=== PATIENT | female | born 1940 | race Caucasian/White ===

== ENCOUNTER 2016-08-14 06:42 | Inpatient (IN) | payer OTHER ==
--- NOTE | 2016-07-27 13:43 | DIAGNOSTIC IMAGING REPORT ---
CHEST 2 VIEWS ROUTINE CLINICAL HISTORY: Preoperative chest COMPARISON STUDY: No previous studies for comparison. FINDINGS: The heart is the upper limits of normal in size. There is a retrocardiac opacity consistent with a hiatal hernia. There is no overt failure. There is no focal pulmonary consolidation. Prominence the basal markings is felt to be secondary to the patient's body habitus.[ IMPRESSION: Hiatal hernia. No acute findings. Electronically signed by: Leander Tavarez M.D. 07/27/2016 1:42 PM Dictated Date/Time: 07/27/2016 1:41 PM
[2016-07-27 13:56] LABS: URINE APPEARANCE CLEAR (CLEAR); URINE BILIRUBIN NEG (NEG); URINE COLOR YELLOW; URINE NITRITE NEG (NEG); URINE PH 5.5 (4.5-7.5); URINE SPECIFIC GRAVITY 1.011 (1.000-1.030); UROBILINOGEN NEG (NEG)
[2016-07-27 14:02] LABS: MANUAL MICROSCOPIC REQUIRED? NO; REVIEW REQ? NO
[2016-07-27 14:17] LABS: PARTIAL THROMBOPLASTIN RATIO 0.9; PROTHROMBIN TIME (PATIENT) 10.6 SECONDS (9.0-12.0)
[2016-07-29 10:17] VITALS: BMI 51.0
--- NOTE | 2016-08-13 18:29 | HISTORY & PHYSICAL EXAMINATION ---
DATE OF ADMISSION: 08/14/2016 SUBJECTIVE CHIEF COMPLAINT: Right ankle deformity. HISTORY OF PRESENT ILLNESS: This is a patient who had undergone a previous right ankle fusion. She was seen because of deformity of the right ankle, also worsening pain in the hindfoot and worsening arthritic pain. She is now being set up for surgical treatment. PAST MEDICAL HISTORY: Hypertension, hypercholesterolemia, sleep apnea with CPAP, anxiety, osteoarthritis, low back pain, acid reflux, obesity. SOCIAL HISTORY: The patient denies alcohol and tobacco use. FAMILY HISTORY: Noncontributory. PAST SURGICAL HISTORY: Cholecystectomy and a right ankle fusion. ALLERGIES: No known drug allergies. CURRENT MEDICATIONS: Escitalopram 20 mg 1 p.o. daily, vitamin D3 one p.o. daily, Flonase 50 mcg 1 spray in each nostril daily, furosemide 40 mg 1 p.o. daily, [place] 5/325 mg 1-2 every 4 hours as needed for pain, iron supplement 80 mg 1 p.o. daily, lisinopril 10 mg 1 p.o. daily, lovastatin 20 mg 1 p.o. at bedtime, multivitamin 1 p.o. daily, vitamin C 500 mg 1 p.o. daily, Tylenol Arthritis 650 mg 2 tablets by mouth every 8 hours as needed for pain, vitamin B12 1000 mcg 1 p.o. daily, cinnamon supplement 500 mg 2 p.o. daily. OBJECTIVE PHYSICAL EXAMINATION: GENERAL: The patient is alert and oriented x3. She is in no distress. She is a well-dressed, well-nourished 76-year-old female. Her affect is appropriate. CARDIOVASCULAR: Dorsalis pedis, posterior tib pulse +2/4. Cap refill is less than 2 seconds. HEART: Regular rhythm and rate without murmurs. LUNGS: Clear to auscultation bilaterally. LYMPHATICS: No evidence of any swollen lymph nodes. MUSCULOSKELETAL: The patient does has an antalgic gait favoring the right lower extremity. Upon inspection of right lower extremity, there is a varus deformity of the right ankle. With palpation, she has tenderness at the sinus tarsi of the right ankle. She has limited range of motion because of the ankle fusion and hindfoot osteoarthritis. Achilles tightness is also noted. SKIN: There is well-healed surgical incision in the lateral aspect of the ankle. NEUROLOGIC: Sensation normal and intact distally. X-RAY EXAM: Multiple views of the right ankle demonstrate a well-healed right ankle fusion; however, the fusion is noted to be in varus. There is severe degenerative joint disease of the subtalar joint with spurring and subchondral sclerosis. ASSESSMENT AND DIAGNOSES: 1. Right ankle varus deformity. 2. History of right ankle fusion. 3. Right subtalar osteoarthritis. 4. Right Achilles tendon contracture. PLAN: Above assessment was discussed with the patient. At this time it was recommended the patient undergo a right ankle lateral closing wedge osteotomy of previous ankle fusion, subtalar fusion, percutaneous Tendo-Achilles Lengthening and application of platelet rich plasma. All potential risks, benefits, complications, alternatives and rehab have been discussed with the patient. At this time, she wishes to proceed with the surgery as indicated. She will be scheduled for the surgery on 08/14/2016. LEÓN
[2016-08-14] VITALS (8 sets, daily range): BP systolic 110–149; BP diastolic 72–89; PULSE 80–107; TEMP 36.5–37.3; O2SAT 93–99; Ht 149.9 cm; Wt 115.2 kg
[~2016-08-14] VITALS: Ht 149.9 cm; Wt 115.2 kg
[~2016-08-14 06:42] MED LIST: ASCO1CAP3 PO; ATROPINE SULFATE 0.1 MG/ML 5ML SYR IV PRN; CEFAZOLIN 2000 MG/60 ML D5W IV SCH; CHOL1CAP57 PO; CINN1CAP2 PO; CITA20TA4 PO; CYAN10005 PO; EpHEDrine SULFATE INJ 50 MG/ML AMP IV PRN; FENTANYL CITRATE INJ 50 MCG/1 ML 2 ML VIAL IV PRN; FERR50TA3; FLUT0.15 NAE; FRS/40 PO; HYDR-4313 PO; LACTATED RINGER'S 1000ML 1,000 ML IV SCH; LISI10TA PO; LOVA20TA4 PO; MULT-506 PO; ONDANSETRON INJ 2 MG/ML 2 ML VIAL IV PRN; POTA1TAB97 PO; PRLSR20 PO; TYLER650 PO
--- NOTE | 2016-08-14 07:31 | History & Physical Bridge Note ---
H&P Re-Evaluation Bridge Note: I have examined the patient, reviewed the History & Physical and in the interval since the performance of the History & Physical I have noted the following changes of clinical significance: No changes noted
[2016-08-14] MEDS ORDERED: ROPIVACAINE 0.5% 5 MG/ML 30 ML VIAL ONE (08:15)
[2016-08-14] MEDS ORDERED: MIDAZOLAM HCL 1 MG/ML 2ML VIAL ONE (08:47)
[2016-08-14] MEDS ORDERED: FENTANYL CITRATE INJ 50 MCG/1 ML 2 ML VIAL ONE ×2 (08:48→12:19)
[2016-08-14] MEDS ORDERED: CALCIUM CHLORIDE 10% 10 ML SYR ONE (10:09)
[2016-08-14] MEDS ORDERED: THROMBIN 5000 UNITS KIT ONE (10:09)
[2016-08-14] MEDS ORDERED: LIDOCAINE HCL 2% 2 ML VIAL (20MG/ML) ONE (10:57)
[2016-08-14] MEDS ORDERED: GLYCOPYRROLATE INJ 0.2 MG/ML VIAL ONE (10:57)
[2016-08-14] MEDS ORDERED: ONDANSETRON INJ 2 MG/ML 2 ML VIAL ONE (10:57)
[2016-08-14] MEDS ORDERED: PROPOFOL IV EMULSION 10 MG/ML 20 ML VIAL IV ONE (10:57)
[2016-08-14] MEDS ORDERED: NEOSTIGMINE METHYLSULFATE 5 MG/5 ML SYR ONE (10:57)
[2016-08-14] MEDS ORDERED: DEXAMETHASONE SOD INJ 4 MG/ML VIAL ONE (10:57)
[2016-08-14] MEDS ORDERED: ROCURONIUM BROMIDE 10 MG/ML 5 ML VIAL ONE (10:57)
[2016-08-14] MEDS ORDERED: ONDANSETRON INJ 2 MG/ML 2 ML VIAL IV PRN (13:15)
[2016-08-14] MEDS ORDERED: ZOLPIDEM TARTRATE 5 MG TAB PO PRN (13:15)
[2016-08-14] MEDS ORDERED: MoRPHine SULFATE 2 MG/ML CARP IV PRN (13:15)
[2016-08-14] MEDS ORDERED: MAGNESIUM HYDROXIDE SUSP 30 ML UDC PO PRN (13:15)
[2016-08-14] MEDS ORDERED: BISACODYL 10 MG SUPP PR PRN (13:15)
[2016-08-14] MEDS ORDERED: SOD PHOSPHATE/SOD BIPHOSPHATE ENEMA 132 ML BTL PR PRN (13:15)
[2016-08-14] MEDS ORDERED: ALUMINUM/MAGNESIUM/SIMETH (MAALOX MAX) 30 ML UDC PO PRN (13:15)
[2016-08-14] MEDS ORDERED: FLUTICASONE PROPIONATE NA SPR 16 GM BTL NAE PRN (13:15)
[2016-08-14] MEDS ORDERED: OXYCODONE HCL IR 5 MG TAB (IMMEDIATE RELEASE) PO PRN (13:15)
[2016-08-14] MEDS ORDERED: NO NSAIDS SCH (13:15)
--- NOTE | 2016-08-14 14:16 | DIAGNOSTIC IMAGING REPORT ---
INTRAOPERATIVE RIGHT ANKLE 4 VIEWS CLINICAL HISTORY: Right ankle reconstruction COMPARISON STUDY: No previous studies for comparison. FINDINGS: 108 seconds of fluoroscopic time was utilized. 4 intraoperative fluoroscopic spot images are provided for interpretation. There is evidence of a distal fibular osteotomy. There is evidence of a tibiotalus are and talo calcaneal fusion. A metallic jerardo traverses the tibiotalar and talocalcaneal joint. Two Calcaneal screws are visualized. There is a talonavicular screw. Advanced arthritic changes are present within the hindfoot. There is a plantar calcaneal spur. IMPRESSION: Intraoperative radiographs demonstrating a hindfoot and tibiotalar fusion Electronically signed by: Leander Tavarez M.D. 08/14/2016 2:15 PM Dictated Date/Time: 08/14/2016 2:12 PM
--- NOTE | 2016-08-14 14:31 | [facility] Post Operative Brief Note ---
Immediate Operative Summary Operative Date Aug 14, 2016. Pre-Operative Diagnosis 1. Right ankle varus deformity. 2. Malunion right ankle fusion. 3. Right subtalar DJD/osteoarthritis. 4. Right Achilles tendon contracture 5. Talonavicular joint DJD/Osteoarthritis. Post-Operative Diagnosis 1. Right ankle varus deformity. 2. Malunion right ankle fusion. 3. Right subtalar DJD/osteoarthritis. 4. Right Achilles tendon contracture 5. Talonavicular joint DJD/Osteoarthritis. Procedure(s) Performed Right Ankle Subtalar Fusion w/ Autografting; Implantattion Retrocalcaneal Nail, Medial Distal Tibial Opening Wedge Osteotomy with Autografting; Percutaneous Tendon Achilles Lengthening;Talonavicular Fusion w/ Autografting, Application Platelet Rich Plasma Concentrate Surgeon Dr Pepe Electrician Control Equipment Surgeon(s) Tray Ellington PA-C Estimated Blood Loss 100ml Findings See Dict Specimens none Drains HV x 1 Anesthesia GLMA w/ popliteal block Complication(s) None Disposition Recovery Room / PACU
--- NOTE | 2016-08-14 14:51 | DIAGNOSTIC IMAGING REPORT ---
RIGHT ANKLE MIN 3 VIEWS ROUTINE CLINICAL HISTORY: post op Right COMPARISON STUDY: Right ankle 08/14/2016. FINDINGS: Overlying splint material obscures fine bony detail. Skin iveth and surgical drains are in place. Evidence for distal tibial osteotomy. There is a short intermedullary jerardo within the distal tibia which extends through the talus and calcaneus with screws transfixing the subtalar and talonavicular joints. The hardware appears intact. Resection of the distal fibula. IMPRESSION: Postoperative changes within the right ankle as described above. The hardware appears intact. Electronically signed by: Carlos Mcpherson M.D. 08/14/2016 2:50 PM Dictated Date/Time: 08/14/2016 2:48 PM
--- NOTE | 2016-08-14 14:57 | Anesthesiology Progress Note ---
Anesthesia Post Op Note Date & Time Aug 14, 2016 at 14:57 Vital Signs Pain Intensity: 0 Vital Signs Past 12 Hours Date Time Temp Pulse Resp B/P (MAP) Pulse Ox O2 Delivery O2 Flow Rate FiO2 08/14/16 14:45 91 16 138/78 94 Nasal Cannula 2 08/14/16 14:35 91 18 138/88 97 Mask 10 08/14/16 14:25 93 18 145/71 96 Mask 10 08/14/16 14:15 36.9 98 18 147/83 96 Mask 10 08/14/16 10:00 73 20 131/80 (97) 100 Diffusion Mask 10 08/14/16 09:50 91 20 133/88 (103) 100 Diffusion Mask 10 08/14/16 07:19 36.8 95 24 147/89 99 Room Air Notes Mental Status: alert / awake / arousable, participated in evaluation Pt Amnestic to Procedure: Yes Nausea / Vomiting: adequately controlled Pain: adequately controlled Airway Patency, RR, SpO2: stable & adequate BP & HR: stable & adequate Hydration State: stable & adequate Anesthetic Complications: no major complications apparent
--- NOTE | 2016-08-14 16:07 | OPERATIVE REPORT ---
DATE OF OPERATION: 08/14/2016 PREOPERATIVE DIAGNOSES: 1. Right ankle fusion varus malunion. 2. Subtalar joint degenerative joint disease. 3. Achilles contracture. POSTOPERATIVE DIAGNOSES: 1. Right ankle fusion varus malunion. 2. Subtalar joint disease degenerative joint disease. 3. Talonavicular joint degenerative joint disease. 4. Achilles tendon contracture. PROCEDURES: 1. Right subtalar joint fusion with autografting. 2. Talonavicular joint fusion with autografting. 3. Retrocalcaneal nailing. 4. Medial distal tibial opening wedge osteotomy with application of autograft. 5. Percutaneous TendoAchilles lengthening. 6. Application of platelet rich plasma concentrate. SURGEON: Dr. Pepe. RESEARCH AND DEVELOPMENT TECHNICIAN: Tray Ellington PA-C, who was present for patient positioning, sterile prep and drape, management of retractors and instruments. He was present through the critical portions of the case including wound closure, application of sterile dressing and transport of the patient to recovery. ANESTHESIA: General LMA with popliteal block. SPECIMENS: None. DRAINS: Hemovac x1. COMPLICATIONS: None. BLOOD LOSS: 100 mL. PERTINENT HISTORY: This is a 76-year-old female who had a previous attempted right ankle fusion by a local director bioinformatics. She developed a varus malunion and she had her hardware removed and she was dissatisfied with the result and did not want to have the director bioinformatics attempt another fusion. She then presented to my clinic for definitive care and management. The patient had radiographs and CT scan was then scheduled for surgery as indicated. All potential risks, benefits, complications, alternatives, rehab, potential for incomplete relief of symptoms, need for further surgery, DVT, PE, , persistent pain, swelling, scarring, weakness, neurovascular injury, wound complications, potential for bone fracture, malunion, nonunion or hardware failure were discussed with the patient and the patient decided to proceed with the procedure as indicated. OPERATION AND FINDINGS: PROCEDURE: The patient had a popliteal block in the preop holding area, she was then taken to the operative suite and placed supine on the operating room table. After review of the consent and identification of proper operative site, the patient was anesthetized, LMA was placed. Tourniquet was placed high on the right thigh over cast padding. Right lower extremity was then sterilely prepped and draped in usual fashion, elevated, and exsanguinated with an Esmarch bandage, tourniquet inflated to 350 mmHg. Next, the foot was held in dorsiflexion and a 3-part percutaneous TendoAchilles lengthening was performed with an 11 blade scalpel, releasing a portion of the posterior contracture. These small stab incisions in the Achilles was then closed using a skin stapler. Next, the 15 blade scalpel was used to make an incision over the lateral aspect of the hindfoot extending proximally into the ankle at the site of previous incision. The incision was then deepened through subcutaneous tissue and meticulous hemostasis was achieved with electrocautery. Full thickness skin flaps were developed and careful dissection of the scar tissue was performed with a 15 blade scalpel and then eventually Metzenbaum scissors and forceps. The extensor digitorum brevis was then identified and incised in line with the skin incision, elevated both superiorly and inferiorly and protected. The subtalar joint was then entered with the 15 blade scalpel elevating soft tissue superiorly and inferiorly and elevating tissue from the sinus tarsi. The subtalar joint was then noted to have significant degenerative arthritis with significant loss of articular cartilage. The remainder of the articular cartilage was then removed using a curette and rongeur. Next, this was irrigated with sterile normal saline. The talonavicular joint was noted to have significant severe degenerative arthritis with near complete loss of articular cartilage. Remainder of the articular cartilage was then resected with a rongeur and a curette. Next, the wound was copiously irrigated with sterile normal saline. Next, a 2 mm drill bit was used to make multiple drill holes in the subtalar joint and the talonavicular joint to encourage bleeding into the joint fusion and to encourage release of mesenchymal stem cell colonies. Next, the soft tissues elevated from the anterior aspect of the varus malunion ankle fusion and then a Navarro elevator was then placed anterior aspect of the distal tibia. Under live fluoroscopic assistance, the orientation of the anterior medially based distal tibial opening wedge osteotomy was then confirmed and marked with a sagittal saw and then the corticotomy was performed with the sagittal saw using appropriate soft tissue retractors in the distal anteromedial tibia. Next, using a sequence of stacked osteotomes the osteotomy was opened while using a tenaculum forceps to maintain the hinge laterally under compression. Next, appropriate correction was obtained and the stacked osteotomes were held in place while 0.062 inch K wires x3 were used to scaffold the correction required transfixing the 2 portions of the corticotomy and opening wedge osteotomy. The patient's venous blood was harvested approximately 55 mL, spun in a centrifuge and then the platelet rich plasma concentrate was then collected for use later in the case. Next, the 15 blade scalpel was then used to make an incision in the plantar aspect of the heel tuberosity and slightly anterior. The incision was then carefully deepened through subcutaneous tissue and meticulous hemostasis was achieved with electrocautery. Dissection was further performed with a small Aminata clamp down to the level of the calcaneus. Next guide pin for the retrocalcaneal nail was then passed through the calcaneus with care to hold the subtalar joint in neutral accounting for approximately 7 degrees of valgus that the retrocalcaneal nail would produce. Next, the guidepin was then crossed into the body of the talus and then under live fluoroscopic assistance was then passed in the distal tibia while maintaining the corrective osteotomy of the medial distal tibia with the K-wires. Next, the drill bit was removed followed by placement of a 5 mm drill bit in the distal tibia followed by placement of a bolted guidewire. After sequential reaming up to size 11 mm all wounds were then copiously irrigated with sterile normal saline. Next, the subtalar joint and talonavicular joint where then fish scaled with a 6 mm osteotome and mallet to encourage increased surface area perfusion. The reamings from the calcaneus, talus, and distal tibia were then saved for later use in the case as autograft. Next, the 10 mm x 180 mm hindfoot arthrodesis cannulated retrocalcaneal nail was then passed over the ball tipped guidewire crossing the calcaneus, talus and tibia. After appropriate depth was determined with C-arm fluoroscopy, the 15 blade scalpel was used to make an incision in the posterior aspect of the calcaneus following placement of the spiral blade 70 mm in length as well as a 6 mm solid titanium screw 70 mm in length. These were both countersunk below the level of the posterior calcaneus. Next the driving cap was then inserted onto the nail assistant finance director and the subtalar joint was then impacted with autograft placed in the subtalar joint. Next, the posterolateral talus locking screw was then implanted using a small stab incision, a 15 blade scalpel, placed under live fluoroscopic assistance. Once this firmly inserted and tightened the driving cap was placed in the distal aspect of the nail assistant finance director and autograft was then packed into the corticotomy and opening wedge osteotomy distal medial tibia. Next, the nail was then further impacted to compress the corticotomy lateral aspect and to gently load the autograft medially. Next, the medial locking screws x2 in the tibia were placed using 2 stab incisions with a 15 blade scalpel under live fluoroscopic assistance. After the locking screws were placed the construct was then stable and compressed. Next, platelet rich plasma concentrate was then injected into the opening wedge osteotomy distal medial tibia into the subtalar joint fusion and the talonavicular joint fusion. Talonavicular joint was fused by elongating the screw through the posterolateral talar locking screw caps the talonavicular joint compressible. Next, the 10 [place] Hemovac drain was placed in the anterolateral aspect of the hindfoot followed by gentle irrigation with sterile normal saline in the soft tissues only taking care to avoid irrigating the platelet rich plasma concentrate. Next, the deep soft tissue laterally was then closed with 2-0 Vicryl, more platelet rich plasma concentrate was injected in the soft tissues and fusion site followed by injection of PRP in the posterior incision, medial incision and the posterolateral incision. Next, the small stab incisions were then closed using buried interrupted 3-0 Vicryl and skin incisions were closed using 4-0 nylon. A sterile compressive dressing and bulky Richi Sands plaster splint was applied in neutral dorsiflexion. The tourniquet was released. The patient was awakened and taken to recovery in stable condition. I attest to the content of the Intraoperative Record and any orders documented therein. Any exception s are noted below.
[2016-08-14] MEDS: D5W AND 1/2NSS + 20MEQ KCL 1,000 ML IV SCH (16:38)
[2016-08-14] MEDS: ACETAMINOPHEN 500 MG TAB PO SCH ×2 (16:39→21:37)
[2016-08-14] MEDS: CEFAZOLIN IV 2,000 MG in DEXTROSE 5% 50ML 50 ML IV SCH (19:28)
[2016-08-14] MEDS: DOCUSATE SODIUM 100 MG CAP PO SCH (20:58)
[2016-08-14] MEDS ORDERED: LOVASTATIN 20 MG TAB PO SCH (21:00)
[2016-08-14] MEDS ORDERED: SENNA 8.6 MG TAB PO SCH (21:00)
--- NOTE | 2016-08-14 21:32 | INTERNAL MEDICINE CONSULTATION ---
DATE OF CONSULTATION: 08/14/2016 CHIEF COMPLAINT: Status post right ankle surgery. HISTORY OF PRESENT ILLNESS: This is a 76-year-old female with past medical history significant for hyperlipidemia, sleep apnea, impaired fasting glucose, GERD, depression, and hypertension, iron deficiency anemia, is status post a right ankle surgery. He tolerated the procedure okay. Pain is under control. Denies any chest pain or shortness of breath. No nausea, no vomiting, no abdominal pain, no blurred vision, no headaches, resting comfortably. Denies any other complaints. ALLERGIES: No known drug allergies. PAST MEDICAL HISTORY: As mentioned above. PAST SURGICAL HISTORY: Colonoscopy with biopsy and polyp removal, dilatation and curettage, fusion of the right ankle joint in 2006, cholecystectomy. MEDICATIONS: The patient is on Lasix 60 mg p.o. daily, potassium chloride 20 mEq p.o. daily, hydrocodone/acetaminophen 5/325 mg one tablet every 4 hours p.r.n. pain, Mevacor 20 mg p.o. at bedtime, lisinopril 40 mg p.o. daily, omeprazole 20 mg p.o. daily, ferrous sulfate 1 tablet p.o. daily, cyanocobalamin ER 1000 mcg p.o. daily, citalopram 20 mg p.o. daily, Flonase 2 sprays into each nostril daily, vitamin D 1000 units two pills a day, vitamin C 500 mg p.o. daily, Tylenol Arthritis 2 tablets every 8 hours p.r.n., multivitamins 1 tablet p.o. daily. FAMILY HISTORY: Significant for: Father had leukemia, mother has heart disorder. Brother has MS. SOCIAL HISTORY: , never smoked. Alcohol occasionally. No drug use. REVIEW OF SYMPTOMS: As per HPI. Rest of review of symptoms negative. PHYSICAL EXAMINATION: GENERAL: The patient is obese, not in distress. VITAL SIGNS: Temperature 36.9, pulse 80, respiratory rate 18, blood pressure 146/78, oxygen 97% on 2 liters. HEENT: No pallor, no icterus. NECK: No neck masses, supple. CARDIOVASCULAR: S1, S2 heard, regular rate and rhythm. No murmur, no gallop. RESPIRATORY: Clear to auscultation bilaterally. No wheezing, no crackles. ABDOMEN: Soft, bowel sounds present. Nontender. No distention. CENTRAL NERVOUS SYSTEM: Nonfocal. EXTREMITIES: Status post right ankle surgery, is in dressing and drain seen. LABORATORY DATA: Unavailable. ASSESSMENT AND PLAN: This is a 76-year-old female status post right ankle surgery. 1. Right ankle surgery. Management as per orthopedics. Pain control, and physical therapy, occupational therapy as per orthopedics. 2. Hypertension. Continue home medication of lisinopril. We will monitor the blood pressure in the hospital. 3. History of sleep apnea, CPAP at bedtime. 4. History of gastroesophageal reflux disease. Continue omeprazole. 5. History of iron deficiency anemia. Continue iron supplements. 6. Depression, continue Celexa. 7. Hyperlipidemia. Continue statin. 8. Deep venous thrombosis prophylaxis and disposition as per orthopedics. MTDD
[2016-08-15] MEDS: D5W AND 1/2NSS + 20MEQ KCL 1,000 ML IV SCH (02:00)
[2016-08-15] MEDS: CEFAZOLIN IV 2,000 MG in DEXTROSE 5% 50ML 50 ML IV SCH (02:00)
[2016-08-15 03:45] VITALS: BP 123/69; PULSE 92; TEMP 36.7; O2SAT 97
[2016-08-15] MEDS: ACETAMINOPHEN 500 MG TAB PO SCH (05:43)
[2016-08-15 05:55] LABS: HEMATOCRIT 29.7 % (37-47); MEAN CELL VOLUME 85.8 fL (80-100); MEAN CORPUSCULAR HEMOGLOBIN 27.7 pg (25-34); MEAN CORPUSCULAR HGB CONC 32.3 g/dl (32-36); MEAN PLATELET VOLUME 8.7 fL (7.4-10.4); PLATELET COUNT 273 K/uL (130-400); RED BLOOD COUNT 3.46 M/uL (4.2-5.4); WHITE BLOOD COUNT 9.73 K/uL (4.8-10.8)
[2016-08-15 06:25] LABS: BUN/CREATININE RATIO 15.3 (10-20); CALCIUM 8.7 mg/dl (8.5-10.1); CREATININE 0.76 mg/dl (0.60-1.20); POTASSIUM 4.5 mmol/L (3.5-5.1)
[2016-08-15 08:04] VITALS: BP 152/90; PULSE 82; TEMP 36.8; O2SAT 95
[2016-08-15] MEDS: DOCUSATE SODIUM 100 MG CAP PO SCH (08:31)
[2016-08-15] MEDS ORDERED: POTASSIUM CHLORIDE 20 MEQ TABCR PO SCH (09:00)
[2016-08-15] MEDS ORDERED: FERROUS SULFATE 325 MG TAB PO SCH (09:00)
[2016-08-15] MEDS ORDERED: FUROSEMIDE 40 MG TAB PO SCH (09:00)
[2016-08-15] MEDS ORDERED: CYANOCOBALAMIN 500 MCG TAB (VIT B-12) PO SCH (09:00)
[2016-08-15] MEDS ORDERED: ASCORBIC ACID 500 MG TAB PO SCH (09:00)
[2016-08-15] MEDS ORDERED: LISINOPRIL 10 MG TAB PO SCH (09:00)
[2016-08-15] MEDS ORDERED: CINNAMON PO SCH (09:00)
[2016-08-15] MEDS ORDERED: PANTOprazole SOD 40 MG TAB PO SCH (09:00)
[2016-08-15] MEDS ORDERED: CITALOPRAM 20 MG TAB PO SCH (09:00)
[2016-08-15] MEDS ORDERED: MULTIVITAMIN TAB PO SCH ×2 (09:00)
[2016-08-15] MEDS ORDERED: CHOLECALCIFEROL 1000 INTER.UNIT TAB PO SCH (09:00)
--- NOTE | 2016-08-15 09:15 | Orthopedic Progress Note ---
Orthopedic Progress Note Date of Service Aug 15, 2016. Subjective Post OP Day: 1 Reports: feeling well, pain controlled w PO medications, Denies: complaints, chest pain, SOB, light headedness Additional Notes: States the dressing was bloody last night so the dressing was re-inforced. Objective calves soft nontender, N/V intact, splint C/D/I, capillary refill less than 2 sec., dressing C/D/I (Reinforced dressing is in place.), A&O x3, toes mobile, hemovac drainage (0) Date Time Temp Pulse Resp B/P (MAP) Pulse Ox O2 Delivery O2 Flow Rate FiO2 08/15/16 08:04 36.8 82 20 152/90 (110) 95 Room Air 08/15/16 07:35 Room Air 08/15/16 03:45 36.7 92 16 123/69 (87) 97 BiPAP 08/14/16 23:30 BiPAP 08/14/16 23:30 36.8 97 16 125/72 (89) 97 BiPAP 08/14/16 20:10 36.8 98 18 110/72 (85) 93 Room Air 08/14/16 18:15 37.3 107 18 137/79 (98) 96 Nasal Cannula 2.0 08/14/16 17:15 36.5 91 18 149/83 (105) 95 Nasal Cannula 2.0 08/14/16 16:15 36.5 92 16 148/89 (108) 99 Nasal Cannula 2.0 08/14/16 15:45 36.9 80 18 146/78 (100) 97 Nasal Cannula 2.0 08/14/16 15:15 Nasal Cannula 2.0 08/14/16 15:15 94 Nasal Cannula 2.0 08/14/16 15:15 36.8 92 16 143/73 (96) 94 Nasal Cannula 2.0 08/14/16 15:05 37.1 91 16 146/69 95 Nasal Cannula 2 08/14/16 14:55 89 16 151/58 95 Nasal Cannula 2 08/14/16 14:45 91 16 138/78 94 Nasal Cannula 2 08/14/16 14:35 91 18 138/88 97 Mask 10 08/14/16 14:25 93 18 145/71 96 Mask 10 08/14/16 14:15 36.9 98 18 147/83 96 Mask 10 08/14/16 10:00 73 20 131/80 (97) 100 Diffusion Mask 10 08/14/16 09:50 91 20 133/88 (103) 100 Diffusion Mask 10 Laboratory Results 24 Hours: Test 08/15/16 05:30 Hematocrit 29.7 % Hemoglobin 9.6 g/dL Assessment & Plan Assessment: POD #1 s/p 1. Right subtalar joint fusion with autografting. 2. Talonavicular joint fusion with autografting. 3. Retrocalcaneal nailing. 4. Medial distal tibial opening wedge osteotomy with application of autograft. 5. Percutaneous TendoAchilles lengthening. 6. Application of platelet rich plasma concentrate Plan: Plan for d/c today with home nursing. NWB LLE at all times. Aspirin BID for 30 days for DVT prophylaxis Inhouse Planning Pain Management: Morphine, PO Tylenol, Oxy IR DVT Prophylaxis: HARLAN Kerr Discharge Planning Discharge Planning: home with home health Pain Management: Percocet DVT Prophylaxis: HARLAN Kerr
[2016-08-15] MEDS ORDERED: OXYC-57 PO (09:16)
[2016-08-15] MEDS ORDERED: ASPEC81 PO (09:18)
--- NOTE | 2016-08-15 09:18 | Discharge Instructions ---
Discharge Instructions Date of Service Aug 15, 2016. 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 Instructions / Follow-Up Instructions / Follow-Up ACTIVITY RECOMMENDATIONS: Limitations: No weight bearing to affected limb at all times. SPECIAL CARE INSTRUCTIONS: * Take Aspirin every 12 hours for 30 days after surgery. * Some drainage onto the dressing is normal and is no cause for alarm. * Some swelling is natural especially after walking. * When resting, keep your foot elevated above the level of your heart. * Call [facility] if you notice: -Increased drainage -Fever over 101 degrees F -Severe constant pain BANDAGE: * Leave bandage/cast in place unless otherwise directed. * Keep bandage/cast dry at all times. FOLLOW UP VISIT WITH DR. AREVALO If appointment is not already scheduled: Please call [facility] after you get home today to schedule a follow-up appointment for [address] Arevalo at . Also schedule a nurse' s visit with Dr. Arevalo's clinic for in 1 week for a dressing change. Current Hospital Diet Patient's current hospital diet: Regular Diet Discharge Diet Recommended Diet: Regular Diet Procedures Procedures Performed: Right Ankle Subtalar Fusion w/ Autografting; Implantattion Retrocalcaneal Nail, Medial Distal Tibial Opening Wedge Osteotomy with Autografting; Percutaneous Tendon Achilles Lengthening;Talonavicular Fusion w/ Autografting, Application Platelet Rich Plasma Concentrate Pending Studies Studies pending at discharge: no Medical Emergencies . Who to Call and When: Medical Emergencies: If at any time you feel your situation is an emergency, please call 911 immediately. . Non-Emergent Contact Non-Emergency issues call your: Surgeon Call Non-Emergent contact if: temperature is above 101, your pain is not controlled, your pain is worsening . "Provider Documentation" section prepared by Tray Ellington. . VTE Core Measure Inpt VTE Proph given/why not?: Other Anticoagulation (Aspirin 81 mg every 12 hours.), T.E.D. Stockings
[2016-08-15 10:24] VITALS: BP 152/90; PULSE 82; TEMP 36.8; O2SAT 95
[2016-08-15 11:09] VITALS: BP 152/90; PULSE 82; O2SAT 95
--- NOTE | 2016-08-20 21:55 | Discharge Summary ---
Orthopedic Discharge Summary Admission Date/Reason Aug 14, 2016 at 06:55 Short Achilles Tendon Right Ankle, Varus Deformity. Discharge Date/Disposition Aug 15, 2016 Home with services Diagnosis Principal Diagnosis: right hindfoot osteoarthritis, varus deformity ankle fusion. Procedure(s) Performed 1. Right subtalar joint fusion with autografting. 2. Talonavicular joint fusion with autografting. 3. Retrocalcaneal nailing. 4. Medial distal tibial opening wedge osteotomy with application of autograft. 5. Percutaneous TendoAchilles lengthening. 6. Application of platelet rich plasma concentrate Medication Reconciliation New Medications: Aspirin (Aspirin EC Low Dose) 81 Mg Ectab 81 MG PO Q12 for 30 Days Oxycodone/Acetaminophen 5MG/325MG (Percocet 5MG/325MG) Tab 1-2 TABLETS PO Q4H PRN for Pain, #60 TAB Continued Medications: Ascorbic Acid (Vitamin C) 500 Mg Cap 1 TAB PO QAM Cholecalciferol (Vitamin D3) 1,000 Unit Cap 1 CAP PO QAM Cinnamon (Cinnamon) 500 Mg Cap 1 TAB PO QAM Citalopram Hydrobromide (Citalopram Hydrobromide) 20 Mg Tab 1 TAB PO QAM Cyanocobalamin (Vitamin B-12) 1,000 Mcg Tab 1000 MCG PO QAM Ferrous Sulfate (Iron (Ferrous Sulfate)) Unknown Strength Tab Unknown Dose QAM Fluticasone Propionate (Nasal) (Flonase Allergy Relief) 50 Mcg/Act Spr 2 SPRAY ETHAN QAM PRN for CONGESTION Furosemide (Lasix) 40 Mg Tab 1.5 TABS PO QAM Lisinopril (Prinivil) 10 Mg Tab 10 MG PO QAM Lovastatin (Mevacor) 20 Mg Tab 20 MG PO HS Multivitamin (Multivitamin) Tab 1 TAB PO QAM Omeprazole (Prilosec) 20 Mg Capcr 20 MG PO QAM Potassium Chloride (K-Tab) 20 Meq Tab 1 TAB PO QAM Discontinued Medications: Acetaminophen (Tylenol Arthitis Ext Rel) 650 Mg Ertab 650 MG PO Q8H PRN for Pain, CAP Acetaminophen/Hydrocodone (Hydrocodone/Acetaminophen 5-325 mg) 1 Ea Tab 1 TAB PO Q4H PRN for Pain Admission Physical Exam As per Admitting History & Physical. Hospital Course The patient was admitted on 08.14.16 and underwent the above noted procedure. On POD #1, she was doing well with pain control and able to keep NWB on the RLE. She participated in PT in the AM and was the d/c'd home later on POD #1. Discharge Instructions ACTIVITY RECOMMENDATIONS: Limitations: No weight bearing to affected limb at all times. SPECIAL CARE INSTRUCTIONS: * Some drainage onto the dressing is normal and is no cause for alarm. * Some swelling is natural especially after walking. * When resting, keep your foot elevated above the level of your heart. * Call [facility] if you notice: -Increased drainage -Fever over 101 degrees F -Severe constant pain BANDAGE: * Leave bandage/cast in place unless otherwise directed. * Keep bandage/cast dry at all times. FOLLOW UP VISIT WITH DR. AREVALO If appointment is not already scheduled: Please call [facility] after you get home today to schedule a follow-up appointment for [address] Arevalo at . Please refer to the electronic Patient Visit Report (Discharge Instructions) for additional information.
== END 2016-08-15 13:36 | disposition home health service (06) | DRG 493 ==
LOC: C.ACU 06:42 → C.3E 06:55 → ENRESERV 14:44
PROVIDERS: ADMIT Orthopaedic Surgery Sports Medicine; ATTEND Orthopaedic Surgery Sports Medicine
PROC: 0LNS0ZZ Release Right Ankle Tendon, Open Approach (ICD-10-PCS; principal; 2016-08-14 09:30)
PROC: 0SGF07Z Fusion of Right Ankle Joint with Autologous Tissue Substitute, Open Approach (ICD-10-PCS; principal; 2016-08-14 09:30)
PROC: 0Q8G0ZZ Division of Right Tibia, Open Approach (ICD-10-PCS; principal; 2016-08-14 09:30)
DX: M24.571 Contracture, right ankle (principal); Z68.43 Body mass index [BMI] 50.0-59.9, adult; M21.861 Other specified acquired deformities of right lower leg; M19.071 Primary osteoarthritis, right ankle and foot; I10 Essential (primary) hypertension; E78.00 Pure hypercholesterolemia, unspecified; G47.30 Sleep apnea, unspecified; F41.9 Anxiety disorder, unspecified; K21.9 Gastro-esophageal reflux disease without esophagitis; E66.9 Obesity, unspecified; Z79.899 Other long term (current) drug therapy; Z98.890 Other specified postprocedural states

== ENCOUNTER 2016-10-05 12:18 | Emergency (ER) | payer OTHER ==
[~2016-10-05] VITALS: Ht 152.4 cm; Wt 114.7 kg
[~2016-10-05 12:18] MED LIST changes: +ASPEC81 PO; -ATROPINE SULFATE 0.1 MG/ML 5ML SYR IV PRN; -CEFAZOLIN 2000 MG/60 ML D5W IV SCH; -EpHEDrine SULFATE INJ 50 MG/ML AMP IV PRN; -FENTANYL CITRATE INJ 50 MCG/1 ML 2 ML VIAL IV PRN; -HYDR-4313 PO; -LACTATED RINGER'S 1000ML 1,000 ML IV SCH; -ONDANSETRON INJ 2 MG/ML 2 ML VIAL IV PRN; +OXYC-57 PO; -TYLER650 PO
[2016-10-05 12:31] VITALS: TEMP 36.5; O2SAT 89; Ht 152.4 cm; Wt 114.7 kg
[2016-10-05] MEDS ORDERED: SODIUM CHLORIDE 0.9% 1000ML 1,000 ML IV STA (13:08)
[2016-10-05] MEDS ORDERED: SODIUM CHLORIDE 0.9% 250ML 250 ML IV STA (13:08)
--- NOTE | 2016-10-05 13:15 | EMERGENCY ROOM VISIT NOTE ---
History Report prepared by Christelle: Brodie Keyes Under the Supervision of: Dr. Darlin Rogers M.D. First contact with patient: 12:56 Chief Complaint: SHORTNESS OF BREATH Stated Complaint: NAUSEA, VOMIT Nursing Triage Summary: Pt had right ankle fusion surgery on August 14, still has cast on leg. Low mobility at home since surgery, transferring from wheelchair to go to the bathroom. Recent 3hr car ride last week. 3 days ago pt developed dyspnea with transferring from wheelchair to bathroom, today developed N/V/D. Pt denies any respiratory hx, denies any cardiac hx. Pt presents tachypenic: resps 26, tachycardic: HR 120's, hypoxic: sats 89% R/A. History of Present Illness The patient is a 76 year old female who presents to the Emergency Room with complaints of intermittent shortness of breath that began roughly three days ago. The patient is currently using a wheel chair due to a recent right ankle fusion surgery. She notes that she has experienced dyspnea when transferring from her wheel chair to her bed or other chairs. This is unusual for her. The patient notes that she became short of breath today when transferring from her chair to use the restroom. She had a bowel movement that contained yellow diarrhea. After transferring back to her wheel chair the patient became nauseous , dizzy, and felt like she was going to lose consciousness. Source of History: patient Onset: 3 days ago Position: other (Respiratory) Timing: intermittent, worsening Modifying Factors (Worsening): other (SOB) Associated Symptoms: + nausea, + diarrhea Review of Systems See HPI for pertinent positives & negatives. A total of 10 systems reviewed and were otherwise negative. Past Medical & Surgical Medical Problems: (1) Anxiety (2) Benign neoplasm of colon (3) Depression (4) Dyslipidemia (5) GERD (gastroesophageal reflux disease) (6) Hypertension (7) Lumbar spinal stenosis (8) Morbid obesity with BMI of 50.0-59.9, adult (9) Nocturnal hypoxemia (10) Obstructive sleep apnea on CPAP (11) Osteoarthritis of right foot Surgical Problems: (1) S/P ankle fusion (2) S/P cholecystectomy Family History FH: heart disease MOTHER FH: leukemia FATHER Social History Smoking Status: Never Smoker Alcohol Use: none Marital Status: Occupation Status: retired Current/Historical Medications Scheduled Ascorbic Acid (Vitamin C), 500 MG PO DAILY Cholecalciferol (Vitamin D3), 1,000 UNITS PO DAILY Cinnamon (Cinnamon), 500 MG PO QAM Citalopram Hydrobromide (Citalopram Hydrobromide), 20 MG PO DAILY Cyanocobalamin (Vitamin B-12), 1,000 MCG PO QAM Ferrous Gluconate (Iron), 27 MG PO DAILY Lisinopril (Prinivil), 10 MG PO DAILY Lovastatin (Mevacor), 20 MG PO HS Multivitamin (Multivitamin), 1 TAB PO QAM Omeprazole (Prilosec), 20 MG PO QAM Potassium Chloride (K-Tab), 20 MEQ PO DAILY Scheduled PRN Acetaminophen (Tylenol Arthritis Ext Rel), 650 MG PO Q4 PRN for Pain Fluticasone Propionate (Nasal) (Flonase Allergy Relief), 2 SPRAY ETHAN QAM PRN for CONGESTION Hydrocodone/Acetaminophen 5MG/325MG ([place] 5MG/325MG), 1 TABLET PO Q4 PRN for Pain Allergies Coded Allergies: No Known Allergies (Unverified , 12/26/15) Physical Exam Vital Signs Date Time Temp Pulse Resp B/P (MAP) Pulse Ox O2 Delivery O2 Flow Rate FiO2 10/05/16 16:28 108 20 92/61 94 Nasal Cannula 2.0 10/05/16 14:29 110 22 111/69 96 Nasal Cannula 2.0 10/05/16 12:50 115 10/05/16 12:32 92 Nasal Cannula 2.0 10/05/16 12:31 36.5 128 26 117/76 89 Room Air 10/05/16 12:31 89 Room Air 10/05/16 12:31 89 Room Air Physical Exam Vital signs reviewed. Noted be tachycardic and hypoxic. General: Chronically ill female, in no significant distress. HEENT: No scleral icterus, PERRLA, Pale conjunctiva. neck supple. Atraumatic. Cardiovascular: Tachycardic rate with normal rhythm, no extra sounds. Pulmonary: Clear to auscultation bilaterally, increased work of breathing. Abdomen: Soft, nontender, nondistended, positive bowel sounds. Obese abdomen. Musculoskeletal: Atraumatic, no peripheral edema. There is a cast on the right lower extremity. Neurologic: Patient awake alert and oriented x 3 Skin: Warm, dry, no rash Rectal: Normal rectal mucosa, guaiac negative brown stool. Medical Decision & Procedures ER Provider Diagnostic Interpretation: Radiology results as stated below per my review and radiologist interpretation: CHEST ONE VIEW PORTABLE CLINICAL HISTORY: 76 years-old Female presenting with SOB, hypoxia, tachycardia. TECHNIQUE: Portable upright AP view of the chest was obtained. COMPARISON: 07/27/2016. FINDINGS: Multiple prominent cardiac silhouette. Elevation of the right hemidiaphragm. Mildly prominent pulmonary vasculature, new from prior. Lungs and pleural spaces clear. Osseous structures normal. Upper abdomen normal. IMPRESSION: 1. Suggestion of mild cardiomegaly and new mild prominence of pulmonary vasculature. No ubaldo pulmonary edema. This may suggest volume overload. Electronically signed by: Lobito Ponce M.D. 10/05/2016 1:45 PM Dictated Date/Time: 10/05/2016 1:[address] ANGIOGRAM OF THE CHEST CLINICAL HISTORY: Dyspnea. Hypoxia. Tachycardia. COMPARISON STUDY: Chest x-ray dated 10/05/2016. TECHNIQUE: Following the IV administration of 116 cc of Optiray 320, CT angiogram of the chest was performed from the upper abdomen to the thoracic inlet utilizing the pulmonary embolus protocol. Images are reviewed in the axial, sagittal, and coronal planes. 3-D MIPS images are created and assessed. IV contrast was administered without complication. A dose lowering technique was utilized adhering to the principles of ALARA. The examination is degraded by large body habitus, and by streak artifact from the body wall abutting the CT gantry. CT DOSE: 712.12 mGy.cm FINDINGS: Thyroid: Imaged portions of the thyroid gland are normal in size and attenuation. Thoracic aorta: There is mild atherosclerotic calcification of the thoracic aorta, which is normal in caliber and demonstrates bovine variant arch anatomy. No dissection is seen. Pulmonary vasculature: The pulmonary trunk is mildly dilated measuring up to 3.4 cm. This suggests pulmonary artery hypertension. There are extensive bilateral pulmonary emboli. Thrombus is seen within the distal right main pulmonary artery. This extends into segmental and subsegmental branches within the right upper, middle, and lower lobes. Thrombus is also seen within the distal left main pulmonary artery. This extends into segmental and subsegmental branches of the left upper and left lower lobe pulmonary arteries. Heart: The heart is mildly enlarged and there is trace pericardial effusion. Lungs and pleural spaces: Evaluation of the lung parenchyma is degraded by respiratory motion artifact. No airspace consolidation or pleural effusion is seen. There are scattered calcified granulomas. Dependent atelectasis is observed. The trachea and central airways are clear. Mediastinum: There is no mediastinal lymphadenopathy. Lizet: Clear. Axillae: There is no axillary lymphadenopathy. Upper abdomen: The liver is enlarged and steatotic. Cholecystectomy clips are noted. There is a moderate hiatal hernia. There is near complete fatty atrophy of the partially imaged pancreas. The visualized kidneys demonstrate cortical atrophy. Skeletal structures: The skeletal structures are osteopenic. No lytic or blastic bony lesions are seen. Advanced arthritic change is seen in the shoulders. Degenerative change is also noted throughout the thoracic spine. IMPRESSION: 1. Extensive bilateral pulmonary emboli 2. There is no airspace consolidation or pleural effusion. 3. Mild cardiomegaly. 4. Moderate hiatal hernia. 5. Hepatic steatosis. Electronically signed by: Domenic Shell M.D. 10/05/2016 3:21 PM Dictated Date/Time: 10/05/2016 3:17 PM Laboratory Results 10/05/16 12:31 Red Blood Count 4.62, Mean Corpuscular Volume 85.9, Mean Corpuscular Hemoglobin 27.3, Mean Corpuscular Hemoglobin Concent 31.7, Mean Platelet Volume 9.5, Neutrophils (%) (Auto) 86.3, Lymphocytes (%) (Auto) 7.8, Monocytes (%) (Auto) 5.3, Eosinophils (%) (Auto) 0.1, Basophils (%) (Auto) 0.2, Neutrophils # (Auto) 14.35, Lymphocytes # (Auto) 1.29, Monocytes # (Auto) 0.88, Eosinophils # (Auto) 0.02, Basophils # (Auto) 0.03 10/05/16 12:31 Test 10/05/16 12:31 10/05/16 13:19 10/05/16 13:20 White Blood Count 16.62 K/uL (4.8-10.8) Red Blood Count 4.62 M/uL (4.2-5.4) Hemoglobin 12.6 g/dL (12.0-16.0) Hematocrit 39.7 % (37-47) Mean Corpuscular Volume 85.9 fL (80-100) Mean Corpuscular Hemoglobin 27.3 pg (25-34) Mean Corpuscular Hemoglobin Concent 31.7 g/dl (32-36) Platelet Count 297 K/uL (130-400) Mean Platelet Volume 9.5 fL (7.4-10.4) Neutrophils (%) (Auto) 86.3 % Lymphocytes (%) (Auto) 7.8 % Monocytes (%) (Auto) 5.3 % Eosinophils (%) (Auto) 0.1 % Basophils (%) (Auto) 0.2 % Neutrophils # (Auto) 14.35 K/uL (1.4-6.5) Lymphocytes # (Auto) 1.29 K/uL (1.2-3.4) Monocytes # (Auto) 0.88 K/uL (0.11-0.59) Eosinophils # (Auto) 0.02 K/uL (0-0.5) Basophils # (Auto) 0.03 K/uL (0-0.2) RDW Standard Deviation 46.6 fL (36.4-46.3) RDW Coefficient of Variation 14.7 % (11.5-14.5) Immature Granulocyte % (Auto) 0.3 % Immature Granulocyte # (Auto) 0.05 K/uL (0.00-0.02) Prothrombin Time 10.5 SECONDS (9.0-12.0) Prothromb Time International Ratio 1.0 (0.9-1.1) Activated Partial Thromboplast Time 24.1 SECONDS (21.0-31.0) Partial Thromboplastin Ratio 0.9 D-Dimer 5040 ug/L FEU (0-500) Est Creatinine Clear Calc Drug Dose 63.1 ml/min Estimated GFR () 73.5 Estimated GFR (Non- 63.4 BUN/Creatinine Ratio 19.7 (10-20) Calcium Level 8.9 mg/dl (8.5-10.1) Magnesium Level 2.2 mg/dl (1.8-2.4) Total Bilirubin 1.1 mg/dl (0.2-1) Direct Bilirubin 0.2 mg/dl (0-0.2) Aspartate Amino Transf (AST/SGOT) 15 U/L (15-37) Alanine Aminotransferase (ALT/SGPT) 21 U/L (12-78) Alkaline Phosphatase 95 U/L (45-117) Total Creatine Kinase 51 U/L (26-192) Creatine Kinase MB 1.2 ng/ml (0.5-3.6) Creatine Kinase MB Ratio 2.4 (0-3.0) Pro-B-Type Natriuretic Peptide 7658 pg/ml (0-900) Total Protein 7.3 gm/dl (6.4-8.2) Albumin 3.4 gm/dl (3.4-5.0) Bedside Hemoglobin 13.3 g/dl (12.0-16.0) Bedside Hematocrit 39 % (37-47) Bedside Sodium 142 mEq/L (135-144) Bedside Potassium 3.7 mEq/L (3.3-5.0) Bedside Chloride 104 mEq/L (101-112) Bedside Total CO2 24 mEq/l (24-31) Anion Gap 17.0 mmol/L (16-25) Bedside Blood Urea Nitrogen 17 mg/dl (7-18) Bedside Creatinine 0.8 mg/dl (0.6-1.3) Bedside Glucose (other) 159 mg/dl (70-99) Bedside Ionized Calcium ([place]ana) 1.15 mmol/l (1.12-1.32) Bedside Troponin I 0.060 ng/ml (0-0.045) Laboratory results per my review. Medications Administered Medications (Trade) Dose Ordered Sig/Yaquelin Route Start Time Stop Time Status Last Admin Dose Admin Sodium Chloride 250 ml @ 999 mls/hr Q16M STAT IV 10/05/16 13:08 10/05/16 14:02 DC 10/05/16 13:08 999 MLS/HR Sodium Chloride 1,000 ml @ 125 mls/hr Q8H STAT IV 10/05/16 13:08 10/05/16 14:02 DC 10/05/16 13:08 125 MLS/HR Heparin Sodium/ Dextrose (Heparin 25,000 Unit/500ml D5W) 25,000 unit STK-MED ONCE .ROUTE 10/05/16 16:23 10/05/16 16:24 DC 10/05/16 16:35 25,000 UNIT Heparin Sodium (Porcine) (Heparin Sq 5000 Unit/0.5ml) 10,000 unit STK-MED ONCE .ROUTE 10/05/16 16:23 10/05/16 16:24 DC 10/05/16 16:34 6,000 UNIT ECG Indication: SOB/dyspnea Rate (beats per minute): 118 Rhythm: sinus tachycardia Findings: RBBB, T-wave inversion, no acute ischemic change, other (Possible previous inferior infarct ) ED Course 0059: Past medical records reviewed. The patient was evaluated in room B9. A complete history and physical examination was performed. 1308: Ordered Sodium Chloride 1000 mL @ 125 mL/hr IV, Sodium Chloride 250 mL @ 999 mL/hr IV. 1514: I discussed the case with Dr. Hall, at this time. He suggests keeping her here in the hospital and does not suggest giving TPA. Medical Decision Differential diagnosis: Etiologies such as infections, DVT, PE, cardiac arrhythmia, dehydration, pneumonia, CHF, anemia, GI Bleed. This pt was evaluated and appeared to to be in no distress. IV access was obtained and lab work was drawn. Pt was placed on the satellite project site monitor. She is found to be tachycardic and hypoxic. IV fluids were initiated, patient was placed on nasal cannula oxygen. EKG reveals a sinus tachycardia. Patient's chest x-ray was performed and reveals some pulmonary vascular congestion. Patient responded well on nasal cannula oxygen. D-dimer is greater than 5000. Patient's laboratory work reveals a mild elevation of the troponin at 0.06. CT scan of the chest reveals extensive bilateral pulmonary emboli. Patient was ordered a heparin drip. I did speak with Dr. Hall of pulmonary medicine who recommends IV anticoagulation. She also recommends echocardiogram prior to any discussion of IV T[facility] in [facility] After some consideration, the quarter trimmer, Dr. Márquez was consulted. He did not feel comfortable having the patient stay at [facility] rather recommended transfer to tertiary care facility for interventional evaluation for thrombectomy. I did discuss the situation with the patient and her family. She feels most comfortable with [facility]. Medication Reconcilliation Current Medication List: was personally reviewed by me Blood Pressure Screening Patient's blood pressure: Normal blood pressure Consults Time Called: 1510 Consulting Physician: Dr. Hall Returned Call: 1514 I discussed the case with Dr. Hall, at this time. He suggests keeping her here in the hospital and feels TPA is not necessary at this time as pt is hemodynamically stable. She requested an echo. Impression Primary Impression: Bilateral pulmonary embolism Critical Care I have personally spent greater than 90 minutes of critical care time in the direct management of this patient. This includes bedside care, interpretation of diagnostic studies, and testing, discussion with consultants, patient, and family members, and other required patient management activities. This 90 minutes is in excess of all separately billable procedures. Scribe Attestation The scribe's documentation has been prepared under my direction and personally reviewed by me in its entirety. I confirm that the note above accurately reflects all work, treatment, procedures, and medical decision making performed by me. Departure Information Referrals Arline Muse M.D. (PCP) Patient Instructions [facility]
[2016-10-05] MEDS ORDERED: ACET1TAB84 PO (13:23)
[2016-10-05] MEDS ORDERED: FERR27TA5 PO (13:23)
[2016-10-05] MEDS ORDERED: HYDR-5688 PO (13:23)
[2016-10-05 13:29] LABS: BASO % 0.2 %; BASO ABS # 0.03 K/uL (0-0.2); COMPLETE YES; EOS % 0.1 %; HEMATOCRIT 39.7 % (37-47); IG% 0.3 %; LYMPH % 7.8 %; LYMPH ABS # 1.29 K/uL (1.2-3.4); MEAN CELL VOLUME 85.9 fL (80-100); MEAN CORPUSCULAR HEMOGLOBIN 27.3 pg (25-34); MEAN CORPUSCULAR HGB CONC 31.7 g/dl (32-36); MEAN PLATELET VOLUME 9.5 fL (7.4-10.4); MONO % 5.3 %; NEUT % 86.3 %; PLATELET COUNT 297 K/uL (130-400); RED BLOOD COUNT 4.62 M/uL (4.2-5.4); WHITE BLOOD COUNT 16.62 K/uL (4.8-10.8)
[2016-10-05 13:31] LABS: ISTAT CREATININE 0.8 mg/dl (0.6-1.3); ISTAT HEMOGLOBIN 13.3 g/dl (12.0-16.0); ISTAT IONIZED CALCIUM 1.15 mmol/l (1.12-1.32)
[2016-10-05 13:34] LABS: BUN/CREATININE RATIO 19.7 (10-20); CALCIUM 8.9 mg/dl (8.5-10.1); CREATININE 0.89 mg/dl (0.60-1.20); MAGNESIUM 2.2 mg/dl (1.8-2.4); POTASSIUM 3.9 mmol/L (3.5-5.1)
[2016-10-05 13:39] LABS: CKMB/CK RATIO 2.4 (0-3.0)
[2016-10-05 13:43] LABS: PARTIAL THROMBOPLASTIN RATIO 0.9; PROTHROMBIN TIME (PATIENT) 10.5 SECONDS (9.0-12.0)
--- NOTE | 2016-10-05 13:46 | DIAGNOSTIC IMAGING REPORT ---
CHEST ONE VIEW PORTABLE CLINICAL HISTORY: 76 years-old Female presenting with SOB, hypoxia, tachycardia. TECHNIQUE: Portable upright AP view of the chest was obtained. COMPARISON: 07/27/2016. FINDINGS: Multiple prominent cardiac silhouette. Elevation of the right hemidiaphragm. Mildly prominent pulmonary vasculature, new from prior. Lungs and pleural spaces clear. Osseous structures normal. Upper abdomen normal. IMPRESSION: 1. Suggestion of mild cardiomegaly and new mild prominence of pulmonary vasculature. No ubaldo pulmonary edema. This may suggest volume overload. Electronically signed by: Lobito Ponce M.D. 10/05/2016 1:45 PM Dictated Date/Time: 10/05/2016 1:43 PM
--- NOTE | 2016-10-05 15:23 | DIAGNOSTIC IMAGING REPORT ---
CT ANGIOGRAM OF THE CHEST CLINICAL HISTORY: Dyspnea. Hypoxia. Tachycardia. COMPARISON STUDY: Chest x-ray dated 10/05/2016. TECHNIQUE: Following the IV administration of 116 cc of Optiray 320, CT angiogram of the chest was performed from the upper abdomen to the thoracic inlet utilizing the pulmonary embolus protocol. Images are reviewed in the axial, sagittal, and coronal planes. 3-D MIPS images are created and assessed. IV contrast was administered without complication. A dose lowering technique was utilized adhering to the principles of ALARA. The examination is degraded by large body habitus, and by streak artifact from the body wall abutting the CT gantry. CT DOSE: 712.12 mGy.cm FINDINGS: Thyroid: Imaged portions of the thyroid gland are normal in size and attenuation. Thoracic aorta: There is mild atherosclerotic calcification of the thoracic aorta, which is normal in caliber and demonstrates bovine variant arch anatomy. No dissection is seen. Pulmonary vasculature: The pulmonary trunk is mildly dilated measuring up to 3.4 cm. This suggests pulmonary artery hypertension. There are extensive bilateral pulmonary emboli. Thrombus is seen within the distal right main pulmonary artery. This extends into segmental and subsegmental branches within the right upper, middle, and lower lobes. Thrombus is also seen within the distal left main pulmonary artery. This extends into segmental and subsegmental branches of the left upper and left lower lobe pulmonary arteries. Heart: The heart is mildly enlarged and there is trace pericardial effusion. Lungs and pleural spaces: Evaluation of the lung parenchyma is degraded by respiratory motion artifact. No airspace consolidation or pleural effusion is seen. There are scattered calcified granulomas. Dependent atelectasis is observed. The trachea and central airways are clear. Mediastinum: There is no mediastinal lymphadenopathy. Lizet: Clear. Axillae: There is no axillary lymphadenopathy. Upper abdomen: The liver is enlarged and steatotic. Cholecystectomy clips are noted. There is a moderate hiatal hernia. There is near complete fatty atrophy of the partially imaged pancreas. The visualized kidneys demonstrate cortical atrophy. Skeletal structures: The skeletal structures are osteopenic. No lytic or blastic bony lesions are seen. Advanced arthritic change is seen in the shoulders. Degenerative change is also noted throughout the thoracic spine. IMPRESSION: 1. Extensive bilateral pulmonary emboli 2. There is no airspace consolidation or pleural effusion. 3. Mild cardiomegaly. 4. Moderate hiatal hernia. 5. Hepatic steatosis. Electronically signed by: Domenic Shell M.D. 10/05/2016 3:21 PM Dictated Date/Time: 10/05/2016 3:17 PM
[2016-10-05] MEDS ORDERED: HEPARIN SOD 5000 UNIT/0.5 ML CARP ONE (16:23)
[2016-10-05] MEDS ORDERED: HEPARIN 25000 UNIT/500 ML D5W ONE (16:23)
[2016-10-05 19:04] VITALS: BP 119/78; PULSE 87; O2SAT 95
== END 2016-10-05 19:17 | disposition short-term general hospital (02) ==
LOC: EDBD 12:18 → C.EDB 12:19
DX: I26.99 Other pulmonary embolism without acute cor pulmonale (principal); R19.7 Diarrhea, unspecified; E78.5 Hyperlipidemia, unspecified; F32.9 Major depressive disorder, single episode, unspecified; K21.9 Gastro-esophageal reflux disease without esophagitis; I10 Essential (primary) hypertension; G47.33 Obstructive sleep apnea (adult) (pediatric); Z98.1 Arthrodesis status; Z90.49 Acquired absence of other specified parts of digestive tract; Z80.6 Family history of leukemia; Z79.899 Other long term (current) drug therapy

== ENCOUNTER 2018-06-17 11:58 | Inpatient (IN) ==
--- NOTE | 2018-06-15 10:41 | PAT Medication Instructions ---
Medication Instructions Date of Service June 15, 2018 Home Medications Medication Instructions Recorded oxycodone-acetaminophen [Percocet] 1 tab PO Q4H PRN #30 tab 03/21/18 ascorbic acid (vitamin C) [Vitamin 1,000 mg PO QAM cholecalciferol (vitamin D3) 1,000 unit PO QAM cinnamon bark [Cinnamon] 500 mg PO QAM citalopram 30 mg PO QAM ferrous sulfate 27 mg PO QAM furosemide [Lasix] 60 mg PO QAM lisinopril 10 mg PO QAM lovastatin 20 mg PO HS multivitamin 1 tab PO QAM omeprazole 20 mg PO QAM potassium chloride 20 meq PO QAM riboflavin (vitamin B2) [Vitamin 100 mg PO QAM oxycodone-acetaminophen [Percocet] 1 tab PO Q4H PRN naproxen sodium [Aleve] 440 mg PO BID PRN ASK your surgeon for instructions naproxen sodium [Aleve] 440 mg PO BID PRN STOP taking 2 weeks before surgery (or as soon as possible if surgery is within 2 weeks) cinnamon bark [Cinnamon] 500 mg PO QAM DO NOT take the morning of surgery ascorbic acid (vitamin C) [Vitamin 1,000 mg PO QAM cholecalciferol (vitamin D3) 1,000 unit PO QAM ferrous sulfate 27 mg PO QAM furosemide [Lasix] 60 mg PO QAM lisinopril 10 mg PO QAM multivitamin 1 tab PO QAM potassium chloride 20 meq PO QAM riboflavin (vitamin B2) [Vitamin 100 mg PO QAM Take morning of surgery With a small sip of water, OTHERWISE NOTHING TO EAT OR DRINK AFTER MIDNIGHT: citalopram 30 mg PO QAM omeprazole 20 mg PO QAM oxycodone-acetaminophen [Percocet] 1 tab PO Q4H PRN (okay to take up to 4 hours prior to surgery if needed) Take evening before surgery lovastatin 20 mg PO HS oxycodone-acetaminophen [Percocet] 1 tab PO Q4H PRN (if needed) Other Notes If you have any questions please call us at [phone] or [phone] or [phone] or [phone]
--- NOTE | 2018-06-15 11:08 | Anesthesiology Consultation ---
Date of Service June 15, 2018 Assessment & Plan Chart Review Chart Review: Acceptable Risk for Surgery and Patient seen in Pre Admission Testing H/O DIFFICULT INTUBATION, SEE 02/2018 RECORD Teaching & Discussion Instructed NPO after midnight before surgery, except medications with 15 cc of water. Medication instructions provided according to the PAT guidelines. History Surgery Operation Date: 06/17/18 14:10 Proposed Procedures p Left Ankle Irrigation and Debridement, - Wil Pepe DO s Removal of Screws x2, Implantation of Stimulan Beads - Wil Pepe DO Height/Weight Height: 4 ft 11 in Weight: 121.6 kg Allergies Allergy/AdvReac Type Severity Reaction Status Date / Time No Known Allergies Allergy Verified 06/15/18 09:03 Medications Home Medications Medication Instructions Recorded Confirmed Last Taken ascorbic acid (vitamin C) [Vitamin 1,000 mg PO QAM 12/09/17 06/15/18 03/17/18 09:00 C] cholecalciferol (vitamin D3) 1,000 unit PO QAM 12/09/17 06/15/18 03/17/18 08:00 [Vitamin D3] cinnamon bark [Cinnamon] 500 mg PO QAM 12/09/17 06/15/18 03/17/18 08:00 citalopram 30 mg PO QAM 12/09/17 06/15/18 03/17/18 08:00 ferrous sulfate 27 mg PO QAM 12/09/17 06/15/18 03/17/18 08:00 furosemide [Lasix] 60 mg PO QAM 12/09/17 06/15/18 03/17/18 08:00 lisinopril 10 mg PO QAM 12/09/17 06/15/18 03/17/18 08:00 lovastatin 20 mg PO HS 12/09/17 06/15/18 03/16/18 22:00 multivitamin 1 tab PO QAM 12/09/17 06/15/18 03/17/18 08:00 omeprazole 20 mg PO QAM 12/09/17 06/15/18 03/17/18 08:00 potassium chloride 20 meq PO QAM 12/09/17 06/15/18 03/17/18 08:00 riboflavin (vitamin B2) [Vitamin 100 mg PO QAM 12/09/17 06/15/18 03/17/18 08:00 B-2] oxycodone-acetaminophen [Percocet] 1 tab PO Q4H PRN #30 tab 03/21/18 06/15/18 03/16/18 naproxen sodium [Aleve] 440 mg PO BID PRN 06/15/18 06/15/18 Unknown Past Medical History Medical History Hypertension Hyperlipidemia Pulmonary embolism (Chronic) BILATERAL S/P ANKLE SURGERY. SEPTEMBER 2016. TREATED WITH COUMADIN. NO LONGER TAKING Sleep apnea BIPAP WITH 2LPM OXYGEN Depression Anxiety Anemia TAKING IRON GERD (gastroesophageal reflux disease) Diverticular disease Osteoarthritis Hearing deficit [place] - NO HEARING AIDES Morbid obesity Difficult airway for intubation With most recent ankle surgery, patient was noted to be a difficult intubation, requiring Glidescope. Previous anesthesia records do not note difficulties. Past Family History Family History Other No pertinent family history Past Surgical History Surgical History History of colonoscopy History of cholecystectomy LAP H/O ankle fusion RIGHT H/O ankle fusion (Acute) left -- had subsequent infection and debridement with ABX beads implanted 02/2018 History of esophagogastroduodenoscopy (EGD) Past Anesthesia History Difficult Airway (Glidesceop #4 -- see 02/2018 record) and No Family Hx of Anesthesia Complications History of PONV Yes (remote hx, more recently has been OK) Motion Sickness Screening History of Motion Sickness: No Social History Smoking Status: Never smoker Do You Dip or Chew Tobacco: No Hx Alcohol Use: Yes Alcohol type: wine alcohol intake frequency: holidays/special occasions only Hx Substance Use: No substance use type: does not use Exercise / Class Metabolic Activity III < 4 Walking/Shop/Light housework (denies CP or SOB with ambulation PRIOR to ankle surgery-- currently using wheelchair at home) Review of Systems Pt denies any recent chest pain, shortness of breath, palpitations, cough, fever or URI. +mild nausea daily, may be related to ABX Physical Exam Vital Signs BP: 133/80 P: 104bpm SPO2: 97% RA T: 98.5 F R: 18 ENMT Mouth: no dental restorations, no chipped teeth and no loose teeth Thyromental Distance: > or= 3.5 Finger Breadths (.5) Mallampati Class: III Neck + short neck and + thick neck (very); neck extension not limited Respiratory normal respiratory effort Auscultation: lungs clear to auscultation bilaterally Cardiovascular Rate/Rhythm: regular rhythm and + tachycardic Heart Sounds: no murmur Vessels: no carotid bruit Extremities: no edema Testing Electrocardiogram Date: 12/27/17 Findings: + NSR @ (83) Low Voltage QRS, consider pulmonary disease, pericardial disease, or normal variant. Cannot rule out anterior infarct (cited on or before 10/06/16). When compared to ECG of 10/06/16, Nonspecific T wave abnormality no longer evident in Inferior leads, Nonspecific T wave abnormality improved in Anterior- lateral leads. Chest X-Ray Date: 06/15/18 IMPRESSION: Mild stable cardiomegaly. Fixed hiatal hernia. No acute process. Echocardiogram Date: 09/28/17 EF: 60% LV Function: normal LV wall thickness is mildly increased (concentric). The left ventricular diastolic function is mildly abnormal (Grade I). There is mild mitral annular calcification. There is focal thickening of the anterior mitral valve leaflet(s). Mild aortic valve sclerosis is present. Laboratory Results PT 10.3 Seconds (9.0-12.0) 06/15/18 11:32 INR 1.0 (0.9-1.1) 06/15/18 11:32 APTT 26.0 Seconds (21.0-31.0) 06/15/18 11:32 Hemoglobin A1c 6.0 % (4.5-5.6) H 06/15/18 11:32 Urine Color Yellow 06/15/18 Unknown Urine Appearance Clear (Clear) 06/15/18 Unknown Urine pH 7.0 (4.5-7.5) 06/15/18 Unknown Ur Specific [place]bler 1.011 (1.000-1.030) 06/15/18 Unknown Urine Protein Negative (Negative) 06/15/18 Unknown Urine Glucose (UA) Negative (Negative) 06/15/18 Unknown Urine Ketones Negative (Negative) 06/15/18 Unknown Urine Nitrite Negative (Negative) 06/15/18 Unknown Ur Leukocyte Esterase Negative (Negative) 06/15/18 Unknown Laboratory Tests 05/27/18 05/27/18 16:00 16:00 WBC 9.99 Hgb 11.5 L Hct 35.8 L Plt Count 448 H Sodium 142 Potassium 4.1 Chloride 106 Carbon Dioxide 31 BUN 19 H Creatinine 0.84 Glucose 118 H
--- NOTE | 2018-06-15 12:12 | XRay Report ---
XR chest Pre-admission PA/Lat CLINICAL HISTORY: pat preoperative COMPARISON STUDY: 03/21/2018 FINDINGS: Mild stable cardiomegaly. Small hiatal hernia. Lungs appear clear. Diaphragms smooth. Moderate degenerative change thoracic spine. IMPRESSION: Mild stable cardiomegaly. Fixed hiatal hernia. No acute process. The above report was generated using voice recognition software. It may contain grammatical, syntax or spelling errors. Electronically signed by: Schuyler Talbert M.D. 06/15/2018 12:11 PM
[2018-06-15 12:47] LABS: Prothrombin Time 10.3 Seconds (9.0-12.0)
[2018-06-15 12:53] LABS: Appearance Urine Clear (Clear); Bilirubin Urine Negative (Negative); Blood Urine Negative (Negative); Color Urine Yellow; Glucose Urine UA Negative (Negative); Ketones Urine Negative (Negative); Leukocyte Esterase Urine Negative (Negative); Nitrite Urine Negative (Negative); Protein Urine Negative (Negative); Specific Gravity Urine 1.011 (1.000-1.030); Urobilinogen Urine Negative (Negative)
[2018-06-15 13:31] LABS: Estimated Average Glucose 126 mg/dl
--- NOTE | 2018-06-17 11:52 | History & Physical Report ---
Date of Service June 17, 2018 Assessment & Plan (1) Wound dehiscence, surgical: Schedule a left ankle I & D of the lateral ankle incision, removal of screws x 2, and implantation of antibiotic laden Stimulan beads for 06.17.18. All potential risks, benefits, complications, alternatives, and rehab have been discussed with the patient and she wishes to proceed. (2) Retained orthopedic hardware: History of Present Illness Chief Complaint: left ankle nonhealing wound Primary Care Provider: Jessica Orosco DO This is a patient who previously had undergone a left ankle fusion. ~8-10 weeks post op, she developed an infection at the surgical site. She had an I & D and implantation of antibiotic beads. She has had an area of the wound that isn't healing. She is now being set up for a repeat I & D. Allergies Allergy/AdvReac Type Severity Reaction Status Date / Time No Known Allergies Allergy Verified 06/15/18 09:03 Home Medications Home Medications Medication Instructions Recorded Confirmed Type ascorbic acid (vitamin C) [Vitamin 1,000 mg PO QAM 12/09/17 06/15/18 History C] cholecalciferol (vitamin D3) 1,000 unit PO QAM 12/09/17 06/15/18 History [Vitamin D3] cinnamon bark [Cinnamon] 500 mg PO QAM 12/09/17 06/15/18 History citalopram 30 mg PO QAM 12/09/17 06/15/18 History ferrous sulfate 27 mg PO QAM 12/09/17 06/15/18 History furosemide [Lasix] 60 mg PO QAM 12/09/17 06/15/18 History lisinopril 10 mg PO QAM 12/09/17 06/15/18 History lovastatin 20 mg PO HS 12/09/17 06/15/18 History multivitamin 1 tab PO QAM 12/09/17 06/15/18 History omeprazole 20 mg PO QAM 12/09/17 06/15/18 History potassium chloride 20 meq PO QAM 12/09/17 06/15/18 History riboflavin (vitamin B2) [Vitamin 100 mg PO QAM 12/09/17 06/15/18 History B-2] oxycodone-acetaminophen [Percocet] 1 tab PO Q4H PRN #30 tab 03/21/18 06/15/18 Rx naproxen sodium [Aleve] 440 mg PO BID PRN 06/15/18 06/15/18 History Past Med/Surg History Medical History Hypertension Hyperlipidemia Pulmonary embolism (Chronic) BILATERAL S/P ANKLE SURGERY. SEPTEMBER 2016. TREATED WITH COUMADIN. NO LONGER TAKING Sleep apnea BIPAP WITH 2LPM OXYGEN Depression Anxiety Anemia TAKING IRON GERD (gastroesophageal reflux disease) Diverticular disease Osteoarthritis Hearing deficit [place] - NO HEARING AIDES Morbid obesity Surgical History History of colonoscopy History of cholecystectomy LAP H/O ankle fusion RIGHT H/O ankle fusion (Acute) left -- had subsequent infection and debridement with ABX beads implanted 02/2018 Difficult airway for intubation With most recent ankle surgery, patient was noted to be a difficult intubation, requiring Glidescope. Previous anesthesia records do not note difficulties. History of esophagogastroduodenoscopy (EGD) Family History Other No pertinent family history Social History Preferred Language: [place] Communication Ability: Effective Visual Impairment: No Limitations Mottler Operator Required: No Beliefs That Will Affect Care: None marital status: / Current Living Situation: Family Other Information That Helps Us Care for You: No Feels Safe at Home: Yes Safety Concerns: Feels Safe At This Time Smoking Status: Never smoker Do You Dip or Chew Tobacco: No Second Hand Exposure: No Tobacco Cessation Education Requested by Patient: No Hx Alcohol Use: Yes Alcohol type: wine Hx Substance Use: No Physical Exam Constitutional: well developed and well nourished; no acute distress ENMT: external ear and nose normal, oropharynx normal Neck: trachea midline, no thyromegaly Respiratory: normal respiratory effort, lungs clear to auscultation Cardiovascular: Rate/Rhythm: regular rate and regular rhythm Gastrointestinal (Abdomen): normal bowel sounds, soft, nontender, no hepatosplenomegaly Musculoskeletal: Left ankle: Central lateral ankle incision delayed healing with serous drainage. Mild erythema. Stimulan beads are seen at the site. NV intact LLE. Neurologic: normal touch/pain/proprioception Psychiatric: A+Ox3, euthymic affect Lymphatic: no cervical or axillary lymphadenopathy
[~2018-06-17 11:58] MED LIST changes: -ASCO1CAP3 PO; -ASPEC81 PO; -CHOL1CAP57 PO; -CINN1CAP2 PO; -CITA20TA4 PO; -CYAN10005 PO; -FERR50TA3; -FLUT0.15 NAE; -FRS/40 PO; -LISI10TA PO; -LOVA20TA4 PO; +LR 15ML/HR IV SCH; -MULT-506 PO; -OXYC-57 PO; -POTA1TAB97 PO; -PRLSR20 PO
[2018-06-17] MEDS ORDERED: CEFAZOLIN 3000MG 72.5 ML IV ONE (14:23)
--- NOTE | 2018-06-17 14:24 | History & Physical Bridge Note ---
Date of Service June 17, 2018 History & Physical Bridge Note I have examined the patient, reviewed the History & Physical and in the interval since the performance of the History & Physical I have noted the following changes of clinical significance: no changes noted
[2018-06-17] MEDS ORDERED: CEFAZOLIN 3000MG/72.5 ML BAG IV ONE (14:26)
[2018-06-17] MEDS ORDERED: ONDANSETRON INJ 2 MG/ML 2 ML VIAL ONE (15:08)
[2018-06-17] MEDS ORDERED: LIDOCAINE HCL 2% 2 ML VIAL/AMP(20MG/ML) INFIL ONE (15:08)
[2018-06-17] MEDS ORDERED: PROPOFOL IV EMULSION 10 MG/ML 20 ML VIAL IV ONE (15:08)
[2018-06-17] MEDS ORDERED: SUCCINYLCHOLINE CHLORIDE 20 MG/ML 10 ML VIAL ONE (15:08)
[2018-06-17] MEDS ORDERED: fentaNYL citrate 100 MCG/2 ML VIAL ONE ×2 (15:11→16:21)
[2018-06-17] MEDS ORDERED: fentaNYL citrate 100 MCG/2 ML VIAL IV PRN (15:12)
[2018-06-17] MEDS ORDERED: ATROPINE SULFATE 0.1 MG/ML 10ML SYR IV PRN (15:12)
[2018-06-17] MEDS ORDERED: ePHEDrine sulfate 50 MG/ML AMP IV PRN (15:12)
[2018-06-17] MEDS ORDERED: ONDANSETRON INJ 2 MG/ML 2 ML VIAL IV PRN ×2 (15:12→18:11)
[2018-06-17] MEDS ORDERED: ACETAMINOPHEN 1000 MG/100 ML IV IV ONE (15:13)
[2018-06-17] MEDS ORDERED: VANCOMYCIN HCL 1000MG/20ML VIAL ONE (15:28)
[2018-06-17] MEDS ORDERED: BACITRACIN INJ 50,000 UNIT VIAL ONE (15:28)
[2018-06-17] MEDS ORDERED: GENTAMICIN SULFATE 40 MG/ML 2 ML VIAL ONE (15:28)
[2018-06-17] MEDS ORDERED: BUPIVACAINE 0.5 % 5 MG/1 ML MPF 30ML VIAL ONE (16:12)
[2018-06-17] MEDS ORDERED: DEXAMETHASONE SOD INJ 4 MG/ML VIAL ONE (16:21)
--- NOTE | 2018-06-17 17:17 | Post Operative Brief Note ---
Immediate Post Op Note v1 Date of Surgery June 17, 2018 Pre & Post Diagnosis Operation Date: 06/17/18 14:10 Pre-Op Diagnosis: Left Ankle Retained Hardware x2 screws, left ankle infected wound, retained antibiotic beads Post-Op Diagnosis: Left Ankle Retained Hardware x2 screws, left ankle infected wound, retained antibiotic beads Procedure Operation Date: 06/17/18 14:10 Actual Procedures p Left Ankle Irrigation and Debridement of bone, tissue and fascia(Left) - Wil Pepe DO s Removal of Screws x2, removal of retained antibiotic beads, implantation new of 10 cc Stimulan antibiotic beads(Left) - Wil Pepe DO Surgeon Wil Pepe DO Stereoptician Parmjit Roger PA-C Estimated Blood Loss 2 Findings Consistent with Post-Op Diagnosis Specimens Deep tissue left ankle aerobic anaerobic Gram stain Drains Hemovac Drain Anesthesia Type General Regional Complications none Disposition Accompanied Patient To Recovery: Yes Disposition: Recovery Room
--- NOTE | 2018-06-17 17:43 | Anesthesiology Progress Note ---
Date of Service June 17, 2018 Anesthesia Post Procedure Vital Signs Vital Signs: Temp Pulse Pulse Resp BP Pulse Ox 06/17/18 17:15 36.6 C 92 H 15 129/71 96 06/17/18 12:24 37.0 C 103 H 22 142/55 H 96 Pain Intensity Left Ankle: Pain Intensity: 0 Notes Mental Status: alert / awake / arousable Patient Amnestic to Procedure: Yes Nausea / Vomiting: adequately controlled Pain: adequately controlled Airway Patency, RR, SpO2: stable & adequate BP & HR: stable & adequate Hydration State: stable & adequate Anesthetic Complications: no major complications apparent
[2018-06-17] MEDS ORDERED: VANCOMYCIN CONSULT ACTIVE PRN (18:11)
[2018-06-17] MEDS ORDERED: BISACODYL 10 MG SUPP PR PRN (18:11)
[2018-06-17] MEDS ORDERED: MAGNESIUM HYDROXIDE SUSP 30 ML UDC PO PRN (18:11)
[2018-06-17] MEDS ORDERED: METOCLOPRAMIDE HCL INJ 5 MG/ML 2 ML VIAL IV PRN (18:11)
[2018-06-17] MEDS ORDERED: HYDROmorphone INJ 0.5 MG/0.5 ML SYR IV PRN (18:11)
[2018-06-17] MEDS ORDERED: NALOXONE HCL 0.4 MG/1 ML VIAL/CARP IV PRN (18:11)
[2018-06-17] MEDS: SODIUM CHLORIDE 0.9% 1000ML 1,000 ML IV SCH (19:10)
[2018-06-17] MEDS: OXYCODONE HCL IR 5 MG TAB (IMMEDIATE RELEASE) PO PRN (19:41)
[2018-06-17] MEDS ORDERED: VANCOMYCIN HCL 2,750 MG in SODIUM CHLORIDE 0.9% 500 ML IV SCH (20:00)
[2018-06-17] MEDS: ENOXAPARIN INJ 40 MG/0.4 ML SYR SQ SCH (20:48)
[2018-06-17] MEDS: LOVASTATIN 20 MG TAB PO SCH (20:48)
[2018-06-17] MEDS: SENNA 8.6 MG TAB PO SCH (20:48)
[2018-06-17] MEDS: DOCUSATE SODIUM 100 MG CAP PO SCH (20:48)
--- NOTE | 2018-06-17 21:04 | Pharmacy Report ---
Pharmacy Abx Initial Consult - Date of Service June 17, 2018 - Pharmacy Dosing Scope Date of Consult: 06/17/18 Consultation requested by: Robe Roger Pharmacy is consulted to initiate Vancomycin IV dosing therapy, order appropriate labs and adjust drug dose/frequency. - Subjective The patient is a 78 year old F admitted on 06/17/18 17:37. - Objective Height: 4 ft 11 in Weight: 120.8 kg Vital Signs (Past 12hrs): Vital Signs Temp Pulse Pulse Pulse Resp BP BP 06/17/18 20:12 36.5 C 88 16 126/77 06/17/18 19:14 36.5 C 80 18 145/84 H 06/17/18 18:45 36.5 C 83 18 132/79 06/17/18 18:01 86 19 141/68 H 06/17/18 17:56 87 21 06/17/18 17:55 87 20 133/74 06/17/18 17:51 36.9 C 06/17/18 17:50 87 21 06/17/18 17:46 87 16 06/17/18 17:45 88 13 139/72 06/17/18 17:41 87 18 125/68 06/17/18 17:40 88 18 06/17/18 17:35 87 19 130/76 06/17/18 17:31 93 H 17 06/17/18 17:30 91 H 18 118/67 06/17/18 17:27 93 H 19 06/17/18 17:25 90 23 128/81 06/17/18 17:20 90 21 129/75 06/17/18 17:16 90 21 129/71 06/17/18 17:15 36.6 C 92 H 15 129/71 06/17/18 12:24 37.0 C 103 H 22 142/55 H Pulse Ox 06/17/18 20:12 97 06/17/18 19:14 99 06/17/18 18:45 100 06/17/18 18:01 98 06/17/18 17:56 97 06/17/18 17:55 97 06/17/18 17:51 97 06/17/18 17:50 96 06/17/18 17:46 98 06/17/18 17:45 100 06/17/18 17:41 99 06/17/18 17:40 100 06/17/18 17:35 100 06/17/18 17:31 100 06/17/18 17:30 100 06/17/18 17:27 98 06/17/18 17:25 99 06/17/18 17:20 97 06/17/18 17:16 96 06/17/18 17:15 96 06/17/18 12:24 96 Micro Results: 06/17/18 16:52 Gram Stain - Pending Ankle,Left Deep Wound Culture - Pending - Risk Factors for Resistance * Hospitalization for 48 hours or more within the past 90 days * Antimicrobial use within the last 90 days with Rocephin 2 gm IV daily for L ankle wound s/p ankle fusion 8-10 weeks ago. - Assessment & Plan Assessment * 78 year old F admitted with L ankle non-healing wound s/p ankle fusion around 8 - 10 weeks ago in February 2018. * She was treated with IV Rocephin 2 gm daily for long duration (42 days?) at that time but still has same infection. * Patient went I&D of L ankle today and ordered Vancomycin per pharmacy consult. Plan Vancomycin for treatment of L ankle wound joint infection. Vancomycin IV * Estimated PK Parameters: Vd 0.55 L/kg, Hal 0.06 hr-1, t1/2 11.55 hr * Loading dose: 2750 mg (23 mg/kg) x 1 dose ordered tonight. * Maintenance dose: 1500 mg IV (12 mg/kg) every 16 hours * Goal trough level for joint infection: 15 to 20 mcg/mL * Trough Vanco level ordered for 06/19/18 before dose at 1800. * A less than traditional dose and/or extended dosing interval has been selected due to likelihood of drug accumulation in obese patient with BMI = 53.8 kg/m2. Pharmacy will continue to follow and will adjust dose/frequency as necessary. Thank you.
[2018-06-17] MEDS: ACETAMINOPHEN 500 MG TAB PO SCH (21:20)
--- NOTE | 2018-06-18 00:20 | Operative Report ---
DATE OF OPERATION: 06/17/2018 PREOPERATIVE DIAGNOSES: 1. Left ankle infected wound laterally. 2. Retained screws x2. 3. Retained antibiotic beads. POSTOPERATIVE DIAGNOSES: 1. Left ankle infected wound laterally. 2. Retained screws x2. 3. Retained antibiotic beads. PROCEDURE: 1. Left ankle removal of hardware x2 screws. 2. Irrigation and debridement ankle including skin, fascia and bone. 3. Removal of antibiotic beads. 4. Implantation new antibiotic Stimulan beads 10 mL. SURGEON: Wil Pepe DO SAMPLING EXPERT: Parmjit Roger PA-C who was present for patient positioning, sterile prep and drape, management of retractors and instruments. He was present through the critical portions of the case including wound closure, application of sterile dressing and transport of the patient to recovery. ANESTHESIA: General LMA with local. SPECIMENS: Aerobic, anaerobic, Gram stain of deep soft tissue, left ankle. DRAINS: Hemovac x1. COMPLICATIONS: None. BLOOD LOSS: 2 mL. PERTINENT HISTORY: This is a 78-year-old female who had previously undergone an ankle fusion, left ankle. She had an uneventful initial recovery course and then developed drainage in the left lateral ankle and then had a subsequent irrigation and debridement with implantation antibiotic Stimulan beads. She had improvement in her symptoms; however, had some persistent drainage that lasted over 2 weeks. She then scheduled for removal of antibiotic beads, removal of screws, irrigation and debridement. This is performed as indicated. All potential risks, benefits, complications, alternatives, rehab, potential for incomplete relief of symptoms, need for further surgery, DVT, PE, , persistent pain, swelling, scarring, weakness, neurovascular injury, wound complications, hardware failure, nonunion, malunion, and continued drainage were discussed with the patient. The patient decided to proceed with the procedure as indicated. PROCEDURE: The patient was taken to the operative suite and placed prone table. I reviewed the consent and identification of proper operative site. The patient was anesthetized, LMA was placed. Tourniquet was placed high on the left thigh over cast padding. Left lower extremity was sterilely prepped and draped in the usual fashion, elevated and exsanguinated with bandage. Tourniquet site elevated and tourniquet inflated to 300 mmHg. There was no exsanguination performed due to the infection. Next, 15 blade scalpel was used to make an incision over the site of the previous incision, also including draining sinus. The draining sinus was then sharply excised with 15 blade scalpel full thickness and the incision was then deepened through scar tissue, exposing the sinus tract into the ankle joint fusion site at the site of the previously placed antibiotic beads and screws. The screw heads were identified. The screws removed without difficulty. The screw holes were then curetted with a small curette removing any glycocalyx or fibrous tissue present. Next, the ankle fusion site was assessed and noted to have a stable fusion. The ankle joint was then debrided at the fascia and soft tissue were surrounding the fusion site and also the bone anterior to the ankle joint and posterior to the ankle joint. No obvious abscess collections were present. The Stimulan beads from previous placement are also resected using a rongeur. The curettage was then performed. The soft tissues to encourage deep soft tissue bleeding and then a tissue specimen was then harvested with a rongeur and then passed off for aerobic, anaerobic, Gram stain for deep soft tissue. Next, pulsatile lavage was used to irrigate the entirety of all soft tissues exposed. No evidence of residual infection was noted. Next, antibiotic laden Stimulan beads with vancomycin and gentamicin 10 mL total were formed and then placed into the screw holes and into the deep soft tissue surrounding the ankle joint fusion and adjacent to the subtalar joint. Next, 10-Sammarinese single lumen Hemovac drain was placed exiting anterolaterally followed by closure of the incision full thickness using interrupted 2-0 nylon sutures using combination of horizontal mattress and simple sutures. A sterile compressive dressing was applied, overwrapped with Sudhakar wrap. The tourniquet was released. The patient was awakened and taken to recovery in stable condition. I attest to the content of the Intraoperative Record and any orders documented therein. Any exception s are noted below.
[2018-06-18] MEDS: ACETAMINOPHEN 500 MG TAB PO SCH ×3 (05:44→22:12)
[2018-06-18] MEDS: SODIUM CHLORIDE 0.9% 1000ML 1,000 ML IV SCH (05:45)
[2018-06-18 06:16] LABS: Hematocrit (blood only) 27.3 % (37-47); Hemoglobin 8.7 g/dL (12.0-16.0); Mean Corpuscular Hgb Conc 31.9 g/dL (32-36); Mean Corpuscular Volume 87.2 fL (80-100); Mean Platelet Volume 8.3 fL (7.4-10.4); Platelet Count 376 K/uL (130-400); RDW Coefficient of Variation 15.3 % (11.5-14.5); RDW Standard Deviation 48.5 fL (36.4-46.3); Red Blood Count 3.13 M/uL (4.2-5.4); White Blood Count 8.87 K/uL (4.8-10.8)
[2018-06-18 06:46] LABS: BUN Creatinine Ratio 23.4 (10-20); Calcium 8.8 mg/dl (8.5-10.1); Creatinine Clr Calc Pharmacy 66.5 ml/min; Est GFR (African American) 78.8; Potassium 4.3 mmol/L (3.5-5.1)
[2018-06-18] MEDS: DOCUSATE SODIUM 100 MG CAP PO SCH ×2 (07:57→20:28)
[2018-06-18] MEDS: PANTOprazole 40 MG TAB PO SCH (07:57)
[2018-06-18] MEDS: CITALOPRAM 20 MG TAB PO SCH (07:57)
[2018-06-18] MEDS: MULTIVITAMIN TAB PO SCH (07:58)
[2018-06-18] MEDS: FUROSEMIDE 40 MG TAB PO SCH (07:58)
[2018-06-18] MEDS: CHOLECALCIFEROL 1,000 UNITS TAB PO SCH (07:58)
[2018-06-18] MEDS: POTASSIUM CHLORIDE 20 MEQ TABCR PO SCH (07:58)
[2018-06-18] MEDS: LISINOPRIL 10 MG TAB PO SCH (07:59)
--- NOTE | 2018-06-18 08:06 | Orthopedic Progress Note ---
Date of Service June 18, 2018 Assessment & Plan (1) Retained orthopedic hardware: 78 yo female stable POD #1 s/p left ankle I&D, hardware removal, implantation Stimulan beads 1. Med management- cont IV abx 2. DVT prophylaxis- SCDs 3. D/C planning- determine what abx pt needs on d/c Subjective Pt resting in bed, pain controlled, denies complaints Physical Exam Physical Exam: Dressing/drain in place, toes mobile Results & Data Vital Signs (Past 12 Hours) Vital Signs Temp Pulse Pulse Resp BP Pulse Ox 06/18/18 07:32 36.4 C L 87 16 108/69 98 06/18/18 03:50 36.4 C L 85 18 95/56 L 98 06/17/18 23:00 36.5 C 87 18 106/54 L 99 06/17/18 21:45 123/77 06/17/18 21:14 36.7 C 90 18 97/57 L 98 06/17/18 20:12 36.5 C 88 16 126/77 97 Laboratory Results 06/18/18 06/18/18 Range/Units 05:15 05:15 WBC 8.87 (4.8-10.8) K/uL RBC 3.13 L (4.2-5.4) M/uL Hgb 8.7 L (12.0-16.0) g/dL Hct 27.3 L (37-47) % MCV 87.2 (80-100) fL MCH 27.8 (25-34) pg MCHC 31.9 L (32-36) g/dL RDW Std Deviation 48.5 H (36.4-46.3) fL RDW Coeff of Esvin 15.3 H (11.5-14.5) % Plt Count 376 (130-400) K/uL MPV 8.3 (7.4-10.4) fL Sodium 139 (136-145) mmol/L Potassium 4.3 (3.5-5.1) mmol/L Chloride 106 (98-107) mmol/L Carbon Dioxide 28 (21-32) mmol/L Anion Gap 5.0 (3-11) BUN 19 H (7-18) mg/dl Creatinine 0.83 (0.6-1.2) mg/dl Est Cr Clr Drug Dosing 66.5 ml/min Est GFR ( Amer) 78.8 Est GFR (Non-Af Amer) 68.0 BUN/Creatinine Ratio 23.4 H (10-20) Glucose 151 H (70-99) mg/dl Calcium 8.8 (8.5-10.1) mg/dl 06/17/18 16:52 Gram Stain - Pending Ankle,Left Deep Wound Culture - Pending
--- NOTE | 2018-06-18 09:41 | Infectious Disease Consult ---
Date of Consultation June 18, 2018 Assessment & Plan (1) Abscess of ankle: Patient with persistent left ankle infection following repair of traumatic injury now status post removal of placement of new antibiotic beads. Patient will be continued on IV vancomycin pending operative cultures. Suspect she will need more prolonged IV antibiotics, with choice to be based on culture results. Will follow. History of Present Illness Reason for Consultation: Left ankle joint infection Attending Physician: Wil Pepe DO History of Present Illness 78-year-old female well-known to me with history of hypertension, hyperlipidemia, sleep apnea, prior pulmonary embolism, GERD, who suffered traumatic injury to her left ankle, and required open reduction and external fixation. Subsequently developed surgical site infection, and underwent debridement and placement of antibiotic beads. Cultures at that time grew ky thicillin sensitive staph aureus. She has been on oral antibiotics, but has had persistent drainage from the wound, and yesterday underwent repeat I&D with removal of hardware and old beads and placement of new antibiotic beads. Operative cultures are pending, patient currently being treated with IV vancomycin. She has not had any significant associated fever, chills, or other systemic complaints. Pain currently 2 out of 10 in intensity left ankle. Allergies Allergy/AdvReac Type Severity Reaction Status Date / Time No Known Allergies Allergy Verified 06/15/18 09:03 Home Medications Home Medications Medication Instructions Recorded Confirmed Type ascorbic acid (vitamin C) [Vitamin 1,000 mg PO QAM 12/09/17 06/17/18 History C] cholecalciferol (vitamin D3) 1,000 unit PO QAM 12/09/17 06/17/18 History [Vitamin D3] cinnamon bark [Cinnamon] 500 mg PO QAM 12/09/17 06/17/18 History citalopram 30 mg PO QAM 12/09/17 06/17/18 History ferrous sulfate 27 mg PO QAM 12/09/17 06/17/18 History furosemide [Lasix] 60 mg PO QAM 12/09/17 06/17/18 History lisinopril 10 mg PO QAM 12/09/17 06/17/18 History lovastatin 20 mg PO HS 12/09/17 06/17/18 History multivitamin 1 tab PO QAM 12/09/17 06/17/18 History omeprazole 20 mg PO QAM 12/09/17 06/17/18 History potassium chloride 20 meq PO QAM 12/09/17 06/17/18 History riboflavin (vitamin B2) [Vitamin 100 mg PO QAM 12/09/17 06/17/18 History B-2] oxycodone-acetaminophen [Percocet] 1 tab PO Q4H PRN #30 tab 03/21/18 06/17/18 Rx naproxen sodium [Aleve] 440 mg PO BID PRN 06/15/18 06/17/18 History Patient History Medical History Hypertension Hyperlipidemia Pulmonary embolism (Chronic) BILATERAL S/P ANKLE SURGERY. SEPTEMBER 2016. TREATED WITH COUMADIN. NO LONGER TAKING Sleep apnea BIPAP WITH 2LPM OXYGEN Depression Anxiety Anemia TAKING IRON GERD (gastroesophageal reflux disease) Diverticular disease Osteoarthritis Hearing deficit [place] - NO HEARING AIDES Morbid obesity Surgical History History of colonoscopy History of cholecystectomy LAP H/O ankle fusion RIGHT History of esophagogastroduodenoscopy (EGD) H/O ankle fusion (Acute) left -- had subsequent infection and debridement with ABX beads implanted 02/2018 Difficult airway for intubation With most recent ankle surgery, patient was noted to be a difficult intubation, requiring Glidescope. Previous anesthesia records do not note difficulties. Family History Other No pertinent family history Social History Preferred Language: Kazakh Communication Ability: Effective Visual Impairment: No Limitations Infrastructure Software Engineer Required: No Beliefs That Will Affect Care: None marital status: / Current Living Situation: Family Other Information That Helps Us Care for You: No Feels Safe at Home: Yes Safety Concerns: Feels Safe At This Time Smoking Status: Never smoker Do You Dip or Chew Tobacco: No Second Hand Exposure: No Tobacco Cessation Education Requested by Patient: No Hx Alcohol Use: Yes Alcohol type: wine Hx Substance Use: No Review of Systems Review of Systems: All systems reviewed & are unremarkable except as noted in HPI & below Physical Exam Constitutional: WD/WN, vitals as above + obese and comfortable; no acute distress Eyes: PERRL, conjunctivae normal, anicteric sclerae ENMT: external ear and nose normal, oropharynx normal Neck: trachea midline, no thyromegaly neck nontender Respiratory: normal respiratory effort, lungs clear to auscultation normal percussion; does not use accessory muscles Cardiovascular: Rate/Rhythm: regular rate and regular rhythm Heart Sounds: normal S1 and normal S2; no gallop, no murmur and no cardiac rub Vessels: normal peripheral pulses; no JVD Gastrointestinal (Abdomen): normal bowel sounds, soft, nontender, no hepatosplenomegaly Musculoskeletal: no cyanosis or clubbing, extremities motor strength 5/5 Spine: thoracic spine normal to inspection and lumbar spine normal to inspection; no cervical spinal tenderness Skin: no rashes, warm and dry normal turgor Surgical dressing and drain in place left ankle Neurologic: patellar DTR's 2+ bilat, sensation intact no focal motor deficits Psychiatric: A+Ox3, euthymic affect Orientation: cooperative Lymphatic: no cervical or axillary lymphadenopathy no inguinal lymphadenopathy Results & Data Vital Signs (Past 12 Hours) Vital Signs Temp Pulse Pulse Resp BP Pulse Ox 06/18/18 07:32 36.4 C L 87 16 108/69 98 06/18/18 03:50 36.4 C L 85 18 95/56 L 98 06/17/18 23:00 36.5 C 87 18 106/54 L 99 06/17/18 21:45 123/77 Laboratory Results Short CBC 06/18/18 Range/Units 05:15 WBC 8.87 (4.8-10.8) K/uL Hgb 8.7 L (12.0-16.0) g/dL Hct 27.3 L (37-47) % Plt Count 376 (130-400) K/uL BMP 06/18/18 05:15 Sodium 139 Potassium 4.3 Chloride 106 Carbon Dioxide 28 BUN 19 H Creatinine 0.83 Glucose 151 H Calcium 8.8 Diagnostic Findings Microbiology 06/17/18 16:52 Ankle,Left Gram Stain - Final
[2018-06-18] MEDS: OXYCODONE HCL IR 5 MG TAB (IMMEDIATE RELEASE) PO PRN (11:13)
[2018-06-18] MEDS: VANCOMYCIN HCL 1,500 MG in SODIUM CHLORIDE 0.9% 500 ML IV SCH (11:14)
[2018-06-18] MEDS: ENOXAPARIN INJ 40 MG/0.4 ML SYR SQ SCH (20:26)
[2018-06-18] MEDS: SENNA 8.6 MG TAB PO SCH (20:28)
[2018-06-18] MEDS: LOVASTATIN 20 MG TAB PO SCH (20:28)
[2018-06-19] MEDS: VANCOMYCIN HCL 1,500 MG in SODIUM CHLORIDE 0.9% 500 ML IV SCH ×2 (02:05→18:05)
[2018-06-19] MEDS: ACETAMINOPHEN 500 MG TAB PO SCH ×3 (05:45→22:13)
[2018-06-19 06:14] LABS: Creatinine Clr Calc Pharmacy 72.7 ml/min; Est GFR (African American) 87.7; Est GFR (Non-African American) 75.7
[2018-06-19] MEDS: PANTOprazole 40 MG TAB PO SCH (07:57)
[2018-06-19] MEDS: MULTIVITAMIN TAB PO SCH (07:57)
[2018-06-19] MEDS: CITALOPRAM 20 MG TAB PO SCH (07:57)
[2018-06-19] MEDS: DOCUSATE SODIUM 100 MG CAP PO SCH ×2 (07:57→20:25)
[2018-06-19] MEDS: CHOLECALCIFEROL 1,000 UNITS TAB PO SCH (07:57)
[2018-06-19] MEDS: FUROSEMIDE 40 MG TAB PO SCH (07:58)
[2018-06-19] MEDS: LISINOPRIL 10 MG TAB PO SCH (07:58)
[2018-06-19] MEDS: POTASSIUM CHLORIDE 20 MEQ TABCR PO SCH (07:58)
--- NOTE | 2018-06-19 09:55 | Orthopedic Progress Note ---
Date of Service June 19, 2018 Assessment & Plan (1) Retained orthopedic hardware: 78 yo female stable POD #2 s/p left ankle I&D, hardware removal, implantation Stimulan beads, appreciate Dr Borrero consult 1. Med management- cont IV abx 2. DVT prophylaxis- SCDs 3. D/C planning- determine what abx pt needs on d/c Subjective Pt resting in bed, pain controlled, denies complaints Physical Exam Physical Exam: Dressing changed, incision C/D/I, toes mobile Results & Data Vital Signs (Past 12 Hours) Vital Signs Temp Pulse Resp BP Pulse Ox 06/19/18 06:57 36.8 C 80 18 131/74 100 06/18/18 23:32 36.7 C 78 16 93/58 L 99 Laboratory Results Microbiology 06/17/18 16:52 Ankle,Left Gram Stain - Final 06/17/18 16:52 Ankle,Left Deep Wound Culture - Preliminary No growth to date.
[2018-06-19] MEDS: OXYCODONE HCL IR 5 MG TAB (IMMEDIATE RELEASE) PO PRN (14:09)
[2018-06-19] MEDS ORDERED: VANCOMYCIN TROUGH ONE (17:30)
[2018-06-19] MEDS: ENOXAPARIN INJ 40 MG/0.4 ML SYR SQ SCH (20:25)
[2018-06-19] MEDS: LOVASTATIN 20 MG TAB PO SCH (20:25)
[2018-06-19] MEDS: SENNA 8.6 MG TAB PO SCH (20:25)
[2018-06-20] MEDS: ACETAMINOPHEN 500 MG TAB PO SCH ×3 (05:53→22:15)
[2018-06-20 07:30] LABS: Creatinine Clr Calc Pharmacy 72.7 ml/min; Est GFR (African American) 87.7; Est GFR (Non-African American) 75.7
[2018-06-20] MEDS: DOCUSATE SODIUM 100 MG CAP PO SCH ×2 (08:48→20:50)
[2018-06-20] MEDS: CITALOPRAM 20 MG TAB PO SCH (08:48)
[2018-06-20] MEDS: CHOLECALCIFEROL 1,000 UNITS TAB PO SCH (08:49)
[2018-06-20] MEDS: FUROSEMIDE 40 MG TAB PO SCH (08:49)
[2018-06-20] MEDS: PANTOprazole 40 MG TAB PO SCH (08:49)
[2018-06-20] MEDS: MULTIVITAMIN TAB PO SCH (08:49)
[2018-06-20] MEDS: LISINOPRIL 10 MG TAB PO SCH (08:50)
[2018-06-20] MEDS: POTASSIUM CHLORIDE 20 MEQ TABCR PO SCH (08:50)
[2018-06-20] MEDS ORDERED: DAPTOmycin 500 MG VIAL IV SCH (10:00)
--- NOTE | 2018-06-20 10:54 | Orthopedic Progress Note ---
Date of Service June 20, 2018 Assessment & Plan (1) Retained orthopedic hardware: 78 yo female stable POD #3 s/p left ankle I&D, hardware removal, implantation Stimulan beads, appreciate Dr Borrero consult 1. Med management- cont IV abx 2. DVT prophylaxis- SCDs 3. D/C planning- cultures growing VRE. Will require at least 6 weeks of IV Daptomycin. Once PICC line is set up and discharge planning complete, will plan for d/c. Patient seen and examined agree with above assessment plan. Subjective Pt resting in bed, pain controlled, denies complaints. Overall, states she is feeling good. Physical Exam Constitutional: well developed and well nourished; no acute distress ENMT: external ear and nose normal, oropharynx normal Neck: trachea midline, no thyromegaly Respiratory: normal respiratory effort, lungs clear to auscultation Cardiovascular: Rate/Rhythm: regular rate and regular rhythm Gastrointestinal (Abdomen): normal bowel sounds, soft, nontender, no hepatosplenomegaly Musculoskeletal: Left ankle: Lateral ankle incision is well approximated. No active drainage but the gauze had moderate serosanguinous drainage during dressing change. No erythema. No tenderness with dressing change. Neurologic: normal touch/pain/proprioception Psychiatric: A+Ox3, euthymic affect Lymphatic: no cervical or axillary lymphadenopathy Results & Data Vital Signs (Past 12 Hours) Vital Signs Temp Pulse Pulse Resp BP BP Pulse Ox 06/20/18 07:30 36.5 C 85 22 143/76 H 99 06/19/18 23:43 37.0 C 90 14 92/54 L 98
[2018-06-20] MEDS: DAPTOmycin 1,200 MG in SYRINGE 0 ML IV SCH (11:18)
--- NOTE | 2018-06-20 15:07 | Infectious Disease Progress Nt ---
Date of Service June 20, 2018 Assessment & Plan (1) Abscess of ankle: Patient with persistent left ankle infection following repair of traumatic injury now status post removal of placement of new antibiotic beads. Cultures positive for VRE. Patient to be treated with higher dose daptomycin given borderline SRINI. Awaiting PICC line. Will need likely 6 weeks of IV antibiotics. (2) VRE (vancomycin-resistant Enterococci) infection: Subjective Patient seen in follow-up for left ankle infection. Feels reasonably well, pain controlled. Remains afebrile. Operative cultures have grown vancomycin resistant enterococcus. Awaiting PICC line. Review of Systems Review of Systems: All systems reviewed & are unremarkable except as noted in HPI & below Physical Exam Constitutional: WD/WN, vitals as above + obese and comfortable; no acute distress Eyes: PERRL, conjunctivae normal, anicteric sclerae ENMT: external ear and nose normal, oropharynx normal Neck: trachea midline, no thyromegaly neck nontender Respiratory: normal respiratory effort, lungs clear to auscultation normal percussion; does not use accessory muscles Cardiovascular: Rate/Rhythm: regular rate and regular rhythm Heart Sounds: normal S1 and normal S2; no gallop, no murmur and no cardiac rub Vessels: normal peripheral pulses; no JVD Gastrointestinal (Abdomen): normal bowel sounds, soft, nontender, no hepatosplenomegaly Musculoskeletal: no cyanosis or clubbing, extremities motor strength 5/5 Spine: thoracic spine normal to inspection and lumbar spine normal to inspection; no cervical spinal tenderness Skin: no rashes, warm and dry normal turgor Neurologic: patellar DTR's 2+ bilat, sensation intact no focal motor deficits Psychiatric: A+Ox3, euthymic affect Orientation: cooperative Lymphatic: no cervical or axillary lymphadenopathy no inguinal lymphadenopathy Results & Data Vital Signs (Past 12 Hours) Vital Signs Temp Pulse Resp BP Pulse Ox 06/20/18 11:50 36.6 C 97 H 22 117/75 96 06/20/18 07:30 36.5 C 85 22 143/76 H 99 Laboratory Results BMP 06/20/18 06:44 Creatinine 0.76 Diagnostic Findings Microbiology 06/17/18 16:52 Ankle,Left Gram Stain - Final 06/17/18 16:52 Ankle,Left Deep Wound Culture - Final Enterococcus faecium VRE
[2018-06-20] MEDS: OXYCODONE HCL IR 5 MG TAB (IMMEDIATE RELEASE) PO PRN (18:11)
[2018-06-20] MEDS: ENOXAPARIN INJ 40 MG/0.4 ML SYR SQ SCH (20:50)
[2018-06-20] MEDS: SENNA 8.6 MG TAB PO SCH (20:50)
--- OUTSIDE RECORDS SUMMARY | 2018-06-20 22:14 | External Medical Summary | Continuity of Care Document ---
:1940 Author Name Shannan Stone, Provider Address Unavailable Unavailable , Care Team Providers Name Role Phone Lyla Stone, Fabián Nagel Unavailable [email or web address] [place] Tyra FLOWERS Unavailable Unavailable Unavailable Unavailable Unavailable Assessments Assessed Problems:Osteomyelitis, acute, ankle or foot, leftMSSA (methicillin susceptible Staphylococcus aureus) infection Problems Hyperlipidemia (272.4) (E78.5) Hypertension (401.9) (I10) MSSA (methicillin susceptible Staphyloco ccus aureus) infection (041.11) (A49.01) Osteomyelitis, acute, ankle or foot, left (730.07) (M86.172) Allergies and Adverse Reactions No Known Drug Allergies (Allergy) Medications levoFLOXacin 500 MG Oral Tablet; Take 1 tablet daily Tyra Arita Start: 07-Jun-2018 Quantity: 14 Refills: 1 Diclofenac Potassium 50 MG Oral Tablet Refills: 0 Vitamin C 500 MG Oral Tablet Refills: 0 Omeprazole 20 MG Oral Capsule Delayed Release; TAKE 1 CAPSUL E Daily Refills: 0 Multivitamins TABS Refills: 0 Lovastatin 20 MG Oral Tablet; TAKE 1 TABLET DAILY DIRECTE D. 60 Tablet Bottle Refills: 0 Lisinopril 10 MG Oral Tablet; Take 1 tablet daily 15 Tablet Bottle Refills: 0 Iron Formula 27-400-100 MG-MCG-MCG CAPS Refills: 0 Furosemide 40 MG Oral Tablet; TAKE 1.5 TABLET Daily Refills: 0 Flonase 50 MCG/ACT SUSP; USE 2 SPRAYS IN EACH NOSTRIL DAILY Refills: 0 Vitamin D3 1000 UNIT Oral Capsule; TAKE DIRECTED. Refills: 0 Vitamin B-12 TABS; TAKE 1 TABLET DAILY. Refills: 0 Citalopram Hydrobromide 20 MG Oral Tablet; TAKE 1 TABLET MINERVA LY. Refills: 0 Cinnamon TABS Refills: 0 Cefadroxil 1 GM Oral Tablet; Take 1 tablet twice daily Bertha Arita Start: 20-Apr-2018 Quantity: 60 Refills: 3 Procedures History of ankle arthrodesis Status: Com pleted Immunizations Immunizations not documented Family History Unknown Family Member No pertinent family history (V49.89) (Z78.9) Status: Active Comments: Family History Social History - Smoking Status Never smoker Interventions Medication ChangeslevoFLOXacin 500 MG Oral Tablet - StartDiscussion/Summary Patient with left ankle infection with MSSA, with persistent drainage from small area, with unrevealing cultures. No associated systemic complaints. Will add levofloxacin 500 mg daily to cefadroxil, and reevaluate in 2 weeks. Await evaluation from her orthopedic surgeon. Plan of Treatment Planned Observations Planned Goals not documented Results No Known Results Results not documented Vital Signs 07-Jun-2018 14:16 Systolic 152 mm[Hg] Diastolic 74 mm[Hg] Heart Rate 103 /min Encounters Appointment; Fabián Arita M.D. 18-May-2018 13:00 Encounter Diagnosis: Problem not documented Appointment; Fabián Arita M.D. 20-Apr-2018 13:45 Encounter Diagnosis: Problem not documented Appointment; Fabián Arita M.D. 30-Mar-2018 13:15 Encounter Diagnosis: Problem not documented Appointment; Fabián Arita M.D. 07-Jun-2018 14:00 Encounter Diagnosis: Problem not documented
[2018-06-21] MEDS: ACETAMINOPHEN 500 MG TAB PO SCH ×3 (05:55→20:47)
[2018-06-21] MEDS: OXYCODONE HCL IR 5 MG TAB (IMMEDIATE RELEASE) PO PRN ×2 (05:56→16:07)
[2018-06-21] MEDS: DOCUSATE SODIUM 100 MG CAP PO SCH ×2 (08:22→20:47)
[2018-06-21] MEDS: CITALOPRAM 20 MG TAB PO SCH (08:22)
[2018-06-21] MEDS: MULTIVITAMIN TAB PO SCH (08:23)
[2018-06-21] MEDS: POTASSIUM CHLORIDE 20 MEQ TABCR PO SCH (08:23)
[2018-06-21] MEDS: FUROSEMIDE 40 MG TAB PO SCH (08:23)
[2018-06-21] MEDS: LISINOPRIL 10 MG TAB PO SCH (08:24)
[2018-06-21] MEDS: CHOLECALCIFEROL 1,000 UNITS TAB PO SCH (08:24)
[2018-06-21] MEDS: PANTOprazole 40 MG TAB PO SCH (08:24)
[2018-06-21] MEDS: DAPTOmycin 1,200 MG in SYRINGE 0 ML IV SCH (10:57)
--- NOTE | 2018-06-21 12:46 | Orthopedic Progress Note ---
Date of Service June 21, 2018 Assessment & Plan (1) Retained orthopedic hardware: 78 yo female stable POD #4 s/p left ankle I&D, hardware removal, implantation Stimulan beads, appreciate Dr Borrero consult 1. Med management- cont IV abx 2. DVT prophylaxis- SCDs 3. D/C planning- cultures growing VRE. Will require at least 6 weeks of IV Daptomycin. Picc line in yesterday. SNF approved by insurance. Plan for dc to SNF today. Patient seen and examined agree with above assessment plan. Subjective Pt sitting up in chair at bedside. No complaints today. Comfortable. Pain controlled. States she is going to SNF today. Physical Exam Physical Exam: Dressings appear C/D/I. Calves, soft, NT. Toes pink and warm with good cap refill. NV intact. Results & Data Vital Signs (Past 12 Hours) Vital Signs Temp Pulse Resp BP Pulse Ox 06/21/18 06:57 36.5 C 79 18 102/63 98
--- NOTE | 2018-06-21 14:39 | Infectious Disease Progress Nt ---
Date of Service June 21, 2018 Assessment & Plan (1) Abscess of ankle: Patient with persistent left ankle infection following repair of traumatic injury now status post removal of placement of new antibiotic beads. Cultures positive for VRE. Patient to be treated with higher dose daptomycin given borderline SRINI. Will need 6 weeks of IV antibiotics. Would like to see back in the office in 2 to 3 weeks to evaluate response to therapy. (2) VRE (vancomycin-resistant Enterococci) infection: Subjective Patient seen in follow-up for left ankle infection. Remains afebrile. Pain controlled. Tolerating daptomycin without apparent difficulty. Per transfer to [facility] today. Review of Systems Review of Systems: All systems reviewed & are unremarkable except as noted in HPI & below Physical Exam Constitutional: WD/WN, vitals as above + obese and comfortable; no acute distress Eyes: PERRL, conjunctivae normal, anicteric sclerae ENMT: external ear and nose normal, oropharynx normal Neck: trachea midline, no thyromegaly neck nontender Respiratory: normal respiratory effort, lungs clear to auscultation normal percussion; does not use accessory muscles Cardiovascular: Rate/Rhythm: regular rate and regular rhythm Heart Sounds: normal S1 and normal S2; no gallop, no murmur and no cardiac rub Vessels: normal peripheral pulses; no JVD Gastrointestinal (Abdomen): normal bowel sounds, soft, nontender, no hepatosplenomegaly Musculoskeletal: no cyanosis or clubbing, extremities motor strength 5/5 Spine: thoracic spine normal to inspection and lumbar spine normal to inspection; no cervical spinal tenderness Skin: no rashes, warm and dry normal turgor Neurologic: patellar DTR's 2+ bilat, sensation intact no focal motor deficits Psychiatric: A+Ox3, euthymic affect Orientation: cooperative Lymphatic: no cervical or axillary lymphadenopathy no inguinal lymphadenopathy Results & Data Vital Signs (Past 12 Hours) Vital Signs Temp Pulse Pulse Resp BP BP Pulse Ox 06/21/18 12:56 36.5 C 97 H 79 18 112/66 102/63 96 06/21/18 12:36 96 06/21/18 06:57 36.5 C 79 18 102/63 98
[2018-06-21] MEDS: SENNA 8.6 MG TAB PO SCH (20:47)
[2018-06-21] MEDS: ENOXAPARIN INJ 40 MG/0.4 ML SYR SQ SCH (20:47)
[2018-06-22] MEDS: ACETAMINOPHEN 500 MG TAB PO SCH ×2 (06:04→14:15)
--- NOTE | 2018-06-22 08:03 | Orthopedic Progress Note ---
Date of Service June 22, 2018 Assessment & Plan (1) Retained orthopedic hardware: 78 yo female stable POD #5 s/p left ankle I&D, hardware removal, implantation Stimulan beads, appreciate Dr Borrero consult 1. Med management- cont IV abx 2. DVT prophylaxis- SCDs 3. D/C planning- cultures growing VRE. Will require at least 6 weeks of IV Daptomycin. Picc line placed. authorization pending, if available will transfer today. will need f/u with dr landry office 12-14 days after her surgery, Dr Arita would also like to see patient back in 2-3 weeks to assess response. Patient seen and examined agree with above assessment plan. Subjective POD #5 patient resting comfortably in bed, pain well tolerated at this time. denies CP/SOB, denies fever/chills. denies calf pain Physical Exam Physical Exam: Vital Signs Temp 36.7 C 06/22/18 07:17 Pulse 92 H 06/22/18 07:17 Resp 18 06/22/18 07:17 BP 137/83 06/22/18 07:17 Pulse Ox 90 06/22/18 07:17 Intake & Output 06/21/18 06/22/18 06/22/18 18:59 06:59 18:59 Intake Total 480 / 755 275 / 755 Output Total 1200 / 1200 Balance -720 / -445 275 / -445 Weight 120.8 kg Intake: Oral 480 / 755 275 / 755 Output: Urine 1200 / 1200 Other: # Unmeasured Voi ds 1 Musculoskeletal: Left Leg: calf SNT, Dressing clean and dry, there is no drainage noted. Toes pink and warm with good cap refill. NV intact. able to wiggle toes, gentle ankle dorsi/plantar flexion with no discomfort Results & Data Vital Signs (Past 12 Hours) Vital Signs Temp Pulse Resp BP BP Pulse Ox 06/22/18 07:17 36.7 C 92 H 18 137/83 90 06/21/18 23:15 36.7 C 103 H 18 111/69 94
[2018-06-22] MEDS: CITALOPRAM 20 MG TAB PO SCH (08:21)
[2018-06-22] MEDS: POTASSIUM CHLORIDE 20 MEQ TABCR PO SCH (08:22)
[2018-06-22] MEDS: PANTOprazole 40 MG TAB PO SCH (08:22)
[2018-06-22] MEDS: FUROSEMIDE 40 MG TAB PO SCH (08:22)
[2018-06-22] MEDS: DOCUSATE SODIUM 100 MG CAP PO SCH (08:22)
[2018-06-22] MEDS: CHOLECALCIFEROL 1,000 UNITS TAB PO SCH (08:22)
[2018-06-22] MEDS: MULTIVITAMIN TAB PO SCH (08:22)
[2018-06-22] MEDS: LISINOPRIL 10 MG TAB PO SCH (08:23)
[2018-06-22] MEDS: DAPTOmycin 1,200 MG in SYRINGE 0 ML IV SCH (10:27)
--- NOTE | 2018-06-22 15:56 | Infectious Disease Progress Nt ---
Date of Service June 22, 2018 Assessment & Plan (1) Abscess of ankle: Patient with persistent left ankle infection following repair of traumatic injury now status post removal of placement of new antibiotic beads. Cultures positive for VRE. Patient to be treated with higher dose daptomycin given borderline SRINI. Will need 6 weeks of IV antibiotics. Would like to see back in the office in 2 to 3 weeks to evaluate response to therapy. (2) VRE (vancomycin-resistant Enterococci) infection: Subjective patient resting comfortably in bed, pain well tolerated at this time. denies CP/SOB, denies fever/chills. denies calf pain Review of Systems Review of Systems: All systems reviewed & are unremarkable except as noted in HPI & below Physical Exam Constitutional: WD/WN, vitals as above + obese and comfortable; no acute distress Eyes: PERRL, conjunctivae normal, anicteric sclerae ENMT: external ear and nose normal, oropharynx normal Neck: trachea midline, no thyromegaly neck nontender Respiratory: normal respiratory effort, lungs clear to auscultation normal percussion; does not use accessory muscles Cardiovascular: Rate/Rhythm: regular rate and regular rhythm Heart Sounds: normal S1 and normal S2; no gallop, no murmur and no cardiac rub Vessels: normal peripheral pulses; no JVD Gastrointestinal (Abdomen): normal bowel sounds, soft, nontender, no hepatosplenomegaly Musculoskeletal: no cyanosis or clubbing, extremities motor strength 5/5 Spine: thoracic spine normal to inspection and lumbar spine normal to inspection; no cervical spinal tenderness Skin: no rashes, warm and dry normal turgor Neurologic: patellar DTR's 2+ bilat, sensation intact no focal motor deficits Psychiatric: A+Ox3, euthymic affect Orientation: cooperative Lymphatic: no cervical or axillary lymphadenopathy no inguinal lymphadenopathy Results & Data Vital Signs (Past 12 Hours) Vital Signs Temp Pulse Pulse Resp BP BP Pulse Ox 06/22/18 13:05 93 06/22/18 11:43 36.6 C 80 22 110/76 96 06/22/18 10:16 36.7 C 80 92 H 22 111/69 109/71 95 06/22/18 07:40 36.7 C 80 22 109/71 95 06/22/18 07:17 36.7 C 92 H 18 137/83 90 Laboratory Results Laboratory Results - last 48 hr 06/21/18 16:44 Total Creatine Kinase 21 L Diagnostic Findings Microbiology 06/17/18 16:52 Ankle,Left Gram Stain - Final 06/17/18 16:52 Ankle,Left Deep Wound Culture - Final Enterococcus faecium VRE
--- NOTE | 2018-06-27 08:59 | Coding Query ---
DEBRIDEMENT DOCUMENTATION To promote full compliance with coding requirements relating to patient care, physician participation is requested in all cases of metalizing machine operator automatic uncertainty. Please assist us with the question(s) below: Please place an X in the parenthesis (x). If other, please document the finding: Type of Debridement: (X ) Excisional Debridement- Cutting away necrotic, devitalized tissue or slough to the level of viable tissue using a sharp instrument (i.e. scalpel, scissors, etc.) ( ) Non Excisional Debridement- The removal of necrotic, devitalized tissue or slough by means of scraping, mechanical brushing, flushing, or washing (i.e. irrigation,whirlpool);minor removal of loose fragments. ( ) Other (please specify): Instrument Used: (X ) Scissors ( X) Scalpel ( ) Curette ( ) Other (please specify): Thank you Lina TRAORE
--- NOTE | 2018-06-29 01:40 | Discharge Summary ---
DISCHARGE DIAGNOSES: Left ankle infected wound laterally, retained screws x2, retained antibiotic beads. SECONDARY DIAGNOSES: Hypertension, hyperlipidemia, history of pulmonary embolism in the past, sleep apnea, depression, anxiety, anemia, gastroesophageal reflux disease, diverticular disease, osteoarthritis, hearing deficit, morbid obesity. CONSULTANTS: Fabián Arita MD COMPLICATIONS: None. PROCEDURES: Left ankle removal of hardware x2 screws; irrigation and debridement, ankle including skin, fascia and bone; removal of antibiotic beads; implantation of new antibiotic Stimulan beads [address] Pepe on 06/17/2018. BRIEF HISTORY: As dictated in the history and physical. HOSPITAL SUMMARY: The patient was admitted on the above-noted date and had the above-noted surgery performed, which she tolerated well. On her first postoperative day, she was resting in bed. Pain was controlled. She had no complaints. Dressings were clean, dry, and intact. Toes were mobile. Vital signs were stable, she was afebrile and she was continued on postoperative IV antibiotics and awaiting pending cultures. Dr. Arita was consulted and saw the patient on 06/18/2018 and plans were to, as noted, continue the vancomycin pending the operative culture results and the patient would likely need prolonged IV antibiotics. By 06/20/2018, cultures were showing VRE, which she was then switched from Vancomycin to Daptomycin. Her ankle incision was well approximated. She had no active drainage, but the gauze had moderate serosanguineous drainage during the dressing change. No erythema, no tenderness with the dressing change. A PICC line was successfully placed and plans were for case management to arrange custodial facility pending authorizations. She was continued on the IV daptomycin and continued to have good pain control and she was otherwise remaining stable. The rest of her stay was essentially uneventful and by 06/22/2018, she was remaining stable. Plans were 6 weeks of IV antibiotics and she was transferred to skilled facility on 06/22/2018. For further review, please see chart. LABORATORY AND X-RAY DATA: As per chart. DISCHARGE INSTRUCTIONS: The patient was discharged to custodial facility on 06/22/2018. DIET: Regular. ACTIVITY: Nonweightbearing left lower extremity. Follow activity recommendations and special care instructions. Follow up with Dr. Pepe in 10-14 days for wound check. Follow up with Dr. Arita in 2-3 weeks. PLAN: For IV daptomycin daily with weekly lab draws being sent to Dr. Arita's office. DISCHARGE MEDICATIONS: Aspirin 81 mg p.o. b.i.d., daptomycin 1200 mg IV daily, Percocet 1-2 tabs p.o. q. 6 hours p.r.n. Resume home meds as listed. Stop taking naproxen and previous Percocet order. MTDD
== END 2018-06-22 17:09 | DRG 857 ==
LOC: ASU 11:58 → 3E 17:37

== ENCOUNTER 2018-10-14 11:20 | Inpatient (IN) ==
--- NOTE | 2018-10-13 19:50 | History & Physical Report ---
Date of Service October 13, 2018 Assessment & Plan (1) Wound dehiscence, surgical: Schedule left ankle I & D, removal antibiotic beads, implantation Stimulan antibiotic beads for 10.14.18. All potential risks, benefits, complications, alternatives, and rehab have been discussed with the patient and she wishes to proceed. Patient will be admitted after the procedure for following of updated cultures. (2) Abscess of ankle: History of Present Illness Chief Complaint: left ankle nonhealing wound Primary Care Provider: Jessica Orosco DO This is a patient who had undergone a previous left ankle fusion. She has had multiple subsequent I & D's with antibiotic bead placement. She's had a persistent draining wound at the lateral ankle. She is being set up for another I & D. Allergies Allergy/AdvReac Type Severity Reaction Status Date / Time No Known Allergies Allergy Verified 06/15/18 09:03 Home Medications Home Medications Medication Instructions Recorded Confirmed Type ascorbic acid (vitamin C) [Vitamin 1,000 mg PO QAM 12/09/17 06/17/18 History C] cholecalciferol (vitamin D3) 1,000 unit PO QAM 12/09/17 06/17/18 History [Vitamin D3] cinnamon bark [Cinnamon] 500 mg PO QAM 12/09/17 06/17/18 History citalopram 30 mg PO QAM 12/09/17 06/17/18 History ferrous sulfate 27 mg PO QAM 12/09/17 06/17/18 History furosemide [Lasix] 60 mg PO QAM 12/09/17 06/17/18 History lisinopril 10 mg PO QAM 12/09/17 06/17/18 History lovastatin 20 mg PO HS 12/09/17 06/17/18 History multivitamin 1 tab PO QAM 12/09/17 06/17/18 History omeprazole 20 mg PO QAM 12/09/17 06/17/18 History potassium chloride 20 meq PO QAM 12/09/17 06/17/18 History riboflavin (vitamin B2) [Vitamin 100 mg PO QAM 12/09/17 06/17/18 History B-2] daptomycin 1,200 mg IV DAILY #1 ea 06/20/18 Rx oxycodone-acetaminophen [Percocet] 1 - 2 tab PO Q6H PRN #30 tab 06/20/18 Rx Past Med/Surg History Medical History Hypertension Hyperlipidemia Pulmonary embolism (Chronic) BILATERAL S/P ANKLE SURGERY. SEPTEMBER 2016. TREATED WITH COUMADIN. NO LONGER TAKING Sleep apnea BIPAP WITH 2LPM OXYGEN Depression Anxiety Anemia TAKING IRON GERD (gastroesophageal reflux disease) Diverticular disease Osteoarthritis Hearing deficit [place] - NO HEARING AIDES Morbid obesity Surgical History History of colonoscopy History of cholecystectomy LAP H/O ankle fusion RIGHT H/O ankle fusion (Acute) left -- had subsequent infection and debridement with ABX beads implanted 02/201801/21/18 - MAC #3, ETT #7.5, HiLo Oral, Grade 3 View Aftercare following left ankle joint replacement surgery 06/17/18 - I&D - Glidescope #4, ETT #7.5, HiLo Oral 03/18/18 - I&D - Glidescope #4, ETT #7.0, HiLo Oral, Grade 3 View Difficult airway for intubation With most recent ankle surgeries, patient was noted to be a difficult intubation, requiring Glidescope. Previous anesthesia records do not note difficulties. History of esophagogastroduodenoscopy (EGD) Social History Preferred Language: Kazakh Communication Ability: Effective Visual Impairment: No Limitations Channel Turner Required: No Beliefs That Will Affect Care: None marital status: / Current Living Situation: Family Feels Safe at Home: Yes Smoking Status: Never smoker Second Hand Exposure: No ; Hx Alcohol Use: Yes Alcohol type: wine Hx Substance Use: No Physical Exam Constitutional: well developed and well nourished; no acute distress ENMT: external ear and nose normal, oropharynx normal Neck: trachea midline, no thyromegaly Respiratory: normal respiratory effort, lungs clear to auscultation Cardiovascular: Rate/Rhythm: regular rate and regular rhythm Gastrointestinal (Abdomen): normal bowel sounds, soft, nontender, no hepatosplenomegaly Musculoskeletal: Left ankle: NWB LLE. Mild ankle swelling. Nonhealing lateral ankle wound with small opening along the incision. Serous drainage. No erythema. No tenderness noted. Neurologic: normal touch/pain/proprioception Psychiatric: A+Ox3, euthymic affect Lymphatic: no cervical or axillary lymphadenopathy
[~2018-10-14 11:20] MED LIST changes: -LR 15ML/HR IV SCH; +PATIENT'S HEIGHT AND/OR WEIGHT NEEDED SCH
[2018-10-14] MEDS ORDERED: CEFAZOLIN 3000MG/72.5 ML BAG IV ONE (12:22)
[2018-10-14] MEDS ORDERED: LACTATED RINGER'S 1,000 ML IV SCH (12:30)
[2018-10-14] MEDS ORDERED: PROPOFOL IV EMULSION 10 MG/ML 20 ML VIAL IV ONE (13:55)
[2018-10-14] MEDS ORDERED: LIDOCAINE HCL 2% 2 ML VIAL/AMP(20MG/ML) INFIL ONE (13:55)
[2018-10-14] MEDS ORDERED: ONDANSETRON INJ 2 MG/ML 2 ML VIAL ONE ×2 (13:55→16:30)
[2018-10-14] MEDS ORDERED: fentaNYL citrate 100 MCG/2 ML VIAL ONE ×2 (13:56→15:56)
[2018-10-14] MEDS ORDERED: MIDAZOLAM HCL 1 MG/ML 2ML VIAL ONE (13:56)
[2018-10-14] MEDS ORDERED: VANCOMYCIN HCL 1000MG/20ML VIAL ONE ×2 (14:52→14:57)
[2018-10-14] MEDS ORDERED: GENTAMICIN SULFATE 40 MG/ML 2 ML VIAL ONE ×3 (14:52→16:22)
[2018-10-14] MEDS ORDERED: BACITRACIN INJ 50,000 UNIT VIAL ONE (14:53)
--- NOTE | 2018-10-14 14:56 | Anesthesiology Consultation ---
Date of Service October 14, 2018 Assessment & Plan Chart Review Chart Review: Acceptable Risk for Surgery and Patient NOT seen in Pre Admission Testing Consults Requested none ASA ASA3 Proposed Anesthesia Anesthesia Type: General Risk / Benefits Reviewed With: PT / POA / Parent / Guardian, Accepts Plan and Informed Consent Obtained History Surgery Operation Date: 10/14/18 13:20 Proposed Procedures p Left Ankle Irrigation and Debridement with Removal of Stimulan Beads, Re- Application of Stimulan Antibiotic Beads - Wil Pepe DO Height/Weight Height: 4 ft 10 in Weight: 120.854 kg Allergies Allergy/AdvReac Type Severity Reaction Status Date / Time No Known Allergies Allergy Verified 10/14/18 11:57 Medications Home Medications Medication Instructions Recorded Confirmed Last Taken ascorbic acid (vitamin C) [Vitamin 1,000 mg PO QAM 12/09/17 10/14/18 10/13/18 09:00 C] cholecalciferol (vitamin D3) 1,000 unit PO QAM 12/09/17 10/14/18 10/13/18 09:00 [Vitamin D3] cinnamon bark [Cinnamon] 500 mg PO QAM 12/09/17 10/14/18 10/13/18 09:00 citalopram 30 mg PO QAM 12/09/17 10/14/18 10/13/18 09:00 ferrous sulfate 27 mg PO QAM 12/09/17 10/14/18 10/13/18 09:00 furosemide [Lasix] 60 mg PO QAM 12/09/17 10/14/18 10/13/18 09:00 lisinopril 10 mg PO QAM 12/09/17 10/14/18 10/13/18 09:00 lovastatin 20 mg PO HS 12/09/17 10/14/18 10/13/18 22:00 multivitamin 1 tab PO QAM 12/09/17 10/14/18 10/13/18 09:00 omeprazole 20 mg PO QAM 12/09/17 10/14/18 10/13/18 09:00 potassium chloride 20 meq PO QAM 12/09/17 10/14/18 10/13/18 09:00 riboflavin (vitamin B2) [Vitamin 100 mg PO QAM 12/09/17 10/14/18 10/13/18 09:00 B-2] oxycodone-acetaminophen [Percocet] 1 - 2 tab PO Q6H PRN #30 tab 06/20/18 10/14/18 Unknown Active Medications Generic Name Dose Route Start Last Admin Trade Name Freq PRN Reason Stop Dose Admin Lactated Ringer's 1,000 mls @ 15 mls/hr 10/14/18 12:30 10/14/18 12:28 Lr IV 11/13/18 12:29 15 mls/hr .Q24H LEONARDO Administration NPO Date Last Intake of Fluids: 10/13/18 Time Last Intake of Fluids: 20:00 Date Last Intake of Solids: 10/13/18 Time Last Intake of Solids: 18:00 Past Medical History Medical History Hypertension Hyperlipidemia Pulmonary embolism (Chronic) BILATERAL S/P ANKLE SURGERY. SEPTEMBER 2016. TREATED WITH COUMADIN. NO LONGER TAKING Sleep apnea BIPAP WITH 2LPM OXYGEN Depression Anxiety Anemia TAKING IRON GERD (gastroesophageal reflux disease) Diverticular disease Osteoarthritis Hearing deficit [place] - NO HEARING AIDES Morbid obesity Exercise / Class Metabolic Activity III < 4 Walking/Shop/Light housework Past Family History Family History Other No pertinent family history Past Surgical History Surgical History History of colonoscopy History of cholecystectomy LAP H/O ankle fusion RIGHT H/O ankle fusion (Acute) left -- had subsequent infection and debridement with ABX beads implanted 02/201801/21/18 - MAC #3, ETT #7.5, HiLo Oral, Grade 3 View Aftercare following left ankle joint replacement surgery 06/17/18 - I&D - Glidescope #4, ETT #7.5, HiLo Oral 03/18/18 - I&D - Glidescope #4, ETT #7.0, HiLo Oral, Grade 3 View Difficult airway for intubation With most recent ankle surgeries, patient was noted to be a difficult intubation, requiring Glidescope. Previous anesthesia records do not note difficulties. History of esophagogastroduodenoscopy (EGD) Past Anesthesia History No Hx of Anesthesia Complications and No Family Hx of Anesthesia Complications History of PONV No Hx of PONV and No Hx of Motion Sickness Social History Smoking Status: Never smoker Hx Alcohol Use: Yes Alcohol type: wine alcohol intake frequency: holidays/special occasions only Hx Substance Use: No substance use type: does not use Physical Exam Vital Signs Last Vital Signs Temp 37.5 C 10/14/18 12:02 Pulse 95 H 10/14/18 12:02 Resp 22 10/14/18 12:02 BP 117/51 L 10/14/18 12:02 Pulse Ox 96 10/14/18 12:02 Constitutional + morbidly obese ENMT Mouth: no dentition abnormality Thyromental Distance: > or= 3.5 Finger Breadths Mallampati Class: III Neck normal visual inspection, trachea midline, + short neck and + thick neck; neck extension not limited Respiratory normal respiratory effort Auscultation: lungs clear to auscultation bilaterally Cardiovascular Rate/Rhythm: regular rate and regular rhythm Heart Sounds: no murmur Vessels: no carotid bruit Musculoskeletal Spine: normal cervical ROM Neurologic moves all extremities Motor/Sensory: no sensory deficit Psychiatric Orientation: alert and oriented x 3
[2018-10-14] MEDS ORDERED: BUPIVACAINE 0.5 % 5 MG/1 ML MPF 30ML VIAL ONE (15:14)
--- NOTE | 2018-10-14 15:18 | History & Physical Bridge Note ---
Date of Service October 14, 2018 History & Physical Bridge Note I have examined the patient, reviewed the History & Physical and in the interval since the performance of the History & Physical I have noted the following changes of clinical significance: no changes noted
--- NOTE | 2018-10-14 17:14 | Post Operative Brief Note ---
Immediate Post Op Note v1 Date of Surgery October 14, 2018 Pre & Post Diagnosis Operation Date: 10/14/18 13:20 Pre-Op Diagnosis: Left Ankle osteomyelitis, draining sinus left lateral ankle, retained antibiotic beads Post-Op Diagnosis: Left Ankle osteomyelitis, draining sinus left lateral ankle, retained antibiotic beads Procedure Operation Date: 10/14/18 13:20 Actual Procedures p Left Ankle Irrigation and Debridement skin/fascia/bone, Removal of Stimulan Beads, New Application of 10 cc Stimulan Antibiotic Beads, exostectomy talus, exostectomy calcaneus, exostectomy cuboid, resection sinus tract, biopsy talus bone (Left) - Wil Pepe DO Surgeon Wil Pepe DO Disaster Or Damage Control Specialist None Estimated Blood Loss 10 Findings Consistent with Post-Op Diagnosis Specimens Aerobic anaerobic Gram stain deep left subtalar joint/ankle; biopsy talus bone for pathology and culture Drains Hemovac Drain Anesthesia Type General Complications none Disposition Accompanied Patient To Recovery: Yes Disposition: Recovery Room
[2018-10-14] MEDS ORDERED: HYDROmorphone INJ 1 MG/ML SYRINGE ONE (17:18)
[2018-10-14] MEDS ORDERED: FLUMAZENIL 0.1 MG/1 ML 10 ML VIAL IV PRN (17:21)
[2018-10-14] MEDS ORDERED: ePHEDrine sulfate 50 MG/ML AMP IV PRN (17:21)
[2018-10-14] MEDS ORDERED: ATROPINE SULFATE 0.1 MG/ML 10ML SYR IV PRN (17:21)
[2018-10-14] MEDS ORDERED: PROMETHAZINE HCL 12.5 MG in SODIUM CHLORIDE 0.9% 50 ML IV PRN (17:21)
[2018-10-14] MEDS ORDERED: NALOXONE HCL 0.4 MG/1 ML VIAL/CARP IV PRN ×3 (17:21→18:23)
[2018-10-14] MEDS ORDERED: LABETALOL HCL IV 5 MG/ML 20ML IV PRN (17:21)
[2018-10-14] MEDS ORDERED: ONDANSETRON INJ 2 MG/ML 2 ML VIAL IV PRN ×3 (17:21→18:23)
[2018-10-14] MEDS ORDERED: HYDROmorphone INJ 0.5 MG/0.5 ML SYR ONE (17:32)
[2018-10-14] MEDS: HYDROmorphone INJ 1 MG/ML SYRINGE IV PRN ×2 (17:39→17:44)
[2018-10-14] MEDS ORDERED: BISACODYL 10 MG SUPP PR PRN ×2 (17:41→18:23)
[2018-10-14] MEDS ORDERED: HYDROmorphone INJ 0.5 MG/0.5 ML SYR IV PRN ×2 (17:41→18:23)
[2018-10-14] MEDS ORDERED: MAGNESIUM HYDROXIDE SUSP 30 ML UDC PO PRN ×2 (17:41→18:23)
--- NOTE | 2018-10-14 17:51 | Anesthesiology Progress Note ---
Date of Service October 14, 2018 Anesthesia Post Procedure Vital Signs Vital Signs: Temp Pulse Pulse Resp BP Pulse Ox 10/14/18 17:40 89 16 130/68 97 10/14/18 17:30 89 16 129/77 98 10/14/18 17:20 90 18 126/61 98 10/14/18 17:13 36.1 C L 98 H 20 128/68 94 10/14/18 12:02 37.5 C 95 H 22 117/51 L 96 Pain Intensity Left Ankle: Pain Intensity: 6 Transfer of Care Handoff Completed per policy Notes Mental Status: alert / awake / arousable Patient Amnestic to Procedure: Yes Nausea / Vomiting: adequately controlled Pain: adequately controlled Airway Patency, RR, SpO2: stable & adequate BP & HR: stable & adequate Hydration State: stable & adequate Anesthetic Complications: no major complications apparent
[2018-10-14] MEDS ORDERED: OXYCODONE HCL IR 5 MG TAB (IMMEDIATE RELEASE) PO PRN (18:23)
[2018-10-14] MEDS ORDERED: SODIUM CHLORIDE 0.9% 1000ML 1,000 ML IV SCH (18:23)
[2018-10-14 20:12] LABS: Creatinine Clr Calc Pharmacy 71.3 ml/min; Est GFR (African American) 87.7; Est GFR (Non-African American) 75.7
[2018-10-14] MEDS: DAPTOmycin 450 MG in SYRINGE 0 ML IV SCH (20:26)
[2018-10-14] MEDS: ASPIRIN 81 MG ECTAB PO SCH (20:27)
[2018-10-14] MEDS: SODIUM CHLORIDE 0.9% 1000ML 1,000 ML IV SCH (20:27)
[2018-10-14] MEDS: DOCUSATE SODIUM 100 MG CAP PO SCH (20:28)
[2018-10-14] MEDS: SENNA 8.6 MG TAB PO SCH (20:28)
[2018-10-14] MEDS: ACETAMINOPHEN 500 MG TAB PO SCH (20:31)
[2018-10-14] MEDS: OXYCODONE HCL IR 5 MG TAB (IMMEDIATE RELEASE) PO PRN (20:50)
--- NOTE | 2018-10-14 20:52 | Operative Report ---
DATE OF OPERATION: 10/14/2018 PREOPERATIVE DIAGNOSES: 1. Left ankle osteomyelitis. 2. Draining sinus left lateral ankle. 3. Retained Stimulan antibiotic beads. POSTOPERATIVE DIAGNOSES: 1. Left ankle osteomyelitis. 2. Draining sinus left lateral ankle. 3. Retained Stimulan antibiotic beads. PROCEDURE: 1. Left ankle irrigation and debridement including skin, fascia and bone. 2. Removal of Stimulan antibiotic beads. 3. New application of 10 mL of Stimulan antibiotic beads to the left lateral ankle and subtalar joint. 4. Exostectomy of the talus. 5. Exostectomy of the calcaneus. 6. Exostectomy of the cuboid. 7. Biopsy of the talus. SURGEON: Wil Pepe DO. CITY MANAGER: None. ANESTHESIA: General LMA. SPECIMENS: 1. Aerobic, anaerobic, Gram stain - deep left ankle and subtalar joint. 2. Bone from the talus for pathology and culture. DRAINS: Hemovac drain 10-Greenlandic x1. COMPLICATIONS: None. BLOOD LOSS: 10 mL. PERTINENT HISTORY: This is a 78-year-old woman who had previous fusion of her left ankle. She developed osteomyelitis at the ankle. She underwent removal of hardware, debridement, application of antibiotic beads. She had a successful union of the fusion; however, then a residual drainage from the site. She had a secondary irrigation and debridement and then most recently she had a near closure of her wound; however, developed increasing discharge and drainage after the next 2-4 weeks. She was then seen in clinic and she was then scheduled for surgical debridement, removal of beads and application of new antibiotic-laden beads as indicated. All potential risks, benefits, complications, alternatives, rehab, potential for incomplete relief of symptoms, need for further surgery, DVT, PE, , persistent pain, swelling, scarring, weakness, neurovascular injury, wound complications, need for further surgery and possible amputation were discussed with the patient. The patient decided to proceed with the procedure as indicated. DESCRIPTION OF PROCEDURE: The patient was taken to the operative suite, placed supine on the operating room table. After review of consent and identification of proper operative site, the patient was anesthetized, LMA was placed. Tourniquet was placed high on the left thigh over cast padding. The left lower extremity was then sterilely prepped and draped in usual fashion, elevated and the tourniquet was inflated to 350 mmHg. There was no use of exsanguination due to the infection in the lower extremity. Next, a 15 blade scalpel was used to make an incision in line with the previous surgical incision. Incision was deepened through the previous scar and the sinus tract was then opened. The sinus tract was then excised with 15 blade scalpel and tracked down deep to the level of the subtalar joint and the area of the talus with previously placed antibiotic-laden Stimulan calcium sulfate beads. The beads had essentially resolved. There is some degree of fibrous tissue, soft in consistency. Some what appeared to be synovial fluid in the subtalar region and also the calcaneocuboid region. Next, a deep culture was obtained in the subtalar and lateral ankle region for aerobic, anaerobic, Gram stain. Next, debridement was performed with curette and rongeur down to the level of the talus bone. A talus bone specimen was harvested for biopsy for assessment by the pathologist and also bone for culture was obtained. Next, noted to be some talus bone with compromised integrity was then debrided and exostectomy was then performed of the talus. Also noted some calcaneal bone softening. Debridement was performed with exostectomy of the calcaneus and similarly, the cuboid was noted to have some softening dorsal-laterally, and exostectomy was then performed of the cuboid with a rongeur. Next, the curette was then used to make certain that all previously placed Stimulan beads were resected. After the bone appeared appropriately debrided with no evidence of fibrous tissue or Stimulan bead residue, pulsatile lavage of 6 liters was then used to cleanse the lateral ankle and hindfoot including the subtalar joint and calcaneocuboid joint and the lateral aspect of the talus, calcaneus, and cuboid. This was performed by pulsatile lavage with bacitracin. Once the tissue was clear, new Stimulan beads 10 mL with tobramycin and 2 units of gentamicin were mixed. The beads were then formed with a small bead mat and the Stimulan beads were then inserted into the lateral aspect of the subtalar joint adjacent to the talus and calcaneus and cuboid as well as adjacent to the calcaneocuboid joint. Once these were placed, a 10-Green[place]ic single lumen Hemovac drain was placed exiting dorsolaterally and a full thickness flap closure was then performed of the lateral ankle and hindfoot using interrupted 2-0 nylon sutures. Once this was completed, sterile compressive dressing was applied overwrapped with an Sudhakar wrap. The tourniquet was released. The patient was awakened and taken to recovery in stable condition. I attest to the content of the Intraoperative Record and any orders documented therein. Any exception s are noted below.
[2018-10-14] MEDS ORDERED: ASPIRIN 81 MG ECTAB PO SCH (21:00)
[2018-10-14] MEDS ORDERED: SENNA 8.6 MG TAB PO SCH (21:00)
[2018-10-14] MEDS ORDERED: DOCUSATE SODIUM 100 MG CAP PO SCH (21:00)
[2018-10-14] MEDS ORDERED: ACETAMINOPHEN 500 MG TAB PO SCH (22:00)
[2018-10-15] MEDS: OXYCODONE HCL IR 5 MG TAB (IMMEDIATE RELEASE) PO PRN ×3 (03:48→20:33)
[2018-10-15] MEDS: SODIUM CHLORIDE 0.9% 1000ML 1,000 ML IV SCH (05:32)
[2018-10-15] MEDS: ACETAMINOPHEN 500 MG TAB PO SCH ×3 (05:35→21:01)
[2018-10-15] MEDS ORDERED: CEFAZOLIN 1000MG 1,000 MG/7.5 ML SYR IV SCH (06:00)
[2018-10-15 07:20] LABS: Hematocrit (blood only) 22.8 % (37-47); Hemoglobin 6.5 g/dL (12.0-16.0); Mean Corpuscular Hemoglobin 22.3 pg (25-34); Mean Corpuscular Hgb Conc 28.5 g/dL (32-36); Mean Corpuscular Volume 78.4 fL (80-100); Platelet Count 263 K/uL (130-400); RDW Standard Deviation 49.2 fL (36.4-46.3); Red Blood Count 2.91 M/uL (4.2-5.4); White Blood Count 8.04 K/uL (4.8-10.8)
[2018-10-15 07:40] LABS: BUN Creatinine Ratio 26.8 (10-20); Calcium 8.3 mg/dl (8.5-10.1); Creatinine Clr Calc Pharmacy 77.4 ml/min; Est GFR (African American) 96.9; Est GFR (Non-African American) 83.6
[2018-10-15 08:23] LABS: Hematocrit (blood only) 23.2 % (37-47); Hemoglobin 6.5 g/dL (12.0-16.0)
[2018-10-15] MEDS ORDERED: MULTIVITAMIN TAB PO SCH (09:00)
[2018-10-15] MEDS ORDERED: DAPTOmycin 500 MG VIAL IV SCH ×2 (09:00)
[2018-10-15] MEDS ORDERED: SODIUM CHLORIDE 0.9% 250 ML IV PRN (09:01)
--- NOTE | 2018-10-15 09:06 | Infectious Disease Consult ---
Date of Consultation October 15, 2018 Assessment & Plan (1) Chronic osteomyelitis involving left ankle and foot: Patient with chronic osteomyelitis left ankle with retained hardware, h/o VRE, now s/p debridement and placement of Abx beads. Will continue on daptomycin pending OR cultures. Will likely need prolonged IV antibiotic Rx. Will follow. (2) Retained orthopedic hardware: History of Present Illness Reason for Consultation: S/P I+D left ankle, H/O VRE Attending Physician: Wil Pepe DO History of Present Illness 78-year-old female well-known to [facility] follow-up for chronic left ankle infection. She has history of ankle fusion surgery with subsequent infection, and has had several surgeries with placement of antibiotic beads. Continues with draining sinus, and now is undergone repeat operative debridement including bone and fascia. She has been started empirically on daptomycin. Most recent cultures have grown only coagulase-negative staph and corynebacterium. Operative cultures are pending. Apart from mild pain in her foot, denies any specific complaints. Allergies Allergy/AdvReac Type Severity Reaction Status Date / Time No Known Allergies Allergy Verified 10/14/18 11:57 Home Medications Home Medications Medication Instructions Recorded Confirmed Type ascorbic acid (vitamin C) [Vitamin 1,000 mg PO QAM 12/09/17 10/14/18 History C] cholecalciferol (vitamin D3) 1,000 unit PO QAM 12/09/17 10/14/18 History [Vitamin D3] cinnamon bark [Cinnamon] 500 mg PO QAM 12/09/17 10/14/18 History citalopram 30 mg PO QAM 12/09/17 10/14/18 History ferrous sulfate 27 mg PO QAM 12/09/17 10/14/18 History furosemide [Lasix] 60 mg PO QAM 12/09/17 10/14/18 History lisinopril 10 mg PO QAM 12/09/17 10/14/18 History lovastatin 20 mg PO HS 12/09/17 10/14/18 History multivitamin 1 tab PO QAM 12/09/17 10/14/18 History omeprazole 20 mg PO QAM 12/09/17 10/14/18 History potassium chloride 20 meq PO QAM 12/09/17 10/14/18 History riboflavin (vitamin B2) [Vitamin 100 mg PO QAM 12/09/17 10/14/18 History B-2] oxycodone-acetaminophen [Percocet] 1 - 2 tab PO Q6H PRN #30 tab 06/20/18 10/14/18 Rx Patient History Medical History Hypertension Hyperlipidemia Pulmonary embolism (Chronic) BILATERAL S/P ANKLE SURGERY. SEPTEMBER 2016. TREATED WITH COUMADIN. STOPPED THEN RESTARTED 09/2018 FOR PREVENTION OF BLOOD CLOTS Sleep apnea BIPAP WITH 2LPM OXYGEN Depression Anxiety Anemia TAKING IRON GERD (gastroesophageal reflux disease) Diverticular disease Osteoarthritis Hearing deficit [place] - NO HEARING AIDES Morbid obesity Surgical History History of colonoscopy History of cholecystectomy LAP H/O ankle fusion RIGHT H/O ankle fusion (Acute) left -- had subsequent infection and debridement with ABX beads implanted 02/201801/21/18 - MAC #3, ETT #7.5, HiLo Oral, Grade 3 View Aftercare following left ankle joint replacement surgery 06/17/18 - I&D - Glidescope #4, ETT #7.5, HiLo Oral 03/18/18 - I&D - Glidescope #4, ETT #7.0, HiLo Oral, Grade 3 View Difficult airway for intubation With most recent ankle surgeries, patient was noted to be a difficult intubation, requiring Glidescope. Previous anesthesia records do not note difficulties. History of esophagogastroduodenoscopy (EGD) Family History Other No pertinent family history Social History Preferred Language: Kyr[place] Communication Ability: Effective Visual Impairment: No Limitations Nurse Paralegal Required: No Beliefs That Will Affect Care: None marital status: / Current Living Situation: Family Feels Safe at Home: Yes Smoking Status: Never smoker Second Hand Exposure: No ; Hx Alcohol Use: Yes Alcohol type: wine Hx Substance Use: No Review of Systems Review of Systems: All systems reviewed & are unremarkable except as noted in HPI & below Physical Exam Constitutional: WD/WN, vitals as above + obese and comfortable; no acute distress Eyes: PERRL, conjunctivae normal, anicteric sclerae ENMT: external ear and nose normal, oropharynx normal Neck: trachea midline, no thyromegaly neck nontender Respiratory: normal respiratory effort, lungs clear to auscultation normal percussion; does not use accessory muscles Cardiovascular: Rate/Rhythm: regular rate and regular rhythm Heart Sounds: normal S1 and normal S2; no gallop, no murmur and no cardiac rub Vessels: normal peripheral pulses; no JVD Gastrointestinal (Abdomen): normal bowel sounds, soft, nontender, no hepatosplenomegaly Musculoskeletal: no cyanosis or clubbing, extremities motor strength 5/5 Spine: thoracic spine normal to inspection and lumbar spine normal to inspection; no cervical spinal tenderness Skin: no rashes, warm and dry normal turgor and + wound (surgical dressing/drain left ankle) Neurologic: patellar DTR's 2+ bilat, sensation intact no focal motor deficits Psychiatric: A+Ox3, euthymic affect Orientation: cooperative Lymphatic: no cervical or axillary lymphadenopathy no inguinal lymphadenopathy Results & Data Vital Signs (Past 12 Hours) Vital Signs Temp Pulse Resp BP Pulse Ox 10/15/18 08:17 37.1 C 84 16 95/58 L 97 10/15/18 03:30 37.1 C 91 H 18 111/71 100 10/14/18 23:35 36.8 C 89 20 103/64 98 Laboratory Results Short CBC 10/15/18 10/15/18 Range/Units 06:39 07:58 WBC 8.04 (4.8-10.8) K/uL Hgb 6.5 L* 6.5 L* (12.0-16.0) g/dL Hct 22.8 L 23.2 L (37-47) % Plt Count 263 (130-400) K/uL BMP 10/14/18 10/15/18 19:08 06:39 Sodium 140 Potassium 4.0 Chloride 106 Carbon Dioxide 28 BUN 19 H Creatinine 0.76 0.70 Glucose 102 H Calcium 8.3 L Diagnostic Findings Microbiology 10/14/18 17:10 Ankle,Left Gram Stain - Final PG Care Time/CCT Total # of Minutes Spent Total Time Spent with Patient: Total time spent is greater than 50% in coordination of care (as documented) at patient's floor/unit and/or counseling patient:
[2018-10-15] MEDS: MULTIVITAMIN TAB PO SCH (09:14)
[2018-10-15] MEDS: FUROSEMIDE 40 MG TAB PO SCH (09:15)
[2018-10-15] MEDS: CHOLECALCIFEROL 1,000 UNITS TAB PO SCH (09:15)
[2018-10-15] MEDS: LISINOPRIL 10 MG TAB PO SCH (09:15)
[2018-10-15] MEDS: POTASSIUM CHLORIDE 20 MEQ TABCR PO SCH (09:15)
[2018-10-15] MEDS: CITALOPRAM 20 MG TAB PO SCH (09:15)
[2018-10-15] MEDS: DOCUSATE SODIUM 100 MG CAP PO SCH ×2 (09:15→21:01)
[2018-10-15] MEDS: PANTOprazole 40 MG TAB PO SCH (09:16)
[2018-10-15] MEDS: ASPIRIN 81 MG ECTAB PO SCH ×2 (09:16→21:01)
--- NOTE | 2018-10-15 09:25 | Orthopedic Progress Note ---
Date of Service October 15, 2018 Assessment & Plan (1) Chronic osteomyelitis involving left ankle and foot: POD 1 s/p repeat I/D Left ankle with reimplantation Stimulan antibx beads PT/OT DVT prophylaxis - ASA bid, SCD's Pain managment as written IV antibx as per ID team. (2) Acute blood loss anemia: Last charted Hgb was in July (11.7) that I can see. Unsure of preop H/H. EBL noted to be 10ml's from surgery. Most likely she was possibly anemic prior to surgery. Either way, repeat H/H was the same. Transfuse 2 units prbc's. Subjective POD 1 s/p I/D left ankle with reimplantation of stimulan beads Pt sitting up in bed. Awake, alert. No complaints this AM. Comfortable. Pain controlled. Denies SOB, CP, LH. Hgb noted to drop to 6.5. Physical Exam Physical Exam: Dressings C/D/I. Calves soft, NT. 25 ml from the HV today. Results & Data Vital Signs (Past 12 Hours) Vital Signs Temp Pulse Resp BP Pulse Ox 10/15/18 08:17 37.1 C 84 16 95/58 L 97 10/15/18 03:30 37.1 C 91 H 18 111/71 100 10/14/18 23:35 36.8 C 89 20 103/64 98 Laboratory Results Laboratory Results WBC 8.04 K/uL (4.8-10.8) 10/15/18 06:39 RBC 2.91 M/uL (4.2-5.4) L 10/15/18 06:39 Hgb 6.5 g/dL (12.0-16.0) L* 10/15/18 07:58 Hct 23.2 % (37-47) L 10/15/18 07:58 MCV 78.4 fL (80-100) L 10/15/18 06:39 MCH 22.3 pg (25-34) L 10/15/18 06:39 MCHC 28.5 g/dL (32-36) L 10/15/18 06:39 RDW Std Deviation 49.2 fL (36.4-46.3) H 10/15/18 06:39 RDW Coeff of Esvin 17.0 % (11.5-14.5) H 10/15/18 06:39 Plt Count 263 K/uL (130-400) 10/15/18 06:39 MPV 8.0 fL (7.4-10.4) 10/15/18 06:39 Sodium 140 mmol/L (136-145) 10/15/18 06:39 Potassium 4.0 mmol/L (3.5-5.1) 10/15/18 06:39 Chloride 106 mmol/L (98-107) 10/15/18 06:39 Carbon Dioxide 28 mmol/L (21-32) 10/15/18 06:39 Anion Gap 6.0 (3-11) 10/15/18 06:39 BUN 19 mg/dl (7-18) H 10/15/18 06:39 Creatinine 0.70 mg/dl (0.6-1.2) 10/15/18 06:39 Est Cr Clr Drug Dosing 77.4 ml/min 10/15/18 06:39 Est GFR ( Amer) 96.9 10/15/18 06:39 Est GFR (Non-Af Amer) 83.6 10/15/18 06:39 BUN/Creatinine Ratio 26.8 (10-20) H 10/15/18 06:39 Glucose 102 mg/dl (70-99) H 10/15/18 06:39 Calcium 8.3 mg/dl (8.5-10.1) L 10/15/18 06:39 Crossmatch See Detail 10/15/18 09:14
--- NOTE | 2018-10-15 10:28 | Consultation ---
Date of Consultation October 15, 2018 Assessment & Plan (1) Post-operative state: POD 1 s/p Left Ankle Irrigation and Debridement with Removal of Stimulan Beads, Re-Application of Stimulan Antibiotic Beads Surgeon: Wil Pepe Plan per Ortho-wound vac in place PT/OT encouraged early per Ortho (2) Acute blood loss anemia: Min blood loss intraoperatively and no post-op bleeding overtly. Her last dose of coumadin was just two days ago, so there is likely a coagulopathy present. INR pending. Not on coumadin but is on ASA at this time. Agree w transfusion of two units of blood and follow H/H in am to ensure appropriate response. (3) Coagulopathy: Recently taking warfarin restarted on it one month ago by PCP in the setting of h/o PE, given for prophylaxis of blood clot in setting of sedentary lifestyle. She reports taking the warfarin up until day prior to surgery, 5mg, which was just two days ago. Most recent INR is 2.2 on 10/03. Would not recommend any bridge to couamdin therapy post-operatively and would question the need for it moving forward. (4) Chronic osteomyelitis involving left ankle and foot: ID consulted. Antibiotic beads placed intraoperatively and she continues on Daptomycin pending cultures and clinical response to therapy. (5) Obstructive sleep apnea on CPAP: (6) Nocturnal hypoxemia: (7) Depression: Cont home Celexa (8) Hypertension: controlled, cont lisinopril daily. (9) Obesity: (10) DVT prophylaxis: On aspirin BID, which was continued for now. Would not give anticoagulant. Monitor response to blood transfusion and hold if any overt bleeding or poor response. Full Code Dispo-Med/Surg, pending PT/OT evaluation and Orthopedic clearance for discharge. Manuela Gonzalez DO [facility] Hospitalist History of Present Illness Reason for Consultation: post-operative anemia Attending Physician: Wil Pepe DO History of Present Illness 78 yo F with chronic osteomyelitis of the L ankle underwent a Left Ankle Irrigation and Debridement with Removal of Stimulan Beads, with Re-Application of Stimulan Antibiotic Beads yesterday. She is feeling well denying lightheadedness, chest pain, shortness of breath, or other issues at this time. Pain is controlled post-operatively and she is eating without issue. She denies any overt bleeding. She has a distant h/o PE one year ago for which she was given warfarin as treatment. She stopped this, but one month ago was placed back on it for prophylaxis of blood clot (she only had one that she is aware of in her life) in the setting of a sedentary lifestyle. This was not know pre-operatively and she did not stop her warfarin until the day of surgery-last dose was 10/13. Allergies Allergy/AdvReac Type Severity Reaction Status Date / Time No Known Allergies Allergy Verified 10/14/18 11:57 Home Medications Home Medications Medication Instructions Recorded Confirmed Type ascorbic acid (vitamin C) [Vitamin 1,000 mg PO QAM 12/09/17 10/14/18 History C] cholecalciferol (vitamin D3) 1,000 unit PO QAM 12/09/17 10/14/18 History [Vitamin D3] cinnamon bark [Cinnamon] 500 mg PO QAM 12/09/17 10/14/18 History citalopram 30 mg PO QAM 12/09/17 10/14/18 History ferrous sulfate 27 mg PO QAM 12/09/17 10/14/18 History furosemide [Lasix] 60 mg PO QAM 12/09/17 10/14/18 History lisinopril 10 mg PO QAM 12/09/17 10/14/18 History lovastatin 20 mg PO HS 12/09/17 10/14/18 History multivitamin 1 tab PO QAM 12/09/17 10/14/18 History omeprazole 20 mg PO QAM 12/09/17 10/14/18 History potassium chloride 20 meq PO QAM 12/09/17 10/14/18 History riboflavin (vitamin B2) [Vitamin 100 mg PO QAM 12/09/17 10/14/18 History B-2] oxycodone-acetaminophen [Percocet] 1 - 2 tab PO Q6H PRN #30 tab 06/20/18 10/14/18 Rx Patient History Medical History Hypertension Hyperlipidemia Pulmonary embolism (Chronic) BILATERAL S/P ANKLE SURGERY. SEPTEMBER 2016. TREATED WITH COUMADIN. STOPPED THEN RESTARTED 09/2018 FOR PREVENTION OF BLOOD CLOTS Sleep apnea BIPAP WITH 2LPM OXYGEN Depression Anxiety Anemia TAKING IRON GERD (gastroesophageal reflux disease) Diverticular disease Osteoarthritis Hearing deficit [place] - NO HEARING AIDES Morbid obesity Surgical History History of colonoscopy History of cholecystectomy LAP H/O ankle fusion RIGHT H/O ankle fusion (Acute) left -- had subsequent infection and debridement with ABX beads implanted 02/201801/21/18 - MAC #3, ETT #7.5, HiLo Oral, Grade 3 View Aftercare following left ankle joint replacement surgery 06/17/18 - I&D - Glidescope #4, ETT #7.5, HiLo Oral 03/18/18 - I&D - Glidescope #4, ETT #7.0, HiLo Oral, Grade 3 View Difficult airway for intubation With most recent ankle surgeries, patient was noted to be a difficult intubation, requiring Glidescope. Previous anesthesia records do not note difficulties. History of esophagogastroduodenoscopy (EGD) Family History Other No pertinent family history Social History Preferred Language: [place] Communication Ability: Effective Visual Impairment: No Limitations Property Damage Claims Adjustor Required: No Beliefs That Will Affect Care: None marital status: / Current Living Situation: Family Feels Safe at Home: Yes Smoking Status: Never smoker Second Hand Exposure: No ; Hx Alcohol Use: Yes Alcohol type: wine Hx Substance Use: No Review of Systems Review of Systems: All systems reviewed & are unremarkable except as noted in HPI & below Physical Exam Physical Exam: CONSTITUTIONAL: obese, vitals as above, generally well- appearing EYES: pupils equal and round bilaterally, normal conjunctivae, no scleral icterus ENT: MMM RESPIRATORY: clear to auscultation bilaterally, no crackles, rales or wheezes, normal respiratory effort CARDIOVASCULAR: regular rate and rhythm, S1 and 2 heard without murmurs, gallops or rubs, no JVD, no peripheral edema GASTROINTESTINAL: soft, nontender, nondistended MUSCULOSKELETAL: strength 5/5 throughout, head is normocephalic and atraumatic. L ankle wrapped with Hemovac drain in place. SKIN: warm and dry NEUROLOGIC: No facial palsy, no dysarthria. CN 2-12 grossly intact, Normal cognition. No gross focal deficits. PSYCHIATRIC: alert cooperative and oriented to person, place and time. Results & Data Vital Signs (Past 12 Hours) Vital Signs Temp Pulse Resp BP Pulse Ox 10/15/18 08:17 37.1 C 84 16 95/58 L 97 10/15/18 03:30 37.1 C 91 H 18 111/71 100 10/14/18 23:35 36.8 C 89 20 103/64 98 Laboratory Results Short CBC 10/15/18 10/15/18 Range/Units 06:39 07:58 WBC 8.04 (4.8-10.8) K/uL Hgb 6.5 L* 6.5 L* (12.0-16.0) g/dL Hct 22.8 L 23.2 L (37-47) % Plt Count 263 (130-400) K/uL BMP 10/14/18 10/15/18 19:08 06:39 Sodium 140 Potassium 4.0 Chloride 106 Carbon Dioxide 28 BUN 19 H Creatinine 0.76 0.70 Glucose 102 H Calcium 8.3 L (1) Depression Depression Type: unspecified Qualified Code(s): F32.9 - Major depressive disorder, single episode, unspecified
[2018-10-15 11:07] LABS: INR 1.4 (0.9-1.1); Prothrombin Time 14.4 Seconds (9.0-12.0)
[2018-10-15 18:23] LABS: Hematocrit (blood only) 29.2 % (37-47); Hemoglobin 8.4 g/dL (12.0-16.0)
[2018-10-15] MEDS: DAPTOmycin 450 MG in SYRINGE 0 ML IV SCH (20:24)
[2018-10-15] MEDS: SENNA 8.6 MG TAB PO SCH (21:01)
[2018-10-16] MEDS: ACETAMINOPHEN 500 MG TAB PO SCH ×3 (05:28→21:43)
[2018-10-16 06:07] LABS: Hemoglobin 7.6 g/dL (12.0-16.0); Mean Corpuscular Hemoglobin 23.6 pg (25-34); Mean Corpuscular Hgb Conc 29.2 g/dL (32-36); Mean Corpuscular Volume 80.7 fL (80-100); Mean Platelet Volume 7.6 fL (7.4-10.4); Platelet Count 251 K/uL (130-400); RDW Coefficient of Variation 17.4 % (11.5-14.5); RDW Standard Deviation 51.7 fL (36.4-46.3); Red Blood Count 3.22 M/uL (4.2-5.4); White Blood Count 8.59 K/uL (4.8-10.8)
[2018-10-16 06:14] LABS: INR 1.3 (0.9-1.1); Prothrombin Time 13.1 Seconds (9.0-12.0)
[2018-10-16 06:50] LABS: Creatinine Clr Calc Pharmacy 75.3 ml/min; Est GFR (African American) 93.6; Est GFR (Non-African American) 80.8
[2018-10-16] MEDS: LISINOPRIL 10 MG TAB PO SCH (09:32)
[2018-10-16] MEDS: ASPIRIN 81 MG ECTAB PO SCH ×2 (09:32→20:44)
[2018-10-16] MEDS: FUROSEMIDE 40 MG TAB PO SCH (09:32)
[2018-10-16] MEDS: DOCUSATE SODIUM 100 MG CAP PO SCH ×2 (09:32→20:44)
[2018-10-16] MEDS: CHOLECALCIFEROL 1,000 UNITS TAB PO SCH (09:32)
[2018-10-16] MEDS: CITALOPRAM 20 MG TAB PO SCH (09:33)
[2018-10-16] MEDS: POTASSIUM CHLORIDE 20 MEQ TABCR PO SCH (09:33)
[2018-10-16] MEDS: PANTOprazole 40 MG TAB PO SCH (09:33)
[2018-10-16] MEDS: MULTIVITAMIN TAB PO SCH (09:33)
--- NOTE | 2018-10-16 10:32 | Hospitalist Progress Note ---
Date of Service October 16, 2018 Assessment & Plan (1) Post-operative state: POD 2 s/p Left Ankle Irrigation and Debridement with Removal of Stimulan Beads, Re-Application of Stimulan Antibiotic Beads Surgeon: Wil Pepe Plan per Ortho-wound vac in place PT/OT encouraged early per Ortho (2) Acute blood loss anemia: Min blood loss intraoperatively and no post-op bleeding overtly. Her last dose of coumadin was just two days ago, so there is likely a coagulopathy present. INR pending. Not on coumadin but is on ASA at this time. Agree w transfusion of two units of blood and follow H/H in am to ensure appropriate response. (3) Coagulopathy: Recently taking warfarin restarted on it one month ago by PCP in the setting of h/o PE, given for prophylaxis of blood clot in setting of sedentary lifestyle. She reports taking the warfarin up until day prior to surgery, 5mg, which was just two days ago. Most recent INR is 2.2 on 10/03. Would not recommend any bridge to couamdin therapy post-operatively and would question the need for it moving forward. (4) Chronic osteomyelitis involving left ankle and foot: ID consulted. Antibiotic beads placed intraoperatively and she continues on Daptomycin pending cultures and clinical response to therapy. (5) Obstructive sleep apnea on CPAP: (6) Nocturnal hypoxemia: (7) Depression: Cont home Celexa (8) Hypertension: controlled, cont lisinopril daily. (9) Obesity: (10) DVT prophylaxis: On aspirin BID, which was continued for now. Would not give anticoagulant. Monitor response to blood transfusion and hold if any overt bleeding or poor response. Full Code Dispo-Med/Surg, pending PT/OT evaluation and Orthopedic clearance for discharge. ROS-No Headache, No Visual Changes, No Nausea, No Vomiting, No Fever, No Chills, No Neck Pain or Stiffness, No Chest Pain, No Palpitations, No SOB, No VILLALOBOS, No Cough, No Sputum, No Wheezing, No Abdominal Pain, No Diarrhea, No Hematemesis, No Hemoptysis, No Unexpected Weight Loss, No Flank pain, No Melena, No Hematochezia, No Frequency, No Urgency, No Burning, No Hematuria, No Rashes, No Diaphoresis. Appetite is Normal, Sore foot Physical Exam Gen-AAO x 3, NAD, Afebrile Head-NCAT, EOMI, PERRLA, Anicteric Sclera, No Posterior Pharyngeal Erythema Neck-Supple, No JVD, No Thyromegaly, No Masses, No LAD, No Bruits Lungs-Clear to Auscultation Bilaterally, No Rales, No Rhonchi, No Wheezing, No Crepitus Chest-No S4, +S1, +S2, No S3, No Murmurs, No Rubs, No Gallops, No Ectopy Abdomen-Soft, Bowel Sounds Present, Non Tender, Non Distended, No Hepatomegaly, No Splenomegaly, No Palpable Masses, No Rebound, No Rigidity, No Guarding Musculoskeletal-Full Range of Motion Bilaterally, No CVAT Extremities-No Cyanosis, No Clubbing, L Ankle wrapped Nuero-Cranial Nerves II-XII grossly intact, Motor WNL, DTRs WNL, Strength WNL, Non Focal Psych-Normal Mood Results & Data Vital Signs (Past 12 Hours) Vital Signs Temp Pulse Resp BP Pulse Ox 10/16/18 09:31 102 H 109/67 10/16/18 07:44 37.2 C 88 16 112/71 98 10/15/18 23:31 37.1 C 93 H 18 98/66 L 96 Current Diagnoses Acute posthemorrhagic anemia (10/14/18) Coagulation defect, unspecified (10/14/18) Obesity, unspecified (10/14/18) Major depressive disorder, single episode, unspecified (10/14/18) Obstructive sleep apnea (adult) (pediatric) (10/14/18) Idiopathic sleep related nonobstructive alveolar hypoventilation (10/14/18) Essential (primary) hypertension (10/14/18) Cutaneous abscess of limb, unspecified (10/14/18) Other chronic osteomyelitis, left ankle and foot (10/14/18) Disruption of external operation (surgical) wound, not elsewhere classified, initial encounter (10/14/18) Encounter for prophylactic measures, unspecified (10/14/18) Other specified postprocedural states (10/14/18) Dependence on other enabling machines and devices (10/14/18) Allergies No Known Allergies Allergy (Verified 10/14/18 11:57) Height/Weight/Isolation Height 4 ft 10 in Weight 120.854 kg Isolation Type Contact Precautions Chemistry 10/14/18 10/15/1810/16/19 19:08 06:39 05:54 Sodium 140 Potassium 4.0 Chloride 106 Carbon Dioxide 28 Anion Gap 6.0 BUN 19 H Creatinine 0.76 0.70 0.72 Glucose 102 H Microbiology 10/14/18 17:10 Ankle,Left Gram Stain - Final 10/14/18 17:10 Ankle,Left Aerobic and Anaerobic Culture - Preliminary No growth to date. 10/14/18 17:10 Ankle,Left Gram Stain - Final 10/14/18 17:10 Ankle,Left Aerobic and Anaerobic Culture - Preliminary No growth to date. (1) Depression Depression Type: unspecified Qualified Code(s): F32.9 - Major depressive disorder, single episode, unspecified
[2018-10-16 10:57] LABS: Hematocrit (blood only) 29.1 % (37-47); Hemoglobin 8.6 g/dL (12.0-16.0)
[2018-10-16] MEDS: OXYCODONE HCL IR 5 MG TAB (IMMEDIATE RELEASE) PO PRN ×2 (11:47→20:43)
--- NOTE | 2018-10-16 15:49 | Infectious Disease Progress Nt ---
Date of Service October 16, 2018 Assessment & Plan (1) Chronic osteomyelitis involving left ankle and foot: Patient with chronic osteomyelitis of the left ankle in the setting of hardware, now status post debridement and placement of antibiotic beads. Patient should continue on daptomycin pending operative cultures. Will likely require prolonged IV antibiotics. Will follow. Subjective Patient seen in follow-up for left ankle infection. She is comfortable today, offers no specific complaints. Pain controlled. Remains afebrile. Operative cultures no growth to date. Review of Systems Review of Systems: All systems reviewed & are unremarkable except as noted in HPI & below Physical Exam Constitutional: WD/WN, vitals as above + obese and comfortable; no acute distress Eyes: PERRL, conjunctivae normal, anicteric sclerae ENMT: external ear and nose normal, oropharynx normal Neck: trachea midline, no thyromegaly neck nontender Respiratory: normal respiratory effort, lungs clear to auscultation normal percussion; does not use accessory muscles Cardiovascular: Rate/Rhythm: regular rate and regular rhythm Heart Sounds: normal S1 and normal S2; no gallop, no murmur and no cardiac rub Vessels: normal peripheral pulses; no JVD Gastrointestinal (Abdomen): normal bowel sounds, soft, nontender, no hepatosplenomegaly Musculoskeletal: no cyanosis or clubbing, extremities motor strength 5/5 Spine: thoracic spine normal to inspection and lumbar spine normal to inspection; no cervical spinal tenderness Skin: no rashes, warm and dry normal turgor and + wound (Surgical dressing intact left ankle) Neurologic: patellar DTR's 2+ bilat, sensation intact no focal motor deficits Psychiatric: A+Ox3, euthymic affect Orientation: cooperative Lymphatic: no cervical or axillary lymphadenopathy no inguinal lymphadenopathy Results & Data Vital Signs (Past 12 Hours) Vital Signs Temp Pulse Resp BP BP Pulse Ox Pulse Ox 10/16/18 15:04 37.1 C 99 H 20 105/68 93 10/16/18 10:45 94 10/16/18 09:31 102 H 109/67 10/16/18 07:44 37.2 C 88 16 112/71 98 Laboratory Results Short CBC 10/15/18 10/16/18 10/16/18 Range/Units 18:11 05:54 10:48 WBC 8.59 (4.8-10.8) K/uL Hgb 8.4 L 7.6 L 8.6 L (12.0-16.0) g/dL Hct 29.2 L 26.0 L 29.1 L (37-47) % Plt Count 251 (130-400) K/uL BMP 10/16/18 05:54 Creatinine 0.72 Diagnostic Findings Microbiology 10/14/18 17:10 Ankle,Left Gram Stain - Final 10/14/18 17:10 Ankle,Left Aerobic and Anaerobic Culture - Preliminary No growth to date. 10/14/18 17:10 Ankle,Left Gram Stain - Final 10/14/18 17:10 Ankle,Left Aerobic and Anaerobic Culture - Preliminary No growth to date. PG Care Time/CCT Total # of Minutes Spent Total Time Spent with Patient: Total time spent is greater than 50% in coordination of care (as documented) at patient's floor/unit and/or counseling patient:
[2018-10-16 18:38] LABS: Hematocrit (blood only) 29.8 % (37-47); Hemoglobin 8.9 g/dL (12.0-16.0)
--- NOTE | 2018-10-16 19:10 | Orthopedic Progress Note ---
Date of Service October 16, 2018 Assessment & Plan (1) Chronic osteomyelitis involving left ankle and foot: POD 2 s/p repeat I/D Left ankle with reimplantation Stimulan antibx beads PT/OT DVT prophylaxis - ASA bid, SCD's Pain managment as written IV antibx as per ID team. Likely will need intermediate card tender IV antibx. Await ID team decision. (2) Acute blood loss anemia: Hgb 8.6 after transfusion of 2 units. Continue to follow H/H Subjective POD 2 s/p repeat I/D left ankle infection Pt lyin in bed. Awake, alert. No complaints currently. Denies SOB,CP,LH. Pain controlled presently. Pt understands she may need intermediate card tender IV antibx. Feels she will need to go to SNF / Rehab if that is the case. Physical Exam Physical Exam: Dressings C/D/I. HV/dressing removed earlier by Nursing staff. Toes mobile with good sensation. Cap refill < 2 seconds. Results & Data Vital Signs (Past 12 Hours) Vital Signs Temp Pulse Resp BP BP Pulse Ox Pulse Ox 10/16/18 15:04 37.1 C 99 H 20 105/68 93 10/16/18 10:45 94 10/16/18 09:31 102 H 109/67 10/16/18 07:44 37.2 C 88 16 112/71 98
[2018-10-16] MEDS: DAPTOmycin 450 MG in SYRINGE 0 ML IV SCH (20:36)
[2018-10-16] MEDS: SENNA 8.6 MG TAB PO SCH (20:44)
[2018-10-17 02:49] LABS: Hematocrit (blood only) 27.6 % (37-47); Hemoglobin 8.3 g/dL (12.0-16.0)
[2018-10-17 02:57] LABS: INR 1.1 (0.9-1.1); Prothrombin Time 11.3 Seconds (9.0-12.0)
[2018-10-17 03:06] LABS: Albumin Level 3.1 gm/dl (3.4-5.0); BUN Creatinine Ratio 24.2 (10-20); Calcium 8.9 mg/dl (8.5-10.1); Creatinine Clr Calc Pharmacy 73.3 ml/min; Est GFR (African American) 90.6; Est GFR (Non-African American) 78.1; Potassium 4.2 mmol/L (3.5-5.1)
[2018-10-17 03:09] LABS: Albumin Globulin Ratio 0.8 (0.9-2); Bilirubin,Total 0.8 mg/dl (0.2-1); Globulin 3.7 gm/dl (2.5-4.0); Total Protein 6.8 gm/dl (6.4-8.2)
[2018-10-17] MEDS: ACETAMINOPHEN 500 MG TAB PO SCH ×3 (05:31→21:17)
--- NOTE | 2018-10-17 08:07 | Hospitalist Progress Note ---
Date of Service October 17, 2018 Assessment & Plan (1) Post-operative state: POD 3 s/p Left Ankle Irrigation and Debridement with Removal of Stimulan Beads, Re-Application of Stimulan Antibiotic Beads Surgeon: Wil Pepe Plan per Ortho-wound vac in place PT/OT encouraged early per Ortho Placement per Ortho Monitor Hb/Labs (2) Acute blood loss anemia: Min blood loss intraoperatively and no post-op bleeding overtly. Not on coumadin but is on ASA at this time. +Transfusion of two units of blood. (3) Coagulopathy: Recently taking warfarin restarted on it one month ago by PCP in the setting of h/o PE, given for prophylaxis of blood clot in setting of sedentary lifestyle. She reports taking the warfarin up until day prior to surgery, 5mg, Most recent INR is 2.2 on 10/03. Would not recommend any bridge to couamdin therapy post- operatively (4) Chronic osteomyelitis involving left ankle and foot: ID on case. Antibiotic beads placed intraoperatively and she continues on Daptomycin pending cultures and clinical response to therapy. (5) Obstructive sleep apnea on CPAP: (6) Nocturnal hypoxemia: (7) Depression: Cont home Celexa (8) Hypertension: controlled, cont lisinopril daily. (9) Obesity: (10) DVT prophylaxis: On aspirin BID, which was continued for now. Would not give anticoagulant. Monitor response to blood transfusion and hold if any overt bleeding or poor response. Full Code Dispo-Orthopedic clearance for discharge. ROS-No Headache, No Visual Changes, No Nausea, No Vomiting, No Fever, No Chills, No Neck Pain or Stiffness, No Chest Pain, No Palpitations, No SOB, No VILLALOBOS, No Cough, No Sputum, No Wheezing, No Abdominal Pain, No Diarrhea, No Hematemesis, No Hemoptysis, No Unexpected Weight Loss, No Flank pain, No Melena, No Hematochezia, No Frequency, No Urgency, No Burning, No Hematuria, No Rashes, No Diaphoresis. Appetite is Normal, Sore foot Physical Exam Gen-AAO x 3, NAD, Afebrile Head-NCAT, EOMI, PERRLA, Anicteric Sclera, No Posterior Pharyngeal Erythema Neck-Supple, No JVD, No Thyromegaly, No Masses, No LAD, No Bruits Lungs-Clear to Auscultation Bilaterally, No Rales, No Rhonchi, No Wheezing, No Crepitus Chest-No S4, +S1, +S2, No S3, No Murmurs, No Rubs, No Gallops, No Ectopy Abdomen-Soft, Bowel Sounds Present, Non Tender, Non Distended, No Hepatomegaly, No Splenomegaly, No Palpable Masses, No Rebound, No Rigidity, No Guarding Musculoskeletal-Full Range of Motion Bilaterally, No CVAT Extremities-No Cyanosis, No Clubbing, L Ankle wrapped Nuero-Cranial Nerves II-XII grossly intact, Motor WNL, DTRs WNL, Strength WNL, Non Focal Psych-Normal Mood Results & Data Vital Signs (Past 12 Hours) Vital Signs Temp Pulse Resp BP BP Pulse Ox 10/17/18 07:46 36.8 C 95 H 18 108/72 94 10/16/18 23:48 37.2 C 101 H 20 107/58 L 94 Current Diagnoses Acute posthemorrhagic anemia (10/14/18) Coagulation defect, unspecified (10/14/18) Obesity, unspecified (10/14/18) Major depressive disorder, single episode, unspecified (10/14/18) Obstructive sleep apnea (adult) (pediatric) (10/14/18) Idiopathic sleep related nonobstructive alveolar hypoventilation (10/14/18) Essential (primary) hypertension (10/14/18) Cutaneous abscess of limb, unspecified (10/14/18) Other chronic osteomyelitis, left ankle and foot (10/14/18) Disruption of external operation (surgical) wound, not elsewhere classified, initial encounter (10/14/18) Encounter for prophylactic measures, unspecified (10/14/18) Presence of functional implant, unspecified (10/14/18) Other specified postprocedural states (10/14/18) Dependence on other enabling machines and devices (10/14/18) Allergies No Known Allergies Allergy (Verified 10/14/18 11:57) Height/Weight/Isolation Height 4 ft 10 in Weight 120.854 kg Isolation Type Contact Precautions Chemistry 10/16/18 10/17/18 05:54 02:27 Sodium 141 Potassium 4.2 Chloride 102 Carbon Dioxide 32 Anion Gap 7.0 BUN 18 Creatinine 0.72 0.74 Glucose 109 H Microbiology 10/14/18 17:10 Ankle,Left Gram Stain - Final 10/14/18 17:10 Ankle,Left Aerobic and Anaerobic Culture - Preliminary No growth to date. 10/14/18 17:10 Ankle,Left Gram Stain - Final 10/14/18 17:10 Ankle,Left Aerobic and Anaerobic Culture - Preliminary No growth to date. (1) Depression Depression Type: unspecified Qualified Code(s): F32.9 - Major depressive disorder, single episode, unspecified
--- NOTE | 2018-10-17 08:32 | Anesthesiology Progress Note ---
Date of Service October 17, 2018 Anesthesia Post Procedure Vital Signs Vital Signs: Temp Pulse Resp BP BP Pulse Ox Pulse Ox 10/17/18 07:46 36.8 C 95 H 18 108/72 94 10/16/18 23:48 37.2 C 101 H 20 107/58 L 94 10/16/18 15:04 37.1 C 99 H 20 105/68 93 10/16/18 10:45 94 10/16/18 09:31 102 H 109/67 Pain Intensity Left Ankle: Pain Intensity: 4 Notes Mental Status: alert / awake / arousable and participated in evaluation Patient Amnestic to Procedure: Yes Nausea / Vomiting: adequately controlled Pain: adequately controlled Airway Patency, RR, SpO2: stable & adequate BP & HR: stable & adequate Hydration State: stable & adequate Anesthetic Complications: no major complications apparent and Pt Satisfied with anesthetic care
[2018-10-17] MEDS: CITALOPRAM 20 MG TAB PO SCH (10:20)
[2018-10-17] MEDS: ASPIRIN 81 MG ECTAB PO SCH ×2 (10:20→20:29)
[2018-10-17] MEDS: DOCUSATE SODIUM 100 MG CAP PO SCH ×2 (10:20→20:28)
[2018-10-17] MEDS: PANTOprazole 40 MG TAB PO SCH (10:20)
[2018-10-17] MEDS: FUROSEMIDE 40 MG TAB PO SCH (10:21)
[2018-10-17] MEDS: MULTIVITAMIN TAB PO SCH (10:21)
[2018-10-17] MEDS: LISINOPRIL 10 MG TAB PO SCH (10:21)
[2018-10-17] MEDS: CHOLECALCIFEROL 1,000 UNITS TAB PO SCH (10:22)
[2018-10-17] MEDS: POTASSIUM CHLORIDE 20 MEQ TABCR PO SCH (10:22)
[2018-10-17] MEDS: OXYCODONE HCL IR 5 MG TAB (IMMEDIATE RELEASE) PO PRN ×2 (10:57→17:00)
--- NOTE | 2018-10-17 11:55 | Orthopedic Progress Note ---
Date of Service October 17, 2018 Assessment & Plan (1) Chronic osteomyelitis involving left ankle and foot: POD 3 s/p repeat I/D Left ankle with reimplantation Stimulan antibx beads PT/OT DVT prophylaxis - ASA bid, SCD's Pain managment as written IV antibx as per ID team. 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 Await ID team decision. (2) Acute blood loss anemia: Hgb 8.3 today Subjective POD 3 s/p repeat I/D left ankle infection Pt lying in bed. Awake, alert. No new complaints. Pain controlled presently. Physical Exam Physical Exam: Dressing changed. Moderate drainage noted on ABD's not unusual for having antibx beads placed. No erythema noted. Mild swelling. Suture line intact. Results & Data Vital Signs (Past 12 Hours) Vital Signs Temp Pulse Resp BP Pulse Ox 10/17/18 07:46 36.8 C 95 H 18 108/72 94
--- NOTE | 2018-10-17 14:50 | Infectious Disease Progress Nt ---
Date of Service October 17, 2018 Assessment & Plan (1) Chronic osteomyelitis involving left ankle and foot: Patient with chronic osteomyelitis of the left ankle in the setting of hardware, now status post debridement and placement of antibiotic beads. Patient should continue on daptomycin. Will require prolonged IV antibiotics. Discussed with orthopedic surgery. Will follow. Subjective Patient seen in follow-up for chronic left ankle infection with osteomyelitis, status post debridement and placement of antibiotic beads. Patient relatively comfortable, pain controlled. Remains afebrile. Cultures growing only corynebacterium. Review of Systems Review of Systems: All systems reviewed & are unremarkable except as noted in HPI & below Physical Exam Constitutional: WD/WN, vitals as above + obese and comfortable; no acute distress Eyes: PERRL, conjunctivae normal, anicteric sclerae ENMT: external ear and nose normal, oropharynx normal Neck: trachea midline, no thyromegaly neck nontender Respiratory: normal respiratory effort, lungs clear to auscultation normal percussion; does not use accessory muscles Cardiovascular: Rate/Rhythm: regular rate and regular rhythm Heart Sounds: normal S1 and normal S2; no gallop, no murmur and no cardiac rub Vessels: normal peripheral pulses; no JVD Gastrointestinal (Abdomen): normal bowel sounds, soft, nontender, no hepa tosplenomegaly Musculoskeletal: no cyanosis or clubbing, extremities motor strength 5/5 Spine: thoracic spine normal to inspection and lumbar spine normal to inspection; no cervical spinal tenderness Skin: no rashes, warm and dry normal turgor and + wound (Surgical dressing intact left ankle) Neurologic: patellar DTR's 2+ bilat, sensation intact no focal motor deficits Psychiatric: A+Ox3, euthymic affect Orientation: cooperative Lymphatic: no cervical or axillary lymphadenopathy no inguinal lymphadenopathy Results & Data Vital Signs (Past 12 Hours) Vital Signs Temp Pulse Resp BP Pulse Ox 10/17/18 07:46 36.8 C 95 H 18 108/72 94 Laboratory Results Short CBC 10/16/18 10/17/18 Range/Units 18:32 02:27 Hgb 8.9 L 8.3 L (12.0-16.0) g/dL Hct 29.8 L 27.6 L (37-47) % BMP 10/17/18 02:27 Sodium 141 Potassium 4.2 Chloride 102 Carbon Dioxide 32 BUN 18 Creatinine 0.74 Glucose 109 H Calcium 8.9 Liver Function 10/17/18 Range/Units 02:27 Total Bilirubin 0.8 (0.2-1) mg/dl AST 14 L (15-37) U/L ALT 14 (12-78) U/L Alkaline Phosphatase 89 (45-117) U/L Albumin 3.1 L (3.4-5.0) gm/dl Diagnostic Findings Microbiology 10/14/18 17:10 Ankle,Left Gram Stain - Final 10/14/18 17:10 Ankle,Left Aerobic and Anaerobic Culture - Preliminary No growth to date. 10/14/18 17:10 Ankle,Left Gram Stain - Final 10/14/18 17:10 Ankle,Left Aerobic and Anaerobic Culture - Preliminary No growth to date. PG Care Time/CCT Total # of Minutes Spent Total Time Spent with Patient: Total time spent is greater than 50% in coordination of care (as documented) at patient's floor/unit and/or counseling patient:
--- NOTE | 2018-10-17 20:12 | XRay Report ---
XR chest 1V portable CLINICAL HISTORY: PICC PLACEMENT CONFIRMATION tube position COMPARISON STUDY: 06/15/2018 FINDINGS: PICC catheter placed in the superior vena cava. No evidence for pneumothorax. Mild stable c ardiomegaly. Fixed hiatal hernia. IMPRESSION: PICC catheter placed in superior vena cava. No evidence for pneumothorax. The above report was generated using voice recognition software. It may contain grammatical, syntax or spelling errors. Electronically signed by: Schuyler Talbert M.D. 10/17/2018 8:10 PM
[2018-10-17] MEDS: DAPTOmycin 450 MG in SYRINGE 0 ML IV SCH (20:24)
[2018-10-17] MEDS: SENNA 8.6 MG TAB PO SCH (20:29)
[2018-10-18] MEDS: ACETAMINOPHEN 500 MG TAB PO SCH ×3 (05:05→22:10)
[2018-10-18 07:18] LABS: Basophils # (auto) 0.07 K/uL (0-0.2); Basophils % (auto) 0.8 %; Eosinophils # (auto) 0.28 K/uL (0-0.5); Eosinophils % (auto) 3.3 %; Hemoglobin 8.2 g/dL (12.0-16.0); Immature Granulocytes # (auto) 0.02 K/uL (0.00-0.02); Immature Granulocytes % (auto) 0.2 %; Lymphocytes # (auto) 1.99 K/uL (1.2-3.4); Lymphocytes % (auto) 23.7 %; Mean Corpuscular Hemoglobin 23.8 pg (25-34); Mean Corpuscular Hgb Conc 29.3 g/dL (32-36); Mean Corpuscular Volume 81.2 fL (80-100); Mean Platelet Volume 8.2 fL (7.4-10.4); Monocytes # (auto) 0.86 K/uL (0.11-0.59); Monocytes % (auto) 10.2 %; Neutrophils # (auto) 5.18 K/uL (1.4-6.5); Neutrophils % (auto) 61.8 %; Platelet Count 284 K/uL (130-400); RDW Coefficient of Variation 18.9 % (11.5-14.5); RDW Standard Deviation 55.5 fL (36.4-46.3); Red Blood Count 3.45 M/uL (4.2-5.4)
[2018-10-18 07:27] LABS: Prothrombin Time 10.6 Seconds (9.0-12.0)
[2018-10-18 07:47] LABS: BUN Creatinine Ratio 24.9 (10-20); Calcium 8.5 mg/dl (8.5-10.1); Creatinine Clr Calc Pharmacy 67.8 ml/min; Est GFR (African American) 82.4; Est GFR (Non-African American) 71.1; Potassium 4.3 mmol/L (3.5-5.1)
--- NOTE | 2018-10-18 09:15 | Orthopedic Progress Note ---
Date of Service October 18, 2018 Assessment & Plan (1) Chronic osteomyelitis involving left ankle and foot: POD 3 s/p repeat I/D Left ankle with reimplantation Stimulan antibx beads PT/OT DVT prophylaxis - ASA bid, SCD's Pain managment as written PICC line has been placed. Patient will require 4 to 6 weeks of IV antibiotics. Planning for [facility] likely today. (2) Acute blood loss anemia: Hgb 8.3 today Subjective Postop day 4 status post irrigation debridement left ankle osteomyelitis with removal of and reimplantation of stimulan beads. Patient is currently lying in bed and getting ready to work with physical therapy. She has no new complaints this morning. Pain is controlled. Discussed that she might be going to [facility] today. PICC line has been placed. Physical Exam Physical Exam: Dressings are intact. Toes are mobile. Cap refill is less than 2 seconds. Sensation is intact. Results & Data Vital Signs (Past 12 Hours) Vital Signs Temp Pulse Resp BP Pulse Ox 10/18/18 07:29 37.0 C 77 20 119/68 98 10/17/18 23:55 36.9 C 91 H 18 116/70 96
--- NOTE | 2018-10-18 09:28 | Hospitalist Progress Note ---
Date of Service October 18, 2018 Assessment & Plan (1) Post-operative state: POD 4 s/p Left Ankle Irrigation and Debridement with Removal of Stimulan Beads, Re-Application of Stimulan Antibiotic Beads Surgeon: Wil Pepe Plan per Ortho-wound vac in place PT/OT encouraged early per Ortho Placement per Ortho, Can go today on IV Dapto per ID dose and length (2) Acute blood loss anemia: Min blood loss intraoperatively and no post-op bleeding overtly. Not on coumadin but is on ASA at this time. +Transfusion of two units of blood. (3) Coagulopathy: Recently taking warfarin restarted on it one month ago by PCP in the setting of h/o PE, given for prophylaxis of blood clot in setting of sedentary lifestyle. She reports taking the warfarin up until day prior to surgery, 5mg, Most recent INR is 2.2 on 10/03. Would not recommend any bridge to couamdin therapy post- operatively (4) Chronic osteomyelitis involving left ankle and foot: ID on case. Antibiotic beads placed intraoperatively and she continues on Daptomycin pending cultures and clinical response to therapy. (5) Obstructive sleep apnea on CPAP: (6) Nocturnal hypoxemia: (7) Depression: Cont home Celexa (8) Hypertension: controlled, cont lisinopril daily. (9) Obesity: (10) DVT prophylaxis: On aspirin BID, which was continued for now. Would not give anticoagulant. Monitor response to blood transfusion and hold if any overt bleeding or poor response. Full Code Dispo-can discharge from IM standpoint. ROS-No Headache, No Visual Changes, No Nausea, No Vomiting, No Fever, No Chills, No Neck Pain or Stiffness, No Chest Pain, No Palpitations, No SOB, No VILLALOBOS, No Cough, No Sputum, No Wheezing, No Abdominal Pain, No Diarrhea, No Hematemesis, No Hemoptysis, No Unexpected Weight Loss, No Flank pain, No Melena, No Hematochezia, No Frequency, No Urgency, No Burning, No Hematuria, No Rashes, No Diaphoresis. Appetite is Normal, Sore foot Physical Exam Gen-AAO x 3, NAD, Afebrile Head-NCAT, EOMI, PERRLA, Anicteric Sclera, No Posterior Pharyngeal Erythema Neck-Supple, No JVD, No Thyromegaly, No Masses, No LAD, No Bruits Lungs-Clear to Auscultation Bilaterally, No Rales, No Rhonchi, No Wheezing, No Crepitus Chest-No S4, +S1, +S2, No S3, No Murmurs, No Rubs, No Gallops, No Ectopy Abdomen-Soft, Bowel Sounds Present, Non Tender, Non Distended, No Hepatomegaly, No Splenomegaly, No Palpable Masses, No Rebound, No Rigidity, No Guarding Musculoskeletal-Full Range of Motion Bilaterally, No CVAT Extremities-No Cyanosis, No Clubbing, L Ankle wrapped Nuero-Cranial Nerves II-XII grossly intact, Motor WNL, DTRs WNL, Strength WNL, Non Focal Psych-Normal Mood Results & Data Vital Signs (Past 12 Hours) Vital Signs Temp Pulse Resp BP Pulse Ox 10/18/18 07:29 37.0 C 77 20 119/68 98 10/17/18 23:55 36.9 C 91 H 18 116/70 96 Current Diagnoses Acute posthemorrhagic anemia (10/14/18) Coagulation defect, unspecified (10/14/18) Obesity, unspecified (10/14/18) Major depressive disorder, single episode, unspecified (10/14/18) Obstructive sleep apnea (adult) (pediatric) (10/14/18) Idiopathic sleep related nonobstructive alveolar hypoventilation (10/14/18) Essential (primary) hypertension (10/14/18) Cutaneous abscess of limb, unspecified (10/14/18) Other chronic osteomyelitis, left ankle and foot (10/14/18) Disruption of external operation (surgical) wound, not elsewhere classified, initial encounter (10/14/18) Encounter for prophylactic measures, unspecified (10/14/18) Presence of functional implant, unspecified (10/14/18) Other specified postprocedural states (10/14/18) Dependence on other enabling machines and devices (10/14/18) Allergies No Known Allergies Allergy (Verified 10/14/18 11:57) Height/Weight/Isolation Height 4 ft 10 in Weight 120.854 kg Isolation Type Contact Precautions Chemistry 10/17/18 10/18/18 02:27 06:54 Sodium 141 138 Potassium 4.2 4.3 Chloride 102 100 Carbon Dioxide 32 33 H Anion Gap 7.0 5.0 BUN 18 20 H Creatinine 0.74 0.80 Glucose 109 H 109 H Microbiology 10/14/18 17:10 Ankle,Left Gram Stain - Final 10/14/18 17:10 Ankle,Left Aerobic and Anaerobic Culture - Preliminary No growth to date. 10/14/18 17:10 Ankle,Left Gram Stain - Final 10/14/18 17:10 Ankle,Left Aerobic and Anaerobic Culture - Preliminary No growth to date. (1) Depression Depression Type: unspecified Qualified Code(s): F32.9 - Major depressive disorder, single episode, unspecified
[2018-10-18] MEDS: ASPIRIN 81 MG ECTAB PO SCH ×2 (10:08→22:09)
[2018-10-18] MEDS: CITALOPRAM 20 MG TAB PO SCH (10:08)
[2018-10-18] MEDS: DOCUSATE SODIUM 100 MG CAP PO SCH ×2 (10:08→22:09)
[2018-10-18] MEDS: CHOLECALCIFEROL 1,000 UNITS TAB PO SCH (10:08)
[2018-10-18] MEDS: PANTOprazole 40 MG TAB PO SCH (10:08)
[2018-10-18] MEDS: MULTIVITAMIN TAB PO SCH (10:08)
[2018-10-18] MEDS: POTASSIUM CHLORIDE 20 MEQ TABCR PO SCH (10:09)
[2018-10-18] MEDS: LISINOPRIL 10 MG TAB PO SCH (10:09)
[2018-10-18] MEDS: FUROSEMIDE 40 MG TAB PO SCH (10:09)
[2018-10-18] MEDS: OXYCODONE HCL IR 5 MG TAB (IMMEDIATE RELEASE) PO PRN (13:03)
[2018-10-18] MEDS: DAPTOmycin 450 MG in SYRINGE 0 ML IV SCH (22:04)
[2018-10-18] MEDS: SENNA 8.6 MG TAB PO SCH (22:09)
[2018-10-19] MEDS: ACETAMINOPHEN 500 MG TAB PO SCH (05:17)
[2018-10-19 08:02] VITALS: BP 137/78; PULSE 83; TEMP 98.1; O2SAT 96
[2018-10-19] MEDS: LISINOPRIL 10 MG TAB PO SCH (09:26)
[2018-10-19] MEDS: FUROSEMIDE 40 MG TAB PO SCH (09:26)
[2018-10-19] MEDS: MULTIVITAMIN TAB PO SCH (09:27)
[2018-10-19] MEDS: CHOLECALCIFEROL 1,000 UNITS TAB PO SCH (09:27)
[2018-10-19] MEDS: POTASSIUM CHLORIDE 20 MEQ TABCR PO SCH (09:27)
[2018-10-19] MEDS: CITALOPRAM 20 MG TAB PO SCH (09:27)
[2018-10-19] MEDS: ASPIRIN 81 MG ECTAB PO SCH (09:27)
[2018-10-19] MEDS: PANTOprazole 40 MG TAB PO SCH (09:27)
[2018-10-19] MEDS: DOCUSATE SODIUM 100 MG CAP PO SCH (09:27)
--- NOTE | 2018-10-19 10:48 | Orthopedic Progress Note ---
Date of Service October 19, 2018 Assessment & Plan (1) Chronic osteomyelitis involving left ankle and foot: POD 5 s/p repeat I/D Left ankle with reimplantation Stimulan antibx beads PT/OT DVT prophylaxis - ASA bid, SCD's Pain managment as written PICC line has been placed. Patient will require 4 to 6 weeks of IV antibiotics. Planning for [facility] likely today. (2) Acute blood loss anemia: Hgb 8.3 today Subjective Postop day 5 status post irrigation debridement left ankle osteomyelitis with removal of and reimplantation of stimulan beads. Patient is currently lying in bed and getting ready to work with physical therapy. She has no new complaints this morning. Pain is controlled. SS confirmed [facility] skilled facility today. PICC line has been placed. Results & Data Vital Signs (Past 12 Hours) Vital Signs Temp Pulse Resp BP Pulse Ox 10/19/18 07:59 36.7 C 83 16 137/78 96 10/18/18 23:45 36.8 C 85 16 119/72 98
--- NOTE | 2018-10-19 12:20 | Hospitalist Progress Note ---
Date of Service October 19, 2018 Assessment & Plan (1) Post-operative state: POD 5 S/P Left Ankle Irrigation and Debridement with Removal of Stimulan Beads, Re-Application of Stimulan Antibiotic Beads Appreciate Orthopedics help Pain is controlled Antibiotics as per ID Continue wound Care Pain is controlled Planned to be discharged to SNF Length to antibiotic course to be determined by ID (2) Acute blood loss anemia: S/P 2 units PRBCs Hb stable No active bleeding (3) Coagulopathy: H/O PE Warfarin on hold for surgery Plan to resume anticoagulation once cleared by surgery Recommend following with coumadin clinic upon discharge (4) Chronic osteomyelitis involving left ankle and foot: Antibiotics as per ID Antibiotic beads placed intraoperatively On Daptomycin Cultures negative to date (5) Obstructive sleep apnea on CPAP: (6) Nocturnal hypoxemia: (7) Depression: Continue Celexa (8) Hypertension: Stable Contiue lisinopril (9) Obesity: (10) DVT prophylaxis: On aspirin BID as per Ortho Plan to resume Coumadin as able Code Status Full Code Disposition: As per Primary Team Subjective Patient seen and examined at bedside States having minimal left ankle pain with movement Denies any chest pain, shortness of breath, dizziness, nausea, abdominal pain Plan to be discharged to rehab facility today Review of Systems Review of Systems: All systems reviewed & are unremarkable except as noted in HPI & below Physical Exam Physical Exam: Physical Exam: Vitals signs as noted above General Appearance:Obese, no apparent distress Head: normocephalic, Atraumatic Eyes: normal inspection, EOMI Neck: supple, Trachea midline Respiratory/Chest: Normal breath sounds, CTA Cardiovascular: S1, S2, No murmur Abdomen/GI:Soft, Non tender, Bowel sounds present Extremities/Musculoskelatal:normal inspection, Left ankle in dressing Neurologic/Psych:AAOX3, grossly no focal neurological deficits Skin: normal color, warm Results & Data Vital Signs (Past 12 Hours) Vital Signs Temp Pulse Resp BP Pulse Ox 10/19/18 07:59 36.7 C 83 16 137/78 96 (1) Depression Depression Type: unspecified Qualified Code(s): F32.9 - Major depressive disorder, single episode, unspecified
--- NOTE | 2018-10-21 12:24 | Coding Query ---
CODING QUERY To promote full compliance with coding requirements relating to patient care, provider participation is requested in all cases of mess cook uncertainty. Please assist us with the question(s) below: Coding Question(s): The Operative Report documents Left Ankle Osteomyelitis and Draining Sinus Left Lateral Ankle and the pertinent history documents that the patient had a previous fusion of her left ankle and that she developed osteomyelitis at the ankle. Please clarify below, in your clinical opinion, regarding the Left Ankle Osteomyelitis. ( ) Left Ankle Osteomyelitis is likely a postoperative infection complication (X) Left Ankle Osteomyelitis is Not a postoperative infection complication Physician's Response(s): Thank you Lina Dasilva Principal Diagnosis: "that condition established after study, to be chiefly responsible for occasioning the admission of the patient to the hospital for care." Co-Existing Principal Diagnosis: "when two or more diagnoses equally meet the criteria for principal diagnosis as determined by the circumstances of admission, diagnostic work up, and/or therapy provided, and the Alphabetic Index, Tabular List, or another coding guideline does not provide sequencing direction, any one of the diagnoses may be sequenced first." "When the physician has documented what appears to be a current diagnosis in the body of the record, but has not included the diagnosis in the final diagnostic statement, the physician should be asked whether the diagnosis should be added." (Source Coding [facility] 2 QTR90. p3-4) LÓEN
--- NOTE | 2018-10-25 23:39 | Discharge Summary ---
DISCHARGE DIAGNOSES: Left ankle osteomyelitis, draining sinus, left lateral ankle, retained Stimulan antibiotic beads. CONSULTS: Dr. Fabián Arita, Dr. Manuela Gonzalez. COMPLICATIONS: None. PROCEDURES: Left ankle irrigation and debridement including skin, fascia and bone, removal of Stimulan antibiotic beads, new application of Stimulan antibiotic beads to the left lateral ankle and subtalar joint, exostectomy of the talus, exostectomy of the calcaneus, exostectomy of the cuboid and biopsy of the talus by Dr. Pepe on 10/14/2018. BRIEF HISTORY: As dictated in the history and physical. HOSPITAL SUMMARY: The patient was admitted on the above-noted date and had the above-noted surgery performed, which she tolerated well. Dr. Arita had been consulted from infectious disease to follow the cultures and make recommendations for IV antibiotics. On her first postoperative day, she was sitting up in bed, awake and alert, no complaints, comfortable. Pain was controlled. Hemoglobin had dropped to 6.5. Dressings were clean, dry and intact. Calves were soft, nontender. 25 mL from the Hemovac was noted from the drain. Vital signs were stable and she was afebrile and she was thusly transfused PRBCs. Dr. Gonzalez was consulted for medical management during her stay. By her second postoperative day, she remained without complaints. No shortness of breath or chest pain or lightheadedness. Pain was controlled. It was discussed that she would likely need long-term IV antibiotics for 4-6 weeks and she felt that she would need to go to a skilled facility if that was the case. Dressings were clean, dry and intact. Hemovac and dressing were removed earlier by nursing staff. Toes were mobile with good sensation. Capillary refill is less than 2 seconds. Vital signs were stable. She was afebrile. Hemoglobin was 8.6 after transfusion of 2 units of PRBCs. She was continued on her PT protocol and DVT prophylaxis, IV antibiotics as per Dr. Arita. Cultures had been remaining negative and the patient was notably on antibiotics and had antibiotic beads placed which was likely resulting in no growth. Previous cultures were showing coag-negative staph in August of this year as well as corynebacterium species in July. By 10/18/2018, a PICC line had been placed and the patient was going to [facility]. Hemoglobin was remaining stable around 8.3. She had no new complaints. Pain was controlled. Vital signs were stable. She was afebrile. Dressings remained intact. Toes were mobile and sensation was intact. Case management had arranged transfer to [facility], and by 10/19/2018, her incision and sutures were clean, dry and intact. No drainage, no erythema. Toes were mobile. Distal pulses were intact and it was felt she could be transferred to [facility] for further physical therapy and care. For further review, please see chart. LABORATORY AND X-RAY DATA: As per chart. DISCHARGE INSTRUCTIONS: The patient was discharged to [facility] for further IV antibiotics and care on 10/19/2018. Diet: Regular. Activity: No weightbearing on the affected limb at all times. Follow special care instructions as noted including care of bandages. Follow up with Dr. Pepe in 2 weeks from the day of surgery. DISCHARGE MEDICATIONS: Aspirin 81 mg p.o. b.i.d., daptomycin 450 mg IV daily, oxycodone/acetaminophen 1-2 tabs p.o. q. 4-6 hours p.r.n. Resume home meds as listed and stop taking lovastatin and previous Percocet.
== END 2018-10-19 13:47 | DRG 504 ==
LOC: ASU 11:20 → 3N 16:36

== ENCOUNTER 2020-07-28 17:55 | Inpatient (IN) ==
--- NOTE | 2020-07-28 18:12 | Emergency Department Note ---
Impression & Plan VILLALOBOS (dyspnea on exertion), Hypoxia, Elevated LFTs ED Provider Note NAME: KATHERYN FOOTE AGE: 80 SEX: F : 1940 ARRIVES VIA: Ambulance INFORMANT: Patient, EMS personnel ED PROVIDER(S): Bacilio Gómez DO CHIEF COMPLAINT: Shortness of breath HPI: The patient is a 80-year-old female who presented to the emergency department for an evaluation of shortness of breath. The patient states that she has had worsening symptoms over the course the last month. She states her symptoms are worsened with exertion as well as lying flat. She notices mild swelling in her legs but is not new for her. She denies having any fever. She denies having a cough. She has had chest tightness but no specific chest pain. She says she has no chest pain at this time. She has been using supplemental oxygen that she normally only uses at night. She has been using it more often during the day. She is also been using her CPAP machine that she normally uses at night throughout the day. She states that these modalities do help her symptoms somewhat. She was seen at [facility] for similar complaints. She states at that time no definite cause for her symptoms could be found and she was advised to follow-up with her primary care physician. She is been compliant with all of her outpatient medications. She denies have any lower extremity swelling or pain compared to baseline. ROS: See above HPI for pertinent positives & negatives. A total of 10 systems reviewed and were otherwise negative. PAST MEDICAL HISTORY: See Below PAST SURGICAL HISTORY: See Below FAMILY HISTORY: See Below SOCIAL HISTORY: See Below HOME MEDICATIONS: See Below ALLERGIES: See Below VITALS: See Below PHYSICAL EXAMINATION: GENERAL: The patient is awake and alert. The patient is somewhat anxious appearing. EYES: The conjunctivae are clear. The pupils are round and reactive. EARS, NOSE, MOUTH AND THROAT: The nose is without any evidence of any deformity. NECK: The neck is nontender and supple. RESPIRATORY: Tachypnea and conversational dyspnea was appreciated. Diminished breath sounds are noted throughout. There were no definite rales noted. CARDIOVASCULAR: Tachycardic and regular heart sounds were noted. No definite murmur was appreciated. GASTROINTESTINAL: The abdomen is soft. Abdomen is nontender. MUSCULOSKELETAL/EXTREMITIES: There is no evidence of gross deformity full range of motion is noted in the hips and shoulders. SKIN: Skin was warm and dry. There was no calf tenderness. NEUROLOGIC: Patient is awake alert and oriented x3. MEDICAL DECISION MAKING: The patient is a 80-year-old female who presented to the emergency department for an evaluation of shortness of breath. The patient was hypoxic. She did not have significant abnormalities with her lung sounds however. I discussed the patient's laboratory and radiographic studies with her. She was found to have an elevated D-dimer. This was ordered because of the relatively normal chest x- ray and the patient's tachypnea and hypoxia. For this reason CT of the chest abdomen pelvis were obtained. The patient was also found to have abnormal liver function studies. The patient was placed on supplemental oxygen with significant improvement of her symptoms. I discussed her case with the on-call [facility] hospitalist. They have agreed to evaluate the patient in the emergency department for further management and disposition. Triage Nursing notes reviewed. Prior medical records reviewed Vital Signs: reviewed and remarkable for elevated blood pressure, hypoxia, tachycardia. Differential diagnosis: Reactive airway disease, pneumonia, pneumothorax, COPD, CHF, infections, cardiac ischemia, pulmonary embolism, musculoskeletal, gastrointestinal, as well as other pathologies. ER treatment provided: See below Diagnostics interpreted by me: ECG: EKG was obtained in the emergency department. My interpretation is normal sinus rhythm at 100 bpm. There is no ectopy. Low voltage was noted throughout. Anterior T wave inversions were noted. This was compared to a tracing from October 052016. No significant changes were noted. Cardiac Monitoring: An order was placed for continuous cardiac monitoring. The monitor shows a rate of 110 bpm with sinus tachycardia rhythm. Laboratory studies: As stated above and show below. Imaging studies: See below Consultation(s): I discussed this case with Dr. Cheema [facility]. Past Med/Surg History Medical History (Updated 07/28/20 @ 21:56 by Bacilio Gómez DO) Anemia TAKING IRON Anxiety Depression Diverticular disease GERD (gastroesophageal reflux disease) Hearing deficit [place] - NO HEARING AIDES Hyperlipidemia Hypertension Morbid obesity Osteoarthritis Pulmonary embolism BILATERAL S/P ANKLE SURGERY. SEPTEMBER 2016. TREATED WITH COUMADIN. STOPPED THEN RESTARTED 09/2018 FOR PREVENTION OF BLOOD CLOTS Sleep apnea BIPAP WITH 2LPM OXYGEN Surgical History Aftercare following left ankle joint replacement surgery 06/17/18 - I&D - Glidescope #4, ETT #7.5, HiLo Oral 03/18/18 - I&D - Glidescope #4, ETT #7.0, HiLo Oral, Grade 3 View Difficult airway for intubation With most recent ankle surgeries, patient was noted to be a difficult intubation, requiring Glidescope. Previous anesthesia records do not note difficulties. H/O ankle fusion RIGHT H/O ankle fusion left -- had subsequent infection and debridement with ABX beads implanted 02/201801/21/18 - MAC #3, ETT #7.5, HiLo Oral, Grade 3 View History of cholecystectomy LAP History of colonoscopy History of esophagogastroduodenoscopy (EGD) Family History Other No pertinent family history Social History Smoking Status: Former smoker Second Hand Exposure: No; Hx Alcohol Use: Yes Alcohol type: wine Hx Substance Use: No Preferred Language: Uzbek Communication Ability: Effective Visual Impairment: No Limitations Rip/Mould Operator Required: No Beliefs That Will Affect Care: None marital status: / Current Living Situation: Family Feels Safe at Home: Yes Assistive Devices: Oxygen - at Night Allergies Allergies Allergy/AdvReac Type Severity Reaction Status Date / Time No Known Allergies Allergy Verified 07/28/20 20:29 Home Meds Home Medications Medication Instructions Recorded Confirmed ascorbic acid (vitamin C) [Vitamin 1,000 mg PO QAM 12/09/17 07/28/20 C] cholecalciferol (vitamin D3) 1,000 unit PO QAM 12/09/17 07/28/20 [Vitamin D3] cinnamon bark [Cinnamon] 500 mg PO QAM 12/09/17 07/28/20 citalopram 30 mg PO QAM 12/09/17 07/28/20 ferrous sulfate 27 mg PO QAM 12/09/17 07/28/20 furosemide [Lasix] 60 mg PO QAM 12/09/17 07/28/20 lisinopril 10 mg PO QAM 12/09/17 07/28/20 multivitamin 1 tab PO QAM 12/09/17 07/28/20 omeprazole 20 mg PO QAM 12/09/17 07/28/20 potassium chloride 20 meq PO QAM 12/09/17 07/28/20 riboflavin (vitamin B2) [Vitamin 100 mg PO QAM 12/09/17 07/28/20 B-2] aspirin 81 mg tablet,delayed 81 mg PO DAILY 12/20/18 07/28/20 release lovastatin 20 mg PO HS 07/28/20 07/28/20 Results & Data (ED) Vital Signs Vital Signs - 24 hr 07/28/20 18:00 07/28/20 18:16 07/28/20 18:19 Temperature 36.6 C Temperature Source Oral Pulse Rate 103 H 101 H Pulse Rate from SpO2 Sensor 105 H Pulse Rhythm Regular Pulse Strength Normal Respiratory Rate 24 26 H Respiratory Effort / Characteristics Labored Labored Respiratory Depth Shallow Shallow Respiratory Pattern Regular Blood Pressure 163/112 H 163/112 H Blood Pressure Mean 129 129 Pulse Oximetry 98 96 Oxygen Delivery Method Room Air Room Air Sepsis Recent Fever Within 48 Hours No Sepsis New/Unexplained Change in Mental Status No Sepsis Action Taken by Nursing Physician Notified Oxygen Flow Rate - Titration Pulse Oximetry Post Tiitration 07/28/20 18:30 07/28/20 19:00 07/28/20 19:30 Temperature Temperature Source Pulse Rate 99 H 96 H 95 H Pulse Rate from SpO2 Sensor 98 H 96 H 97 H Pulse Rhythm Pulse Strength Respiratory Rate 34 H 20 23 Respiratory Effort / Characteristics Respiratory Depth Respiratory Pattern Blood Pressure 154/87 H 128/84 145/84 H Blood Pressure Mean 109 98 104 Pulse Oximetry 94 93 92 Oxygen Delivery Method Sepsis Recent Fever Within 48 Hours Sepsis New/Unexplained Change in Mental Status Sepsis Action Taken by Nursing Oxygen Flow Rate - Titration Pulse Oximetry Post Tiitration 07/28/20 20:00 07/28/20 20:30 07/28/20 21:00 Temperature Temperature Source Pulse Rate 96 H 95 H 97 H Pulse Rate from SpO2 Sensor 96 H 96 H 97 H Pulse Rhythm Pulse Strength Respiratory Rate 21 21 25 H Respiratory Effort / Characteristics Respiratory Depth Respiratory Pattern Blood Pressure 138/83 148/86 H 144/89 H Blood Pressure Mean 101 106 107 Pulse Oximetry 93 89 L 93 Oxygen Delivery Method Sepsis Recent Fever Within 48 Hours Sepsis New/Unexplained Change in Mental Status Sepsis Action Taken by Nursing Oxygen Flow Rate - Titration Pulse Oximetry Post Tiitration 07/28/20 21:30 07/28/20 22:12 Temperature Temperature Source Pulse Rate 100 H Pulse Rate from SpO2 Sensor 102 H Pulse Rhythm Pulse Strength Respiratory Rate 18 Respiratory Effort / Characteristics Respiratory Depth Respiratory Pattern Blood Pressure 147/91 H Blood Pressure Mean 109 Pulse Oximetry 92 89 L Oxygen Delivery Method Room Air Sepsis Recent Fever Within 48 Hours Sepsis New/Unexplained Change in Mental Status Sepsis Action Taken by Nursing Oxygen Flow Rate - Titration 2 Pulse Oximetry Post Tiitration 97 Home Medications Current Medication List: was personally reviewed by me Laboratory Data Attestation: I reviewed the patient's lab results. Result diagrams: 07/28/20 18:11 07/28/20 18:11 Lab Results 07/28/20 07/28/20 07/28/20 Range/Units 18:11 18:11 18:11 WBC 10.71 (4.8-10.8) K/uL RBC 4.99 (4.2-5.4) M/uL Hgb 11.5 L (12.0-16.0) g/dL Hct 39.3 (37-47) % MCV 78.8 L (80-100) fL MCH 23.0 L (25-34) pg MCHC 29.3 L (32-36) g/dL RDW Std Deviation 49.5 H (36.4-46.3) fL RDW Coeff of Esvin 17.3 H (11.5-14.5) % Plt Count 359 (130-400) K/uL MPV 9.0 (7.4-10.4) fL Immature Gran % (Auto) 0.2 % Neut % (Auto) 66.7 % Lymph % (Auto) 24.2 % [place] % (Auto) 6.1 % Eos % (Auto) 2.4 % Baso % (Auto) 0.4 % Neut # (Auto) 7.15 H (1.4-6.5) K/uL Lymph # (Auto) 2.59 (1.2-3.4) K/uL [place] # (Auto) 0.65 H (0.11-0.59) K/uL Eos # (Auto) 0.26 (0-0.5) K/uL Baso # (Auto) 0.04 (0-0.2) K/uL Immature Gran # (Auto) 0.02 (0.00-0.02) K/uL PT 9.3 (9.0-12.0) Seconds INR 0.9 (0.9-1.1) APTT 22.9 (21.0-31.0) Seconds PTT Ratio 0.9 D-Dimer 1730 H* (0-500) ug/L FEU VBG pH (7.36-7.41) VBG pCO2 (38-50) mmHg VBG pO2 mmHg VBG HCO3 mmol/L VBG O2 Saturation % VBG Base Excess mEq/L Barometric Pressure mm/Hg Sodium 141 (136-145) mmol/L Potassium 3.6 (3.5-5.1) mmol/L Chloride 103 (98-107) mmol/L Carbon Dioxide 27 (21-32) mmol/L Anion Gap 11.0 (3-11) BUN 12 (7-18) mg/dl Creatinine 0.74 (0.6-1.2) mg/dl Est Cr Clr Drug Dosing 83.4 ml/min Est GFR ( Amer) 89.3 ml/min Est GFR (Non-Af Amer) 77.1 ml/min BUN/Creatinine Ratio 16.7 (10-20) Glucose 185 H (70-99) mg/dl Calcium 9.1 (8.5-10.1) mg/dl Magnesium 2.2 (1.8-2.4) mg/dl Total Bilirubin 0.6 (0.2-1) mg/dl AST 251 H (15-37) U/L ALT 366 H (12-78) U/L Alkaline Phosphatase 219 H (45-117) U/L Troponin I < 0.015 (0-0.045) ng/ml NT-Pro-B Natriuret Pep 71 (0-1800) pg/ml Total Protein 8.0 (6.4-8.2) gm/dl Albumin 3.4 (3.4-5.0) gm/dl Globulin 4.6 H (2.5-4.0) gm/dl Albumin/Globulin Ratio 0.7 L (0.9-2) Lipase 67 L (73-393) U/L TSH 1.430 (0.300-4.500) uIu/ml COVID-19 Eval Order SARS-CoV-2 (PCR) (Negative) 07/28/20 07/28/20 07/28/20 Range/Units 18:30 22:05 22:05 WBC (4.8-10.8) K/uL RBC (4.2-5.4) M/uL Hgb (12.0-16.0) g/dL Hct (37-47) % MCV (80-100) fL MCH (25-34) pg MCHC (32-36) g/dL RDW Std Deviation (36.4-46.3) fL RDW Coeff of Esvin (11.5-14.5) % Plt Count (130-400) K/uL MPV (7.4-10.4) fL Immature Gran % (Auto) % Neut % (Auto) % Lymph % (Auto) % [place] % (Auto) % Eos % (Auto) % Baso % (Auto) % Neut # (Auto) (1.4-6.5) K/uL Lymph # (Auto) (1.2-3.4) K/uL [place] # (Auto) (0.11-0.59) K/uL Eos # (Auto) (0-0.5) K/uL Baso # (Auto) (0-0.2) K/uL Immature Gran # (Auto) (0.00-0.02) K/uL PT (9.0-12.0) Seconds INR (0.9-1.1) APTT (21.0-31.0) Seconds PTT Ratio D-Dimer (0-500) ug/L FEU VBG pH 7.45 H (7.36-7.41) VBG pCO2 46 (38-50) mmHg VBG pO2 49 mmHg VBG HCO3 31 mmol/L VBG O2 Saturation 86.9 % VBG Base Excess 6.3 mEq/L Barometric Pressure 732.9 mm/Hg Sodium (136-145) mmol/L Potassium (3.5-5.1) mmol/L Chloride (98-107) mmol/L Carbon Dioxide (21-32) mmol/L Anion Gap (3-11) BUN (7-18) mg/dl Creatinine (0.6-1.2) mg/dl Est Cr Clr Drug Dosing ml/min Est GFR ( Amer) ml/min Est GFR (Non-Af Amer) ml/min BUN/Creatinine Ratio (10-20) Glucose (70-99) mg/dl Calcium (8.5-10.1) mg/dl Magnesium (1.8-2.4) mg/dl Total Bilirubin (0.2-1) mg/dl AST (15-37) U/L ALT (12-78) U/L Alkaline Phosphatase (45-117) U/L Troponin I (0-0.045) ng/ml NT-Pro-B Natriuret Pep (0-1800) pg/ml Total Protein (6.4-8.2) gm/dl Albumin (3.4-5.0) gm/dl Globulin (2.5-4.0) gm/dl Albumin/Globulin Ratio (0.9-2) Lipase (73-393) U/L TSH (0.300-4.500) uIu/ml COVID-19 Eval Order Covid19 at [facility] SARS-CoV-2 (PCR) NEGATIVE (Negative) Administered Medications Discontinued Medications Ioversol (Optiray 350 500ml) 120 ml IV ONCE ONE Stop: 07/28/20 20:10 Last Admin: 07/28/20 20:09 Dose: 120 ml Documented by: [id number] Imaging Data Radiologist's Impression: Chest X-Ray 07/28/20 18:04 XR chest 1V portable CLINICAL HISTORY: Chest Pain COMPARISON STUDY: No chest radiograph October 17, 2018. FINDINGS: Lung volumes are normal. Lungs are clear. There is no pneumothorax or pleural effusion. Cardiac size is stable. Mediastinal contours are normal. There is no evidence for pulmonary edema. A hiatal hernia is again noted. IMPRESSION: No acute cardiopulmonary findings. No significant change in appearance of the chest. ACT 112: Negative or not required by law. Electronically signed by: Nelson Syed M.D. 07/28/2020 7:53 PM Patient: KATHERYN FOOTE (Female) : 42 Status: ER Date: 07/28/20 20:29 Room #: History: UPPER ABD PAIN Slices: [id number] Priors: Osito: Cem Reinoso @ [phone] Exams: CT ABDOMEN & PELVIS With Contrast Contrast: IV Amt: 120 Accession Numbers: [id number] Preliminary Findings Only See Final Report For Complete Findings CT ABDOMEN & PELVIS With Contrast: No acute findings in the abdomen or pelvis. Moderate hiatal hernia. Hepatic steatosis. Status post cholecystectomy. Fatty infiltration of the pancreas. Scattered colonic diverticula. No evidence of acute diverticulitis. Small fat-containing umbilical hernia. Radiologist: Nery Tillman M.D. Study ready at 20:31 and initial results transmitted at 21:27 Patient: KATHERYN FOOTE (Female) : 42 Status: ER Date: 07/28/20 20:15 Room #: History: sob Slices: [id number] Priors: Tech: Cem Reinoso @ [phone] Exams: CTA CHEST Contrast: IV Amt: 120 Accession Numbers: [id number] Preliminary Findings Only See Final Report For Complete Findings CTA CHEST: Comparison: CTA chest 10/05/2016 No acute pulmonary embolism visualized. No consolidation, significant pleural effusion or pneumothorax. Moderate hiatal hernia, as seen previously. Radiologist: Nery Tillman M.D. Study ready at 20:21 and initial results transmitted at 21:20 Discharge Plan Visit Data Chief Complaint: Shortness of Breath/Dyspnea Stated Complaint: breathing difficulty ED Provider: Bacilio Gómez Discharge Problem: VILLALOBOS (dyspnea on exertion), Hypoxia, Elevated LFTs Forms Stand Alone Forms: [facility] Prescriptions Prescriptions: No Action aspirin [Adult Aspirin Regimen] 81 mg tablet,delayed release (DR/EC) 81 mg PO DAILY RF: 0 multivitamin Tablet 1 tab PO QAM RF: 0 furosemide [Lasix] 40 mg Tablet 60 mg PO QAM RF: 0 ascorbic acid (vitamin C) [Vitamin C] 1,000 mg Tablet 1,000 mg PO QAM RF: 0 riboflavin (vitamin B2) [Vitamin B-2] 100 mg Tablet 100 mg PO QAM RF: 0 citalopram 20 mg Tablet 30 mg PO QAM RF: 0 lisinopril 10 mg Tablet 10 mg PO QAM RF: 0 omeprazole 20 mg Capsule,Delayed Release(Dr/Ec) 20 mg PO QAM RF: 0 cinnamon bark [Cinnamon] 500 mg Capsule 500 mg PO QAM RF: 0 cholecalciferol (vitamin D3) [Vitamin D3] 1,000 unit Tablet 1,000 unit PO QAM RF: 0 ferrous sulfate 27 mg iron Tablet 27 mg PO QAM RF: 0 potassium chloride 20 mEq Tablet Extended Release 20 meq PO QAM RF: 0 lovastatin 20 mg Tablet 20 mg PO HS RF: 0 Referrals Referrals: Jessica Orosco DO [Primary Care Provider] -
[2020-07-28 18:20] LABS: Basophils # (auto) 0.04 K/uL (0-0.2); Basophils % (auto) 0.4 %; Eosinophils # (auto) 0.26 K/uL (0-0.5); Eosinophils % (auto) 2.4 %; Hematocrit (blood only) 39.3 % (37-47); Hemoglobin 11.5 g/dL (12.0-16.0); Immature Granulocytes # (auto) 0.02 K/uL (0.00-0.02); Immature Granulocytes % (auto) 0.2 %; Lymphocytes # (auto) 2.59 K/uL (1.2-3.4); Lymphocytes % (auto) 24.2 %; Mean Corpuscular Hgb Conc 29.3 g/dL (32-36); Mean Corpuscular Volume 78.8 fL (80-100); Monocytes # (auto) 0.65 K/uL (0.11-0.59); Monocytes % (auto) 6.1 %; Neutrophils # (auto) 7.15 K/uL (1.4-6.5); Neutrophils % (auto) 66.7 %; Platelet Count 359 K/uL (130-400); RDW Coefficient of Variation 17.3 % (11.5-14.5); RDW Standard Deviation 49.5 fL (36.4-46.3); Red Blood Count 4.99 M/uL (4.2-5.4); White Blood Count 10.71 K/uL (4.8-10.8)
[2020-07-28 18:37] LABS: INR 0.9 (0.9-1.1); Partial Thromboplastin Ratio 0.9; Partial Thromboplastin Time 22.9 Seconds (21.0-31.0); Prothrombin Time 9.3 Seconds (9.0-12.0)
[2020-07-28 18:38] LABS: Alanine Aminotransferase 366 U/L (12-78); Albumin Level 3.4 gm/dl (3.4-5.0); Aspartate Aminotransferase 251 U/L (15-37); BUN Creatinine Ratio 16.7 (10-20); Blood Urea Nitrogen 12 mg/dl (7-18); Calcium 9.1 mg/dl (8.5-10.1); Carbon Dioxide 27 mmol/L (21-32); Chloride 103 mmol/L (98-107); Creatinine Clr Calc Pharmacy 83.4 ml/min; Est GFR (African American) 89.3 ml/min; Est GFR (Non-African American) 77.1 ml/min; Glucose 185 mg/dl (70-99); Lipase 67 U/L (73-393); Potassium 3.6 mmol/L (3.5-5.1); Sodium 141 mmol/L (136-145)
[2020-07-28 18:39] LABS: Base Excess VBG 6.3 mEq/L; Oxygen Saturation VBG 86.9 %; pH VBG 7.45 (7.36-7.41)
[2020-07-28 18:43] LABS: Albumin Globulin Ratio 0.7 (0.9-2); Alkaline Phosphatase 219 U/L (45-117); Bilirubin,Total 0.6 mg/dl (0.2-1); Globulin 4.6 gm/dl (2.5-4.0); Troponin I < 0.015 ng/ml (0-0.045)
[2020-07-28 18:56] LABS: D Dimer 1730 ug/L FEU (0-500)
[2020-07-28 19:08] LABS: NT Pro B Type Natriuretic Pept 71 pg/ml (0-1800)
--- NOTE | 2020-07-28 19:55 | XRay Report ---
XR chest 1V portable CLINICAL HISTORY: Chest Pain COMPARISON STUDY: No chest radiograph October 17, 2018. FINDINGS: Lung volumes are normal. Lungs are clear. There is no pneumothorax or pleural effusion. Car diac size is stable. Mediastinal contours are normal. There is no evidence for pulmonary edema. A hia catracho hernia is again noted. IMPRESSION: No acute cardiopulmonary findings. No significant change in appearance of the chest. ACT 112: Negative or not required by law. Electronically signed by: Nelson Syed M.D. 07/28/2020 7:53 PM
[2020-07-28] MEDS ORDERED: OPTIRAY 350 500ml IV ONE (20:09)
[2020-07-28 22:31] LABS: Magnesium 2.2 mg/dl (1.8-2.4)
--- NOTE | 2020-07-28 23:29 | History & Physical Report ---
Date of Service July 28, 2020 Assessment & Plan (1) Acute hypoxemic respiratory failure: hx WILLIAM on CPAP Possible underlying pulmonary hypertension secondary to suboptimal CPAP settings Recent outpatient TTE cannot reliably evaluate pulmonary hypertension given technical factors owing to patient's habitus as per conversation with senior oracle applications developer on-call. history of PE DVT status post anticoagulation hypertension, slightly elevated DM2 diet-controlled, reasonable control as of recent hemoglobin A1c of 7.22 April 2020 chronic anemia, hemoglobin at baseline Medical telemetry Supplemental O2 Baseline ABG Pulmonary consult Re: Respiratory failure Basal insulin, ISS BG goal 1 10-1 40, carb count coverage PT OT eval DVT prophylaxis per Lovenox subcu Full code Patient son requesting updates from providers. Mr. Milind Bob, contact #[phone]. Text document was generated using [email or web address] voice recognition software. It may contain grammatical or spelling errors. Kindly contact undersigned for clarification of any documentation item in question. History of Present Illness Chief Complaint: Shortness of breath Primary Care Provider: Jessica Orosco, History obtained from patient, family, and records. Medical history significant for WILLIAM on CPAP, history of PE DVT status post anticoagulation, hypertension, DM2 diet-controlled, chronic anemia (baseline hemoglobin 11). Last confinement September 2018 under Orthopedics service for left ankle osteomyelitis status post surgery. One month history of shortness of breath symptoms mostly on exertion. No chest pain, no fluid retention, no cough symptoms. No recent COVID-19 contacts as per patient. Shortness of breath worsened 3 weeks ago. Patient evaluated at [facility] ER but subsequently discharge without changes in medications or explanation for shortness of breath as per son. Patient compliant with home CPAP although CPAP equipment out of date as per family. Last [facility] sleep medicine follow-up was January 2018. CPAP of 6 with oxygen at 2 LPM recommended. No O2 for CPAP the last several months as per patient family. Pulmonology/sleep medicine evaluation requesite for new CPAP machine scheduled for next month as per family. Outpatient TTE requested by PCP for shortness of breath symptoms resulted this week. EF 70%. Concentric LVH. Diastolic dysfunction. Poorly visualized valvular anatomy without significant stenosis or regurgitation. Hyperdynamic LV systolic function now present. This afternoon, patient noted shortness of breath worse than usual without other symptoms. Patient brought to the ER for evaluation. O2 sats 89 on room air at some point. Medical History as above Surgical History : D&C, ankle surgery, cholecystectomy Family History : Leukemia, heart disease, MS Personal/Social history : Non-smoker, occasional EtOH intake, retired medical secretary receptionist, lives with her grandson Allergies Allergy/AdvReac Type Severity Reaction Status Date / Time No Known Allergies Allergy Verified 07/28/20 20:29 Home Medications Medication Instructions Recorded Confirmed Type ascorbic acid (vitamin C) [Vitamin 1,000 mg PO QAM 12/09/17 07/28/20 History C] cholecalciferol (vitamin D3) 1,000 unit PO QAM 12/09/17 07/28/20 History [Vitamin D3] cinnamon bark [Cinnamon] 500 mg PO QAM 12/09/17 07/28/20 History citalopram 30 mg PO QAM 12/09/17 07/28/20 History ferrous sulfate 27 mg PO QAM 12/09/17 07/28/20 History furosemide [Lasix] 60 mg PO QAM 12/09/17 07/28/20 History lisinopril 10 mg PO QAM 12/09/17 07/28/20 History multivitamin 1 tab PO QAM 12/09/17 07/28/20 History omeprazole 20 mg PO QAM 12/09/17 07/28/20 History potassium chloride 20 meq PO QAM 12/09/17 07/28/20 History riboflavin (vitamin B2) [Vitamin 100 mg PO QAM 12/09/17 07/28/20 History B-2] aspirin 81 mg tablet,delayed 81 mg PO DAILY 12/20/18 07/28/20 History release lovastatin 20 mg PO HS 07/28/20 07/28/20 History Past Med/Surg History Medical History (Updated 07/29/20 @ 09:02 by Yared Betancourt MD) Anemia TAKING IRON Anxiety Depression Diverticular disease GERD (gastroesophageal reflux disease) Hearing deficit [place] - NO HEARING AIDES Hyperlipidemia Hypertension Morbid obesity Osteoarthritis Pulmonary embolism BILATERAL S/P ANKLE SURGERY. SEPTEMBER 2016. TREATED WITH COUMADIN. STOPPED THEN RESTARTED 09/2018 FOR PREVENTION OF BLOOD CLOTS Sleep apnea BIPAP WITH 2LPM OXYGEN Surgical History Aftercare following left ankle joint replacement surgery 06/17/18 - I&D - Glidescope #4, ETT #7.5, HiLo Oral 03/18/18 - I&D - Glidescope #4, ETT #7.0, HiLo Oral, Grade 3 View Difficult airway for intubation With most recent ankle surgeries, patient was noted to be a difficult intubation, requiring Glidescope. Previous anesthesia records do not note difficulties. H/O ankle fusion RIGHT H/O ankle fusion left -- had subsequent infection and debridement with ABX beads implanted 02/201801/21/18 - MAC #3, ETT #7.5, HiLo Oral, Grade 3 View History of cholecystectomy LAP History of colonoscopy History of esophagogastroduodenoscopy (EGD) Family History Other No pertinent family history Social History Smoking Status: Never smoker Second Hand Exposure: No; Hx Alcohol Use: Yes Alcohol type: other Hx Substance Use: No Preferred Language: Divehi Communication Ability: Effective Visual Impairment: No Limitations Submarine Advisory Team Watch Officer Required: No Beliefs That Will Affect Care: None marital status: / Current Living Situation: Family Feels Safe at Home: Yes Safety Concerns: Feels Safe At This Time Assistive Devices: CPAP, Glasses and Wheelchair Review of Systems Review of Systems: As per HPI, all 10 systems reviewed, all other ROS negative Physical Exam Physical Exam: GENERAL: Comfortable, morbidly obese, hard of hearing, episodic tachypnea SKIN: Pallor, warm HEENT: Pale palpebral conjunctivae, no ptosis, dry buccal mucosa, nasal cannula in place NECK : Supple, short neck, no tenderness CHEST : Decreased breath sounds, no tenderness HEART : RRR, no obvious murmurs ABDOMEN: distention, nontender EXTREMITIES : Minimal LE swelling, no LE tenderness, no other conspicuous deformities noted NEUROLOGIC : Coherent, no facial asymmetry, hard of hearing, no other gross focality Results & Data Results & Data ([facility]) Vital Signs (Past 12 Hours) Vital Signs Temp Pulse Resp BP Pulse Ox 07/28/20 22:12 89 L 07/28/20 21:30 100 H 18 147/91 H 92 07/28/20 21:00 97 H 25 H 144/89 H 93 07/28/20 20:30 95 H 21 148/86 H 89 L 06/06/21 20:00 96 H 21 138/83 93 07/28/20 19:30 95 H 23 145/84 H 92 07/28/20 19:00 96 H 20 128/84 93 07/28/20 18:30 99 H 34 H 154/87 H 94 07/28/20 18:16 36.6 C 101 H 26 H 163/112 H 96 07/28/20 18:00 103 H 24 163/112 H 98 Laboratory Results Laboratory Results WBC 10.71 K/uL (4.8-10.8) 07/28/20 18:11 RBC 4.99 M/uL (4.2-5.4) 07/28/20 18:11 Hgb 11.5 g/dL (12.0-16.0) L 07/28/20 18:11 Hct 39.3 % (37-47) 07/28/20 18:11 MCV 78.8 fL (80-100) L 07/28/20 18:11 MCH 23.0 pg (25-34) L 07/28/20 18:11 MCHC 29.3 g/dL (32-36) L 07/28/20 18:11 RDW Std Deviation 49.5 fL (36.4-46.3) H 07/28/20 18:11 RDW Coeff of Esvin 17.3 % (11.5-14.5) H 07/28/20 18:11 Plt Count 359 K/uL (130-400) 07/28/20 18:11 MPV 9.0 fL (7.4-10.4) 07/28/20 18:11 Immature Gran % (Auto) 0.2 % 07/28/20 18:11 Neut % (Auto) 66.7 % 07/28/20 18:11 Lymph % (Auto) 24.2 % 07/28/20 18:11 Bland % (Auto) 6.1 % 07/28/20 18:11 Eos % (Auto) 2.4 % 07/28/20 18:11 Baso % (Auto) 0.4 % 07/28/20 18:11 Neut # (Auto) 7.15 K/uL (1.4-6.5) H 07/28/20 18:11 Lymph # (Auto) 2.59 K/uL (1.2-3.4) 07/28/20 18:11 Bland # (Auto) 0.65 K/uL (0.11-0.59) H 07/28/20 18:11 Eos # (Auto) 0.26 K/uL (0-0.5) 07/28/20 18:11 Baso # (Auto) 0.04 K/uL (0-0.2) 07/28/20 18:11 Immature Gran # (Auto) 0.02 K/uL (0.00-0.02) 07/28/20 18:11 PT 9.3 Seconds (9.0-12.0) 07/28/20 18:11 INR 0.9 (0.9-1.1) 07/28/20 18:11 APTT 22.9 Seconds (21.0-31.0) 07/28/20 18:11 PTT Ratio 0.9 07/28/20 18:11 D-Dimer 1730 ug/L FEU (0-500) H* 07/28/20 18:11 VBG pH 7.45 (7.36-7.41) H 07/28/20 18:30 VBG pCO2 46 mmHg (38-50) 07/28/20 18:30 VBG pO2 49 mmHg 07/28/20 18:30 VBG HCO3 31 mmol/L 07/28/20 18:30 VBG O2 Saturation 86.9 % 07/28/20 18:30 VBG Base Excess 6.3 mEq/L 07/28/20 18:30 Barometric Pressure 732.9 mm/Hg 07/28/20 18:30 Sodium 141 mmol/L (136-145) 07/28/20 18:11 Potassium 3.6 mmol/L (3.5-5.1) 07/28/20 18:11 Chloride 103 mmol/L (98-107) 07/28/20 18:11 Carbon Dioxide 27 mmol/L (21-32) 07/28/20 18:11 Anion Gap 11.0 (3-11) 07/28/20 18:11 BUN 12 mg/dl (7-18) 07/28/20 18:11 Creatinine 0.74 mg/dl (0.6-1.2) 07/28/20 18:11 Est Cr Clr Drug Dosing 83.4 ml/min 07/28/20 18:11 Est GFR ( Amer) 89.3 ml/min 07/28/20 18:11 Est GFR (Non-Af Amer) 77.1 ml/min 07/28/20 18:11 BUN/Creatinine Ratio 16.7 (10-20) 07/28/20 18:11 Glucose 185 mg/dl (70-99) H 07/28/20 18:11 Calcium 9.1 mg/dl (8.5-10.1) 07/28/20 18:11 Magnesium 2.2 mg/dl (1.8-2.4) 07/28/20 18:11 Total Bilirubin 0.6 mg/dl (0.2-1) 07/28/20 18:11 AST 251 U/L (15-37) H 07/28/20 18:11 ALT 366 U/L (12-78) H 07/28/20 18:11 Alkaline Phosphatase 219 U/L (45-117) H 07/28/20 18:11 Troponin I < 0.015 ng/ml (0-0.045) 07/28/20 18:11 NT-Pro-B Natriuret Pep 71 pg/ml (0-1800) 07/28/20 18:11 Total Protein 8.0 gm/dl (6.4-8.2) 07/28/20 18:11 Albumin 3.4 gm/dl (3.4-5.0) 07/28/20 18:11 Globulin 4.6 gm/dl (2.5-4.0) H 07/28/20 18:11 Albumin/Globulin Ratio 0.7 (0.9-2) L 07/28/20 18:11 Lipase 67 U/L (73-393) L 07/28/20 18:11 TSH 1.430 uIu/ml (0.300-4.500) 07/28/20 18:11 COVID-19 Eval Order Covid19 at [facility] 07/28/20 22:05 SARS-CoV-2 (PCR) NEGATIVE (Negative) 07/28/20 22:05 Impressions Chest X-Ray 07/28/20 18:04 XR chest 1V portable CLINICAL HISTORY: Chest Pain COMPARISON STUDY: No chest radiograph October 17, 2018. FINDINGS: Lung volumes are normal. Lungs are clear. There is no pneumothorax or pleural effusion. Cardiac size is stable. Mediastinal contours are normal. There is no evidence for pulmonary edema. A hiatal hernia is again noted. IMPRESSION: No acute cardiopulmonary findings. No significant change in appearance of the chest. ACT 112: Negative or not required by law. Electronically signed by: Nelson Syed M.D. 07/28/2020 7:[address] chest initial read: No acute pulmonary embolism visualized. No consolidation, significant pleural effusion or pneumothorax. Moderate hiatal hernia. EKG as per my interpretation: Rate 100, NSR, normal axis, T wave abnormalities anteroseptal leads
[2020-07-28] MEDS ORDERED: XOPENEX/ATROVENT 1.25mg/0.5MG NEB COMBO NEB STA (23:41)
[2020-07-28] MEDS ORDERED: IPRATROPIUM BROMIDE NEB SOLN 0.02% 2.5 ML VIAL INH STA (23:47)
[2020-07-28] MEDS ORDERED: LEVALBUTEROL 1.25MG/0.5ML NEB INH STA (23:47)
[2020-07-29] MEDS ORDERED: GLUCOSE 10 TABS/TUBE PO PRN (01:55)
[2020-07-29] MEDS ORDERED: DEXTROSE 50% 50 ML SYRINGE IV PRN (01:55)
[2020-07-29] MEDS ORDERED: CARBOHYDRATES FOR HYPOGLYCEMIA PO PRN (01:55)
[2020-07-29] MEDS ORDERED: traMADol HCL 50 MG TABLET PO PRN (01:55)
[2020-07-29] MEDS ORDERED: ACETAMINOPHEN 325 MG TAB PO PRN (01:55)
[2020-07-29] MEDS ORDERED: PROMETHAZINE HCL 12.5 MG in SODIUM CHLORIDE 0.9% 50 ML IV PRN (01:55)
[2020-07-29] MEDS ORDERED: GLUCOSE 40% GEL 15 GM TUBE PO PRN (01:55)
[2020-07-29] MEDS ORDERED: GLUCAGON FOR INJ 1 MG VIAL SQ PRN (01:55)
[2020-07-29] MEDS: INSULIN ASPART 100 UNITS/ML 3 ML PEN SC SCH ×5 (03:14→21:11)
[2020-07-29] MEDS ORDERED: cloNIDine HCL 0.1 MG TAB PO STA (04:46)
[2020-07-29 07:04] LABS: Allen Test Pos (Pos); Base Excess ABG 4.5 mEq/L (-9-1.8); HCO3 ABG 29 mmol/L (19-24); PCO2 ABG 41 mmHg (35-46); PO2 ABG 76 mmHg (80-95); pH ABG 7.47 (7.35-7.45)
[2020-07-29 07:18] LABS: Basophils # (auto) 0.04 K/uL (0-0.2); Basophils % (auto) 0.4 %; Hematocrit (blood only) 37.6 % (37-47); Hemoglobin 10.6 g/dL (12.0-16.0); Immature Granulocytes # (auto) 0.04 K/uL (0.00-0.02); Immature Granulocytes % (auto) 0.4 %; Lymphocytes # (auto) 2.85 K/uL (1.2-3.4); Lymphocytes % (auto) 28.2 %; Mean Corpuscular Hemoglobin 22.6 pg (25-34); Mean Corpuscular Hgb Conc 28.2 g/dL (32-36); Mean Platelet Volume 9.1 fL (7.4-10.4); Monocytes # (auto) 0.66 K/uL (0.11-0.59); Monocytes % (auto) 6.5 %; Neutrophils # (auto) 6.33 K/uL (1.4-6.5); Neutrophils % (auto) 62.5 %; Platelet Count 369 K/uL (130-400); RDW Coefficient of Variation 17.5 % (11.5-14.5); RDW Standard Deviation 52.1 fL (36.4-46.3); White Blood Count 10.12 K/uL (4.8-10.8)
--- NOTE | 2020-07-29 07:27 | CT Scan Report ---
CT ANGIOGRAM OF THE CHEST CLINICAL HISTORY: Shortness of breath. Possible acute pulmonary embolism. COMPARISON STUDY: September 2016, chest x-ray dated July 28, 2020 TECHNIQUE: Following the IV administration of 120 mL of Optiray, CT angiogram of the thorax was perfo rmed from the thoracic inlet to the lung bases utilizing the pulmonary embolus protocol. Images are r eviewed in the axial, sagittal, and coronal planes. IV contrast was administered without complication . MIP imaging was performed. A dose lowering technique was utilized adhering to the principles of AL XUAN. CT DOSE: 3927.18 mGy.cm FINDINGS: No pathologically enlarged axillary mediastinal or hilar lymph nodes were visualized. There was no evidence of thoracic aortic dilatation. There is suboptimal pulmonary arterial opacification. No central emboli are visualized. No pleural effusions are visualized. There are no areas of parenchymal consolidation to indicate a focal pneumonia. There is a 5 mm ground glass nodule at the left lung base possibly atelectatic. In an average risk patient, no further follo w-up is indicated. There is a moderate hiatal hernia. IMPRESSION: 1. Suboptimal pulmonary arterial opacification. No central emboli identified. If there is a strong cl inical concern over the presence of acute pulmonary embolism, correlation with serial leg ultrasonogr aphy could be obtained in follow-up 2. Moderate hiatal hernia 3. 5 mm groundglass opacity within the left lower lobe. In an average risk patient, no further follow -up is indicated. ACT 112: Negative or not required by law. Electronically signed by: Leander Tavarez M.D. 07/29/2020 7:26 AM
[2020-07-29 07:33] LABS: Albumin Level 3.1 gm/dl (3.4-5.0); BUN Creatinine Ratio 16.6 (10-20); Bilirubin Direct 0.3 mg/dl (0-0.2); Calcium 8.4 mg/dl (8.5-10.1); Creatinine Clr Calc Pharmacy 86.4 ml/min; Est GFR (African American) 93.9 ml/min; Potassium 3.4 mmol/L (3.5-5.1)
[2020-07-29 07:35] LABS: Bilirubin,Total 1.1 mg/dl (0.2-1); Total Protein 7.3 gm/dl (6.4-8.2)
--- NOTE | 2020-07-29 08:45 | CT Scan Report ---
ABDOMEN AND PELVIS CT WITH IV CONTRAST CT DOSE: HISTORY: upper pain TECHNIQUE: Multiaxial CT images of the abdomen and pelvis were performed following the use of intrave nous contrast. A dose lowering technique was utilized adhering to the principles of ALARA. COMPARISON STUDY: None. FINDINGS: Please refer the same day chest CT for further evaluation of the lung bases. There is a mod erate hiatus hernia containing the proximal stomach. No pneumoperitoneum. No pneumatosis. Moderate to severe degenerative disc disease throughout the lumbar spine. Small fat-containing umbilical hernia. Mild hepatic steatosis. The spleen and adrenal glands are unremarkable. No hydronephrosis. Punctate densities within the kidneys may represent excretion of contrast rather than kidney stones. Normal ca liber abdominal aorta. No retroperitoneal lymphadenopathy. There is near complete fatty replacement o f the pancreas. Pelvic floor collapse. The bladder, uterus, bilateral adnexa are within normal limits . Colonic diverticulosis. No evidence for acute diverticulitis. No bowel wall thickening or obstructi on. Only a short segment of the proximal appendix is identified and appears unremarkable. There is no inflammatory change within the right lower quadrant. IMPRESSION: 1. No bowel wall thickening or obstruction. 2. No hydronephrosis. 3. Moderate hiatus hernia. 4. Hepatic steatosis. 5. Cholecystectomy. 6. Pelvic floor collapse. ACT 112: Negative or not required by law. Electronically signed by: Carlos Mcpherson M.D. 07/29/2020 8:44 AM
[2020-07-29] MEDS ORDERED: NON-FORMULARY MEDICATION (Ferrous Sulfate 27 mg iron Tablet) PO SCH (09:00)
[2020-07-29] MEDS ORDERED: NON-FORMULARY MEDICATION (Riboflavin (Vitamin B2) [Vitamin B-2] 100 mg Tablet) PO SCH (09:00)
--- NOTE | 2020-07-29 09:04 | Pulmonary Consultation ---
Date of Consultation July 29, 2020 Assessment & Plan (1) Acute hypoxemic respiratory failure: (2) Obesity: Obesity type: with alveolar hypoventilation Obesity classification: adult class 3 (BMI >= 40) Serious obesity comorbidity presence: with serious comorbidity Body mass index: BMI 50.0-59.9 Qualified Code(s): E66.2 - Morbid (severe) obesity with alveolar hypoventilation; Z68.43 - Body mass index [BMI] 50.0-59.9, adult (3) Obesity hypoventilation syndrome: (4) Hypercapnic respiratory failure: Impression: 80-year-old female with morbid obesity and reported history of sleep apnea although I do not have her prior studies available to review. She presented with compensated hypercarbic respiratory failure as well as hypoxemia. Recommendations: 1. Probable obesity hypoventilation syndrome: Continue CPAP. The patient will need to follow-up with [facility] in the outpatient setting to determine optimal settings. We do not have her titration studies or diagnostic studies available to review. She likely will require supplemental oxygen as well. For now we will place her empirically on 12 cm of water nightly with oxygen bleed at 2 L/min. She will need to follow-up with her [employer] to ensure she has appr opriate supplies. 2. Weight loss recommended as an adjuvant therapy for her obesity hypoventilation syndrome. 3. The patient may require supplemental oxygen at discharge. Diuretics may be beneficial. Aggressive control of blood pressure is recommended given diastolic dysfunction. We will sign off at this point time. Again the patient will need close clinical follow-up with [facility] sleep medicine in the outpatient setting to ensure appropriate therapy. Feel free to contact us if we can be of additional assistance Chronicity: chronic Qualified Code(s): J96.12 - Chronic respiratory failure with hypercapnia History of Present Illness Attending Physician: Stephy Puentes MD History of Present Illness Asked by hospitalist to evaluate this patient with acute on chronic hypoxemic and hypercarbic respiratory failure. History is obtained from discussion with the patient as well as review of electronic medical record. Patient is a 80-year-old morbidly obese female with a history of sleep disordered breathing here uses CPAP and oxygen at night. Her prior sleep study is not available to review but reportedly she is on CPAP at 6 cmH2O with 2 L oxygen bleed. She presented to the hospital complaining of several week history of shortness of breath. Outpatient echocardiogram apparently had poor acoustical windows due to patient's body habitus. In the emergency room the patient was borderline hypoxemic and placed on supplemental oxygen. She states she is feeling better currently. Allergies Allergy/AdvReac Type Severity Reaction Status Date / Time No Known Allergies Allergy Verified 07/28/20 20:29 Home Medications Medication Instructions Recorded Confirmed Type ascorbic acid (vitamin C) [Vitamin 1,000 mg PO QAM 12/09/17 07/28/20 History C] cholecalciferol (vitamin D3) 1,000 unit PO QAM 12/09/17 07/28/20 History [Vitamin D3] cinnamon bark [Cinnamon] 500 mg PO QAM 12/09/17 07/28/20 History citalopram 30 mg PO QAM 12/09/17 07/28/20 History ferrous sulfate 27 mg PO QAM 12/09/17 07/28/20 History furosemide [Lasix] 60 mg PO QAM 12/09/17 07/28/20 History lisinopril 10 mg PO QAM 12/09/17 07/28/20 History multivitamin 1 tab PO QAM 12/09/17 07/28/20 History omeprazole 20 mg PO QAM 12/09/17 07/28/20 History potassium chloride 20 meq PO QAM 12/09/17 07/28/20 History riboflavin (vitamin B2) [Vitamin 100 mg PO QAM 12/09/17 07/28/20 History B-2] aspirin 81 mg tablet,delayed 81 mg PO DAILY 12/20/18 07/28/20 History release lovastatin 20 mg PO HS 07/28/20 07/28/20 History Patient History Medical History (Updated 07/29/20 @ 09:02 by Yared Betancourt MD) Anemia TAKING IRON Anxiety Depression Diverticular disease GERD (gastroesophageal reflux disease) Hearing deficit [place] - NO HEARING AIDES Hyperlipidemia Hypertension Morbid obesity Osteoarthritis Pulmonary embolism BILATERAL S/P ANKLE SURGERY. SEPTEMBER 2016. TREATED WITH COUMADIN. STOPPED THEN RESTARTED 09/2018 FOR PREVENTION OF BLOOD CLOTS Sleep apnea BIPAP WITH 2LPM OXYGEN Surgical History Aftercare following left ankle joint replacement surgery 06/17/18 - I&D - Glidescope #4, ETT #7.5, HiLo Oral 03/18/18 - I&D - Glidescope #4, ETT #7.0, HiLo Oral, Grade 3 View Difficult airway for intubation With most recent ankle surgeries, patient was noted to be a difficult intubation, requiring Glidescope. Previous anesthesia records do not note difficulties. H/O ankle fusion RIGHT H/O ankle fusion left -- had subsequent infection and debridement with ABX beads implanted 02/201801/21/18 - MAC #3, ETT #7.5, HiLo Oral, Grade 3 View History of cholecystectomy LAP History of colonoscopy History of esophagogastroduodenoscopy (EGD) Family History Other No pertinent family history Social History Smoking Status: Never smoker Second Hand Exposure: No; Hx Alcohol Use: Yes Alcohol type: other Hx Substance Use: No Preferred Language: Vietnamese Communication Ability: Effective Visual Impairment: No Limitations Tourist Adviser Required: No Beliefs That Will Affect Care: None marital status: / Current Living Situation: Family Feels Safe at Home: Yes Safety Concerns: Feels Safe At This Time Assistive Devices: CPAP, Glasses and Wheelchair Review of Systems Review of Systems: All systems reviewed & are unremarkable except as noted in HPI & below Physical Exam Constitutional: WD/WN, vitals as above + morbidly obese Neck: trachea midline, no thyromegaly Respiratory: normal respiratory effort, lungs clear to auscultation Cardiovascular: RRR, no murmur, no edema Gastrointestinal (Abdomen): normal bowel sounds, soft, nontender, no hepatospl enomegaly Musculoskeletal: Extremities: extremities normal to inspection Skin: no rashes, warm and dry Neurologic: Nonfocal exam Lymphatic: no cervical lymphadenopathy Results & Data Results & Data ([facility]) Vital Signs (Past 12 Hours) Vital Signs Temp Pulse Pulse Pulse Resp BP BP 07/29/20 07:35 36.9 C 92 H 20 105/62 07/29/20 05:11 120 H 07/29/20 03:15 36.7 C 107 H 18 161/70 H 07/29/20 01:00 104 H 20 131/77 07/29/20 00:30 102 H 25 H 142/76 H 07/29/20 00:01 93 H 83 17 118/47 L 07/29/20 00:00 92 H 27 H 07/28/20 23:30 93 H 28 H 143/76 H 07/28/20 23:00 95 H 30 H 130/75 07/28/20 22:35 106 H 26 H 07/28/20 22:12 07/28/20 22:00 101 H 21 138/88 07/28/20 21:30 100 H 18 147/91 H 07/28/20 21:00 97 H 25 H 144/89 H Pulse Ox 07/29/20 07:35 94 07/29/20 05:11 07/29/20 03:15 95 07/29/20 01:00 92 07/29/20 00:30 90 07/29/20 00:01 98 07/29/20 00:00 94 07/28/20 23:30 94 07/28/20 23:00 94 07/28/20 22:35 07/28/20 22:12 89 L 07/28/20 22:00 90 07/28/20 21:30 92 07/28/20 21:00 93 Laboratory Results 07/29/20 06:40 07/29/20 06:40 07/28/20 07/29/20 18:30 06:46 ABG pH 7.47 H ABG pCO2 41 ABG pO2 76 L ABG HCO3 29 H ABG O2 Saturation 96.0 H ABG Base Excess 4.5 H VBG pH 7.45 H VBG pCO2 46 VBG pO2 49 VBG HCO3 31 VBG O2 Saturation 86.9 VBG Base Excess 6.[address] angiogram from yesterday was independently reviewed. No central filling defects are identified. Morbid obesity. Moderate hiatal hernia. No focal airspace opacities with the exception of a 5 mm groundglass opacity in the left lower lobe which does not require radiographic surveillance or follow-up. PG Care Time/CCT Total # of Minutes Spent Total Time Spent with Patient: Total time spent is greater than 50% in coordina tion of care (as documented) at patient's floor/unit and/or counseling patient: Coding Level of Care Code 00091 Initial Inpt Care Lvl 3 Diagnoses Acute hypoxemic respiratory failure J96.01 Obesity E66.2; Z68.43 Obesity type: with alveolar hypoventilation Obesity classification: adult class 3 (BMI >= 40) Serious obesity comorbidity presence: with serious comorbidity Body mass index: BMI 50.0-59.9 Obesity hypoventilation syndrome E66.2 Hypercapnic respiratory failure J96.12 Chronicity: chronic
[2020-07-29] MEDS: ASPIRIN 81 MG ECTAB PO SCH (09:15)
[2020-07-29] MEDS: ENOXAPARIN INJ 40 MG/0.4 ML SYR SQ SCH (09:16)
[2020-07-29] MEDS: CITALOPRAM 20 MG TAB PO SCH (09:16)
[2020-07-29] MEDS: FUROSEMIDE 20 MG TAB PO SCH (09:17)
[2020-07-29] MEDS: INSULIN GLARGINE SOLOSTAR 100 UNITS/ML 3 ML PEN SC SCH (09:17)
[2020-07-29] MEDS: PANTOprazole 40 MG TAB PO SCH (09:18)
[2020-07-29] MEDS: lisinopril 10 MG TAB PO SCH (09:18)
[2020-07-29] MEDS: MULTIVITAMIN TAB PO SCH (09:18)
--- NOTE | 2020-07-29 13:15 | Hospitalist Progress Note ---
Date of Service July 29, 2020 Assessment & Plan (1) Acute hypoxemic respiratory failure: History of WILLIAM on CPAP Possible underlying pulmonary hypertension secondary to suboptimal CPAP settings Recent outpatient TTE cannot reliably evaluate pulmonary hypertension given technical factors owing to patient's habitus as per conversation with project coach on-call. Appreciate pulmonary input and recommendation Recommended to continue CPAP with 12 cm of water with oxygen administration Advised to have appropriate fitting of CPAP and Outpatient appointment with [facility] manager area sooner than later We will get PT and OT evaluation prior to discharge Bilateral leg edema Has been on Lasix chronically We will continue with that History of PE DVT status post anticoagulation CTA did not show any new pulmonary embolism Hypertension, slightly elevated Normalized now We will continue current medications DM2 diet-controlled, reasonable control as of recent hemoglobin A1c of 7.22 April 2020 Continue SSI Chronic anemia, hemoglobin at baseline DVT prophylaxis per Lovenox subcu Full code Patient son requesting updates from providers. Mr. Milind Bob, contact #[phone]. Admission and Anticipated Discharge Date Admission Date: July 28, 2020 Subjective 07/29/2020 The patient was seen and examined in medical telemetry unit She is morbidly obese with history of WILLIAM on CPAP and home oxygen has been complaining of increasing shortness of breath for the last 2 weeks Since admission she has been feeling a little bit better but still remains moderately short of breath at rest Denies any chest pain and/or palpitation Denies any fever and/or chills Review of Systems Review of Systems: All systems reviewed and are unremarkable except as noted below Respiratory: + cough, + dyspnea and + wheezing (Minimal) Musculoskeletal: No acute arthritis in any joint Physical Exam Physical Exam: Sitting on a chair with moderate shortness of breath at rest Constitutional: well developed, well nourished, + ill appearing and + morbidly obese Eyes: PERRL, conjunctivae normal, anicteric sclerae ENMT: external ear and nose normal, oropharynx normal Neck: trachea midline, no thyromegaly Respiratory: + respiratory distress (Mild to moderate respiratory distress at rest) Auscultation: + diminished lung sounds and + wheezes (Occasional wheezing bilaterally); no crackles Cardiovascular: Rate/Rhythm: regular rate and regular rhythm Heart Sounds: no murmur Extremities: + edema (1+ leg edema bilaterally) Gastrointestinal (Abdomen): Inspection/Auscultation: + abdomen distended and normal bowel sounds Percussion/Palpation: abdomen soft; abdomen nontender Musculoskeletal: No acute arthritis in any joint Neurologic: Alert, awake and oriented x3 Lymphatic: no cervical or axillary lymphadenopathy Results & Data Results & Data ([facility]) Vital Signs (Past 12 Hours) Vital Signs Temp Pulse Pulse Resp BP Pulse Ox 07/29/20 12:42 96 07/29/20 11:16 36.8 C 87 20 109/56 L 94 07/29/20 07:35 36.9 C 92 H 20 105/62 94 07/29/20 07:00 114 H 07/29/20 05:11 120 H 07/29/20 03:15 36.7 C 107 H 18 161/70 H 95 Laboratory Results Short CBC 07/28/20 07/29/20 Range/Units 18:11 06:40 WBC 10.71 10.12 (4.8-10.8) K/uL Hgb 11.5 L 10.6 L (12.0-16.0) g/dL Hct 39.3 37.6 (37-47) % Plt Count 359 369 (130-400) K/uL BMP 07/28/20 07/29/20 18:11 06:40 Sodium 141 139 Potassium 3.6 3.4 L Chloride 103 102 Carbon Dioxide 27 30 BUN 12 12 Creatinine 0.74 0.71 Glucose 185 H 165 H Calcium 9.1 8.4 L Cardiac Enzymes 07/28/20 Range/Units 18:11 Troponin I < 0.015 (0-0.045) ng/ml Liver Function 07/28/20 07/29/20 Range/Units 18:11 06:40 Total Bilirubin 0.6 1.1 H D (0.2-1) mg/dl Direct Bilirubin 0.3 H (0-0.2) mg/dl AST 251 H 174 H (15-37) U/L ALT 366 H 298 H (12-78) U/L Alkaline Phosphatase 219 H 198 H (45-117) U/L Albumin 3.4 3.1 L (3.4-5.0) gm/dl Medications Administered Current Inpatient Medications Acetaminophen (Acetaminophen 325 Mg Tab) 325 mg PO Q6H PRN PRN Reason: Mild Pain Stop: 08/28/20 01:54 Aspirin (Aspirin 81 Mg Ectab) 81 mg PO DAILY LEONARDO Stop: 08/28/20 08:59 Last Admin: 07/29/20 09:15 Dose: 81 mg Documented by: Citalopram Hydrobromide (Citalopram 20 Mg Tab) [facility] Stop: 08/28/20 08:59 Last Admin: 07/29/20 09:16 Dose: 30 mg Documented by: Dextrose (Dextrose 50% 50 Ml Syringe) 25 - 50 ml IV UD PRN; Protocol PRN Reason: Hypoglycemia Protocol Stop: 08/28/20 01:54 Enoxaparin Sodium (Enoxaparin Inj 40 Mg/0.4 Ml Syr) 40 mg SQ [facility] Stop: 08/28/20 08:59 Last Admin: 07/29/20 09:16 Dose: 40 mg Documented by: Furosemide (Furosemide 20 Mg Tab) 60 mg PO [facility] Stop: 08/28/20 08:59 Last Admin: 07/29/20 09:17 Dose: 60 mg Documented by: Glucagon (Glucagon For Inj 1 Mg Vial) 1 mg SQ UD PRN; Protocol PRN Reason: Hypoglycemia Protocol Stop: 08/28/20 01:54 Glucose (Glucose 10 Tabs/Tube) 4 - 8 tabs PO UD PRN; Protocol PRN Reason: Hypoglycemia Protocol Stop: 08/28/20 01:54 Glucose (Glucose 40% Gel 15 Gm Tube) 15 - 30 gm PO UD PRN; Protocol PRN Reason: Hypoglycemia Protocol Stop: 08/28/20 01:54 Promethazine HCl 12.5 mg/ (Sodium Chloride) 50.5 mls @ 202 mls/hr IV Q6H PRN PRN Reason: Nausea And Vomiting Stop: 08/28/20 01:54 Insulin Aspart (Insulin Aspart 100 Units/Ml 3 Ml Pen) 0 units SC ACHS [facility] Stop: 08/28/20 02:44 Last Admin: 07/29/20 12:33 Dose: 3 units Documented by: Insulin Glargine (Insulin Glargine Solostar 100 Units/Ml 3 Ml Pen) 5 units SC DAILY [facility] Stop: 08/28/20 08:59 Last Admin: 07/29/20 09:17 Dose: 5 units Documented by: Lisinopril (Lisinopril 10 Mg Tab) 10 mg PO [facility] Stop: 08/28/20 08:59 Last Admin: 07/29/20 09:18 Dose: 10 mg Documented by: Lovastatin (Lovastatin 20 Mg Tab) 20 mg PO [facility] Stop: 08/28/20 20:59 Miscellaneous (Carbohydrates For Hypoglycemia ) 15 - 30 gm PO UD PRN PRN Reason: Hypoglycemia Protocol Stop: 08/28/20 01:54 Multivitamins (Multivitamin Tab) 1 tab PO [facility] Stop: 08/28/20 08:59 Last Admin: 07/29/20 09:18 Dose: 1 tab Documented by: Pantoprazole Sodium (Pantoprazole 40 Mg Tab) 40 [facility] Stop: 08/28/20 08:59 Last Admin: 07/29/20 09:18 Dose: 40 mg Documented by: Tramadol HCl (Tramadol Hcl 50 Mg Tablet) 25 - 50 mg PO Q4H PRN PRN Reason: Pain Stop: 08/28/20 01:54
[2020-07-29] MEDS ORDERED: POTASSIUM CHLORIDE CRTAB 20 MEQ TABCR PO STA (15:46)
[2020-07-29] MEDS: LOVASTATIN 20 MG TAB PO SCH (21:14)
--- NOTE | 2020-07-29 21:39 | Electrocardiogram Report ---
Test Reason : Blood Pressure : / mmHG Vent. Rate : 100 BPM Atrial Rate : 100 BPM P-R Int : 142 ms QRS Dur : 090 ms QT Int : 370 ms P-R-T Axes : 045 029 074 degrees QTc Int : 477 ms Normal sinus rhythm Possible Inferior infarct (cited on or before 05-OCT-2016) Cannot rule out Anterior infarct (cited on or before 05-OCT-2016) Nonspecific T wave abnormality Abnormal ECG When compared with ECG of 05-OCT-2016 12:31, Incomplete right bundle branch block is no longer Present Nonspecific T wave abnormality no longer evident in Inferior leads Nonspecific T wave abnormality has replaced inverted T waves in Anterior leads Confirmed by Kunal Gaming ([id number]) on 07/29/2020 9:38:45 PM Referred By: REFERRED SELF Confirmed By:Kunal Gaming
[2020-07-29] MEDS ORDERED: BENZONATATE 100 MG CAPSULE PO PRN (23:45)
[2020-07-30 08:13] LABS: BUN Creatinine Ratio 20.7 (10-20); Creatinine Clr Calc Pharmacy 99.3 ml/min; Est GFR (African American) 99.4 ml/min; Est GFR (Non-African American) 85.8 ml/min; Magnesium 2.2 mg/dl (1.8-2.4); Potassium 3.6 mmol/L (3.5-5.1)
[2020-07-30 08:16] LABS: Albumin Globulin Ratio 0.7 (0.9-2); Phosphorus 2.9 mg/dl (2.5-4.9)
[2020-07-30] MEDS: INSULIN ASPART 100 UNITS/ML 3 ML PEN SC SCH ×4 (08:41→21:25)
[2020-07-30] MEDS: CITALOPRAM 20 MG TAB PO SCH (08:42)
[2020-07-30] MEDS: ASPIRIN 81 MG ECTAB PO SCH (08:42)
[2020-07-30] MEDS: MULTIVITAMIN TAB PO SCH (08:43)
[2020-07-30] MEDS: PANTOprazole 40 MG TAB PO SCH (08:43)
[2020-07-30] MEDS: lisinopril 10 MG TAB PO SCH (08:43)
[2020-07-30] MEDS: FUROSEMIDE 20 MG TAB PO SCH (08:43)
[2020-07-30] MEDS: ENOXAPARIN INJ 40 MG/0.4 ML SYR SQ SCH (08:43)
[2020-07-30] MEDS: INSULIN GLARGINE SOLOSTAR 100 UNITS/ML 3 ML PEN SC SCH (08:43)
[2020-07-30 09:41] LABS: Basophils # (auto) 0.04 K/uL (0-0.2); Basophils % (auto) 0.6 %; Eosinophils # (auto) 0.27 K/uL (0-0.5); Eosinophils % (auto) 3.8 %; Hematocrit (blood only) 37.5 % (37-47); Hemoglobin 10.7 g/dL (12.0-16.0); Immature Granulocytes # (auto) 0.01 K/uL (0.00-0.02); Immature Granulocytes % (auto) 0.1 %; Lymphocytes # (auto) 1.91 K/uL (1.2-3.4); Lymphocytes % (auto) 27.2 %; Mean Corpuscular Hemoglobin 22.7 pg (25-34); Mean Corpuscular Hgb Conc 28.5 g/dL (32-36); Mean Corpuscular Volume 79.6 fL (80-100); Mean Platelet Volume 8.9 fL (7.4-10.4); Monocytes # (auto) 0.51 K/uL (0.11-0.59); Monocytes % (auto) 7.3 %; Neutrophils # (auto) 4.29 K/uL (1.4-6.5); Platelet Count 338 K/uL (130-400); RDW Coefficient of Variation 17.1 % (11.5-14.5); RDW Standard Deviation 50.7 fL (36.4-46.3); Red Blood Count 4.71 M/uL (4.2-5.4); White Blood Count 7.03 K/uL (4.8-10.8)
[2020-07-30 11:03] LABS: Hepatitis B Surf Ag Rflx Conf Neg (Neg)
[2020-07-30 11:31] LABS: Hepatitis C IgG 13Yrs+Old_Rflx Neg (Neg)
--- NOTE | 2020-07-30 13:47 | Hospitalist Progress Note ---
Date of Service July 30, 2020 Assessment & Plan (1) Acute hypoxemic respiratory failure: History of WILLIAM on CPAP Possible underlying pulmonary hypertension secondary to suboptimal CPAP settings Recent outpatient TTE cannot reliably evaluate pulmonary hypertension given technical factors owing to patient's habitus as per conversation with manager sales training on-call. Appreciate pulmonary input and recommendation Recommended to continue CPAP with 12 cm of water with oxygen administration Advised to have appropriate fitting of CPAP and Outpatient appointment with [facility] building performance consultant sooner than later We will get PT and OT evaluation prior to discharge A new CPAP machine has been prescribed for her Respiratory therapist assistance for proper fitting of CPAP at nighttime We will get to do steps O2 saturation test before discharge Likely to go home tomorrow Bilateral leg edema Has been on Lasix chronically We will continue with that History of PE DVT status post anticoagulation CTA did not show any new pulmonary embolism Has not been taking any Coumadin for now. She finished the course before Hypertension, slightly elevated Normalized now We will continue current medications DM2 diet-controlled, reasonable control as of recent hemoglobin A1c of 7.22 April 2020 Continue SSI Chronic anemia, hemoglobin at baseline DVT prophylaxis per Lovenox subcu Full code Patient son requesting updates from providers. Mr. Milind Bob, contact #[phone]. Likely discharge tomorrow Admission and Anticipated Discharge Date Admission Date: July 28, 2020 Subjective 07/29/2020 The patient was seen and examined in medical telemetry unit She is morbidly obese with history of WILLIAM on CPAP and home oxygen has been complaining of increasing shortness of breath for the last 2 weeks Since admission she has been feeling a little bit better but still remains moderately short of breath at rest Denies any chest pain and/or palpitation Denies any fever and/or chills 07/30/2020 The patient was seen and examined in medical telemetry unit She remains moderately shortness of breath at rest She does not have a proper fitting of CPAP to be used at nighttime for a long time Denies any chest pain and palpitation, any fever and/or chills Review of Systems Review of Systems: As per HPI, all 10 systems reviewed, all other ROS negative Respiratory: + cough, + dyspnea and + wheezing (Minimal) Musculoskeletal: No acute arthritis in any joint Physical Exam Physical Exam: Sitting on a chair with moderate shortness of breath at rest Constitutional: well developed, well nourished, + ill appearing and + morbidly obese Eyes: PERRL, conjunctivae normal, anicteric sclerae ENMT: external ear and nose normal, oropharynx normal Neck: trachea midline, no thyromegaly Respiratory: + respiratory distress (Mild to moderate respiratory distress at rest) Auscultation: + diminished lung sounds and + wheezes (Occasional wheezing bilaterally); no crackles Cardiovascular: Rate/Rhythm: regular rate and regular rhythm Heart Sounds: no murmur Extremities: + edema (1+ leg edema bilaterally) Gastrointestinal (Abdomen): Inspection/Auscultation: + abdomen distended and normal bowel sounds Percussion/Palpation: abdomen soft; abdomen nontender Musculoskeletal: No acute arthritis in any joint Neurologic: Alert, awake and oriented x3 Lymphatic: no cervical or axillary lymphadenopathy Results & Data Results & Data ([facility]) Vital Signs (Past 12 Hours) Vital Signs Temp Pulse Pulse Resp BP Pulse Ox 07/30/20 11:56 36.5 C 110 H 20 148/74 H 93 07/30/20 07:00 94 H 07/30/20 05:15 36.7 C 99 H 18 141/76 H 96 Laboratory Results Short CBC 07/30/20 Range/Units 07:11 WBC 7.03 (4.8-10.8) K/uL Hgb 10.7 L (12.0-16.0) g/dL Hct 37.5 (37-47) % Plt Count 338 (130-400) K/uL BMP 07/30/20 07:11 Sodium 139 Potassium 3.6 Chloride 103 Carbon Dioxide 28 BUN 13 Creatinine 0.62 Glucose 165 H Calcium 9.0 Liver Function 07/30/20 Range/Units 07:11 Total Bilirubin 1.0 (0.2-1) mg/dl AST 191 H (15-37) U/L ALT 272 H (12-78) U/L Alkaline Phosphatase 213 H (45-117) U/L Albumin 3.0 L (3.4-5.0) gm/dl Medications Administered Current Inpatient Medications Acetaminophen (Acetaminophen 325 Mg Tab) 325 mg PO Q6H PRN PRN Reason: Mild Pain Stop: 08/28/20 01:54 Aspirin (Aspirin 81 Mg Ectab) 81 mg PO DAILY LEONARDO Stop: 08/28/20 08:59 Last Admin: 07/30/20 08:42 Dose: 81 mg Documented by: Benzonatate (Benzonatate 100 Mg Capsule) 100 mg PO TID PRN PRN Reason: Cough Stop: 08/28/20 23:44 Citalopram Hydrobromide (Citalopram 20 Mg Tab) 30 mg PO [facility] Stop: 08/28/20 08:59 Last Admin: 07/30/20 08:42 Dose: 30 mg Documented by: Dextrose (Dextrose 50% 50 Ml Syringe) 25 - 50 ml IV UD PRN; Protocol PRN Reason: Hypoglycemia Protocol Stop: 08/28/20 01:54 Enoxaparin Sodium (Enoxaparin Inj 40 Mg/0.4 Ml Syr) 40 mg SQ [facility] Stop: 08/28/20 08:59 Last Admin: 07/30/20 08:43 Dose: 40 mg Documented by: Furosemide (Furosemide 20 Mg Tab) 60 mg PO [facility] Stop: 08/28/20 08:59 Last Admin: 07/30/20 08:43 Dose: 60 mg Documented by: Glucagon (Glucagon For Inj 1 Mg Vial) 1 mg SQ UD PRN; Protocol PRN Reason: Hypoglycemia Protocol Stop: 08/28/20 01:54 Glucose (Glucose 10 Tabs/Tube) 4 - 8 tabs PO UD PRN; Protocol PRN Reason: Hypoglycemia Protocol Stop: 08/28/20 01:54 Glucose (Glucose 40% Gel 15 Gm Tube) 15 - 30 gm PO UD PRN; Protocol PRN Reason: Hypoglycemia Protocol Stop: 08/28/20 01:54 Promethazine HCl 12.5 mg/ (Sodium Chloride) 50.5 mls @ 202 mls/hr IV Q6H PRN PRN Reason: Nausea And Vomiting Stop: 08/28/20 01:54 Insulin Aspart (Insulin Aspart 100 Units/Ml 3 Ml Pen) 0 units SC ACHS [facility] Stop: 08/28/20 02:44 Last Admin: 07/30/20 12:44 Dose: 6 units Documented by: Insulin Glargine (Insulin Glargine Solostar 100 Units/Ml 3 Ml Pen) 5 units SC DAILY [facility] Stop: 08/28/20 08:59 Last Admin: 07/30/20 08:43 Dose: 5 units Documented by: Lisinopril (Lisinopril 10 Mg Tab) 10 mg PO [facility] Stop: 08/28/20 08:59 Last Admin: 07/30/20 08:43 Dose: 10 mg Documented by: Lovastatin (Lovastatin 20 Mg Tab) 20 mg PO HS [facility] Stop: 08/28/20 20:59 Last Admin: 07/29/20 21:14 Dose: 20 mg Documented by: Miscellaneous (Carbohydrates For Hypoglycemia ) 15 - 30 gm PO UD PRN PRN Reason: Hypoglycemia Protocol Stop: 08/28/20 01:54 Multivitamins (Multivitamin Tab) 1 tab PO [facility] Stop: 08/28/20 08:59 Last Admin: 07/30/20 08:43 Dose: 1 tab Documented by: Pantoprazole Sodium (Pantoprazole 40 Mg Tab) 40 mg PO QAM [facility] Stop: 08/28/20 08:59 Last Admin: 07/30/20 08:43 Dose: 40 mg Documented by: Tramadol HCl (Tramadol Hcl 50 Mg Tablet) 25 - 50 mg PO Q4H PRN PRN Reason: Pain Stop: 08/28/20 01:54
[2020-07-30] MEDS: LOVASTATIN 20 MG TAB PO SCH (21:25)
[2020-07-31 01:51] LABS: Hepatitis A Antibody IgM NON-REACTIVE (NON-REACTIVE); Hepatitis B Core Antibody IgM NON-REACTIVE (NON-REACTIVE)
[2020-07-31] MEDS: INSULIN ASPART 100 UNITS/ML 3 ML PEN SC SCH ×4 (08:10→21:21)
[2020-07-31] MEDS: INSULIN GLARGINE SOLOSTAR 100 UNITS/ML 3 ML PEN SC SCH (08:11)
[2020-07-31] MEDS: PANTOprazole 40 MG TAB PO SCH (09:27)
[2020-07-31] MEDS: CITALOPRAM 20 MG TAB PO SCH (09:27)
[2020-07-31] MEDS: ASPIRIN 81 MG ECTAB PO SCH (09:27)
[2020-07-31] MEDS: MULTIVITAMIN TAB PO SCH (09:27)
[2020-07-31] MEDS: lisinopril 10 MG TAB PO SCH (09:27)
[2020-07-31] MEDS: FUROSEMIDE 20 MG TAB PO SCH (09:27)
[2020-07-31] MEDS: ENOXAPARIN INJ 40 MG/0.4 ML SYR SQ SCH (09:28)
[2020-07-31] MEDS: LOVASTATIN 20 MG TAB PO SCH (21:26)
[2020-08-01] MEDS: INSULIN ASPART 100 UNITS/ML 3 ML PEN SC SCH ×2 (10:39→13:42)
[2020-08-01] MEDS: INSULIN GLARGINE SOLOSTAR 100 UNITS/ML 3 ML PEN SC SCH (10:40)
[2020-08-01] MEDS: ASPIRIN 81 MG ECTAB PO SCH (10:46)
[2020-08-01] MEDS: CITALOPRAM 20 MG TAB PO SCH (10:47)
[2020-08-01] MEDS: ENOXAPARIN INJ 40 MG/0.4 ML SYR SQ SCH (10:47)
[2020-08-01] MEDS: MULTIVITAMIN TAB PO SCH (10:48)
[2020-08-01] MEDS: PANTOprazole 40 MG TAB PO SCH (10:48)
[2020-08-01] MEDS: FUROSEMIDE 20 MG TAB PO SCH (10:48)
[2020-08-01] MEDS: lisinopril 10 MG TAB PO SCH (10:48)
--- NOTE | 2020-08-01 11:28 | Hospitalist Progress Note ---
Date of Service August 01, 2020 Delayed progress note for 07/31/2020 Assessment & Plan (1) Acute hypoxemic respiratory failure: History of WILLIAM on CPAP Possible underlying pulmonary hypertension secondary to suboptimal CPAP settings Recent outpatient TTE cannot reliably evaluate pulmonary hypertension given technical factors owing to patient's habitus as per conversation with net manager on-call. Appreciate pulmonary input and recommendation Recommended to continue CPAP with 12 cm of water with oxygen administration Advised to have appropriate fitting of CPAP and Outpatient appointment with [facility] managing manager sooner than later We will get PT and OT evaluation prior to discharge A new CPAP machine has been prescribed for her Respiratory therapist assistance for proper fitting of CPAP at nighttime We will get to do steps O2 saturation test before discharge Will need to have overnight pulse oximetry before discharge Bilateral leg edema Has been on Lasix chronically We will continue with that Edema has improved a lot History of PE DVT status post anticoagulation CTA did not show any new pulmonary embolism Has not been taking any Coumadin for now. She finished the course before Advised to increase ambulation Hypertension, slightly elevated Normalized now We will continue current medications DM2 diet-controlled, reasonable control as of recent hemoglobin A1c of 7.22 April 2020 Continue SSI Chronic anemia, hemoglobin at baseline DVT prophylaxis per Lovenox subcu Full code Patient son requesting updates from providers. Mr. Milind Bob, contact #[phone]. We will have nocturnal pulse oximetry today and likely home tomorrow Admission and Anticipated Discharge Date Admission Date: July 28, 2020 Subjective 07/29/2020 The patient was seen and examined in medical telemetry unit She is morbidly obese with history of WILLIAM on CPAP and home oxygen has been complaining of increasing shortness of breath for the last 2 weeks Since admission she has been feeling a little bit better but still remains moderately short of breath at rest Denies any chest pain and/or palpitation Denies any fever and/or chills 07/30/2020 The patient was seen and examined in medical telemetry unit She remains moderately shortness of breath at rest She does not have a proper fitting of CPAP to be used at nighttime for a long time Denies any chest pain and palpitation, any fever and/or chills 07/31/2020 The patient was seen and examined in medical telemetry unit She passed her 2 steps O2 saturation test Review of Systems Review of Systems: As per HPI, all 10 systems reviewed, all other ROS negative Respiratory: + cough, + dyspnea and + wheezing (Minimal) Musculoskeletal: No acute arthritis in any joint Physical Exam Physical Exam: Sitting on a chair with moderate shortness of breath at rest Constitutional: well developed, well nourished, + ill appearing and + morbidly obese Eyes: PERRL, conjunctivae normal, anicteric sclerae ENMT: external ear and nose normal, oropharynx normal Neck: trachea midline, no thyromegaly Respiratory: + respiratory distress (Minimal respiratory distress with activities) Auscultation: + diminished lung sounds and + wheezes (Occasional wheezing bilaterally); no crackles Cardiovascular: Rate/Rhythm: regular rate and regular rhythm Heart Sounds: no murmur Extremities: + edema (1+ leg edema bilaterally) Gastrointestinal (Abdomen): Inspection/Auscultation: + abdomen distended and normal bowel sounds Percussion/Palpation: abdomen soft; abdomen nontender Musculoskeletal: No acute arthritis in any joint Lymphatic: no cervical or axillary lymphadenopathy Results & Data Results & Data ([facility]) Vital Signs (Past 12 Hours) Vital Signs Temp Pulse Pulse Pulse Resp BP Pulse Ox 08/01/20 07:47 36.9 C 101 H 20 131/82 93 08/01/20 07:21 100 H 08/01/20 04:32 36.8 C 104 H 18 134/79 92 08/01/20 03:35 105 H 22 94 07/31/20 23:53 91 H Pulse Ox 08/01/20 07:47 08/01/20 07:21 08/01/20 04:32 08/01/20 03:35 07/31/20 23:53 92
--- NOTE | 2020-08-01 11:31 | Hospitalist Progress Note ---
Date of Service August 01, 2020 Assessment & Plan (1) Acute hypoxemic respiratory failure: History of WILLIAM on CPAP Possible underlying pulmonary hypertension secondary to suboptimal CPAP settings Recent outpatient TTE cannot reliably evaluate pulmonary hypertension given technical factors owing to patient's habitus as per conversation with language arts teacher on-call. Appreciate pulmonary input and recommendation Recommended to continue CPAP with 12 cm of water with oxygen administration Advised to have appropriate fitting of CPAP and Outpatient appointment with [facility] pharmacy associate sooner than later We will get PT and OT evaluation prior to discharge A new CPAP machine has been prescribed for her Respiratory therapist assistance for proper fitting of CPAP at nighttime We will get to do steps O2 saturation test before discharge Will need to have overnight pulse oximetry before discharge Clinically much better today and she will require 2 L of oxygen via nasal cannula during CPAP use at night She will have follow-up appointment with [facility] pharmacy associate as an outpatient sooner than later We will try to get into outpatient sleep study in order to have a new CPAP machine for her This is discussed with the patient in detail Bilateral leg edema Has been on Lasix chronically We will continue with that Edema has improved a lot History of PE DVT status post anticoagulation CTA did not show any new pulmonary embolism Has not been taking any Coumadin for now. She finished the course before Advised to increase ambulation Hypertension, slightly elevated Normalized now We will continue current medications DM2 diet-controlled, reasonable control as of recent hemoglobin A1c of 7.22 April 2020 Continue SSI Chronic anemia, hemoglobin at baseline DVT prophylaxis per Lovenox subcu Full code Patient son requesting updates from providers. Mr. Milind Bob, contact #[phone]. She will be discharged home this afternoon Admission and Anticipated Discharge Date Admission Date: July 28, 2020 Subjective 07/29/2020 The patient was seen and examined in medical telemetry unit She is morbidly obese with history of WILLIAM on CPAP and home oxygen has been complaining of increasing shortness of breath for the last 2 weeks Since admission she has been feeling a little bit better but still remains moderately short of breath at rest Denies any chest pain and/or palpitation Denies any fever and/or chills 07/30/2020 The patient was seen and examined in medical telemetry unit She remains moderately shortness of breath at rest She does not have a proper fitting of CPAP to be used at nighttime for a long time Denies any chest pain and palpitation, any fever and/or chills 07/31/2020 The patient was seen and examined in medical telemetry unit She passed her 2 steps O2 saturation test 08/01/2020 The patient was seen and examined in medical telemetry unit She has been feeling a lot better today She has had nocturnal pulse oximetry and she will require 2 L of oxygen while using CPAP at nighttime She will be discharged home this afternoon Review of Systems Review of Systems: As per HPI, all 10 systems reviewed, all other ROS negative Respiratory: + dyspnea and + wheezing (Minimal); no cough Musculoskeletal: No acute arthritis in any joint Physical Exam Physical Exam: Lying in bed comfortably Constitutional: well developed, well nourished, + ill appearing and + morbidly obese Eyes: PERRL, conjunctivae normal, anicteric sclerae ENMT: external ear and nose normal, oropharynx normal Neck: trachea midline, no thyromegaly Respiratory: no respiratory distress (Minimal respiratory distress with activities) Auscultation: + diminished lung sounds and + wheezes (Occasional wheezing bilaterally); no crackles Cardiovascular: Rate/Rhythm: regular rate and regular rhythm Heart Sounds: no murmur Extremities: + edema (1+ leg edema bilaterally) Gastrointestinal (Abdomen): Inspection/Auscultation: + abdomen distended and normal bowel sounds Percussion/Palpation: abdomen soft; abdomen nontender Musculoskeletal: No acute arthritis in any joint Neurologic: Alert, awake and oriented x3. No focal sensory and motor deficit appreciated Lymphatic: no cervical or axillary lymphadenopathy Results & Data Results & Data ([facility]) Vital Signs (Past 12 Hours) Vital Signs Temp Pulse Pulse Pulse Resp BP Pulse Ox 08/01/20 07:47 36.9 C 101 H 20 131/82 93 08/01/20 07:21 100 H 08/01/20 04:32 36.8 C 104 H 18 134/79 92 08/01/20 03:35 105 H 22 94 07/31/20 23:53 91 H Pulse Ox 08/01/20 07:47 08/01/20 07:21 08/01/20 04:32 08/01/20 03:35 07/31/20 23:53 92 Medications Administered Current Inpatient Medications Acetaminophen (Acetaminophen 325 Mg Tab) 325 mg PO Q6H PRN PRN Reason: Mild Pain Stop: 08/28/20 01:54 Aspirin (Aspirin 81 Mg Ectab) 81 mg PO DAILY [facility] Stop: 08/28/20 08:59 Last Admin: 08/01/20 10:46 Dose: 81 mg Documented by: Benzonatate (Benzonatate 100 Mg Capsule) 100 mg PO TID PRN PRN Reason: Cough Stop: 08/28/20 23:44 Citalopram Hydrobromide (Citalopram 20 Mg Tab) [facility] Stop: 08/28/20 08:59 Last Admin: 08/01/20 10:47 Dose: 30 mg Documented by: Dextrose (Dextrose 50% 50 Ml Syringe) 25 - 50 ml IV UD PRN; Protocol PRN Reason: Hypoglycemia Protocol Stop: 08/28/20 01:54 Enoxaparin Sodium (Enoxaparin Inj 40 Mg/0.4 Ml Syr) 40 mg SQ [facility] Stop: 08/28/20 08:59 Last Admin: 08/01/20 10:47 Dose: 40 mg Documented by: Furosemide (Furosemide 20 Mg Tab) 60 mg PO QAM [facility] Stop: 08/28/20 08:59 Last Admin: 08/01/20 10:48 Dose: 60 mg Documented by: Glucagon (Glucagon For Inj 1 Mg Vial) 1 mg SQ UD PRN; Protocol PRN Reason: Hypoglycemia Protocol Stop: 08/28/20 01:54 Glucose (Glucose 10 Tabs/Tube) 4 - 8 tabs PO UD PRN; Protocol PRN Reason: Hypoglycemia Protocol Stop: 08/28/20 01:54 Glucose (Glucose 40% Gel 15 Gm Tube) 15 - 30 gm PO UD PRN; Protocol PRN Reason: Hypoglycemia Protocol Stop: 08/28/20 01:54 Promethazine HCl 12.5 mg/ (Sodium Chloride) 50.5 mls @ 202 mls/hr IV Q6H PRN PRN Reason: Nausea And Vomiting Stop: 08/28/20 01:54 Insulin Aspart (Insulin Aspart 100 Units/Ml 3 Ml Pen) 0 units SC [facility] Stop: 08/28/20 02:44 Last Admin: 08/01/20 10:39 Dose: 4 units Documented by: Insulin Glargine (Insulin Glargine Solostar 100 Units/Ml 3 Ml Pen) 5 units SC DAILY [facility] Stop: 08/28/20 08:59 Last Admin: 08/01/20 10:40 Dose: 5 units Documented by: Lisinopril (Lisinopril 10 Mg Tab) 10 mg PO [facility] Stop: 08/28/20 08:59 Last Admin: 08/01/20 10:48 Dose: 10 mg Documented by: Lovastatin (Lovastatin 20 Mg Tab) 20 mg PO [facility] Stop: 08/28/20 20:59 Last Admin: 07/31/20 21:26 Dose: 20 mg Documented by: Miscellaneous (Carbohydrates For Hypoglycemia ) 15 - 30 gm PO UD PRN PRN Reason: Hypoglycemia Protocol Stop: 08/28/20 01:54 Multivitamins (Multivitamin Tab) 1 tab PO [facility] Stop: 08/28/20 08:59 Last Admin: 08/01/20 10:48 Dose: 1 tab Documented by: Pantoprazole Sodium (Pantoprazole 40 Mg Tab) 40 mg PO [facility] Stop: 08/28/20 08:59 Last Admin: 08/01/20 10:48 Dose: 40 mg Documented by: Tramadol HCl (Tramadol Hcl 50 Mg Tablet) 25 - 50 mg PO Q4H PRN PRN Reason: Pain Stop: 08/28/20 01:54
--- NOTE | 2020-08-02 08:30 | Discharge Summary ---
Date of Service August 02, 2020 Admission HPI Per Admitting Provider History obtained from patient, family, and records. Medical history significant for WILLIAM on CPAP, history of PE DVT status post anticoagulation, hypertension, DM2 diet-controlled, chronic anemia (baseline hemoglobin 11). Last confinement September 2018 under Orthopedics service for left ankle osteomyelitis status post surgery. One month history of shortness of breath symptoms mostly on exertion. No chest pain, no fluid retention, no cough symptoms. No recent COVID-19 contacts as per patient. Shortness of breath worsened 3 weeks ago. Patient evaluated at [facility] ER but subsequently discharge without changes in medications or explanation for shortness of breath as per son. Patient compliant with home CPAP although CPAP equipment out of date as per family. Last [facility] sleep medicine follow-up was January 2018. CPAP of 6 with oxygen at 2 LPM recommended. No O2 for CPAP the last several months as per patient family. Pulmonology/sleep medicine evaluation requesite for new CPAP machine scheduled for next month as per family. Outpatient TTE requested by PCP for shortness of breath symptoms resulted this week. EF 70%. Concentric LVH. Diastolic dysfunction. Poorly visualized valvular anatomy without significant stenosis or regurgitation. Hyperdynamic LV systolic function now present. This afternoon, patient noted shortness of breath worse than usual without other symptoms. Patient brought to the ER for evaluation. O2 sats 89 on room air at some point. Medical History as above Surgical History : D&C, ankle surgery, cholecystectomy Family History : Leukemia, heart disease, MS Personal/Social history : Non-smoker, occasional EtOH intake, retired construction secretary, lives with her grandson Admission Exam Per Admitting Provider Physical Exam: GENERAL: Comfortable, morbidly obese, hard of hearing, episodic tachypnea SKIN: Pallor, warm HEENT: Pale palpebral conjunctivae, no ptosis, dry buccal mucosa, nasal cannula in place NECK : Supple, short neck, no tenderness CHEST : Decreased breath sounds, no tenderness HEART : RRR, no obvious murmurs ABDOMEN: distention, nontender EXTREMITIES : Minimal LE swelling, no LE tenderness, no other conspicuous deformities noted NEUROLOGIC : Coherent, no facial asymmetry, hard of hearing, no other gross focality Principal Diagnosis Acute hypoxic respiratory failure, WILLIAM on CPAP with 2 L of oxygen at night, obesity, type 2 diabetes, hypertension Discharge Exam Constitutional well developed, well nourished, + ill appearing and + morbidly obese Eyes PERRL, conjunctivae normal, anicteric sclerae ENMT external ear and nose normal, oropharynx normal Neck trachea midline, no thyromegaly Respiratory no respiratory distress (Minimal respiratory distress with activities) Auscultation: + diminished lung sounds and + wheezes (Occasional wheezing bilate rally); no crackles Cardiovascular Rate/Rhythm: regular rate and regular rhythm Heart Sounds: no murmur Extremities: + edema (1+ leg edema bilaterally) Gastrointestinal (Abdomen) Inspection/Auscultation: + abdomen distended and normal bowel sounds Percussion/Palpation: abdomen soft; abdomen nontender Lymphatic no cervical or axillary lymphadenopathy Discharge Data Allergies Allergy/AdvReac Type Severity Reaction Status Date / Time No Known Allergies Allergy Verified 07/28/20 20:29 Consultations 07/28/20 21:53 ED Decision to Admit Stat 07/29/20 01:55 Consult Pulmonology Routine Ordered Studies 07/28/20 19:22 CT abd pelvis IV con only Urgent CT angio chest PE protocol Urgent Hospital Course (1) Acute hypoxemic respiratory failure: History of WILLIAM on CPAP Possible underlying pulmonary hypertension secondary to suboptimal CPAP settings Recent outpatient TTE cannot reliably evaluate pulmonary hypertension given dmitry hnical factors owing to patient's habitus as per conversation with geothermal powerplant mechanic on-call. Appreciate pulmonary input and recommendation Recommended to continue CPAP with 12 cm of water with oxygen administration Advised to have appropriate fitting of CPAP and Outpatient appointment with [facility] handicraft or hobby shop manager sooner than later We will get PT and OT evaluation prior to discharge A new CPAP machine has been prescribed for her Respiratory therapist assistance for proper fitting of CPAP at nighttime We will get to do steps O2 saturation test before discharge Will need to have overnight pulse oximetry before discharge Clinically much better today and she will require 2 L of oxygen via nasal cannula during CPAP use at night She will have follow-up appointment with [facility] handicraft or hobby shop manager as an outpatient sooner than later We will try to get into outpatient sleep study in order to have a new CPAP machine for her This is discussed with the patient in detail Bilateral leg edema Has been on Lasix chronically We will continue with that Edema has improved a lot History of PE DVT status post anticoagulation CTA did not show any new pulmonary embolism Has not been taking any Coumadin for now. She finished the course before Advised to increase ambulation Hypertension, slightly elevated Normalized now We will continue current medications DM2 diet-controlled, reasonable control as of recent hemoglobin A1c of 7.22 April 2020 Continue SSI Chronic anemia, hemoglobin at baseline DVT prophylaxis per Lovenox subcu Full code Patient son requesting updates from providers. Mr. Milind Bob, contact #[phone]. She will be discharged home this afternoon Total Time Total Time Spent Total Time Spent (In Minutes): 35 minutes Total Time Includes: Examination of the Patient, Discharge Planning, Medication Reconciliation and Communication With Other Providers Discharge Plan Discharge Items Patient Disposition: Home - Self-Care Reason For Visit: RESP FAILURE Discharge Diagnosis: Acute hypoxic respiratory failure, WILLIAM on CPAP with 2 L of oxygen at night, obesity, type 2 diabetes, hypertension Condition on Discharge: Fair Activity: Resume your previous activity Non-emergency contact: Primary Care Provider Call non-emergency contact if: you have any medication questions and your symptoms worsen Follow-up/Referrals: Jessica Orosco DO [Primary Care Provider] - ( Date & Time 08/07/2020 11:10 AM Provider Jessica Orosco DO Department Family Medicine [facility] ) Rafaela Berger DO [Physician] - (Date & Time 08/23/2020 1:40 PM Provider Rafaela Berger DO Department Pulmonary Medicine, [facility] ) Diet: Carb Consistent or DM2, Heart Healthy and Low Sodium (2gm) Addtl Attending Provider Instructions: Please take extreme precaution to avoid fall Strongly advised to lose weight Please keep up with your appointments Continue oxygen at a rate of 2 L/min at night with CPAP with a setting of 12 cm of water Pending Studies at Discharge: No Stand-Alone Forms: My [employer], Smoking Cessation Medications and DC Order Prescriptions: Continued aspirin [Adult Aspirin Regimen] 81 mg tablet,delayed release (DR/EC) 81 mg PO DAILY RF: 0 multivitamin Tablet 1 tab PO QAM RF: 0 furosemide [Lasix] 40 mg Tablet 60 mg PO QAM RF: 0 ascorbic acid (vitamin C) [Vitamin C] 1,000 mg Tablet 1,000 mg PO QAM RF: 0 riboflavin (vitamin B2) [Vitamin B-2] 100 mg Tablet 100 mg PO QAM RF: 0 citalopram 20 mg Tablet 30 mg PO QAM RF: 0 lisinopril 10 mg Tablet 10 mg PO QAM RF: 0 omeprazole 20 mg Capsule,Delayed Release(Dr/Ec) 20 mg PO QAM RF: 0 cinnamon bark [Cinnamon] 500 mg Capsule 500 mg PO QAM RF: 0 cholecalciferol (vitamin D3) [Vitamin D3] 1,000 unit Tablet 1,000 unit PO QAM RF: 0 ferrous sulfate 27 mg iron Tablet 27 mg PO QAM RF: 0 potassium chloride 20 mEq Tablet Extended Release 20 meq PO QAM RF: 0 lovastatin 20 mg Tablet 20 mg PO HS RF: 0 Discharge Orders: Discharge Order (Routine); Ordered 08/01/20 Ordered By: Stephy Puentes Admission Data Admit Date/Time: 07/28/20 23:31 Attending Provider: Stephy Puentes Admit Provider: Charles Adams Primary Care Provider: Jessica Orosco Other Providers: Charles Adams ; Bacilio Wagner ; Yeison Kat ; Ju Gupta ; Domenic Ramirez ; Anita Vicente ; Geronimo Worthington ; Yared Betancourt ; Kevan Awad ; Wally Carroll [facility] Other Interventions: Discharge Summary Assessment (RN) Last Done: 08/01/20 14:51
--- NOTE | 2020-08-05 12:56 | Communication Note ---
Date of Service: August 05, 2020 Further reviewing of the note it was noted that,"the patient is using a CPAP machine and is benefiting from the usage of the CPAP machine" and the psoas demetrio mmended by the retirement officer taking care of the patient during this hospitalization. This is highly recommended that she should use CPAP machine with oxygen to give her symptoms under control. Dr Tyra Puentes
== END 2020-08-01 15:57 | disposition home or self-care (01) | DRG 189 ==
LOC: ED 17:55 → 2N 23:31

== ENCOUNTER 2021-02-14 15:18 | Inpatient (IN) ==
[2021-02-14] MEDS ORDERED: SODIUM CHLORIDE 0.9% 1000ML 1,000 ML IV ONE (16:13)
[2021-02-14] MEDS ORDERED: CALCIUM GLUCONATE 10% 1,000 MG in SODIUM CHLORIDE 0.9% 50 ML IV STA (16:43)
[2021-02-14 16:53] LABS: iSTAT Hemoglobin 12.2 g/dl (12.0-16.0); iSTAT Ionized Calcium 1.13 mmol/l (1.12-1.32); iSTAT Potassium 5.7 mmol/L (3.3-5.0)
--- NOTE | 2021-02-14 16:56 | XRay Report ---
XR chest 1V portable CLINICAL HISTORY: found down hypotensive hypoxic. COMPARISON STUDY: 07/28/2020 TECHNIQUE: 1 view of the chest FINDINGS: Single frontal view of the chest demonstrates significant interval widening of the mediastinum on the right side. The findings are highly suspicious for a mediastinal hematoma. The lungs are otherwise c lear of alveolar opacities. There is no evidence for pleural effusion. There is no evidence for vascu lar congestion. There is no acute osseous pathology. IMPRESSION: Interval development of rather marked widening of the mediastinum on the right when frankie red to the previous study. The presence of a mediastinal hematoma cannot be excluded. CT of the chest would be the study of choice for further evaluation. ACT 112: Negative or not required by law. Electronically signed by: Kartik Tidwell M.D. 02/14/2021 4:55 PM
--- NOTE | 2021-02-14 16:58 | XRay Report ---
XR pelvis 1-2V routine CLINICAL HISTORY: found down hypotensive hypoxic. COMPARISON STUDY: No previous studies for comparison. TECHNIQUE: [3 AP views were obtained to include the entire pelvis in this patient with a very large b shira habitus. FINDINGS: There is no evidence for an acute fracture. There is evidence for mild narrowing of the hip joint spa shari bilaterally. The bones are otherwise within anatomic alignment. The SI joints are intact bilatera lly. The remaining visualized bones of the pelvis are intact. There are noted to be significant degen erative changes of lower lumbar spine. No focal soft tissue abnormalities identified. IMPRESSION: No acute abnormality. Degenerative changes. ACT 112: Negative or not required by law. Electronically signed by: Kartik Tidwell M.D. 02/14/2021 4:57 PM
[2021-02-14] MEDS ORDERED: OPTIRAY 320 125ml IV ONE (17:13)
[2021-02-14 17:24] LABS: Basophils # (auto) 0.03 K/uL (0-0.2); Basophils % (auto) 0.2 %; Eosinophils # (auto) 0.01 K/uL (0-0.5); Eosinophils % (auto) 0.1 %; Hematocrit (blood only) 35.9 % (37-47); Hemoglobin 10.5 g/dL (12.0-16.0); Immature Granulocytes # (auto) 0.02 K/uL (0.00-0.02); Immature Granulocytes % (auto) 0.1 %; Lymphocytes # (auto) 0.87 K/uL (1.2-3.4); Mean Corpuscular Hgb Conc 29.2 g/dL (32-36); Mean Corpuscular Volume 82.2 fL (80-100); Mean Platelet Volume 8.9 fL (7.4-10.4); Monocytes # (auto) 0.75 K/uL (0.11-0.59); Monocytes % (auto) 5.2 %; Neutrophils # (auto) 12.85 K/uL (1.4-6.5); Neutrophils % (auto) 88.4 %; Platelet Count 363 K/uL (130-400); RDW Coefficient of Variation 16.1 % (11.5-14.5); RDW Standard Deviation 48.4 fL (36.4-46.3); Red Blood Count 4.37 M/uL (4.2-5.4); White Blood Count 14.53 K/uL (4.8-10.8)
--- NOTE | 2021-02-14 17:27 | CT Scan Report ---
CT head/brain wo con CLINICAL HISTORY: found down hypotensive hypoxic COMPARISON STUDY: No previous studies for comparison. CT DOSE: TECHNIQUE: Standard CT of the Brain was performed without IV contrast. A dose lowering technique was utilized adhering to the principles of ALARA. FINDINGS: Extraaxial space: There is no evidence for subdural hematoma. There are no extra-axial fluid collecti ons. Ventricles and cisterns: The ventricles are normal in size and configuration. There is no evidence f or midline shift or mass effect. Parenchyma: There is no subarachnoid or intraparenchymal hemorrhage. There is no evidence for an acu te infarct or cerebral edema. There is homogeneous attenuation of the brain parenchyma. There are no gross mass lesions. Osseous structures: There is no evidence for an acute fracture. The visualized paranasal sinuses are clear. The mastoid air cells are clear bilaterally. Soft tissues: There is no evidence for focal soft tissue swelling. IMPRESSION: No acute intracerebral pathology. ACT 112: Negative or not required by law. Electronically signed by: Kartik Tidwell M.D. 02/14/2021 5:26 PM
--- NOTE | 2021-02-14 17:30 | CT Scan Report ---
CT cervical spine wo con CLINICAL HISTORY: found down hypotensive hypoxic COMPARISON STUDY: No previous studies for comparison. CT DOSE: 3532.91 mGy.cm TECHNIQUE: Standard CT of the Cervical Spine was performed without IV contrast. A dose lowering te chnique was utilized adhering to the principles of ALARA. FINDINGS: The study is limited by patient motion artifact. Bones: The bones are osteopenic. There is straightening of expected cervical lordosis which is most l ikely related to positioning and degenerative change. There is no evidence for an acute fracture or m alalignment. The heights of the vertebral bodies are maintained. The vertebral bodies are in anatomic alignment. The odontoid is intact and the atlantoaxial articulation is within normal limits. Disc spaces:Moderate to marked disc space narrowing is present from C4 through C7 with endplates hector s and osteophyte formation. Apophyseal joints:Degenerative apophyseal joint disease is also present bilaterally. Soft tissues:The prevertebral soft tissues are within normal limits. IMPRESSION: The study is limited by patient motion artifact. There is no evidence for acute abnormali ty identified. Osteopenia with degenerative disc and degenerative joint disease. ACT 112: Negative or not required by law. Electronically signed by: Kartik Tidwell M.D. 02/14/2021 5:29 PM
[2021-02-14] MEDS ORDERED: ONDANSETRON INJ 2 MG/ML 2 ML VIAL IV STA (17:34)
[2021-02-14 17:38] LABS: Base Excess VBG -2.9 mEq/L; HCO3 VBG 26 mmol/L; Oxygen Saturation VBG < 60.0 %; PCO2 VBG 66 mmHg (38-50); PO2 VBG 30 mmHg; pH VBG 7.21 (7.36-7.41)
[2021-02-14 17:42] LABS: INR 1.1 (0.9-1.1); Partial Thromboplastin Ratio 0.9; Partial Thromboplastin Time 23.5 Seconds (21.0-31.0); Prothrombin Time 10.8 Seconds (9.0-12.0)
[2021-02-14 17:47] LABS: Albumin Level 2.8 gm/dl (3.4-5.0); BUN Creatinine Ratio 16.4 (10-20); Bilirubin Direct 0.2 mg/dl (0-0.2); Calcium 8.5 mg/dl (8.5-10.1); Creatinine Clr Calc Pharmacy 52.1 ml/min; Est GFR (African American) 55.9 ml/min; Est GFR (Non-African American) 48.2 ml/min; Potassium 3.2 mmol/L (3.5-5.1)
[2021-02-14 17:49] LABS: Bilirubin,Total 0.6 mg/dl (0.2-1); Total Protein 6.2 gm/dl (6.4-8.2)
[2021-02-14 17:51] LABS: Lipase 66 U/L (73-393); Troponin I < 0.015 ng/ml (0-0.045)
--- NOTE | 2021-02-14 17:53 | CT Scan Report ---
CT abd pelvis IV con only CLINICAL HISTORY: found down hypotensive hypoxic COMPARISON STUDY: 07/28/2020 CT DOSE: TECHNIQUE: Standard CT of the Abdomen and Pelvis was performed with IV contrast. A dose lowering dmitry hnique was utilized adhering to the principles of ALARA. Contrast Volume: Optiray 320, 120 ml. The patient did not receive oral contrast. FINDINGS: Lung base: The lung bases are clear. Abdominal cavity: There is no evidence for abdominal mass, adenopathy or ascites. Liver: There is homogeneous attenuation of the liver parenchyma. There is no evidence for enhancing m ass lesion. Spleen: There is homogeneous attenuation of the splenic parenchyma. There is no enhancing mass lesion . Pancreas: There is homogeneous attenuation of the pancreatic parenchyma. There is no evidence for mas s lesion or peripancreatic fluid collection. Gall Bladder: Surgical clips are again seen from previous cholecystectomy. Adrenal glands: The adrenal glands are normal in size and attenuation. There is no evidence for enhan cing mass lesion. Kidneys: There is homogeneous attenuation of the renal parenchyma bilaterally. There is no evidence f or renal calculus or hydronephrosis. There is no evidence for enhancing mass. Bowel: There is again a moderate size hiatal hernia. The bowel loops are normally placed within the a bdomen and pelvis without evidence for dilatation or obstruction. There is no evidence for mass lesio n. There is mild diverticulosis without evidence for diverticulitis. There are no inflammatory change s present. There is no evidence for free air. Bladder: The bladder is within normal limits with no evidence for focal mass, calculus or diverticulu m. : There is no evidence for pelvic mass or adenopathy. There is no evidence for pelvic ascites. Vasculature: There is no evidence for aneurysmal dilatation of the abdominal aorta. Osseous structures: There is no acute osseous pathology. Degenerative changes are seen within the spi ne. IMPRESSION: 1. No acute intra-abdominal or pelvic abnormality. No significant interval change. 2. Moderate-sized hiatal hernia. 3. Mild diverticulosis without evidence for diverticulitis. 4. Additional nonacute findings are delineated above. ACT 112: Negative or not required by law. Electronically signed by: Kartik Tidwell M.D. 02/14/2021 5:51 PM
--- NOTE | 2021-02-14 17:59 | CT Scan Report ---
CT angio chest PE protocol CLINICAL HISTORY: found down hypotensive hypoxic COMPARISON STUDY: Portable chest from 02/14/2021 and previous CTA chest from 07/26/2020 CT DOSE: TECHNIQUE: CT Angio of the chest was performed.followed by image post processing with coronal, and s agittal MIP reformats. Contrast Volume: Optiray 320, 120 ml FINDINGS: Vasculature: There is homogeneous perfusion of the pulmonary vasculature bilaterally. No intraluminal filling defects or evidence for pulmonary embolus is seen. The thoracic aorta is normal in course an d caliber. There is no evidence for aneurysm, dissection or leakage. Airway: The airway is clear. No endobronchial lesion is identified. Lungs: Minimal dependent atelectasis edema are seen at the lung bases posteriorly. The lungs are othe rwise clear of acute alveolar opacities, air bronchograms or pulmonary nodules. Pleura: There is no evidence for pleural effusion. There is no evidence for pneumothorax. Mediastinum: The suspected mediastinal widening seen on the portable chest radiograph relates to exte nsive fat within the mediastinum. This has increased since the previous CT. There is no mediastinal h ematoma. There is no evidence for pathologic adenopathy. The heart size is within normal limits. The thoracic aorta is within normal limits. There is no evidence for pericardial effusion. Upper abdomen:The adrenal glands are normal bilaterally. Moderate size hiatal hernia is again seen. Osseous structures: There is no acute osseous pathology. Impression: 1. No CTA evidence for pulmonary embolus. 2. Normal thoracic aorta. 3. No evidence for mediastinal hematoma is suspected radiographically. Findings relate to extensive m ediastinal fat. 4. No acute chest disease. ACT 112: Negative or not required by law. Electronically signed by: Kartik Tidwell M.D. 02/14/2021 5:57 PM
--- NOTE | 2021-02-14 18:08 | Emergency Department Note ---
History of Present Illness General Chief complaint: Syncope Stated complaint: Syncope Time Seen by Provider: 02/14/21 16:04 Source: EMS History of Present Illness Provider complaint: Found down possible syncope Onset (ago): day(s) 1 Associated symptoms: + shortness of breath, + syncope and + weakness; no cough, no headaches, no nausea/vomiting or no seizure 80-year-old female presents to the emergency department via EMS after being found on the ground in her bathroom. Per EMS, the patient went to the restroom and the family heard a loud sound. When they arrived into the bathroom the patient was unresponsive on the floor. They are unsure how long the patient was down for. Patient states she does not remember what happened. Patient is reporting some mild difficulty breathing and weakness. Patient states she does wear oxygen at night but not usually in the daytime. Home Medications Medication Instructions Recorded Confirmed Type ascorbic acid (vitamin C) 1,000 mg 1,000 mg PO QAM 12/09/17 02/14/21 History tablet (Vitamin C) cholecalciferol (vitamin D3) 25 1,000 unit PO QAM 12/09/17 02/14/21 History mcg (1,000 unit) tablet (Vitamin D3) cinnamon bark 500 mg capsule 500 mg PO QAM 12/09/17 02/14/21 History (Cinnamon) citalopram 20 mg tablet 30 mg PO QAM 12/09/17 02/14/21 History ferrous sulfate 27 mg iron tablet 27 mg PO QAM 12/09/17 02/14/21 History furosemide 40 mg tablet (Lasix) 60 mg PO QAM 12/09/17 02/14/21 History lisinopril 10 mg tablet 10 mg PO QAM 12/09/17 02/14/21 History multivitamin 1 tab PO QAM 12/09/17 02/14/21 History omeprazole 20 mg capsule,delayed 20 mg PO QAM 12/09/17 02/14/21 History release potassium chloride 20 mEq 20 meq PO QAM 12/09/17 02/14/21 History tablet,extended release riboflavin (vitamin B2) 100 mg 100 mg PO QAM 12/09/17 02/14/21 History tablet (Vitamin B-2) lovastatin 20 mg tablet 20 mg PO HS 07/28/20 02/14/21 History hydrocodone 5 mg-acetaminophen 325 1 tab PO Q6H PRN 02/14/21 02/14/21 History mg tablet Allergies Allergy/AdvReac Type Severity Reaction Status Date / Time No Known Allergies Allergy Verified 02/14/21 16:00 Past Med/Surg History Medical History (Updated 02/14/21 @ 19:08 by Imelda Soto PA-C) Anemia TAKING IRON Anxiety Depression Diverticular disease GERD (gastroesophageal reflux disease) Hearing deficit 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 SEPTEMBER 2016. TREATED WITH COUMADIN. STOPPED THEN RESTARTED 09/2018 FOR PREVENTION OF BLOOD CLOTS Sleep apnea BIPAP WITH 2LPM OXYGEN Surgical History Aftercare following left ankle joint replacement surgery 06/17/18 - I&D - Glidescope #4, ETT #7.5, HiLo Oral 03/18/18 - I&D - Glidescope #4, ETT #7.0, HiLo Oral, Grade 3 View Difficult airway for intubation With most recent ankle surgeries, patient was noted to be a difficult intubation, requiring Glidescope. Previous anesthesia records do not note difficulties. H/O ankle fusion RIGHT H/O ankle fusion left -- had subsequent infection and debridement with ABX beads implanted 02/201801/21/18 - MAC #3, ETT #7.5, HiLo Oral, Grade 3 View History of cholecystectomy LAP History of colonoscopy History of esophagogastroduodenoscopy (EGD) Family History Other No pertinent family history Social History Smoking Status: Never smoker Second Hand Exposure: No; Hx Alcohol Use: Yes Alcohol type: other Hx Substance Use: No Preferred Language: Romanian Communication Ability: Effective Visual Impairment: No Limitations Catalytic Case Operator Required: No Beliefs That Will Affect Care: None marital status: / Current Living Situation: Family Feels Safe at Home: Yes Assistive Devices: CPAP, Oxygen - at Night and Walker Review of Systems A total of 10 systems reviewed and were otherwise negative Physical Exam Vital Signs Vital Signs - 24 hr 02/14/21 15:30 02/14/21 15:39 02/14/21 15:40 Temperature 36.8 C Temperature Source Oral Pulse Rate 104 H 105 H 104 H Pulse Rate from SpO2 Sensor 105 H 104 H Respiratory Rate 14 16 14 Respiratory Effort / Characteristics Spontaneous Blood Pressure 89/70 L 86/64 L 89/70 L Blood Pressure Mean 76 71 76 Blood Pressure Position Lying Pulse Oximetry 79 L 97 96 Oxygen Delivery Method Room Air Nasal Cannula Nasal Cannula Oxygen Flow Rate 3 3 Sepsis Recent Fever Within 48 Hours No Sepsis New/Unexplained Change in Mental Status No Sepsis Action Taken by Nursing Physician Notified Oxygen Flow Rate - Titration Pulse Oximetry Post Tiitration 02/14/21 15:49 02/14/21 15:50 02/14/21 16:00 Temperature Temperature Source Pulse Rate 103 H 101 H Pulse Rate from SpO2 Sensor 104 H 101 H Respiratory Rate 16 15 Respiratory Effort / Characteristics Blood Pressure 80/52 L 76/64 L Blood Pressure Mean 61 68 Blood Pressure Position Pulse Oximetry 98 97 97 Oxygen Delivery Method Nasal Cannula Nasal Cannula Nasal Cannula Oxygen Flow Rate 4 3 3 Sepsis Recent Fever Within 48 Hours Sepsis New/Unexplained Change in Mental Status Sepsis Action Taken by Nursing Oxygen Flow Rate - Titration 3 Pulse Oximetry Post Tiitration 97 02/14/21 16:18 02/14/21 16:30 02/14/21 16:43 Temperature Temperature Source Pulse Rate 102 H 105 H Pulse Rate from SpO2 Sensor 101 H Respiratory Rate 13 19 Respiratory Effort / Characteristics Blood Pressure Blood Pressure Mean Blood Pressure Position Pulse Oximetry 96 97 Oxygen Delivery Method Nasal Cannula Oxygen Flow Rate Sepsis Recent Fever Within 48 Hours Sepsis New/Unexplained Change in Mental Status Sepsis Action Taken by Nursing Oxygen Flow Rate - Titration Pulse Oximetry Post Tiitration 02/14/21 16:45 02/14/21 17:15 02/14/21 17:30 Temperature Temperature Source Pulse Rate 105 H 99 H 100 H Pulse Rate from SpO2 Sensor 99 H 100 H Respiratory Rate 20 20 20 Respiratory Effort / Characteristics Blood Pressure 106/62 116/76 Blood Pressure Mean 76 89 Blood Pressure Position Pulse Oximetry 96 100 Oxygen Delivery Method Nasal Cannula Nasal Cannula Oxygen Flow Rate 2 2 Sepsis Recent Fever Within 48 Hours Sepsis New/Unexplained Change in Mental Status Sepsis Action Taken by Nursing Oxygen Flow Rate - Titration Pulse Oximetry Post Tiitration 02/14/21 17:45 02/14/21 18:00 02/14/21 18:15 Temperature Temperature Source Pulse Rate 97 H 93 H 104 H Pulse Rate from SpO2 Sensor 96 H 93 H 99 H Respiratory Rate 20 18 19 Respiratory Effort / Characteristics Blood Pressure 115/76 121/82 113/76 Blood Pressure Mean 89 95 88 Blood Pressure Position Pulse Oximetry 95 96 95 Oxygen Delivery Method Nasal Cannula Nasal Cannula Nasal Cannula Oxygen Flow Rate 2 2 2 Sepsis Recent Fever Within 48 Hours Sepsis New/Unexplained Change in Mental Status Sepsis Action Taken by Nursing Oxygen Flow Rate - Titration Pulse Oximetry Post Tiitration Physical Exam GENERAL: She is oriented to person, place, and time. She appears well-developed and well-nourished. She does not appear distressed. HENT: Exam performed. -Head: Normocephalic and atraumatic. -Right Ear: External ear normal. No mastoid tenderness. -Left Ear: External ear normal. No mastoid tenderness. -Mouth/Throat: The oropharynx is clear and moist. No trismus in the jaw. No dental abscesses or uvula swelling. No oropharyngeal exudate or tonsillar abscesses. EYES: Conjunctivae and EOM are normal. Pupils are equal, round, and reactive to light. Right eye exhibits no discharge. Left eye exhibits no discharge. No scleral icterus. NECK: Normal range of motion. Neck supple. No JVD present. No spinous process tenderness present. No carotid bruit present. No rigidity. No tracheal deviation and normal range of motion present. No Brudzinski's sign and no Kernig's sign noted. CV: Normal rate, regular rhythm, normal heart sounds and intact distal pulses. There is no peripheral edema. Palpable radial pulses bue. PULM/CHEST: Effort normal and breath sounds normal. No respiratory distress. No stridor. She has no wheezes. She has no rales. -Chest Wall: She exhibits no tenderness. ABD: The abdomen is soft morbidly obese Bowel sounds are normal. She has no distension. No mass is present. There is no tenderness. There is no rebound, no guarding, no Holder's sign and no tenderness at McBurney's point. Rovsig negative MUSC/SKEL: Normal range of motion. There is no peripheral edema, tenderness or deformity. LYMPH: No cervical adenopathy. NEURO: She is alert and oriented to person, place, and time. She has normal strength. Course Course 1604: The patient was evaluated in room C6. A complete history and physical exam was performed Cardiac monitoring: An order was placed for continuous cardiac monitoring. The monitor shows a rate of 90 with sinus rhythm Patient was found to be hypoxic and hypotensive on arrival. Patient was placed on supplemental oxygen which improved her oxygen saturation. Patient was moved to resuscitation bay room B1. IV fluids started on the patient. 1644: Mdaga-xi-xder potassium 5.7. Creatinine within normal limits. Blood pressure is improving with IV fluids. Patient will be sent for CT imaging. 1818: Vital signs stable on supplemental oxygen. Patient's blood pressure is improved with IV fluids. Labs show leukocytosis of 14.5. Hemoglobin 10.5. VBG shows mild respiratory acidosis. Potassium 3.2. Lactic acid 3.1. Urinalysis pending. CTA negative for any PE or dissection. Wide mediastinum was thought to be due to fat. CT head C-spine and abdomen pelvis negative. Given the patient's hypoxia and hypotension initially, [facility] Spoke with Kallie who stated to admit to Dr. Dasilva. Administered Medications Discontinued Medications Sodium Chloride (Nss 1000ml) 1,000 mls @ 999 mls/hr IV .Q1H1M ONE Stop: 02/14/21 17:13 Last Admin: 02/14/21 17:00 Dose: 999 mls/hr Documented by: [id number] Calcium Gluconate 1,000 mg/ (Sodium Chloride) 60 mls @ 240 mls/hr IV NOW STA Stop: 02/14/21 16:57 Last Infusion: 02/14/21 18:14 Dose: 0 mls/hr Documented by: [id number] Admin: 02/14/21 17:48 Dose: 240 mls/hr Documented by: [id number] Ioversol (Optiray 320 125ml) 120 ml IV ONCE ONE Stop: 02/14/21 17:14 Last Admin: 02/14/21 17:13 Dose: 1 ml Documented by: [id number] Ondansetron HCl (Ondansetron Inj 2 Mg/Ml 2 Ml Vial) 4 mg IV NOW STA Stop: 02/14/21 17:35 Last Admin: 02/14/21 17:40 Dose: 4 mg Documented by: [id number] Critical Care Time Critical Care Time: Yes Total Critical Care Time: 51 I have personally spent greater than 51 minutes of critical care time in the direct management of this patient. This includes bedside care, interpretation of diagnostic studies, and testing, discussion with consultants, patient, and family members, and other required patient management activities. This 51 minutes is in excess of all separately billable procedures. Medical Decision Making Laboratory Data Result diagrams: 02/14/21 17:13 02/14/21 17:13 Lab Results 02/14/21 02/14/21 02/14/21 Range/Units 16:40 17:13 17:13 WBC 14.53 H (4.8-10.8) K/uL RBC 4.37 (4.2-5.4) M/uL Hgb 10.5 L (12.0-16.0) g/dL POC Hgb 12.2 (12.0-16.0) g/dl Hct 35.9 L (37-47) % POC Hct 36 L (37-47) % MCV 82.2 (80-100) fL MCH 24.0 L (25-34) pg MCHC 29.2 L (32-36) g/dL RDW Std Deviation 48.4 H (36.4-46.3) fL RDW Coeff of Esvin 16.1 H (11.5-14.5) % Plt Count 363 (130-400) K/uL MPV 8.9 (7.4-10.4) fL Immature Gran % (Auto) 0.1 % Neut % (Auto) 88.4 % Lymph % (Auto) 6.0 % [place] % (Auto) 5.2 % Eos % (Auto) 0.1 % Baso % (Auto) 0.2 % Neut # (Auto) 12.85 H (1.4-6.5) K/uL Lymph # (Auto) 0.87 L (1.2-3.4) K/uL [place] # (Auto) 0.75 H (0.11-0.59) K/uL Eos # (Auto) 0.01 (0-0.5) K/uL Baso # (Auto) 0.03 (0-0.2) K/uL Immature Gran # (Auto) 0.02 (0.00-0.02) K/uL PT 10.8 (9.0-12.0) Seconds INR 1.1 (0.9-1.1) APTT 23.5 (21.0-31.0) Seconds PTT Ratio 0.9 VBG pH (7.36-7.41) VBG pCO2 (38-50) mmHg VBG pO2 mmHg VBG HCO3 mmol/L VBG O2 Saturation % VBG Base Excess mEq/L Barometric Pressure mm/Hg POC Sodium 137 (135-144) mmol/L Sodium (136-145) mmol/L POC Potassium 5.7 H (3.3-5.0) mmol/L Potassium (3.5-5.1) mmol/L POC Chloride 99 L (101-112) mmol/L Chloride (98-107) mmol/L Carbon Dioxide (21-32) mmol/L POC Total CO2 29 (24-31) mmol/L Anion Gap (3-11) POC Anion Gap 16.0 (16-25) mmol/L POC BUN 25 H (7-18) mg/dl BUN (7-18) mg/dl Creatinine (0.6-1.2) mg/dl POC Creatinine 1.0 (0.6-1.3) mg/dl Est Cr Clr Drug Dosing ml/min Est GFR ( Amer) ml/min Est GFR (Non-Af Amer) ml/min BUN/Creatinine Ratio (10-20) Glucose (70-99) mg/dl POC Glucose (other) 221 H (70-99) mg/dl Lactate (0.4-2.0) mmol/L Calcium (8.5-10.1) mg/dl POC Ioniz Calcium [place] 1.13 (1.12-1.32) mmol/l Magnesium (1.8-2.4) mg/dl Total Bilirubin (0.2-1) mg/dl Direct Bilirubin (0-0.2) mg/dl AST (15-37) U/L ALT (12-78) Alkaline Phosphatase (45-117) U/L Total Creatine Kinase (26-192) U/L Troponin I (0-0.045) ng/ml Total Protein (6.4-8.2) gm/dl Albumin (3.4-5.0) gm/dl Lipase (73-393) U/L Urine Color Urine Appearance (Clear) Urine pH (4.5-7.5) Ur Specific [place] (1.000-1.030) Urine Protein (Negative) Urine Glucose (UA) (Negative) Urine Ketones (Negative) Urine Blood (Negative) Urine Nitrite (Negative) Urine Bilirubin (Negative) Urine Urobilinogen (Negative) Ur Leukocyte Esterase (Negative) SARS-CoV-2 (PCR) (Negative) Influenza Type A (PCR) (Neg) Influenza Type B (PCR) (Neg) RSV (RT-PCR) (Neg) 02/14/21 02/14/21 02/14/21 Range/Units 17:13 17:13 17:13 WBC (4.8-10.8) K/uL RBC (4.2-5.4) M/uL Hgb (12.0-16.0) g/dL POC Hgb (12.0-16.0) g/dl Hct (37-47) % POC Hct (37-47) % MCV (80-100) fL MCH (25-34) pg MCHC (32-36) g/dL RDW Std Deviation (36.4-46.3) fL RDW Coeff of Esvin (11.5-14.5) % Plt Count (130-400) K/uL MPV (7.4-10.4) fL Immature Gran % (Auto) % Neut % (Auto) % Lymph % (Auto) % [place] % (Auto) % Eos % (Auto) % Baso % (Auto) % Neut # (Auto) (1.4-6.5) K/uL Lymph # (Auto) (1.2-3.4) K/uL [place] # (Auto) (0.11-0.59) K/uL Eos # (Auto) (0-0.5) K/uL Baso # (Auto) (0-0.2) K/uL Immature Gran # (Auto) (0.00-0.02) K/uL PT (9.0-12.0) Seconds INR (0.9-1.1) APTT (21.0-31.0) Seconds PTT Ratio VBG pH 7.21 L (7.36-7.41) VBG pCO2 66 H (38-50) mmHg VBG pO2 30 mmHg VBG HCO3 26 mmol/L VBG O2 Saturation < 60.0 % VBG Base Excess -2.9 mEq/L Barometric Pressure 729.2 mm/Hg POC Sodium (135-144) mmol/L Sodium 136 (136-145) mmol/L POC Potassium (3.3-5.0) mmol/L Potassium 3.2 L (3.5-5.1) mmol/L POC Chloride (101-112) mmol/L Chloride 99 (98-107) mmol/L Carbon Dioxide 31 (21-32) mmol/L POC Total CO2 (24-31) mmol/L Anion Gap 6.0 (3-11) POC Anion Gap (16-25) mmol/L POC BUN (7-18) mg/dl BUN 18 (7-18) mg/dl Creatinine 1.09 (0.6-1.2) mg/dl POC Creatinine (0.6-1.3) mg/dl Est Cr Clr Drug Dosing 52.1 ml/min Est GFR ( Amer) 55.9 ml/min Est GFR (Non-Af Amer) 48.2 ml/min BUN/Creatinine Ratio 16.4 (10-20) Glucose 241 H (70-99) mg/dl POC Glucose (other) (70-99) mg/dl Lactate (0.4-2.0) mmol/L Calcium 8.5 (8.5-10.1) mg/dl POC Ioniz Calcium [place] (1.12-1.32) mmol/l Magnesium 2.0 (1.8-2.4) mg/dl Total Bilirubin 0.6 (0.2-1) mg/dl Direct Bilirubin 0.2 (0-0.2) mg/dl AST 8 L (15-37) U/L ALT 13 (12-78) Alkaline Phosphatase 62 D (45-117) U/L Total Creatine Kinase 35 (26-192) U/L Troponin I < 0.015 (0-0.045) ng/ml Total Protein 6.2 L (6.4-8.2) gm/dl Albumin 2.8 L (3.4-5.0) gm/dl Lipase 66 L (73-393) U/L Urine Color Urine Appearance (Clear) Urine pH (4.5-7.5) Ur Specific [place] (1.000-1.030) Urine Protein (Negative) Urine Glucose (UA) (Negative) Urine Ketones (Negative) Urine Blood (Negative) Urine Nitrite (Negative) Urine Bilirubin (Negative) Urine Urobilinogen (Negative) Ur Leukocyte Esterase (Negative) SARS-CoV-2 (PCR) (Negative) Influenza Type A (PCR) (Neg) Influenza Type B (PCR) (Neg) RSV (RT-PCR) (Neg) 02/14/21 02/14/21 02/14/21 Range/Units 17:13 17:24 18:11 WBC (4.8-10.8) K/uL RBC (4.2-5.4) M/uL Hgb (12.0-16.0) g/dL POC Hgb (12.0-16.0) g/dl Hct (37-47) % POC Hct (37-47) % MCV (80-100) fL MCH (25-34) pg MCHC (32-36) g/dL RDW Std Deviation (36.4-46.3) fL RDW Coeff of Esvin (11.5-14.5) % Plt Count (130-400) K/uL MPV (7.4-10.4) fL Immature Gran % (Auto) % Neut % (Auto) % Lymph % (Auto) % [place] % (Auto) % Eos % (Auto) % Baso % (Auto) % Neut # (Auto) (1.4-6.5) K/uL Lymph # (Auto) (1.2-3.4) K/uL [place] # (Auto) (0.11-0.59) K/uL Eos # (Auto) (0-0.5) K/uL Baso # (Auto) (0-0.2) K/uL Immature Gran # (Auto) (0.00-0.02) K/uL PT (9.0-12.0) Seconds INR (0.9-1.1) APTT (21.0-31.0) Seconds PTT Ratio VBG pH (7.36-7.41) VBG pCO2 (38-50) mmHg VBG pO2 mmHg VBG HCO3 mmol/L VBG O2 Saturation % VBG Base Excess mEq/L Barometric Pressure mm/Hg POC Sodium (135-144) mmol/L Sodium (136-145) mmol/L POC Potassium (3.3-5.0) mmol/L Potassium (3.5-5.1) mmol/L POC Chloride (101-112) mmol/L Chloride (98-107) mmol/L Carbon Dioxide (21-32) mmol/L POC Total CO2 (24-31) mmol/L Anion Gap (3-11) POC Anion Gap (16-25) mmol/L POC BUN (7-18) mg/dl BUN (7-18) mg/dl Creatinine (0.6-1.2) mg/dl POC Creatinine (0.6-1.3) mg/dl Est Cr Clr Drug Dosing ml/min Est GFR ( Amer) ml/min Est GFR (Non-Af Amer) ml/min BUN/Creatinine Ratio (10-20) Glucose (70-99) mg/dl POC Glucose (other) (70-99) mg/dl Lactate 3.1 H* (0.4-2.0) mmol/L Calcium (8.5-10.1) mg/dl POC Ioniz Calcium [place] (1.12-1.32) mmol/l Magnesium (1.8-2.4) mg/dl Total Bilirubin (0.2-1) mg/dl Direct Bilirubin (0-0.2) mg/dl AST (15-37) U/L ALT (12-78) Alkaline Phosphatase (45-117) U/L Total Creatine Kinase (26-192) U/L Troponin I (0-0.045) ng/ml Total Protein (6.4-8.2) gm/dl Albumin (3.4-5.0) gm/dl Lipase (73-393) U/L Urine Color Yellow Urine Appearance Clear (Clear) Urine pH 6.0 (4.5-7.5) Ur Specific [place] > 1.045 H (1.000-1.030) Urine Protein Trace H (Negative) Urine Glucose (UA) Negative (Negative) Urine Ketones Negative (Negative) Urine Blood Negative (Negative) Urine Nitrite Negative (Negative) Urine Bilirubin Negative (Negative) Urine Urobilinogen Negative (Negative) Ur Leukocyte Esterase Negative (Negative) SARS-CoV-2 (PCR) NEGATIVE (Negative) Influenza Type A (PCR) Negative (Neg) Influenza Type B (PCR) Negative (Neg) RSV (RT-PCR) Negative (Neg) Imaging Data Radiologist's Impression: Abdomen/Pelvis CT 02/14/21 16:14 CT abd pelvis IV con only CLINICAL HISTORY: found down hypotensive hypoxic COMPARISON STUDY: 07/28/2020 CT DOSE: TECHNIQUE: Standard CT of the Abdomen and Pelvis was performed with IV contrast. A dose lowering technique was utilized adhering to the principles of ALARA. Contrast Volume: Optiray 320, 120 ml. The patient did not receive oral contrast. FINDINGS: Lung base: The lung bases are clear. Abdominal cavity: There is no evidence for abdominal mass, adenopathy or ascites. Liver: There is homogeneous attenuation of the liver parenchyma. There is no evidence for enhancing mass lesion. Spleen: There is homogeneous attenuation of the splenic parenchyma. There is no enhancing mass lesion. Pancreas: There is homogeneous attenuation of the pancreatic parenchyma. There is no evidence for mass lesion or peripancreatic fluid collection. Gall Bladder: Surgical clips are again seen from previous cholecystectomy. Adrenal glands: The adrenal glands are normal in size and attenuation. There is no evidence for enhancing mass lesion. Kidneys: There is homogeneous attenuation of the renal parenchyma bilaterally. There is no evidence for renal calculus or hydronephrosis. There is no evidence for enhancing mass. Bowel: There is again a moderate size hiatal hernia. The bowel loops are normally placed within the abdomen and pelvis without evidence for dilatation or obstruction. There is no evidence for mass lesion. There is mild diverticulosis without evidence for diverticulitis. There are no inflammatory changes present. There is no evidence for free air. Bladder: The bladder is within normal limits with no evidence for focal mass, calculus or diverticulum. : There is no evidence for pelvic mass or adenopathy. There is no evidence for pelvic ascites. Vasculature: There is no evidence for aneurysmal dilatation of the abdominal aorta. Osseous structures: There is no acute osseous pathology. Degenerative changes are seen within the spine. IMPRESSION: 1. No acute intra-abdominal or pelvic abnormality. No significant interval change. 2. Moderate-sized hiatal hernia. 3. Mild diverticulosis without evidence for diverticulitis. 4. Additional nonacute findings are delineated above. ACT 112: Negative or not required by law. Electronically signed by: Kartik Tidwell M.D. 02/14/2021 5:[address] 02/14/21 16:14 CT cervical spine wo con CLINICAL HISTORY: found down hypotensive hypoxic COMPARISON STUDY: No previous studies for comparison. CT DOSE: 3532.91 mGy.cm TECHNIQUE: Standard CT of the Cervical Spine was performed without IV contrast. A dose lowering technique was utilized adhering to the principles of ALARA. FINDINGS: The study is limited by patient motion artifact. Bones: The bones are osteopenic. There is straightening of expected cervical lordosis which is most likely related to positioning and degenerative change. There is no evidence for an acute fracture or malalignment. The heights of the vertebral bodies are maintained. The vertebral bodies are in anatomic alignment. The odontoid is intact and the atlantoaxial articulation is within normal limits. Disc spaces:Moderate to marked disc space narrowing is present from C4 through C7 with endplates gross and osteophyte formation. Apophyseal joints:Degenerative apophyseal joint disease is also present bilatera lly. Soft tissues:The prevertebral soft tissues are within normal limits. IMPRESSION: The study is limited by patient motion artifact. There is no e vidence for acute abnormality identified. Osteopenia with degenerative disc and degenerative joint disease. ACT 112: Negative or not required by law. Electronically signed by: Kartik Tidwell M.D. 02/14/2021 5:29 PM Chest CTA 02/14/21 16:14 CT angio chest PE protocol CLINICAL HISTORY: found down hypotensive hypoxic COMPARISON STUDY: Portable chest from 02/14/2021 and previous CTA chest from 07/26/2020 CT DOSE: TECHNIQUE: CT Angio of the chest was performed.followed by image post processing with coronal, and sagittal MIP reformats. Contrast Volume: Optiray 320, 120 ml FINDINGS: Vasculature: There is homogeneous perfusion of the pulmonary vasculature bilaterally. No intraluminal filling defects or evidence for pulmonary embolus is seen. The thoracic aorta is normal in course and caliber. There is no evidence for aneurysm, dissection or leakage. Airway: The airway is clear. No endobronchial lesion is identified. Lungs: Minimal dependent atelectasis edema are seen at the lung bases posteriorly. The lungs are otherwise clear of acute alveolar opacities, air bronchograms or pulmonary nodules. Pleura: There is no evidence for pleural effusion. There is no evidence for pneumothorax. Mediastinum: The suspected mediastinal widening seen on the portable chest radiograph relates to extensive fat within the mediastinum. This has increased since the previous CT. There is no mediastinal hematoma. There is no evidence for pathologic adenopathy. The heart size is within normal limits. The thoracic aorta is within normal limits. There is no evidence for pericardial effusion. Upper abdomen:The adrenal glands are normal bilaterally. Moderate size hiatal hernia is again seen. Osseous structures: There is no acute osseous pathology. Impression: 1. No CTA evidence for pulmonary embolus. 2. Normal thoracic aorta. 3. No evidence for mediastinal hematoma is suspected radiographically. Findings relate to extensive mediastinal fat. 4. No acute chest disease. ACT 112: Negative or not required by law. Electronically signed by: Kartik Tidwell M.D. 02/14/2021 5:[address] 02/14/21 16:14 CT head/brain wo con CLINICAL HISTORY: found down hypotensive hypoxic COMPARISON STUDY: No previous studies for comparison. CT DOSE: TECHNIQUE: Standard CT of the Brain was performed without IV contrast. A dose lowering technique was utilized adhering to the principles of ALARA. FINDINGS: Extraaxial space: There is no evidence for subdural hematoma. There are no extra-axial fluid collections. Ventricles and cisterns: The ventricles are normal in size and configuration. There is no evidence for midline shift or mass effect. Parenchyma: There is no subarachnoid or intraparenchymal hemorrhage. There is no evidence for an acute infarct or cerebral edema. There is homogeneous attenuation of the brain parenchyma. There are no gross mass lesions. Osseous structures: There is no evidence for an acute fracture. The visualized paranasal sinuses are clear. The mastoid air cells are clear bilaterally. Soft tissues: There is no evidence for focal soft tissue swelling. IMPRESSION: No acute intracerebral pathology. ACT 112: Negative or not required by law. Electronically signed by: Kartik Tidwell M.D. 02/14/2021 5:26 PM Chest X-Ray 02/14/21 16:15 XR chest 1V portable CLINICAL HISTORY: found down hypotensive hypoxic. COMPARISON STUDY: 07/28/2020 TECHNIQUE: 1 view of the chest FINDINGS: Single frontal view of the chest demonstrates significant interval widening of t he mediastinum on the right side. The findings are highly suspicious for a mediastinal hematoma. The lungs are otherwise clear of alveolar opacities. There is no evidence for pleural effusion. There is no evidence for vascular congestion. There is no acute osseous pathology. IMPRESSION: Interval development of rather marked widening of the mediastinum on the right when compared to the previous study. The presence of a mediastinal hematoma cannot be excluded. CT of the chest would be the study of choice for further evaluation. ACT 112: Negative or not required by law. Electronically signed by: Kartik Tidwell M.D. 02/14/2021 4:55 PM Pelvis X-Ray 02/14/21 16:15 XR pelvis 1-2V routine CLINICAL HISTORY: found down hypotensive hypoxic. COMPARISON STUDY: No previous studies for comparison. TECHNIQUE: [3 AP views were obtained to include the entire pelvis in this patient with a very large body habitus. FINDINGS: There is no evidence for an acute fracture. There is evidence for mild narrowing of the hip joint spaces bilaterally. The bones are otherwise within anatomic alignment. The SI joints are intact bilaterally. The remaining visualized bones of the pelvis are intact. There are noted to be significant degenerative changes of lower lumbar spine. No focal soft tissue abnormalities identified. IMPRESSION: No acute abnormality. Degenerative changes. ACT 112: Negative or not required by law. Electronically signed by: Kartik Tidwell M.D. 02/14/2021 4:57 PM [facility] Narrative 1604: The patient was evaluated in room C6. A complete history and physical exam was performed Cardiac monitoring: An order was placed for continuous cardiac monitoring. The monitor shows a rate of 90 with sinus rhythm Patient was found to be hypoxic and hypotensive on arrival. Patient was placed on supplemental oxygen which improved her oxygen saturation. Patient was moved to resuscitation bay room B1. IV fluids started on the patient. 1645: [id number] potassium 5.7. Creatinine within normal limits. Blood pressure is improving with IV fluids. Patient will be sent for CT imaging. 1819: Vital signs stable on supplemental oxygen. Patient's blood pressure is improved with IV fluids. Labs show leukocytosis of 14.5. Hemoglobin 10.5. VBG shows mild respiratory acidosis. Potassium 3.2. Lactic acid 3.1. Urinalysis pending. CTA negative for any PE or dissection. Wide mediastinum was thought to be due to fat. CT head C-spine and abdomen pelvis negative. Given the patient's hypoxia and hypotension initially, [facility] Spoke with Kallie who stated to admit to Dr. Dasilva. Impression & Plan Hypoxia, Syncope, Lactic acidemia Discharge Plan Visit Data Chief Complaint: Syncope Stated Complaint: Syncope ED Provider: Pipo Feliciano Discharge Problem: Hypoxia, Syncope, Lactic acidemia Patient Disposition: Admitted As Inpatient Forms Stand Alone Forms: [facility] Prescriptions Prescriptions: No Action multivitamin Tablet 1 tab PO QAM RF: 0 furosemide [Lasix] 40 mg Tablet 60 mg PO QAM RF: 0 ascorbic acid (vitamin C) [Vitamin C] 1,000 mg Tablet 1,000 mg PO QAM RF: 0 riboflavin (vitamin B2) [Vitamin B-2] 100 mg Tablet 100 mg PO QAM RF: 0 citalopram 20 mg Tablet 30 mg PO QAM RF: 0 lisinopril 10 mg Tablet 10 mg PO QAM RF: 0 omeprazole 20 mg Capsule,Delayed Release(Dr/Ec) 20 mg PO QAM RF: 0 cinnamon bark [Cinnamon] 500 mg Capsule 500 mg PO QAM RF: 0 cholecalciferol (vitamin D3) [Vitamin D3] 1,000 unit Tablet 1,000 unit PO QAM RF: 0 ferrous sulfate 27 mg iron Tablet 27 mg PO QAM RF: 0 potassium chloride 20 mEq Tablet Extended Release 20 meq PO QAM RF: 0 lovastatin 20 mg Tablet 20 mg PO HS RF: 0 hydrocodone-acetaminophen 5-325 mg tablet 1 tab PO Q6H PRN (Reason: Pain) RF: 0 Referrals Referrals: Jessica Orosco DO [Primary Care Provider] -
[2021-02-14 18:09] LABS: Influenza A virus by PCR Negative (Neg); Influenza B virus by PCR Negative (Neg); RSV by PCR Negative (Neg); SARS CoV2 RNA(COVID-19) InHosp NEGATIVE (Negative)
[2021-02-14 18:36] LABS: Appearance Urine Clear (Clear); Bacteria Urine Automated Negative (Negative); Bilirubin Urine Negative (Negative); Blood Urine Negative (Negative); Color Urine Yellow; Glucose Urine UA Negative (Negative); Ketones Urine Negative (Negative); Leukocyte Esterase Urine Negative (Negative); Nitrite Urine Negative (Negative); Protein Urine Trace (Negative); RBC Urine Automated 0-4 /hpf (0-4); Specific Gravity Urine > 1.045 (1.000-1.030); Urobilinogen Urine Negative (Negative)
--- NOTE | 2021-02-14 18:53 | History & Physical Report ---
Date of Service February 14, 2021 Assessment & Plan (1) Syncope: Plan: Patient is 80 y/o F with PMH DM II, HTN, dyslipidemia, WILLIAM on CPAP with 2 L O2 at bedtime, GERD, iron deficiency anemia, pulmonary HTN, obesity, h/o DVT/PE, depression presented to ER with c/o syncope episode today while urinating on toilet. In ER patient afebrile, P: 104, R: 14, BP: 89/70 up to 115/70 after L NSS. 79% on room air up to 95% on 2 L via nasal cannula. WBC: 14. Lactate: 3.1. Negative troponin. UA not consistent with UTI. Negative COVID-19 PCR. Initial chest x-ray concerning for mediastinal widening/hematoma. CTA chest: No PE, no evidence for mediastinal hematoma, findings related to extensive mediastinal fat. No acute chest disease DDX: orthostatic hypotension, vasovagal syncope, hypoxia, arrhythmia CT Head: no acute findings Monitor on tele Obtain echo Carotid Doppler Orthostatic vitals Trend troponin Gentle IVF CBC, BMP in am (2) Hypoxia: Plan: 79% on room air up to 95% on 2 L via nasal cannula Possible obesity hypoventilation CTA: No PE or infiltrate Supplemental oxygen Continue CPAP with 2 L oxygen at bedtime (3) Elevated lactic acid level: Plan: Lactate: 3.1 Repeat lactate pending No evidence of pneumonia on CT chest. UA unremarkable. Repeat lactate pending Hypotension Initial BP in ER 89/70 up to 115/76 after 1 L NSS Gentle IVF Hyperkalemia POC K: 5.7. Pt was given calcium gluconate 1GM in ER. Actual lab K: 3.2 Hold potassium supplement and monitor BMP DM II A1c: 9.2 on 11/27/20 Not on medications Random glucose: 241 Basal bolus insulin per protocol HTN Hold lisinopril, furosemide currently as was hypotensive in ER Diastolic dysfunction Echo 07/23/20, EF: 70%, grade 1 diastolic dysfunction Hold furosemide and monitor H/O PE/DVT completed anticoagulation WILLIAM CPAP with 2L O2 HS Chronic anemia Hgb: 10.5. At baseline Continue iron Depression Continue citalopram DVT Prophylaxis Heparin SQ Full Code as per discussion with pt Follows with Dr Orosco for routine care Pt was seen and care coordinated with Dr Dasilva. See addendum History of Present Illness Chief Complaint: syncope Primary Care Provider: Jessica Orosco DO Patient is 80 y/o F with PMH DM II, HTN, dyslipidemia, WILLIAM on CPAP with 2 L O2 at bedtime, GERD, iron deficiency anemia, pulmonary HTN, obesity, h/o DVT/PE, depression presented to ER with c/o syncope. Patient states today she was at her grandsons for holiday meal. She reports that she felt like she had to urinate so she went to the bathroom and was sitting on toilet and next thing she knows she was on floor and EMS was there. Patient denies any noted dizziness, chest pain, shortness of breath. She states she was feeling "fine" all day and recently. Denies fever/chills, diaphoresis, N/V/D/C, ZHENG, dizziness, vision changes, neck pain, CP, SOB, orthopnea, palpitations, cough, sore throat, choking, otalgia, rhinorrhea, abdominal pain, paresthesias, weakness, extremity weakness, extremity edema, rashes, urinary symptoms. In ER patient afebrile, P: 104, R: 14, BP: 89/70 up to 115/76 after 1L NSS. 79% on room air up to 95% on 2 L via nasal cannula. WBC: 14. Lactate: 3.1. Negative troponin. UA not consistent with UTI. Negative COVID-19 PCR. Initial chest x-ray concerning for mediastinal widening/hematoma. CTA chest: No PE, no evidence for mediastinal hematoma, findings related to extensive mediastinal fat. No acute chest disease Allergies Allergy/AdvReac Type Severity Reaction Status Date / Time No Known Allergies Allergy Verified 02/14/21 16:00 Home Medications Medication Instructions Recorded Confirmed Type ascorbic acid (vitamin C) 1,000 mg 1,000 mg PO QAM 12/09/17 02/14/21 History tablet (Vitamin C) cholecalciferol (vitamin D3) 25 1,000 unit PO QAM 12/09/17 02/14/21 History mcg (1,000 unit) tablet (Vitamin D3) cinnamon bark 500 mg capsule 500 mg PO QAM 12/09/17 02/14/21 History (Cinnamon) citalopram 20 mg tablet 30 mg PO QAM 12/09/17 02/14/21 History ferrous sulfate 27 mg iron tablet 27 mg PO QAM 12/09/17 02/14/21 History furosemide 40 mg tablet (Lasix) 60 mg PO QAM 12/09/17 02/14/21 History lisinopril 10 mg tablet 10 mg PO QAM 12/09/17 02/14/21 History multivitamin 1 tab PO QAM 12/09/17 02/14/21 History omeprazole 20 mg capsule,delayed 20 mg PO QAM 12/09/17 02/14/21 History release potassium chloride 20 mEq 20 meq PO QAM 12/09/17 02/14/21 History tablet,extended release riboflavin (vitamin B2) 100 mg 100 mg PO QAM 12/09/17 02/14/21 History tablet (Vitamin B-2) lovastatin 20 mg tablet 20 mg PO HS 07/28/20 02/14/21 History hydrocodone 5 mg-acetaminophen 325 1 tab PO Q6H PRN 02/14/21 02/14/21 History mg tablet Past Med/Surg History Medical History Anemia TAKING IRON Anxiety Depression Diverticular disease GERD (gastroesophageal reflux disease) Hearing deficit C[place]WE[place] - NO HEARING AIDES Hyperlipidemia Hypertension Morbid obesity Osteoarthritis Pulmonary embolism BILATERAL S/P ANKLE SURGERY. SEPTEMBER 2016. TREATED WITH COUMADIN. STOPPED THEN RESTARTED 09/2018 FOR PREVENTION OF BLOOD CLOTS Sleep apnea BIPAP WITH 2LPM OXYGEN Surgical History Aftercare following left ankle joint replacement surgery 06/17/18 - I&D - Glidescope #4, ETT #7.5, HiLo Oral 03/18/18 - I&D - Glidescope #4, ETT #7.0, HiLo Oral, Grade 3 View Difficult airway for intubation With most recent ankle surgeries, patient was noted to be a difficult intuba tion, requiring Glidescope. Previous anesthesia records do not note difficulties. H/O ankle fusion RIGHT H/O ankle fusion left -- had subsequent infection and debridement with ABX beads implanted 01/21/18 - MAC #3, ETT #7.5, HiLo Oral, Grade 3 View History of cholecystectomy LAP History of colonoscopy History of esophagogastroduodenoscopy (EGD) Family History Other No pertinent family history Social History Smoking Status: Never smoker Second Hand Exposure: No; Hx Alcohol Use: Yes Alcohol type: beer and wine Hx Substance Use: No Preferred Language: Wallisian Communication Ability: Effective Visual Impairment: No Limitations [employer] Manager Required: No Beliefs That Will Affect Care: None marital status: / Current Living Situation: Family Feels Safe at Home: Yes Safety Concerns: Feels Safe At This Time Assistive Devices: CPAP, Oxygen - Continuous and Walker Review of Systems Review of Systems: All systems reviewed & are unremarkable except as noted in HPI & below Physical Exam Physical Exam: General: no acute distress, obese Head: normocephalic, atraumatic Eyes: PERRL, EOM's intact, conjunctiva non-injected, anicteric ENT: normal inspection external ears, nose, mucous membranes moist Neck: supple, trachea midline Lungs: diminished lung sounds, currently on 2L oxygen via NC, no respiratory d istress CV: RRR, trace pretibial edema Abd: +obese, normal BS, soft, non-tender Ext: no cyanosis, no calf tenderness Neuro: Alert, oriented to person, place, month, day. Says year is 2019. no focal deficits noted, normal affect Skin: warm, dry Results & Data Results & Data ([facility]) Vital Signs (Past 12 Hours) Vital Signs Temp Pulse Resp BP Pulse Ox 02/14/21 18:15 104 H 19 113/76 95 02/14/21 18:00 93 H 18 121/82 96 02/14/21 17:45 97 H 20 115/76 95 02/14/21 17:30 100 H 20 116/76 100 02/14/21 17:15 99 H 20 106/62 96 02/14/21 16:45 105 H 20 02/14/21 16:43 97 02/14/21 16:30 105 H 19 02/14/21 16:18 102 H 13 96 02/14/21 16:00 101 H 15 76/64 L 97 02/14/21 15:50 103 H 16 80/52 L 97 02/14/21 15:49 98 02/14/21 15:40 104 H 14 89/70 L 96 02/14/21 15:39 105 H 16 86/64 L 97 02/14/21 15:30 36.8 C 104 H 14 89/70 L 79 L Laboratory Results Short CBC 02/14/21 02/14/21 02/14/21 Range/Units 17:13 17:13 17:13 WBC 14.53 H (4.8-10.8) K/uL Hgb 10.5 L (12.0-16.0) g/dL Hct 35.9 L (37-47) % Plt Count 363 (130-400) K/uL Creatinine 1.09 (0.6-1.2) mg/dl Est GFR (Non-Af Amer) 48.2 ml/min Lactate 3.1 H* (0.4-2.0) mmol/L BMP 02/14/21 17:13 Sodium 136 Potassium 3.2 L Chloride 99 Carbon Dioxide 31 BUN 18 Creatinine 1.09 Glucose 241 H Calcium 8.5 Cardiac Enzymes 02/14/21 02/14/21 Range/Units 17:13 17:13 Total Creatine Kinase 35 (26-192) U/L Troponin I < 0.015 (0-0.045) ng/ml Liver Function 02/14/21 Range/Units 17:13 Total Bilirubin 0.6 (0.2-1) mg/dl Direct Bilirubin 0.2 (0-0.2) mg/dl AST 8 L (15-37) U/L ALT 13 (12-78) Alkaline Phosphatase 62 D (45-117) U/L Albumin 2.8 L (3.4-5.0) gm/dl Urine 02/14/21 Range/Units 18:11 Urine Color Yellow Urine Appearance Clear (Clear) Urine pH 6.0 (4.5-7.5) Ur Specific [place] > 1.045 H (1.000-1.030) Urine Protein Trace H (Negative) Urine Glucose (UA) Negative (Negative) Diagnostic Findings Abdomen/Pelvis CT 02/14/21 16:14 CT abd pelvis IV con only CLINICAL HISTORY: found down hypotensive hypoxic COMPARISON STUDY: 07/28/2020 CT DOSE: TECHNIQUE: Standard CT of the Abdomen and Pelvis was performed with IV contrast. A dose lowering technique was utilized adhering to the principles of ALARA. Contrast Volume: Optiray 320, 120 ml. The patient did not receive oral contrast. FINDINGS: Lung base: The lung bases are clear. Abdominal cavity: There is no evidence for abdominal mass, adenopathy or ascites. Liver: There is homogeneous attenuation of the liver parenchyma. There is no evidence for enhancing mass lesion. Spleen: There is homogeneous attenuation of the splenic parenchyma. There is no enhancing mass lesion. Pancreas: There is homogeneous attenuation of the pancreatic parenchyma. There is no evidence for mass lesion or peripancreatic fluid collection. Gall Bladder: Surgical clips are again seen from previous cholecystectomy. Adrenal glands: The adrenal glands are normal in size and attenuation. There is no evidence for enhancing mass lesion. Kidneys: There is homogeneous attenuation of the renal parenchyma bilaterally. There is no evidence for renal calculus or hydronephrosis. There is no evidence for enhancing mass. Bowel: There is again a moderate size hiatal hernia. The bowel loops are normally placed within the abdomen and pelvis without evidence for dilatation or obstruction. There is no evidence for mass lesion. There is mild diverticulosis without evidence for diverticulitis. There are no inflammatory changes present. There is no evidence for free air. Bladder: The bladder is within normal limits with no evidence for focal mass, calculus or diverticulum. : There is no evidence for pelvic mass or adenopathy. There is no evidence for pelvic ascites. Vasculature: There is no evidence for aneurysmal dilatation of the abdominal aorta. Osseous structures: There is no acute osseous pathology. Degenerative changes are seen within the spine. IMPRESSION: 1. No acute intra-abdominal or pelvic abnormality. No significant interval change. 2. Moderate-sized hiatal hernia. 3. Mild diverticulosis without evidence for diverticulitis. 4. Additional nonacute findings are delineated above. ACT 112: Negative or not required by law. Electronically signed by: Kartik Tidwell M.D. 02/14/2021 5:[address] 02/14/21 16:14 CT cervical spine wo con CLINICAL HISTORY: found down hypotensive hypoxic COMPARISON STUDY: No previous studies for comparison. CT DOSE: 3532.91 mGy.cm TECHNIQUE: Standard CT of the Cervical Spine was performed without IV contrast. A dose lowering technique was utilized adhering to the principles of ALARA. FINDINGS: The study is limited by patient motion artifact. Bones: The bones are osteopenic. There is straightening of expected cervical lordosis which is most likely related to positioning and degenerative change. There is no evidence for an acute fracture or malalignment. The heights of the vertebral bodies are maintained. The vertebral bodies are in anatomic alignment. The odontoid is intact and the atlantoaxial articulation is within normal limits. Disc spaces:Moderate to marked disc space narrowing is present from C4 through C7 with endplates gross and osteophyte formation. Apophyseal joints:Degenerative apophyseal joint disease is also present bilaterally. Soft tissues:The prevertebral soft tissues are within normal limits. IMPRESSION: The study is limited by patient motion artifact. There is no evidence for acute abnormality identified. Osteopenia with degenerative disc and degenerative joint disease. ACT 112: Negative or not required by law. Electronically signed by: Kartik Tidwell M.D. 02/14/2021 5:29 PM Chest CTA 02/14/21 16:14 CT angio chest PE protocol CLINICAL HISTORY: found down hypotensive hypoxic COMPARISON STUDY: Portable chest from 02/14/2021 and previous CTA chest from 07/26/2020 CT DOSE: TECHNIQUE: CT Angio of the chest was performed.followed by image post processing with coronal, and sagittal MIP reformats. Contrast Volume: Optiray 320, 120 ml FINDINGS: Vasculature: There is homogeneous perfusion of the pulmonary vasculature bilaterally. No intraluminal filling defects or evidence for pulmonary embolus is seen. The thoracic aorta is normal in course and caliber. There is no evidence for aneurysm, dissection or leakage. Airway: The airway is clear. No endobronchial lesion is identified. Lungs: Minimal dependent atelectasis edema are seen at the lung bases posteriorly. The lungs are otherwise clear of acute alveolar opacities, air bronchograms or pulmonary nodules. Pleura: There is no evidence for pleural effusion. There is no evidence for pneumothorax. Mediastinum: The suspected mediastinal widening seen on the portable chest radiograph relates to extensive fat within the mediastinum. This has increased since the previous CT. There is no mediastinal hematoma. There is no evidence for pathologic adenopathy. The heart size is within normal limits. The thoracic aorta is within normal limits. There is no evidence for pericardial effusion. Upper abdomen:The adrenal glands are normal bilaterally. Moderate size hiatal hernia is again seen. Osseous structures: There is no acute osseous pathology. Impression: 1. No CTA evidence for pulmonary embolus. 2. Normal thoracic aorta. 3. No evidence for mediastinal hematoma is suspected radiographically. Findings relate to extensive mediastinal fat. 4. No acute chest disease. ACT 112: Negative or not required by law. Electronically signed by: Kartik Tidwell M.D. 02/14/2021 5:[address] 02/14/21 16:14 CT head/brain wo con CLINICAL HISTORY: found down hypotensive hypoxic COMPARISON STUDY: No previous studies for comparison. CT DOSE: TECHNIQUE: Standard CT of the Brain was performed without IV contrast. A dose lowering technique was utilized adhering to the principles of ALARA. FINDINGS: Extraaxial space: There is no evidence for subdural hematoma. There are no extra-axial fluid collections. Ventricles and cisterns: The ventricles are normal in size and configuration. There is no evidence for midline shift or mass effect. Parenchyma: There is no subarachnoid or intraparenchymal hemorrhage. There is no evidence for an acute infarct or cerebral edema. There is homogeneous attenuation of the brain parenchyma. There are no gross mass lesions. Osseous structures: There is no evidence for an acute fracture. The visualized paranasal sinuses are clear. The mastoid air cells are clear bilaterally. Soft tissues: There is no evidence for focal soft tissue swelling. IMPRESSION: No acute intracerebral pathology. ACT 112: Negative or not required by law. Electronically signed by: Kartik Tidwell M.D. 02/14/2021 5:26 PM Chest X-Ray 02/14/21 16:15 XR chest 1V portable CLINICAL HISTORY: found down hypotensive hypoxic. COMPARISON STUDY: 07/28/2020 TECHNIQUE: 1 view of the chest FINDINGS: Single frontal view of the chest demonstrates significant interval widening of the mediastinum on the right side. The findings are highly suspicious for a mediastinal hematoma. The lungs are otherwise clear of alveolar opacities. There is no evidence for pleural effusion. There is no evidence for vascular congestion. There is no acute osseous pathology. IMPRESSION: Interval development of rather marked widening of the mediastinum on the right when compared to the previous study. The presence of a mediastinal hematoma cannot be excluded. CT of the chest would be the study of choice for further evaluation. ACT 112: Negative or not required by law. Electronically signed by: Kartik Tidwell M.D. 02/14/2021 4:55 PM Pelvis X-Ray 02/14/21 16:15 XR pelvis 1-2V routine CLINICAL HISTORY: found down hypotensive hypoxic. COMPARISON STUDY: No previous studies for comparison. TECHNIQUE: [3 AP views were obtained to include the entire pelvis in this patient with a very large body habitus. FINDINGS: There is no evidence for an acute fracture. There is evidence for mild narrowing of the hip joint spaces bilaterally. The bones are otherwise within anatomic alignment. The SI joints are intact bilaterally. The remaining visualized bones of the pelvis are intact. There are noted to be significant degenerative changes of lower lumbar spine. No focal soft tissue abnormalities identified. IMPRESSION: No acute abnormality. Degenerative changes. ACT 112: Negative or not required by law. Electronically signed by: Kartik Tidwell M.D. 02/14/2021 4:57 PM ECG Rate (beats per minute): 113 Rhythm: sinus tachycardia Additional Comments: Q waves anterior, lateral leads (seen previous EKG) Code Status & VTE Plan VTE Prophylaxis Plan VTE Prophylaxis will be ordered: Yes Supervising Physician Co-Signing Physician Notes Patient is examined by me, care coordinated with Doc Soto PA-C, please refer to her note above for further detail. 80 y/o morbidly obese F with DM II, HTN, dyslipidemia, WILLIAM on CPAP with 2 L O2 at bedtime, GERD, iron deficiency anemia, pulmonary HTN, h/o DVT/PE, depression presented to ER with c/o syncope after using bathroom. In ER patient afebrile, P: 104, R: 14, BP: 89/70 up to 115/76 after 1L NSS. 79% on room air up to 95% on 2 L via nasal cannula. WBC: 14. Lactate: 3.1. Negative troponin. UA not consistent with UTI. Negative COVID-19 PCR. Initial chest x-ray concerning for mediastinal widening/hematoma. CTA chest: No PE, no evidence for mediastinal hematoma, findings related to extensive mediastinal fat. No acute chest disease Currently patient is lying in bed, on her left side, in no acute distress. She is awake alert oriented answering questions appropriately. She does not remember what happened after she used the toilet. However she denies any chest pain shortness of breath dizziness. Lungs are overall clear to auscultation, somewhat diminished, no wheezing rhonchi crackles noted. Heart sounds regular. Abdomen soft, obese, nontender to palpation, positive bowel sounds. There is no significant lower extremity edema noted either. She moves extremities spontaneously. Skin is warm dry, without any rashes noted. Blood pressure improved after receiving IV fluids in the ED, currently on 2 L of oxygen via nasal cannula. She has history of history of CHF however does not weigh herself daily, says that she weighs herself about once a week and her weight has been stable. No fevers chills or sick contacts. We will continue to closely monitor on telemetry. Will obtain orthostatic vital signs. Echo and carotid Dopplers. Armando Dasilva MD
[2021-02-14 19:21] LABS: Cast Urine Automated 0 /lpf (0-5)
[2021-02-14 20:37] LABS: Base Excess ABG 0.2 mEq/L (-9-1.8); HCO3 ABG 26 mmol/L (19-24); Oxygen Saturation ABG 98.9 % (90-95); PCO2 ABG 49 mmHg (35-46); PO2 ABG 142 mmHg (80-95); pH ABG 7.35 (7.35-7.45)
[2021-02-14 20:38] LABS: Allen Test Pos (Pos)
[2021-02-14] MEDS ORDERED: CARBOHYDRATES FOR HYPOGLYCEMIA PO PRN (21:25)
[2021-02-14] MEDS ORDERED: GLUCOSE 10 TABS/TUBE PO PRN (21:25)
[2021-02-14] MEDS ORDERED: DEXTROSE 50% 50 ML SYRINGE IV PRN (21:25)
[2021-02-14] MEDS ORDERED: GLUCOSE 40% GEL 15 GM TUBE PO PRN (21:25)
[2021-02-14] MEDS ORDERED: SODIUM CHLORIDE 0.9% 500 ML IV SCH (21:25)
[2021-02-14] MEDS ORDERED: GLUCAGON FOR INJ 1 MG VIAL SQ PRN (21:25)
[2021-02-14] MEDS: LOVASTATIN 20 MG TAB PO SCH (23:11)
[2021-02-14] MEDS: INSULIN GLARGINE SOLOSTAR 100 UNITS/ML 3 ML PEN SC SCH (23:12)
[2021-02-14] MEDS: HEPARIN SOD 5,000 UNIT/0.5 ML VIAL SQ SCH (23:16)
[2021-02-14] MEDS: INSULIN ASPART PER UNIT SC SCH (23:16)
[2021-02-15 06:06] LABS: Basophils # (auto) 0.04 K/uL (0-0.2); Basophils % (auto) 0.4 %; Eosinophils # (auto) 0.07 K/uL (0-0.5); Eosinophils % (auto) 0.8 %; Hematocrit (blood only) 35.5 % (37-47); Hemoglobin 10.5 g/dL (12.0-16.0); Immature Granulocytes # (auto) 0.02 K/uL (0.00-0.02); Immature Granulocytes % (auto) 0.2 %; Lymphocytes # (auto) 2.51 K/uL (1.2-3.4); Lymphocytes % (auto) 27.3 %; Mean Corpuscular Hemoglobin 24.2 pg (25-34); Mean Corpuscular Hgb Conc 29.6 g/dL (32-36); Mean Platelet Volume 8.9 fL (7.4-10.4); Monocytes % (auto) 8.7 %; Neutrophils # (auto) 5.77 K/uL (1.4-6.5); Neutrophils % (auto) 62.6 %; Platelet Count 330 K/uL (130-400); RDW Coefficient of Variation 16.1 % (11.5-14.5); RDW Standard Deviation 48.3 fL (36.4-46.3); Red Blood Count 4.33 M/uL (4.2-5.4); White Blood Count 9.21 K/uL (4.8-10.8)
[2021-02-15] MEDS: HEPARIN SOD 5,000 UNIT/0.5 ML VIAL SQ SCH ×3 (06:17→20:49)
[2021-02-15] MEDS: ACETAMINOPHEN 325 MG TAB PO PRN ×2 (06:21→17:37)
[2021-02-15 06:53] LABS: BUN Creatinine Ratio 19.1 (10-20); Blood Urea Nitrogen 14 mg/dl (7-18); Carbon Dioxide 31 mmol/L (21-32); Chloride 103 mmol/L (98-107); Creatinine Clr Calc Pharmacy 72.4 ml/min; Est GFR (African American) 87.9 ml/min; Est GFR (Non-African American) 75.8 ml/min; Glucose 145 mg/dl (70-99); Potassium 3.2 mmol/L (3.5-5.1); Sodium 139 mmol/L (136-145); Troponin I < 0.015 ng/ml (0-0.045)
[2021-02-15] MEDS: PANTOprazole 40 MG TAB PO SCH (08:00)
[2021-02-15] MEDS: INSULIN ASPART PER UNIT SC SCH ×4 (08:07→20:54)
[2021-02-15] MEDS: CITALOPRAM 20 MG TAB PO SCH (08:07)
[2021-02-15] MEDS: INSULIN GLARGINE SOLOSTAR 100 UNITS/ML 3 ML PEN SC SCH ×2 (08:08→20:54)
[2021-02-15] MEDS: FERROUS SULFATE 325 MG TAB PO SCH (09:45)
--- NOTE | 2021-02-15 10:33 | Electrocardiogram Report ---
Test Reason : Blood Pressure : / mmHG Vent. Rate : 104 BPM Atrial Rate : 104 BPM P-R Int : 176 ms QRS Dur : 086 ms QT Int : 378 ms P-R-T Axes : 060 045 074 degrees QTc Int : 497 ms Sinus tachycardia Possible Inferior infarct (cited on or before 05-OCT-2016) Cannot rule out Anterior infarct (cited on or before 05-OCT-2016) Abnormal ECG When compared with ECG of 28-JUL-2020 18:05, No significant change was found Confirmed by Bacilio Squires ([id number]) on 02/15/2021 10:32:57 AM Referred By: REFERRED SELF Confirmed By:Bacilio Squires
--- NOTE | 2021-02-15 10:33 | Electrocardiogram Report ---
Test Reason : Blood Pressure : / mmHG Vent. Rate : 103 BPM Atrial Rate : 103 BPM P-R Int : 178 ms QRS Dur : 092 ms QT Int : 304 ms P-R-T Axes : 058 043 068 degrees QTc Int : 398 ms Sinus tachycardia Low voltage QRS Possible Inferior infarct (cited on or before 05-OCT-2016) Cannot rule out Anterior infarct (cited on or before 05-OCT-2016) Abnormal ECG When compared with ECG of 14-FEB-2021 15:44, (unconfirmed) QT has shortened Confirmed by Bacilio Squires ([id number]) on 02/15/2021 10:33:21 AM Referred By: REFERRED SELF Confirmed By:Bacilio Squires
--- NOTE | 2021-02-15 11:33 | Ultrasound Report ---
ULTRASOUND OF THE CAROTID ARTERIES CLINICAL HISTORY: syncope COMPARISON: None available at the time of this dictation. TECHNIQUE: Real-time, grayscale, and color Doppler sonography of the carotid arteries is performed. I mages are reviewed in the transverse and longitudinal planes. FINDINGS: Blood pressure in the right arm measures 113/70 and blood pressure in the left arm measures 127/84. The carotid arteries are patent bilaterally and demonstrate antegrade flow. There is no significant a therosclerotic plaque on the right and no atherosclerotic plaque on the left. Normal doppler arterial waveforms are seen throughout. Velocity measurements are listed below. Common carotid peak systolic velocity (cm/sec): RIGHT: 63 LEFT: 96 ICA peak systolic velocity (cm/sec): RIGHT: 91 LEFT: 82 ICA/CC peak systolic ratio: RIGHT: 1.4 LEFT: 0.9 Antegrade flow was shown in the vertebral arteries. The external carotid arteries are patent. IMPRESSION: 1. There is no sonographic evidence of hemodynamically significant stenosis in the right or left sheth tid arterial system. 2. Antegrade flow is shown in the vertebral arteries. Society of Radiologists in Ultrasound consensus guidelines: Normal: ICA PSV is <125 cm/sec and no plaque or intimal thickening is visible sonographically additional criteria include ICA/CCA PSV ratio <2.0 and ICA EDV <40 cm/sec <50% ICA stenosis: ICA PSV is <125 cm/sec and plaque or intimal thickening is visible sonographically additional criteria include ICA/CCA PSV ratio <2.0 and ICA EDV <40 cm/sec 50-69% ICA stenosis: ICA PSV is 125-230 cm/sec and plaque is visible sonographically additional criteria include ICA/CCA PSV ratio of 2.0-4.0 and ICA EDV of 40-100 cm/sec ?70% ICA stenosis but less than near occlusion: ICA PSV is >230 cm/sec and visible plaque and luminal narrowing are seen at gunderson-scale and color Dopp ler ultrasound (the higher the Doppler parameters lie above the threshold of 230 cm/sec, the greater the likelihood of severe disease) additional criteria include ICA/CCA PSV ratio >4 and ICA EDV >100 cm/sec ACT 112: Negative or not required by law. Electronically signed by: Samson Lynch M.D. 02/15/2021 11:31 AM
[2021-02-15] MEDS ORDERED: POTASSIUM CHLORIDE CRTAB 20 MEQ TABCR PO STA (13:16)
--- NOTE | 2021-02-15 13:20 | Hospitalist Progress Note ---
Date of Service February 15, 2021 Assessment & Plan (1) Syncope: Plan: Patient is 80 y/o F with PMH DM II, HTN, dyslipidemia, WILLIAM on CPAP with 2 L O2 at bedtime, GERD, iron deficiency anemia, pulmonary HTN, obesity, h/o DVT/PE, depression presented to ER with c/o syncope episode today while urinating on toilet. In ER patient afebrile, P: 104, R: 14, BP: 89/70 up to 115/70 after L NSS. 79% on room air up to 95% on 2 L via nasal cannula. WBC: 14. Lactate: 3.1. Negative troponin. UA not consistent with UTI. Negative COVID-19 PCR. Initial chest x-ray concerning for mediastinal widening/hematoma. CTA chest: No PE, no evidence for mediastinal hematoma, findings related to extensive mediastinal fat. No acute chest disease DDX: orthostatic hypotension, vasovagal syncope, hypoxia, arrhythmia CT Head: no acute findings Monitor on tele - sinus in 80-90s Obtained Echo - technically difficult study due to patient body habitus. Normal LV chamber size with moderate concentric LVH. Normal LV systolic function, EF 55 to 60%. Grade 1 diastolic dysfunction. Poorly visualized valvular structures without significant stenosis or regurg by Doppler. No segmental LV wall motion abnormalities noted. Carotid Doppler - pending Orthostatic vitals -presents in with orthostatics were obtained right admission, patient received IV fluids on admission, with improvement of blood pressure. Orthostatics however were obtained this morning and were normal. Troponin x3 - negative Gentle IVF Monitor CBC, BMP (2) Hypoxia: Plan: 79% on room air up to 95% on 2 L via nasal cannula Possible obesity hypoventilation CTA: No PE or infiltrate Supplemental oxygen Continue CPAP with 2 L oxygen at bedtime Patient continues to use 2 liters via nasal cannula, she may need 2 step study before discharge Patient will also need PT OT (3) Elevated lactic acid level: Plan: Lactate: 3.1 Repeat lactate 2.0 No evidence of pneumonia on CT chest. UA unremarkable. Hypotension Initial BP in ER 89/70 up to 115/76 after 1 L NSS Gentle IVF Hyperkalemia POC K: 5.7. Pt was given calcium gluconate 1GM in ER. Actual lab K: 3.2 Hold potassium supplement and monitor BMP K 3.2 this AM DM II A1c: 9.2 on 11/27/20 Not on medications Random glucose: 241 Basal bolus insulin per protocol HTN Hold lisinopril, furosemide currently as was hypotensive in ER Diastolic dysfunction Echo 07/23/20, EF: 70%, grade 1 diastolic dysfunction Hold furosemide and monitor H/O PE/DVT: completed anticoagulation WILLIAM: CPAP with 2L O2 HS Chronic anemia Hgb: 10.5. At baseline Continue iron Depression: Continue citalopram DVT Prophylaxis: Heparin SQ Full Code as per discussion with pt Follows with Dr Orosco for routine care Admission and Anticipated Discharge Date Admission Date: February 14, 2021 Subjective Patient seen in follow-up of syncope Currently laying in bed, in no acute distress, says she feels okay Denies any fevers chills chest pain shortness of breath dizziness lightheadedness Says she was up from bed to bedside commode without difficulty Echo obtained earlier today, carotid ultrasound pending Will obtain PT OT eval's as well Review of Systems Review of Systems: All systems reviewed & are unremarkable except as noted in Subjective Physical Exam Physical Exam: General: no acute distress, obese Head: normocephalic, atraumatic Eyes: PERRL, EOM's intact, conjunctiva non-injected, anicteric ENT: normal inspection external ears, nose, mucous membranes moist Neck: supple, trachea midline Lungs: diminished lung sounds, currently on 2L oxygen via NC, no respiratory distress CV: RRR, trace pretibial edema Abd: +obese, normal BS, soft, non-tender Ext: no cyanosis, no calf tenderness Neuro: Alert, oriented, answering questions appropriately, speech fluent, no facial asymmetry, moves extremities Skin: warm, dry Results & Data Results & Data ([facility]) Vital Signs (Past 12 Hours) Vital Signs Temp Pulse Pulse Resp BP Pulse Ox 02/15/21 11:48 37.4 C 93 H 18 95/55 L 95 02/15/21 07:42 36.8 C 84 20 109/67 97 02/15/21 07:13 86 02/15/21 03:29 37 C 77 16 103/61 97 02/15/21 02:15 86 Laboratory Results 02/15/21 02/15/21 02/15/21 Range/Units 11:22 07:42 05:45 WBC (4.8-10.8) K/uL RBC (4.2-5.4) M/uL Hgb (12.0-16.0) g/dL POC Hgb (12.0-16.0) g/dl Hct (37-47) % POC Hct (37-47) % MCV (80-100) fL MCH (25-34) pg MCHC (32-36) g/dL RDW Std Deviation (36.4-46.3) fL RDW Coeff of Esvin (11.5-14.5) % Plt Count (130-400) K/uL MPV (7.4-10.4) fL Immature Gran % (Auto) % Neut % (Auto) % Lymph % (Auto) % Lynn % (Auto) % Eos % (Auto) % Baso % (Auto) % Neut # (Auto) (1.4-6.5) K/uL Lymph # (Auto) (1.2-3.4) K/uL Lynn # (Auto) (0.11-0.59) K/uL Eos # (Auto) (0-0.5) K/uL Baso # (Auto) (0-0.2) K/uL Immature Gran # (Auto) (0.00-0.02) K/uL PT (9.0-12.0) Seconds INR (0.9-1.1) APTT (21.0-31.0) Seconds PTT Ratio ABG pH (7.35-7.45) ABG pCO2 (35-46) mmHg ABG pO2 (80-95) mmHg ABG HCO3 (19-24) mmol/L ABG O2 Saturation (90-95) % ABG Base Excess (-9-1.8) mEq/L Ralph Test (Pos) VBG pH (7.36-7.41) VBG pCO2 (38-50) mmHg VBG pO2 mmHg VBG HCO3 mmol/L VBG O2 Saturation % VBG Base Excess mEq/L Barometric Pressure mm/Hg Oxygen Given POC Sodium (135-144) mmol/L Sodium 139 (136-145) mmol/L POC Potassium (3.3-5.0) mmol/L Potassium 3.2 L (3.5-5.1) mmol/L POC Chloride (101-112) mmol/L Chloride 103 (98-107) mmol/L Carbon Dioxide 31 (21-32) mmol/L POC Total CO2 (24-31) mmol/L Anion Gap 5.0 (3-11) POC Anion Gap (16-25) mmol/L POC BUN (7-18) mg/dl BUN 14 (7-18) mg/dl Creatinine 0.75 D (0.6-1.2) mg/dl POC Creatinine (0.6-1.3) mg/dl Est Cr Clr Drug Dosing 72.4 ml/min Est GFR ( Amer) 87.9 ml/min Est GFR (Non-Af Amer) 75.8 ml/min BUN/Creatinine Ratio 19.1 (10-20) Glucose 145 H (70-99) mg/dl POC Glucose 168 H 142 H (70-99) mg/dl POC Glucose (other) (70-99) mg/dl Lactate (0.4-2.0) mmol/L Calcium 9.0 (8.5-10.1) mg/dl POC Ioniz Calcium Tawana (1.12-1.32) mmol/l Magnesium (1.8-2.4) mg/dl Total Bilirubin (0.2-1) mg/dl Direct Bilirubin (0-0.2) mg/dl AST (15-37) U/L ALT (12-78) Alkaline Phosphatase (45-117) U/L Total Creatine Kinase (26-192) U/L Troponin I < 0.015 (0-0.045) ng/ml Total Protein (6.4-8.2) gm/dl Albumin (3.4-5.0) gm/dl Lipase (73-393) U/L Urine Color Urine Appearance (Clear) Urine pH (4.5-7.5) Ur Specific Brownfield (1.000-1.030) Urine Protein (Negative) Urine Glucose (UA) (Negative) Urine Ketones (Negative) Urine Blood (Negative) Urine Nitrite (Negative) Urine Bilirubin (Negative) Urine Urobilinogen (Negative) Ur Leukocyte Esterase (Negative) Urine WBC (Auto) (0-5) /hpf Urine RBC (Auto) (0-4) /hpf U Hyaline Cast (Auto) (0-5) /lpf U Epithel Cells (Auto) (0-5) /lpf Urine Bacteria (Auto) (Negative) SARS-CoV-2 (PCR) (Negative) Influenza Type A (PCR) (Neg) Influenza Type B (PCR) (Neg) RSV (RT-PCR) (Neg) 02/15/21 02/14/21 02/14/21 Range/Units 05:45 22:27 21:56 WBC 9.21 (4.8-10.8) K/uL RBC 4.33 (4.2-5.4) M/uL Hgb 10.5 L (12.0-16.0) g/dL POC Hgb (12.0-16.0) g/dl Hct 35.5 L (37-47) % POC Hct (37-47) % MCV 82.0 (80-100) fL MCH 24.2 L (25-34) pg MCHC 29.6 L (32-36) g/dL RDW Std Deviation 48.3 H (36.4-46.3) fL RDW Coeff of Esvin 16.1 H (11.5-14.5) % Plt Count 330 (130-400) K/uL MPV 8.9 (7.4-10.4) fL Immature Gran % (Auto) 0.2 % Neut % (Auto) 62.6 % Lymph % (Auto) 27.3 % Lynn % (Auto) 8.7 % Eos % (Auto) 0.8 % Baso % (Auto) 0.4 % Neut # (Auto) 5.77 (1.4-6.5) K/uL Lymph # (Auto) 2.51 (1.2-3.4) K/uL Lynn # (Auto) 0.80 H (0.11-0.59) K/uL Eos # (Auto) 0.07 (0-0.5) K/uL Baso # (Auto) 0.04 (0-0.2) K/uL Immature Gran # (Auto) 0.02 (0.00-0.02) K/uL PT (9.0-12.0) Seconds INR (0.9-1.1) APTT (21.0-31.0) Seconds PTT Ratio ABG pH (7.35-7.45) ABG pCO2 (35-46) mmHg ABG pO2 (80-95) mmHg ABG HCO3 (19-24) mmol/L ABG O2 Saturation (90-95) % ABG Base Excess (-9-1.8) mEq/L Ralph Test (Pos) VBG pH (7.36-7.41) VBG pCO2 (38-50) mmHg VBG pO2 mmHg VBG HCO3 mmol/L VBG O2 Saturation % VBG Base Excess mEq/L Barometric Pressure mm/Hg Oxygen Given POC Sodium (135-144) mmol/L Sodium (136-145) mmol/L POC Potassium (3.3-5.0) mmol/L Potassium (3.5-5.1) mmol/L POC Chloride (101-112) mmol/L Chloride (98-107) mmol/L Carbon Dioxide (21-32) mmol/L POC Total CO2 (24-31) mmol/L Anion Gap (3-11) POC Anion Gap (16-25) mmol/L POC BUN (7-18) mg/dl BUN (7-18) mg/dl Creatinine (0.6-1.2) mg/dl POC Creatinine (0.6-1.3) mg/dl Est Cr Clr Drug Dosing ml/min Est GFR ( Amer) ml/min Est GFR (Non-Af Amer) ml/min BUN/Creatinine Ratio (10-20) Glucose (70-99) mg/dl POC Glucose 203 H (70-99) mg/dl POC Glucose (other) (70-99) mg/dl Lactate (0.4-2.0) mmol/L Calcium (8.5-10.1) mg/dl POC Ioniz Calcium Tawana (1.12-1.32) mmol/l Magnesium (1.8-2.4) mg/dl Total Bilirubin (0.2-1) mg/dl Direct Bilirubin (0-0.2) mg/dl AST (15-37) U/L ALT (12-78) Alkaline Phosphatase (45-117) U/L Total Creatine Kinase (26-192) U/L Troponin I < 0.015 (0-0.045) ng/ml Total Protein (6.4-8.2) gm/dl Albumin (3.4-5.0) gm/dl Lipase (73-393) U/L Urine Color Urine Appearance (Clear) Urine pH (4.5-7.5) Ur Specific Brownfield (1.000-1.030) Urine Protein (Negative) Urine Glucose (UA) (Negative) Urine Ketones (Negative) Urine Blood (Negative) Urine Nitrite (Negative) Urine Bilirubin (Negative) Urine Urobilinogen (Negative) Ur Leukocyte Esterase (Negative) Urine WBC (Auto) (0-5) /hpf Urine RBC (Auto) (0-4) /hpf U Hyaline Cast (Auto) (0-5) /lpf U Epithel Cells (Auto) (0-5) /lpf Urine Bacteria (Auto) (Negative) SARS-CoV-2 (PCR) (Negative) Influenza Type A (PCR) (Neg) Influenza Type B (PCR) (Neg) RSV (RT-PCR) (Neg) 02/14/21 02/14/21 02/14/21 Range/Units 20:25 20:25 18:11 WBC (4.8-10.8) K/uL RBC (4.2-5.4) M/uL Hgb (12.0-16.0) g/dL POC Hgb (12.0-16.0) g/dl Hct (37-47) % POC Hct (37-47) % MCV (80-100) fL MCH (25-34) pg MCHC (32-36) g/dL RDW Std Deviation (36.4-46.3) fL RDW Coeff of Esvin (11.5-14.5) % Plt Count (130-400) K/uL MPV (7.4-10.4) fL Immature Gran % (Auto) % Neut % (Auto) % Lymph % (Auto) % Lynn % (Auto) % Eos % (Auto) % Baso % (Auto) % Neut # (Auto) (1.4-6.5) K/uL Lymph # (Auto) (1.2-3.4) K/uL Lynn # (Auto) (0.11-0.59) K/uL Eos # (Auto) (0-0.5) K/uL Baso # (Auto) (0-0.2) K/uL Immature Gran # (Auto) (0.00-0.02) K/uL PT (9.0-12.0) Seconds INR (0.9-1.1) APTT (21.0-31.0) Seconds PTT Ratio ABG pH 7.35 (7.35-7.45) ABG pCO2 49 H (35-46) mmHg ABG pO2 142 H (80-95) mmHg ABG HCO3 26 H (19-24) mmol/L ABG O2 Saturation 98.9 H (90-95) % ABG Base Excess 0.2 (-9-1.8) mEq/L Ralph Test Pos (Pos) VBG pH (7.36-7.41) VBG pCO2 (38-50) mmHg VBG pO2 mmHg VBG HCO3 mmol/L VBG O2 Saturation % VBG Base Excess mEq/L Barometric Pressure 727.9 mm/Hg Oxygen Given ROOM AIR POC Sodium (135-144) mmol/L Sodium (136-145) mmol/L POC Potassium (3.3-5.0) mmol/L Potassium (3.5-5.1) mmol/L POC Chloride (101-112) mmol/L Chloride (98-107) mmol/L Carbon Dioxide (21-32) mmol/L POC Total CO2 (24-31) mmol/L Anion Gap (3-11) POC Anion Gap (16-25) mmol/L POC BUN (7-18) mg/dl BUN (7-18) mg/dl Creatinine (0.6-1.2) mg/dl POC Creatinine (0.6-1.3) mg/dl Est Cr Clr Drug Dosing ml/min Est GFR ( Amer) ml/min Est GFR (Non-Af Amer) ml/min BUN/Creatinine Ratio (10-20) Glucose (70-99) mg/dl POC Glucose (70-99) mg/dl POC Glucose (other) (70-99) mg/dl Lactate 2.0 (0.4-2.0) mmol/L Calcium (8.5-10.1) mg/dl POC Ioniz Calcium Tawana (1.12-1.32) mmol/l Magnesium (1.8-2.4) mg/dl Total Bilirubin (0.2-1) mg/dl Direct Bilirubin (0-0.2) mg/dl AST (15-37) U/L ALT (12-78) Alkaline Phosphatase (45-117) U/L Total Creatine Kinase (26-192) U/L Troponin I (0-0.045) ng/ml Total Protein (6.4-8.2) gm/dl Albumin (3.4-5.0) gm/dl Lipase (73-393) U/L Urine Color Yellow Urine Appearance Clear (Clear) Urine pH 6.0 (4.5-7.5) Ur Specific Brownfield > 1.045 H (1.000-1.030) Urine Protein Trace H (Negative) Urine Glucose (UA) Negative (Negative) Urine Ketones Negative (Negative) Urine Blood Negative (Negative) Urine Nitrite Negative (Negative) Urine Bilirubin Negative (Negative) Urine Urobilinogen Negative (Negative) Ur Leukocyte Esterase Negative (Negative) Urine WBC (Auto) 1-5 (0-5) /hpf Urine RBC (Auto) 0-4 (0-4) /hpf U Hyaline Cast (Auto) 0 (0-5) /lpf U Epithel Cells (Auto) 10-20 H (0-5) /lpf Urine Bacteria (Auto) Negative (Negative) SARS-CoV-2 (PCR) (Negative) Influenza Type A (PCR) (Neg) Influenza Type B (PCR) (Neg) RSV (RT-PCR) (Neg) 02/14/21 02/14/21 02/14/21 Range/Units 17:24 17:13 17:13 WBC (4.8-10.8) K/uL RBC (4.2-5.4) M/uL Hgb (12.0-16.0) g/dL POC Hgb (12.0-16.0) g/dl Hct (37-47) % POC Hct (37-47) % MCV (80-100) fL MCH (25-34) pg MCHC (32-36) g/dL RDW Std Deviation (36.4-46.3) fL RDW Coeff of Esvin (11.5-14.5) % Plt Count (130-400) K/uL MPV (7.4-10.4) fL Immature Gran % (Auto) % Neut % (Auto) % Lymph % (Auto) % Lynn % (Auto) % Eos % (Auto) % Baso % (Auto) % Neut # (Auto) (1.4-6.5) K/uL Lymph # (Auto) (1.2-3.4) K/uL Lynn # (Auto) (0.11-0.59) K/uL Eos # (Auto) (0-0.5) K/uL Baso # (Auto) (0-0.2) K/uL Immature Gran # (Auto) (0.00-0.02) K/uL PT (9.0-12.0) Seconds INR (0.9-1.1) APTT (21.0-31.0) Seconds PTT Ratio ABG pH (7.35-7.45) ABG pCO2 (35-46) mmHg ABG pO2 (80-95) mmHg ABG HCO3 (19-24) mmol/L ABG O2 Saturation (90-95) % ABG Base Excess (-9-1.8) mEq/L Ralph Test (Pos) VBG pH 7.21 L (7.36-7.41) VBG pCO2 66 H (38-50) mmHg VBG pO2 30 mmHg VBG HCO3 26 mmol/L VBG O2 Saturation < 60.0 % VBG Base Excess -2.9 mEq/L Barometric Pressure 729.2 mm/Hg Oxygen Given POC Sodium (135-144) mmol/L Sodium (136-145) mmol/L POC Potassium (3.3-5.0) mmol/L Potassium (3.5-5.1) mmol/L POC Chloride (101-112) mmol/L Chloride (98-107) mmol/L Carbon Dioxide (21-32) mmol/L POC Total CO2 (24-31) mmol/L Anion Gap (3-11) POC Anion Gap (16-25) mmol/L POC BUN (7-18) mg/dl BUN (7-18) mg/dl Creatinine (0.6-1.2) mg/dl POC Creatinine (0.6-1.3) mg/dl Est Cr Clr Drug Dosing ml/min Est GFR ( Amer) ml/min Est GFR (Non-Af Amer) ml/min BUN/Creatinine Ratio (10-20) Glucose (70-99) mg/dl POC Glucose (70-99) mg/dl POC Glucose (other) (70-99) mg/dl Lactate 3.1 H* (0.4-2.0) mmol/L Calcium (8.5-10.1) mg/dl POC Ioniz Calcium Tawana (1.12-1.32) mmol/l Magnesium (1.8-2.4) mg/dl Total Bilirubin (0.2-1) mg/dl Direct Bilirubin (0-0.2) mg/dl AST (15-37) U/L ALT (12-78) Alkaline Phosphatase (45-117) U/L Total Creatine Kinase (26-192) U/L Troponin I (0-0.045) ng/ml Total Protein (6.4-8.2) gm/dl Albumin (3.4-5.0) gm/dl Lipase (73-393) U/L Urine Color Urine Appearance (Clear) Urine pH (4.5-7.5) Ur Specific [place] (1.000-1.030) Urine Protein (Negative) Urine Glucose (UA) (Negative) Urine Ketones (Negative) Urine Blood (Negative) Urine Nitrite (Negative) Urine Bilirubin (Negative) Urine Urobilinogen (Negative) Ur Leukocyte Esterase (Negative) Urine WBC (Auto) (0-5) /hpf Urine RBC (Auto) (0-4) /hpf U Hyaline Cast (Auto) (0-5) /lpf U Epithel Cells (Auto) (0-5) /lpf Urine Bacteria (Auto) (Negative) SARS-CoV-2 (PCR) NEGATIVE (Negative) Influenza Type A (PCR) Negative (Neg) Influenza Type B (PCR) Negative (Neg) RSV (RT-PCR) Negative (Neg) 02/14/21 02/14/21 02/14/21 Range/Units 17:13 17:13 17:13 WBC (4.8-10.8) K/uL RBC (4.2-5.4) M/uL Hgb (12.0-16.0) g/dL POC Hgb (12.0-16.0) g/dl Hct (37-47) % POC Hct (37-47) % MCV (80-100) fL MCH (25-34) pg MCHC (32-36) g/dL RDW Std Deviation (36.4-46.3) fL RDW Coeff of Esvin (11.5-14.5) % Plt Count (130-400) K/uL MPV (7.4-10.4) fL Immature Gran % (Auto) % Neut % (Auto) % Lymph % (Auto) % Lynn % (Auto) % Eos % (Auto) % Baso % (Auto) % Neut # (Auto) (1.4-6.5) K/uL Lymph # (Auto) (1.2-3.4) K/uL Lynn # (Auto) (0.11-0.59) K/uL Eos # (Auto) (0-0.5) K/uL Baso # (Auto) (0-0.2) K/uL Immature Gran # (Auto) (0.00-0.02) K/uL PT 10.8 (9.0-12.0) Seconds INR 1.1 (0.9-1.1) APTT 23.5 (21.0-31.0) Seconds PTT Ratio 0.9 ABG pH (7.35-7.45) ABG pCO2 (35-46) mmHg ABG pO2 (80-95) mmHg ABG HCO3 (19-24) mmol/L ABG O2 Saturation (90-95) % ABG Base Excess (-9-1.8) mEq/L Ralph Test (Pos) VBG pH (7.36-7.41) VBG pCO2 (38-50) mmHg VBG pO2 mmHg VBG HCO3 mmol/L VBG O2 Saturation % VBG Base Excess mEq/L Barometric Pressure mm/Hg Oxygen Given POC Sodium (135-144) mmol/L Sodium 136 (136-145) mmol/L POC Potassium (3.3-5.0) mmol/L Potassium 3.2 L (3.5-5.1) mmol/L POC Chloride (101-112) mmol/L Chloride 99 (98-107) mmol/L Carbon Dioxide 31 (21-32) mmol/L POC Total CO2 (24-31) mmol/L Anion Gap 6.0 (3-11) POC Anion Gap (16-25) mmol/L POC BUN (7-18) mg/dl BUN 18 (7-18) mg/dl Creatinine 1.09 (0.6-1.2) mg/dl POC Creatinine (0.6-1.3) mg/dl Est Cr Clr Drug Dosing 52.1 ml/min Est GFR ( Amer) 55.9 ml/min Est GFR (Non-Af Amer) 48.2 ml/min BUN/Creatinine Ratio 16.4 (10-20) Glucose 241 H (70-99) mg/dl POC Glucose (70-99) mg/dl POC Glucose (other) (70-99) mg/dl Lactate (0.4-2.0) mmol/L Calcium 8.5 (8.5-10.1) mg/dl POC Ioniz Calcium Tawana (1.12-1.32) mmol/l Magnesium 2.0 (1.8-2.4) mg/dl Total Bilirubin 0.6 (0.2-1) mg/dl Direct Bilirubin 0.2 (0-0.2) mg/dl AST 8 L (15-37) U/L ALT 13 (12-78) Alkaline Phosphatase 62 D (45-117) U/L Total Creatine Kinase 35 (26-192) U/L Troponin I < 0.015 (0-0.045) ng/ml Total Protein 6.2 L (6.4-8.2) gm/dl Albumin 2.8 L (3.4-5.0) gm/dl Lipase 66 L (73-393) U/L Urine Color Urine Appearance (Clear) Urine pH (4.5-7.5) Ur Specific [place] (1.000-1.030) Urine Protein (Negative) Urine Glucose (UA) (Negative) Urine Ketones (Negative) Urine Blood (Negative) Urine Nitrite (Negative) Urine Bilirubin (Negative) Urine Urobilinogen (Negative) Ur Leukocyte Esterase (Negative) Urine WBC (Auto) (0-5) /hpf Urine RBC (Auto) (0-4) /hpf U Hyaline Cast (Auto) (0-5) /lpf U Epithel Cells (Auto) (0-5) /lpf Urine Bacteria (Auto) (Negative) SARS-CoV-2 (PCR) (Negative) Influenza Type A (PCR) (Neg) Influenza Type B (PCR) (Neg) RSV (RT-PCR) (Neg) 02/14/21 02/14/21 Range/Units 17:13 16:40 WBC 14.53 H (4.8-10.8) K/uL RBC 4.37 (4.2-5.4) M/uL Hgb 10.5 L (12.0-16.0) g/dL POC Hgb 12.2 (12.0-16.0) g/dl Hct 35.9 L (37-47) % POC Hct 36 L (37-47) % MCV 82.2 (80-100) fL MCH 24.0 L (25-34) pg MCHC 29.2 L (32-36) g/dL RDW Std Deviation 48.4 H (36.4-46.3) fL RDW Coeff of Esvin 16.1 H (11.5-14.5) % Plt Count 363 (130-400) K/uL MPV 8.9 (7.4-10.4) fL Immature Gran % (Auto) 0.1 % Neut % (Auto) 88.4 % Lymph % (Auto) 6.0 % Lynn % (Auto) 5.2 % Eos % (Auto) 0.1 % Baso % (Auto) 0.2 % Neut # (Auto) 12.85 H (1.4-6.5) K/uL Lymph # (Auto) 0.87 L (1.2-3.4) K/uL Lynn # (Auto) 0.75 H (0.11-0.59) K/uL Eos # (Auto) 0.01 (0-0.5) K/uL Baso # (Auto) 0.03 (0-0.2) K/uL Immature Gran # (Auto) 0.02 (0.00-0.02) K/uL PT (9.0-12.0) Seconds INR (0.9-1.1) APTT (21.0-31.0) Seconds PTT Ratio ABG pH (7.35-7.45) ABG pCO2 (35-46) mmHg ABG pO2 (80-95) mmHg ABG HCO3 (19-24) mmol/L ABG O2 Saturation (90-95) % ABG Base Excess (-9-1.8) mEq/L Ralph Test (Pos) VBG pH (7.36-7.41) VBG pCO2 (38-50) mmHg VBG pO2 mmHg VBG HCO3 mmol/L VBG O2 Saturation % VBG Base Excess mEq/L Barometric Pressure mm/Hg Oxygen Given POC Sodium 137 (135-144) mmol/L Sodium (136-145) mmol/L POC Potassium 5.7 H (3.3-5.0) mmol/L Potassium (3.5-5.1) mmol/L POC Chloride 99 L (101-112) mmol/L Chloride (98-107) mmol/L Carbon Dioxide (21-32) mmol/L POC Total CO2 29 (24-31) mmol/L Anion Gap (3-11) POC Anion Gap 16.0 (16-25) mmol/L POC BUN 25 H (7-18) mg/dl BUN (7-18) mg/dl Creatinine (0.6-1.2) mg/dl POC Creatinine 1.0 (0.6-1.3) mg/dl Est Cr Clr Drug Dosing ml/min Est GFR ( Amer) ml/min Est GFR (Non-Af Amer) ml/min BUN/Creatinine Ratio (10-20) Glucose (70-99) mg/dl POC Glucose (70-99) mg/dl POC Glucose (other) 221 H (70-99) mg/dl Lactate (0.4-2.0) mmol/L Calcium (8.5-10.1) mg/dl POC Ioniz Calcium [place]ana 1.13 (1.12-1.32) mmol/l Magnesium (1.8-2.4) mg/dl Total Bilirubin (0.2-1) mg/dl Direct Bilirubin (0-0.2) mg/dl AST (15-37) U/L ALT (12-78) Alkaline Phosphatase (45-117) U/L Total Creatine Kinase (26-192) U/L Troponin I (0-0.045) ng/ml Total Protein (6.4-8.2) gm/dl Albumin (3.4-5.0) gm/dl Lipase (73-393) U/L Urine Color Urine Appearance (Clear) Urine pH (4.5-7.5) Ur Specific [place] (1.000-1.030) Urine Protein (Negative) Urine Glucose (UA) (Negative) Urine Ketones (Negative) Urine Blood (Negative) Urine Nitrite (Negative) Urine Bilirubin (Negative) Urine Urobilinogen (Negative) Ur Leukocyte Esterase (Negative) Urine WBC (Auto) (0-5) /hpf Urine RBC (Auto) (0-4) /hpf U Hyaline Cast (Auto) (0-5) /lpf U Epithel Cells (Auto) (0-5) /lpf Urine Bacteria (Auto) (Negative) SARS-CoV-2 (PCR) (Negative) Influenza Type A (PCR) (Neg) Influenza Type B (PCR) (Neg) RSV (RT-PCR) (Neg)
[2021-02-15] MEDS: LOVASTATIN 20 MG TAB PO SCH (20:48)
[2021-02-15] MEDS ORDERED: MICONAZOLE NITRATE POWDER 43 GM EXT PRN (21:56)
[2021-02-16] MEDS: HEPARIN SOD 5,000 UNIT/0.5 ML VIAL SQ SCH ×3 (05:44→20:40)
[2021-02-16] MEDS: FERROUS SULFATE 325 MG TAB PO SCH (07:51)
[2021-02-16] MEDS: INSULIN GLARGINE SOLOSTAR 100 UNITS/ML 3 ML PEN SC SCH ×2 (07:51→20:39)
[2021-02-16] MEDS: CITALOPRAM 20 MG TAB PO SCH (07:51)
[2021-02-16] MEDS: PANTOprazole 40 MG TAB PO SCH (07:51)
[2021-02-16] MEDS: INSULIN ASPART PER UNIT SC SCH ×4 (07:55→20:31)
[2021-02-16] MEDS: ACETAMINOPHEN 325 MG TAB PO PRN (07:57)
[2021-02-16 08:25] LABS: Hematocrit (blood only) 35.9 % (37-47); Hemoglobin 10.5 g/dL (12.0-16.0); Mean Corpuscular Hemoglobin 24.2 pg (25-34); Mean Corpuscular Hgb Conc 29.2 g/dL (32-36); Mean Corpuscular Volume 82.7 fL (80-100); Mean Platelet Volume 9.2 fL (7.4-10.4); Platelet Count 349 K/uL (130-400); RDW Coefficient of Variation 16.1 % (11.5-14.5); RDW Standard Deviation 49.2 fL (36.4-46.3); Red Blood Count 4.34 M/uL (4.2-5.4); White Blood Count 4.92 K/uL (4.8-10.8)
[2021-02-16 08:51] LABS: BUN Creatinine Ratio 14.8 (10-20); Calcium 8.6 mg/dl (8.5-10.1); Creatinine Clr Calc Pharmacy 86.1 ml/min; Est GFR (African American) 98.9 ml/min; Est GFR (Non-African American) 85.3 ml/min
--- NOTE | 2021-02-16 09:26 | Hospitalist Progress Note ---
Date of Service February 16, 2021 Assessment & Plan (1) Syncope: Plan: Patient is 80 y/o F with PMH DM II, HTN, dyslipidemia, WILLIAM on CPAP with 2 L O2 at bedtime, GERD, iron deficiency anemia, pulmonary HTN, obesity, h/o DVT/PE, depression presented to ER with c/o syncope episode today while urinating on toilet. In ER patient afebrile, P: 104, R: 14, BP: 89/70 up to 115/70 after L NSS. 79% on room air up to 95% on 2 L via nasal cannula. WBC: 14. Lactate: 3.1. Negative troponin. UA not consistent with UTI. Negative COVID-19 PCR. Initial chest x-ray concerning for mediastinal widening/hematoma. CTA chest: No PE, no evidence for mediastinal hematoma, findings related to extensive mediastinal fat. No acute chest disease DDX: orthostatic hypotension, vasovagal syncope, hypoxia, arrhythmia CT Head: no acute findings Monitor on tele - sinus in 80-90s Obtained Echo - technically difficult study due to patient body habitus. Normal LV chamber size with moderate concentric LVH. Normal LV systolic function, EF 55 to 60%. Grade 1 diastolic dysfunction. Poorly visualized valvular structures without significant stenosis or regurg by Doppler. No segmental LV wall motion abnormalities noted. Carotid Doppler - 1. There is no sonographic evidence of hemodynamically significant stenosis in the right or left carotid arterial system. 2. Antegrade flow is shown in the vertebral arteries. Orthostatic vitals -presents in with orthostatics were obtained right admission, patient received IV fluids on admission, with improvement of blood pressure. Orthostatics however were obtained this morning and were normal. Troponin x3 - negative Received Gentle IVF Monitor CBC, BMP (2) Hypoxia: Plan: 79% on room air up to 95% on 2 L via nasal cannula Possible obesity hypoventilation CTA: No PE or infiltrate Supplemental oxygen Continue CPAP with 2 L oxygen at bedtime Patient continues to use 2 liters via nasal cannula 2 step study ordered discharge patient requires 2 L of suppl. O2 continuously Patient will also need PT OT - eval pending (3) Elevated lactic acid level: Plan: Lactate: 3.1 Repeat lactate 2.0 No evidence of pneumonia on CT chest. UA unremarkable. Hypotension Initial BP in ER 89/70 up to 115/76 after 1 L NSS Gentle IVF Hyperkalemia POC K: 5.7. Pt was given calcium gluconate 1GM in ER. Actual lab K: 3.2 Hold potassium supplement and monitor BMP K 3.2 yesterday - cont. to monitor while inpt DM II A1c: 9.2 on 11/27/20 Not on medications Random glucose: 241 Basal bolus insulin per protocol HTN Hold lisinopril, furosemide currently as was hypotensive in ER current BP 105/64 Diastolic dysfunction Echo 07/23/20, EF: 70%, grade 1 diastolic dysfunction Hold furosemide and monitor H/O PE/DVT: completed anticoagulation WILLIAM: CPAP with 2L O2 HS Chronic anemia Hgb: 10.5. At baseline Continue iron Depression: Continue citalopram DVT Prophylaxis: Heparin SQ Full Code as per discussion with pt Follows with Dr Orosco for routine care Admission and Anticipated Discharge Date Admission Date: February 14, 2021 Subjective Patient seen in follow-up of syncope Currently laying in bed, in no acute distress, says she feels okay Denies any fevers chills chest pain shortness of breath dizziness lightheadedness Says she was shortly in the chair, and also at bedside commode, did not experience any dizziness or lightheadedness 2 step study ordered, patient does require 2 L of oxygen continuously, CM aware Will obtain PT OT eval's as well Review of Systems Review of Systems: All systems reviewed & are unremarkable except as noted in Subjective Physical Exam Physical Exam: General: morbidly obese F in NAD Head: normocephalic, atraumatic Eyes: PERRL, EOM's intact, conjunctiva non-injected, anicteric ENT: normal inspection external ears, nose, mucous membranes moist Neck: supple, trachea midline Lungs: diminished lung sounds, currently on 2L oxygen via NC, no respiratory distress CV: RRR, trace pretibial edema Abd: +obese, normal BS, soft, non-tender Ext: no cyanosis, no calf tenderness Neuro: Alert, oriented, answering questions appropriately, speech fluent, no facial asymmetry, moves extremities Skin: warm, dry Results & Data Results & Data ([facility]) Vital Signs (Past 12 Hours) Vital Signs Temp Pulse Pulse Resp BP BP Pulse Ox 02/16/21 09:07 77 02/16/21 07:59 36.9 C 75 20 134/82 98 02/16/21 05:13 36.9 C 86 18 130/72 96 12/26/21 02:00 78 20 95 02/16/21 01:41 88 02/16/21 00:13 37.0 C 78 18 100/62 95 Laboratory Results 02/16/21 02/16/21 02/16/21 Range/Units 09:05 07:45 07:36 WBC (4.8-10.8) K/uL RBC (4.2-5.4) M/uL Hgb (12.0-16.0) g/dL Hct (37-47) % MCV (80-100) fL MCH (25-34) pg MCHC (32-36) g/dL RDW Std Deviation (36.4-46.3) fL RDW Coeff of Esvin (11.5-14.5) % Plt Count (130-400) K/uL MPV (7.4-10.4) fL Sodium 141 (136-145) mmol/L Potassium Pending (3.5-5.1) mmol/L Chloride 105 (98-107) mmol/L Carbon Dioxide 32 (21-32) mmol/L Anion Gap 3.0 (3-11) BUN 9 D (7-18) mg/dl Creatinine 0.63 (0.6-1.2) mg/dl Est Cr Clr Drug Dosing 86.1 ml/min Est GFR ( Amer) 98.9 ml/min Est GFR (Non-Af Amer) 85.3 ml/min BUN/Creatinine Ratio 14.8 (10-20) Glucose 128 H (70-99) mg/dl POC Glucose 132 H (70-99) mg/dl Calcium 8.6 (8.5-10.1) mg/dl Phosphorus 3.0 (2.5-4.9) mg/dl Magnesium Pending (1.8-2.4) mg/dl 02/16/21 02/15/21 02/15/21 Range/Units 07:36 20:53 16:47 WBC 4.92 (4.8-10.8) K/uL RBC 4.34 (4.2-5.4) M/uL Hgb 10.5 L (12.0-16.0) g/dL Hct 35.9 L (37-47) % MCV 82.7 (80-100) fL MCH 24.2 L (25-34) pg MCHC 29.2 L (32-36) g/dL RDW Std Deviation 49.2 H (36.4-46.3) fL RDW Coeff of Esvin 16.1 H (11.5-14.5) % Plt Count 349 (130-400) K/uL MPV 9.2 (7.4-10.4) fL Sodium (136-145) mmol/L Potassium (3.5-5.1) mmol/L Chloride (98-107) mmol/L Carbon Dioxide (21-32) mmol/L Anion Gap (3-11) BUN (7-18) mg/dl Creatinine (0.6-1.2) mg/dl Est Cr Clr Drug Dosing ml/min Est GFR ( Amer) ml/min Est GFR (Non-Af Amer) ml/min BUN/Creatinine Ratio (10-20) Glucose (70-99) mg/dl POC Glucose 115 H 141 H (70-99) mg/dl Calcium (8.5-10.1) mg/dl Phosphorus (2.5-4.9) mg/dl Magnesium (1.8-2.4) mg/dl 02/15/21 Range/Units 11:22 WBC (4.8-10.8) K/uL RBC (4.2-5.4) M/uL Hgb (12.0-16.0) g/dL Hct (37-47) % MCV (80-100) fL MCH (25-34) pg MCHC (32-36) g/dL RDW Std Deviation (36.4-46.3) fL RDW Coeff of Esvin (11.5-14.5) % Plt Count (130-400) K/uL MPV (7.4-10.4) fL Sodium (136-145) mmol/L Potassium (3.5-5.1) mmol/L Chloride (98-107) mmol/L Carbon Dioxide (21-32) mmol/L Anion Gap (3-11) BUN (7-18) mg/dl Creatinine (0.6-1.2) mg/dl Est Cr Clr Drug Dosing ml/min Est GFR ( Amer) ml/min Est GFR (Non-Af Amer) ml/min BUN/Creatinine Ratio (10-20) Glucose (70-99) mg/dl POC Glucose 168 H (70-99) mg/dl Calcium (8.5-10.1) mg/dl Phosphorus (2.5-4.9) mg/dl Magnesium (1.8-2.4) mg/dl Medications Administered Current Inpatient Medications Acetaminophen (Acetaminophen 325 Mg Tab) 650 mg PO Q4H PRN PRN Reason: Pain or Fever Stop: 03/16/21 21:24 Last Admin: 02/16/21 07:57 Dose: 650 mg Documented by: Citalopram Hydrobromide (Citalopram 20 Mg Tab) 30 mg PO QAM [facility] Stop: 03/17/21 08:59 Last Admin: 02/16/21 07:51 Dose: 30 mg Documented by: Dextrose (Dextrose 50% 50 Ml Syringe) 25 - 50 ml IV UD PRN; Protocol PRN Reason: Hypoglycemia Protocol Stop: 03/16/21 21:24 Ferrous Sulfate (Ferrous Sulfate 325 Mg Tab) 325 mg PO [facility] Stop: 03/17/21 08:59 Last Admin: 02/16/21 07:51 Dose: 325 mg Documented by: Glucagon (Glucagon For Inj 1 Mg Vial) 1 mg SQ UD PRN; Protocol PRN Reason: Hypoglycemia Protocol Stop: 03/16/21 21:24 Glucose (Glucose 10 Tabs/Tube) 4 - 8 tabs PO UD PRN; Protocol PRN Reason: Hypoglycemia Protocol Stop: 03/16/21 21:24 Glucose (Glucose 40% Gel 15 Gm Tube) 15 - 30 gm PO UD PRN; Protocol PRN Reason: Hypoglycemia Protocol Stop: 03/16/21 21:24 Heparin Sodium (Porcine) (Heparin Sod 5,000 Unit/0.5 Ml Vial) 5,000 units SQ Q8 [facility] Stop: 03/16/21 21:59 Last Admin: 02/16/21 05:44 Dose: 5,000 units Documented by: Insulin Aspart (Insulin Aspart Per Unit) 0 units SC ACHS [facility] Stop: 03/16/21 21:24 Last Admin: 02/16/21 07:55 Dose: 10 units Documented by: Insulin Glargine (Insulin Glargine Solostar 100 Units/Ml 3 Ml Pen) 0 - 10 units SC BID [facility] Stop: 03/16/21 21:24 Last Admin: 02/16/21 07:51 Dose: 5 units Documented by: Lovastatin (Lovastatin 20 Mg Tab) 20 mg PO HS [facility] Stop: 03/16/21 21:24 Last Admin: 02/15/21 20:48 Dose: 20 mg Documented by: Miconazole Nitrate (Miconazole Nitrate Powder 43 Gm) 1 appln EXT PRN PRN PRN Reason: Affected Skin Folds Stop: 03/17/21 21:55 Last Admin: 02/16/21 07:55 Dose: 1 appln Documented by: Miscellaneous (Carbohydrates For Hypoglycemia ) 15 - 30 gm PO UD PRN PRN Reason: Hypoglycemia Protocol Stop: 03/16/21 21:24 Pantoprazole Sodium (Pantoprazole 40 Mg Tab) 40 mg PO [facility] Stop: 03/17/21 08:59 Last Admin: 02/16/21 07:51 Dose: 40 mg Documented by:
[2021-02-16 09:37] LABS: Potassium 3.7 mmol/L (3.5-5.1)
--- NOTE | 2021-02-16 14:08 | XRay Report ---
XR toe(s) RT min 2V CLINICAL HISTORY: s/p fall injury R great toe. COMPARISON STUDY: No previous studies for comparison. TECHNIQUE: 3 right great toe views FINDINGS: Bones: Bones are osteopenic. There is no evidence for an acute fracture or dislocation. There is no l ytic or blastic lesion. Joints: There is mild to moderate narrowing of the IP joint of the great toe along with the first MTP joint. Secondary degenerative changes are present. The bones are in anatomic alignment. Soft tissues: There is soft tissue swelling of the great toe. There is no radiopaque foreign body. IMPRESSION: No acute osseous pathology. Osteopenia, osteoarthritis and soft tissue swelling. ACT 112: Negative or not required by law. Electronically signed by: Kartik Tidwell M.D. 02/16/2021 2:07 PM
[2021-02-16] MEDS: LIDOCAINE 5% 1 PATCH TD SCH (14:47)
[2021-02-16] MEDS ORDERED: POLYETHYLENE (MIRALAX) 17 GM PACK PO PRN (16:37)
[2021-02-16] MEDS: DICLOFENAC SOD 1% GEL 100 GM TUBE EXT SCH (20:39)
[2021-02-16] MEDS: LOVASTATIN 20 MG TAB PO SCH (20:40)
[2021-02-17] MEDS: HEPARIN SOD 5,000 UNIT/0.5 ML VIAL SQ SCH ×2 (06:01→13:13)
[2021-02-17 07:07] LABS: Hematocrit (blood only) 34.6 % (37-47); Hemoglobin 10.3 g/dL (12.0-16.0); Mean Corpuscular Hemoglobin 24.2 pg (25-34); Mean Corpuscular Hgb Conc 29.8 g/dL (32-36); Mean Corpuscular Volume 81.2 fL (80-100); Mean Platelet Volume 9.1 fL (7.4-10.4); Platelet Count 340 K/uL (130-400); RDW Standard Deviation 47.8 fL (36.4-46.3); Red Blood Count 4.26 M/uL (4.2-5.4); White Blood Count 5.46 K/uL (4.8-10.8)
[2021-02-17 07:44] LABS: BUN Creatinine Ratio 16.5 (10-20); Calcium 8.7 mg/dl (8.5-10.1); Creatinine Clr Calc Pharmacy 84.3 ml/min; Est GFR (African American) 96.9 ml/min; Est GFR (Non-African American) 83.6 ml/min; Magnesium 2.3 mg/dl (1.8-2.4); Potassium 4.1 mmol/L (3.5-5.1)
[2021-02-17 07:45] LABS: Phosphorus 2.6 mg/dl (2.5-4.9)
[2021-02-17] MEDS: INSULIN GLARGINE SOLOSTAR 100 UNITS/ML 3 ML PEN SC SCH (08:28)
[2021-02-17] MEDS: CITALOPRAM 20 MG TAB PO SCH (08:28)
[2021-02-17] MEDS: DICLOFENAC SOD 1% GEL 100 GM TUBE EXT SCH (08:28)
[2021-02-17] MEDS: ACETAMINOPHEN 325 MG TAB PO PRN (08:28)
[2021-02-17] MEDS: PANTOprazole 40 MG TAB PO SCH (08:28)
[2021-02-17] MEDS: LIDOCAINE 5% 1 PATCH TD SCH (08:29)
[2021-02-17] MEDS: INSULIN ASPART PER UNIT SC SCH ×3 (08:37→17:31)
--- NOTE | 2021-02-17 09:50 | Hospitalist Progress Note ---
Date of Service February 17, 2021 Assessment & Plan (1) Syncope: Plan: Hypotensionin setting of dehydration and diuretic therapy causing syncope treated and resolved with IVF's Chronic diastolic CHF Dehydration Chronic hypoxia in the setting of morbid obesity, likely secondary to obesity hypoventilation syndrome Patient is 80 y/o F with PMH DM II, HTN, dyslipidemia, WILLIAM on CPAP with 2 L O2 at bedtime, GERD, iron deficiency anemia, pulmonary HTN, obesity, h/o DVT/PE, depression presented to ER with c/o syncope episode today while urinating on toilet. In ER patient afebrile, P: 104, R: 14, BP: 89/70 up to 115/70 after L NSS. 79% on room air up to 95% on 2 L via nasal cannula. WBC: 14. Lactate: 3.1. Negative troponin. UA not consistent with UTI. Negative COVID-19 PCR. Initial chest x-ray concerning for mediastinal widening/hematoma. CTA chest: No PE, no evidence for mediastinal hematoma, findings related to extensive mediastinal fat. No acute chest disease DDX: orthostatic hypotension, vasovagal syncope, hypoxia, arrhythmia CT Head: no acute findings Monitor on tele - sinus in 80-90s Obtained Echo - technically difficult study due to patient body habitus. Normal LV chamber size with moderate concentric LVH. Normal LV systolic function, EF 55 to 60%. Grade 1 diastolic dysfunction. Poorly visualized valvular structures without significant stenosis or regurg by Doppler. No segmental LV wall motion abnormalities noted. Carotid Doppler - 1. There is no sonographic evidence of hemodynamically significant stenosis in the right or left carotid arterial system. 2. Antegrade flow is shown in the vertebral arteries. Orthostatic vitals -presents in with orthostatics were obtained right admission, patient received IV fluids on admission, with improvement of blood pressure. Orthostatics however were obtained this morning and were normal. Troponin x3 - negative Received Gentle IVF Monitor CBC, BMP (2) Hypoxia: Plan: 79% on room air up to 95% on 2 L via nasal cannula Possible obesity hypoventilation CTA: No PE or infiltrate Supplemental oxygen Continue CPAP with 2 L oxygen at bedtime Patient continues to use 2 liters via nasal cannula 2 step study ordered - patient requires 2 L of suppl. O2 continuously Patient will also need PT OT -recommends to return home (3) Elevated lactic acid level: Plan: Lactate: 3.1 Repeat lactate 2.0 No evidence of pneumonia on CT chest. UA unremarkable. Hypotension Initial BP in ER 89/70 up to 115/76 after 1 L NSS Gentle IVF BP now improved, recommend to monitor as outpatient. Recommend to discharge on the on lisinopril and patient was advised to hold furosemide for now until seen by primary care doctor. Hyperkalemia POC K: 5.7. Pt was given calcium gluconate 1GM in ER. Actual lab K: 3.2 Hold potassium supplement and monitor BMP K 3.2 yesterday, 4.1 today - cont. to monitor while inpt -Check potassium level as outpatient DM II A1c: 9.2 on 11/27/20 Not on medications Random glucose: 241 Basal bolus insulin per protocol HTN Hold lisinopril, furosemide currently as was hypotensive in ER current BP 112/69 -Recommend to resume lisinopril on discharge, however hold furosemide until seen by PCP Diastolic dysfunction Echo 07/23/20, EF: 70%, grade 1 diastolic dysfunction Hold furosemide and monitor H/O PE/DVT: completed anticoagulation WILLIAM: CPAP with 2L O2 HS Chronic anemia Hgb: 10.5. At baseline Continue iron Depression: Continue citalopram DVT Prophylaxis: Heparin SQ Full Code as per discussion with pt Follows with Dr Orosco for routine care Admission and Anticipated Discharge Date Admission Date: February 14, 2021 Subjective Patient seen in follow-up of syncope Currently laying in bed, in no acute distress, says she feels well and is inquiring about going home Denies any fevers chills chest pain shortness of breath dizziness lightheadedness 2 step study ordered, patient does require 2 L of oxygen continuously, CM aware PT OT recommends return home Review of Systems Review of Systems: All systems reviewed & are unremarkable except as noted in Subjective Physical Exam Physical Exam: General: morbidly obese F in NAD Head: normocephalic, atraumatic Eyes: PERRL, EOM's intact, conjunctiva non-injected, anicteric ENT: normal inspection external ears, nose, mucous membranes moist Neck: supple, trachea midline Lungs: diminished lung sounds, currently on 2L oxygen via NC, no respiratory distress CV: RRR, trace pretibial edema Abd: +obese, normal BS, soft, non-tender Ext: no cyanosis, no calf tenderness Neuro: Alert, oriented, answering questions appropriately, speech fluent, no facial asymmetry, moves extremities Skin: warm, dry Results & Data Results & Data ([facility]) Vital Signs (Past 12 Hours) Vital Signs Temp Pulse Pulse Resp BP BP Pulse Ox 02/17/21 07:36 36.7 C 85 24 112/69 94 02/17/21 03:24 36.3 C L 80 20 100/65 93 02/17/21 03:03 81 24 95 02/16/21 23:38 77 02/16/21 23:22 36.5 C 80 22 103/68 92 02/16/21 22:05 80 20 95 Laboratory Results 02/17/21 02/17/21 02/17/21 Range/Units 07:58 06:23 06:23 WBC 5.46 (4.8-10.8) K/uL RBC 4.26 (4.2-5.4) M/uL Hgb 10.3 L (12.0-16.0) g/dL Hct 34.6 L (37-47) % MCV 81.2 (80-100) fL MCH 24.2 L (25-34) pg MCHC 29.8 L (32-36) g/dL RDW Std Deviation 47.8 H (36.4-46.3) fL RDW Coeff of Esvin 16.0 H (11.5-14.5) % Plt Count 340 (130-400) K/uL MPV 9.1 (7.4-10.4) fL Sodium 141 (136-145) mmol/L Potassium 4.1 (3.5-5.1) mmol/L Chloride 104 (98-107) mmol/L Carbon Dioxide 31 (21-32) mmol/L Anion Gap 6.0 (3-11) BUN 11 (7-18) mg/dl Creatinine 0.67 (0.6-1.2) mg/dl Est Cr Clr Drug Dosing 84.3 ml/min Est GFR ( Amer) 96.9 ml/min Est GFR (Non-Af Amer) 83.6 ml/min BUN/Creatinine Ratio 16.5 (10-20) Glucose 133 H (70-99) mg/dl POC Glucose 144 H (70-99) mg/dl Calcium 8.7 (8.5-10.1) mg/dl Phosphorus 2.6 (2.5-4.9) mg/dl Magnesium 2.3 (1.8-2.4) mg/dl 02/16/21 02/16/21 02/16/21 Range/Units 20:21 16:46 11:45 WBC (4.8-10.8) K/uL RBC (4.2-5.4) M/uL Hgb (12.0-16.0) g/dL Hct (37-47) % MCV (80-100) fL MCH (25-34) pg MCHC (32-36) g/dL RDW Std Deviation (36.4-46.3) fL RDW Coeff of Esvin (11.5-14.5) % Plt Count (130-400) K/uL MPV (7.4-10.4) fL Sodium (136-145) mmol/L Potassium (3.5-5.1) mmol/L Chloride (98-107) mmol/L Carbon Dioxide (21-32) mmol/L Anion Gap (3-11) BUN (7-18) mg/dl Creatinine (0.6-1.2) mg/dl Est Cr Clr Drug Dosing ml/min Est GFR ( Amer) ml/min Est GFR (Non-Af Amer) ml/min BUN/Creatinine Ratio (10-20) Glucose (70-99) mg/dl POC Glucose 127 H 109 H 153 H (70-99) mg/dl Calcium (8.5-10.1) mg/dl Phosphorus (2.5-4.9) mg/dl Magnesium (1.8-2.4) mg/dl Medications Administered Current Inpatient Medications Acetaminophen (Acetaminophen 325 Mg Tab) 650 mg PO Q4H PRN PRN Reason: Pain or Fever Stop: 03/16/21 21:24 Last Admin: 02/17/21 08:28 Dose: 650 mg Documented by: Citalopram Hydrobromide (Citalopram 20 Mg Tab) 30 mg PO QAM [facility] Stop: 03/17/21 08:59 Last Admin: 02/17/21 08:28 Dose: 30 mg Documented by: Dextrose (Dextrose 50% 50 Ml Syringe) 25 - 50 ml IV UD PRN; Protocol PRN Reason: Hypoglycemia Protocol Stop: 03/16/21 21:24 Diclofenac Sodium (Diclofenac Sod 1% Gel 100 Gm Tube) 2 gm EXT BID [facility] Stop: 03/18/21 20:59 Last Admin: 02/17/21 08:28 Dose: 2 gm Documented by: Ferrous Sulfate (Ferrous Sulfate 325 Mg Tab) 325 mg PO QAM [facility] Stop: 03/17/21 08:59 Last Admin: 02/16/21 07:51 Dose: 325 mg Documented by: Glucagon (Glucagon For Inj 1 Mg Vial) 1 mg SQ UD PRN; Protocol PRN Reason: Hypoglycemia Protocol Stop: 03/16/21 21:24 Glucose (Glucose 10 Tabs/Tube) 4 - 8 tabs PO UD PRN; Protocol PRN Reason: Hypoglycemia Protocol Stop: 03/16/21 21:24 Glucose (Glucose 40% Gel 15 Gm Tube) 15 - 30 gm PO UD PRN; Protocol PRN Reason: Hypoglycemia Protocol Stop: 03/16/21 21:24 Heparin Sodium (Porcine) (Heparin Sod 5,000 Unit/0.5 Ml Vial) 5,000 units SQ Q8 [facility] Stop: 03/16/21 21:59 Last Admin: 02/17/21 06:01 Dose: 5,000 units Documented by: Insulin Aspart (Insulin Aspart Per Unit) 0 units SC ACHS [facility] Stop: 03/16/21 21:24 Last Admin: 02/17/21 08:37 Dose: 9 units Documented by: Insulin Glargine (Insulin Glargine Solostar 100 Units/Ml 3 Ml Pen) 0 - 10 units SC BID [facility] Stop: 03/16/21 21:24 Last Admin: 02/17/21 08:28 Dose: 5 units Documented by: Lidocaine (Lidocaine 5% 1 Patch) [facility] Stop: 03/18/21 13:44 Last Admin: 02/17/21 08:29 Dose: 1 patch Documented by: Lovastatin (Lovastatin 20 Mg Tab) 20 mg PO HS [facility] Stop: 03/16/21 21:24 Last Admin: 02/16/21 20:40 Dose: 20 mg Documented by: Miconazole Nitrate (Miconazole Nitrate Powder 43 Gm) 1 appln EXT PRN PRN PRN Reason: Affected Skin Folds Stop: 03/17/21 21:55 Last Admin: 02/16/21 07:55 Dose: 1 appln Documented by: Miscellaneous (Carbohydrates For Hypoglycemia ) 15 - 30 gm PO UD PRN PRN Reason: Hypoglycemia Protocol Stop: 03/16/21 21:24 Miscellaneous (Remove Lidoderm Patch) 1 ea N/A DAILY@2100 [facility] Stop: 03/18/21 20:59 Last Admin: 02/16/21 20:42 Dose: 1 ea Documented by: Pantoprazole Sodium (Pantoprazole 40 Mg Tab) 40 mg PO QAM [facility] Stop: 03/17/21 08:59 Last Admin: 02/17/21 08:28 Dose: 40 mg Documented by: Polyethylene Glycol (Polyethylene (Miralax) 17 Gm Pack) 17 gm PO DAILY PRN PRN Reason: Constipation Stop: 03/18/21 16:36 Last Admin: 02/16/21 16:46 Dose: 17 gm Documented by:
--- NOTE | 2021-02-17 10:37 | Discharge Summary ---
Date of Service February 17, 2021 Admission HPI Per Admitting Provider Patient is 80 y/o F with PMH DM II, HTN, dyslipidemia, WILLIAM on CPAP with 2 L O2 at bedtime, GERD, iron deficiency anemia, pulmonary HTN, obesity, h/o DVT/PE, depression presented to ER with c/o syncope. Patient states today she was at her grandsons for holiday meal. She reports that she felt like she had to urinate so she went to the bathroom and was sitting on toilet and next thing she knows she was on floor and EMS was there. Patient denies any noted dizziness, chest pain, shortness of breath. She states she was feeling "fine" all day and recently. Denies fever/chills, diaphoresis, N/V/D/C, ZHENG, dizziness, vision changes, neck pain, CP, SOB, orthopnea, palpitations, cough, sore throat, choking, otalgia, rhinorrhea, abdominal pain, paresthesias, weakness, extremity weakness, extremity edema, rashes, urinary symptoms. In ER patient afebrile, P: 104, R: 14, BP: 89/70 up to 115/76 after 1L NSS. 79% on room air up to 95% on 2 L via nasal cannula. WBC: 14. Lactate: 3.1. Negative troponin. UA not consistent with UTI. Negative COVID-19 PCR. Initial chest x-ray concerning for mediastinal widening/hematoma. CTA chest: No PE, no evidence for mediastinal hematoma, findings related to extensive mediastinal fat. No acute chest disease Admission Exam Per Admitting Provider General: no acute distress, obese Head: normocephalic, atraumatic Eyes: PERRL, EOM's intact, conjunctiva non-injected, anicteric ENT: normal inspection external ears, nose, mucous membranes moist Neck: supple, trachea midline Lungs: diminished lung sounds, currently on 2L oxygen via NC, no respiratory distress CV: RRR, trace pretibial edema Abd: +obese, normal BS, soft, non-tender Ext: no cyanosis, no calf tenderness Neuro: Alert, oriented to person, place, month, day. Says year is 2019. no focal deficits noted, normal affect Skin: warm, dry Principal Diagnosis Syncopal episode, possibly vasovagal, secondary to dehydration, chronic hypoxia in the setting of morbid obesity Discharge Exam General: morbidly obese F in NAD Head: normocephalic, atraumatic Eyes: PERRL, EOM's intact, conjunctiva non-injected, anicteric ENT: normal inspection external ears, nose, mucous membranes moist Neck: supple, trachea midline Lungs: diminished lung sounds, currently on 2L oxygen via NC, no respiratory distress CV: RRR, trace pretibial edema Abd: +obese, normal BS, soft, non-tender Ext: no cyanosis, no calf tenderness Neuro: Alert, oriented, answering questions appropriately, speech fluent, no facial asymmetry, moves extremities Skin: warm, dry Discharge Data Allergies Allergy/AdvReac Type Severity Reaction Status Date / Time No Known Allergies Allergy Verified 02/14/21 16:00 Consultations 02/14/21 18:15 ED Decision to Admit Stat Ordered Studies 02/14/21 16:14 CT abd pelvis IV con only Stat IMPRESSION: 1. No acute intra-abdominal or pelvic abnormality. No significant interval change. 2. Moderate-sized hiatal hernia. 3. Mild diverticulosis without evidence for diverticulitis. 4. Additional nonacute findings are delineated above. CT angio chest PE protocol Stat Impression: 1. No CTA evidence for pulmonary embolus. 2. Normal thoracic aorta. 3. No evidence for mediastinal hematoma is suspected radiographically. Findings relate to extensive mediastinal fat. 4. No acute chest disease. CT cervical spine wo con Stat IMPRESSION: The study is limited by patient motion artifact. There is no evidence for acute abnormality identified. Osteopenia with degenerative disc and degenerative joint disease. CT head/brain wo con Stat IMPRESSION: No acute intracerebral pathology. 02/15/21 20:14 US carotid doppler BI Routine IMPRESSION: 1. There is no sonographic evidence of hemodynamically significant stenosis in the right or left carotid arterial system. 2. Antegrade flow is shown in the vertebral arteries. Hospital Course (1) Syncope: Hypotensionin setting of dehydration and diuretic therapy causing syncope treated and resolved with IVF's Chronic diastolic CHF Dehydration Chronic hypoxia in the setting of morbid obesity, likely secondary to obesity hypoventilation syndrome Patient is 80 y/o F with PMH DM II, HTN, dyslipidemia, WILLIAM on CPAP with 2 L O2 at bedtime, GERD, iron deficiency anemia, pulmonary HTN, obesity, h/o DVT/PE, depression presented to ER with c/o syncope episode today while urinating on toilet. In ER patient afebrile, P: 104, R: 14, BP: 89/70 up to 115/70 after L NSS. 79% on room air up to 95% on 2 L via nasal cannula. WBC: 14. Lactate: 3.1. Negative troponin. UA not consistent with UTI. Negative COVID-19 PCR. Initial chest x-ray concerning for mediastinal widening/hematoma. CTA chest: No PE, no evidence for mediastinal hematoma, findings related to extensive mediastinal fat. No acute chest disease DDX: orthostatic hypotension, vasovagal syncope, hypoxia, arrhythmia CT Head: no acute findings Monitor on tele - sinus in 80-90s Obtained Echo - technically difficult study due to patient body habitus. Normal LV chamber size with moderate concentric LVH. Normal LV systolic function, EF 55 to 60%. Grade 1 diastolic dysfunction. Poorly visualized valvular structures without significant stenosis or regurg by Doppler. No segmental LV wall motion abnormalities noted. Carotid Doppler - 1. There is no sonographic evidence of hemodynamically significant stenosis in the right or left carotid arterial system. 2. Antegrade flow is shown in the vertebral arteries. Orthostatic vitals -presents in with orthostatics were obtained right admission, patient received IV fluids on admission, with improvement of blood pressure. Orthostatics however were obtained this morning and were normal. Troponin x3 - negative Received Gentle IVF Monitor CBC, BMP (2) Hypoxia: 79% on room air up to 95% on 2 L via nasal cannula Possible obesity hypoventilation CTA: No PE or infiltrate Supplemental oxygen Continue CPAP with 2 L oxygen at bedtime Patient continues to use 2 liters via nasal cannula 2 step study ordered - patient requires 2 L of suppl. O2 continuously Patient will also need PT OT -recommends to return home (3) Elevated lactic acid level: Lactate: 3.1 Repeat lactate 2.0 No evidence of pneumonia on CT chest. UA unremarkable. Hypotension Initial BP in ER 89/70 up to 115/76 after 1 L NSS Gentle IVF BP now improved, recommend to monitor as outpatient. Recommend to discharge on the on lisinopril and patient was advised to hold furosemide for now until seen by primary care doctor. Hyperkalemia POC K: 5.7. Pt was given calcium gluconate 1GM in ER. Actual lab K: 3.2 Hold potassium supplement and monitor BMP K 3.2 yesterday, 4.1 today - cont. to monitor while inpt -Check potassium level as outpatient DM II A1c: 9.2 on 11/27/20 Not on medications Random glucose: 241 Basal bolus insulin per protocol HTN Hold lisinopril, furosemide currently as was hypotensive in ER current BP 112/69 -Recommend to resume lisinopril on discharge, however hold furosemide until seen by PCP Diastolic dysfunction Echo 07/23/20, EF: 70%, grade 1 diastolic dysfunction Hold furosemide and monitor H/O PE/DVT: completed anticoagulation WILLIAM: CPAP with 2L O2 HS Chronic anemia Hgb: 10.5. At baseline Continue iron Depression: Continue citalopram Follows with Dr Orosco for routine care Total Time Total Time Spent Total Time Spent (In Minutes): 40 Discharge Plan Discharge Items Patient Disposition: Home - Self-Care Reason For Visit: Syncope Discharge Diagnosis: Syncopal episode, possibly vasovagal, secondary to dehydration, chronic hypoxia in the setting of morbid obesity Activity: Per Instructions section Non-emergency contact: Primary Care Provider Call non-emergency contact if: you have any medication questions and your symptoms worsen Follow-up/Referrals: Jessica Orosco DO [Primary Care Provider] - Diet: Carb Consistent or DM2 and Heart Healthy Addtl Attending Provider Instructions: Follow up with the primary care doctor, within 1 to 2 weeks. Use supplemental oxygen, 2 L continuously. If you can, monitor your blood pressure at home, and record these numbers. Discuss these numbers with your primary care provider. It appears that you were dehydrated when you came to the hospital, and your blood pressure has been on the lower side. Your water pills - Lasix and lisinopril were held while in the hospital. Restart taking lisinopril tomorrow, however do not take furosemide/Lasix for now. Discuss further with your primary care doctor if/when you should restart this medication. For your lower back pain and hip pain, you can continue using lidocaine patches. These can be found [id number], often under the name Salonpas. Lidocaine patches will not make you drowsy or sleepy. Pending Studies at Discharge: No Stand-Alone Forms: My [employer], Smoking Cessation Medications and DC Order Prescriptions: New lidocaine 5 % Adhesive Patch,Medicated 1 patch transdermal QAM Qty: 15 RF: 0 Continued multivitamin Tablet 1 tab PO QAM RF: 0 ascorbic acid (vitamin C) [Vitamin C] 1,000 mg Tablet 1,000 mg PO QAM RF: 0 riboflavin (vitamin B2) [Vitamin B-2] 100 mg Tablet 100 mg PO QAM RF: 0 citalopram 20 mg Tablet 30 mg PO QAM RF: 0 lisinopril 10 mg Tablet 10 mg PO QAM RF: 0 omeprazole 20 mg Capsule,Delayed Release(Dr/Ec) 20 mg PO QAM RF: 0 cinnamon bark [Cinnamon] 500 mg Capsule 500 mg PO QAM RF: 0 cholecalciferol (vitamin D3) [Vitamin D3] 1,000 unit Tablet 1,000 unit PO QAM RF: 0 ferrous sulfate 27 mg iron Tablet 27 mg PO QAM RF: 0 lovastatin 20 mg Tablet 20 mg PO HS RF: 0 hydrocodone-acetaminophen 5-325 mg tablet 1 tab PO Q6H PRN (Reason: Pain) RF: 0 Discontinued furosemide [Lasix] 40 mg Tablet 60 mg PO QAM RF: 0 potassium chloride 20 mEq Tablet Extended Release 20 meq PO QAM RF: 0 Discharge Orders: Discharge Order (Routine); Ordered 02/17/21 Ordered By: Julio C Dasilva Admission Data Admit Date/Time: 02/14/21 18:48 Attending Provider: Julio C Dasilva Admit Provider: Julio C Dasilva Primary Care Provider: Jessica Orosco Other Providers: Julio C Dasilva
== END 2021-02-17 18:16 | disposition home or self-care (01) | DRG 312 ==
LOC: ED 15:18 → 2N 18:48